=== PATIENT | female | born 1965 | race Caucasian/White ===

== ENCOUNTER → 2017-12-29 08:29 | Outpatient (CLI) | payer OTHER, SELFPAY ==
--- NOTE | 2017-12-29 08:33 | US_ITS ---
US abdomen limited History:Nausea, right upper quadrant pain, bloating Ordering Physician:Bella Goldstein MD Patient Age: 52 years Comparison:10/15/2011 Findings: Pancreas:Unremarkable. No obvious mass or abnormal fluid collection. No ductal dilatation Liver:No focal liver lesions demonstrated. Homogeneous echogenicity. No intrahepatic biliary ductal dilatation evident Right Kidney:Unremarkable. Normal size measuring 9.7 x 4.2 x 6.1 cm and appearing normal sonographically.. No hydronephrosis Gallbladder:The gallbladder is somewhat small and contains a small amount biliary sludge but no definite gallstones. There are no findings to suggest acute cholecystitis. The common bile duct is normal in caliber.. Impression:Small amount biliary sludge no other significant abnormality noted
== END ==
PROVIDERS: Family Provider Family Medicine; PCP Family Medicine; Visit Provider Emergency Medicine
DX: R10.11 Right upper quadrant pain (principal); R19.8 Other specified symptoms and signs involving the digestive system and abdomen; E66.9 Obesity, unspecified
CPT/HCPCS: 76705

== ENCOUNTER → 2018-01-12 10:20 | Outpatient (CLI) | payer OTHER, SELFPAY ==
--- NOTE | 2018-01-12 10:28 | NM_ITS ---
NM hepatobiliary wo pharm HISTORY: Right upper quadrant pain with nausea ITS.REASON: RUQ ABDOMINAL PAIN ORDERING PHYSICIAN: Bella Goldstein MD PATIENT AGE: 52 years COMPARISON: None DOSE: 8.38 MCI TC Choletec Fatty Meal Ensure FINDINGS: Homogeneous activity is present within the hepatic parenchyma. Activity is present in the gallbladder by 20 minutes. Activity is present in the small bowel by 10 minutes. The gallbladder ejection fraction is calculated to be 88% The patient did not report pain or other symptoms during the fatty meal. IMPRESSION: Unremarkable hepatobiliary scan and gallbladder ejection fraction. No evidence of common or cystic duct obstruction with normal gallbladder ejection fraction
--- NOTE | 2018-01-12 10:37 | HMH.ITSHM ---
RAMIPIL THYROID MED CHOLESTEROL MED ASA
== END ==
PROVIDERS: Family Provider Family Medicine; PCP Family Medicine; Visit Provider Emergency Medicine
DX: R10.11 Right upper quadrant pain (principal)
CPT/HCPCS: 78226; A9537

== ENCOUNTER → 2018-01-22 09:21 | Outpatient (CLI) | payer OTHER, SELFPAY ==
--- NOTE | 2018-01-22 09:24 | MM_ITS ---
MM Dig screening mamm BI w/CAD ORDERING PHYSICIAN : Bella Goldstein MD PATIENT AGE: 52 years GENDER: Female COMPARISON: October 2015, September 2012 bilateral digital mammogram INDICATION: ITS.REASON: SCREENING. No hormones. No new complaints. Noncontributory family history. TECHNIQUE: Standard CC and MLO images were obtained. R2 CAD reviewed. FINDINGS: Low-density breast bilaterally with no dominant mass nor suspicious calcifications in either breast. CAD review highlights no areas of concern either. There is been no significant change since prior study noted but. IMPRESSION: Patient stable bilateral mammogram. Low-density breast. Bilateral follow-up in one year recommended. BI-RADS Category: 1 Negative RECOMMENDED FOLLOW-UP: 1YR 1 YEAR FOLLOW-UP (A letter has been sent to the patient regarding results of the study.)
== END ==
PROVIDERS: Family Provider Family Medicine; PCP Family Medicine; Visit Provider Emergency Medicine
DX: Z12.31 Encounter for screening mammogram for malignant neoplasm of breast (principal)
CPT/HCPCS: 77067

== ENCOUNTER 2018-11-29 14:22 | Emergency (ER) | payer OTHER, SELFPAY ==
[2018-11-29 14:38] VITALS: BP 149/88; PULSE 79; RESP 19; TEMP 36.6; O2SAT 97; BMI 69.7
[2018-11-29 14:48] VITALS: BP 149/88; PULSE 79; RESP 19; TEMP 36.6; O2SAT 97
== END 2018-11-29 14:50 | disposition home or self-care (01) ==
LOC: UTC 14:25
PROVIDERS: Emergency Provider Nurse Practitioner; PCP Family Medicine
DX: Z23 Encounter for immunization (principal)
CPT/HCPCS: 90471; 90632; 99201

== ENCOUNTER → 2019-02-04 14:12 | Outpatient (CLI) | payer OTHER, SELFPAY ==
--- NOTE | 2019-02-04 14:20 | XR_ITS ---
PROCEDURE: XR CHEST 2V CLINICAL HISTORY: COPD Productive cough and congestion COMPARISON: No exams were available for comparison FINDINGS: The cardiomediastinal silhouette and pulmonary vascularity are within normal limits. There are scattered nodular densities in the left lower lobe felt to be due to granulomas. No lobar consolidation or collapse. No acute bony abnormalities. IMPRESSION: No acute findings. Dictated by: German Pepe MD 02/04/2019 15:58 Signed by: <Electronically signed by German Pepe MD in [facility]> 02/04/2019 15:58
== END ==
PROVIDERS: PCP Emergency Medicine; Visit Provider Emergency Medicine
DX: J44.1 Chronic obstructive pulmonary disease with (acute) exacerbation (principal)
CPT/HCPCS: 71046

== ENCOUNTER → 2019-11-02 15:04 | Outpatient (CLI) | payer OTHER, SELFPAY ==
--- NOTE | 2019-11-02 15:08 | CT_ITS ---
PROCEDURE: CT SINUS WO CON CLINICAL HISTORY: H/O OF PALSY,SINUS PAIN Recurrence sinus/ear infection, right-sided facial and frontal pain with headache COMPARISON: No exams were available for comparison TECHNIQUE: Axial images obtained with sagittal and coronal reformats. All CT scans at the facility use one or more dose reduction, viz: automated exposure control, ma/kV adjustment per patient size (including targeted exams where dose is matched to indication, i.e. head), or iterative reconstruction technique. FINDINGS: No significant mucosal thickening of the paranasal sinuses. Small air-fluid levels present in the left aspect of the sphenoid sinus. The ostiomeatal complexes are patent. No significant nasal septal deviation. The temporomandibular joints have an unremarkable appearance as do the orbits. Unremarkable appearing mastoid sinuses. Scattered small lymph nodes are present in the neck. IMPRESSION: 1. There is a small air-fluid level in the left aspect of the sphenoid sinus suggesting underlying inflammatory change. 2. Otherwise negative CT paranasal sinuses Dictated by: German Pepe MD 11/03/2019 11:57 Electronically signed by German Pepe MD in [facility] 11/03/2019 11:57
== END ==
PROVIDERS: PCP Family Medicine; Visit Provider Family Medicine
DX: J34.89 Other specified disorders of nose and nasal sinuses (principal); Z86.69 Personal history of other diseases of the nervous system and sense organs
CPT/HCPCS: 70486

== ENCOUNTER → 2019-11-09 10:18 | Outpatient (CLI) | payer OTHER, SELFPAY ==
--- NOTE | 2019-11-09 10:29 | US_ITS ---
PROCEDURE: US SOFT TISSUE HEAD AND NECK CLINICAL INDICATION: LIPOMA OF HEAD Palpable abnormality in the right quaker region the COMPARISON: No exams were available for comparison FINDINGS: Ultrasound is performed of the palpable abnormality in quaker areas show no obvious sonographic abnormalities. No cysts or nodules evident. IMPRESSION: Unremarkable ultrasound of the right quaker region. If there is indeed a palpable nodule then CT may provide further evaluation. Dictated by: German Pepe MD 11/09/2019 13:20 Electronically signed by German Pepe MD in [facility] 11/09/2019 13:20
== END ==
PROVIDERS: PCP Family Medicine; Visit Provider Family Medicine
DX: D17.0 Benign lipomatous neoplasm of skin and subcutaneous tissue of head, face and neck (principal)
CPT/HCPCS: 76536

== ENCOUNTER → 2020-01-26 11:23 | Outpatient (CLI) | payer OTHER, SELFPAY ==
[2020-01-26 13:21] LABS: Basophils % 0.6 % (0.1-2.0); Eosinophils # 0.2 K/mm3 (0.0-0.4); Eosinophils % 3.9 % (0.1-12.0); Hematocrit 46.3 % (37.0-47.0); Hemoglobin 15.3 g/dL (12.2-16.2); Lymphocytes # 0.6 K/mm3 (0.7-4.5); Lymphocytes % 14.1 % (10-50); Mean Corpuscular HGB Conc 33.1 g/dL (31.8-35.4); Mean Corpuscular Hemoglobin 33.8 pg (27.0-31.2); Mean Corpuscular Volume 102.3 fl (81-99); Mean Platelet Volume 7.2 fl (7.4-10.4); Monocytes # 0.4 K/mm3 (0.1-1.0); Neutrophils # 2.8 K/mm3 (1.8-7.8); Neutrophils % 72.4 % (37.0-80.0); Platelet Count 246 K/mm3 (142-424); Red Blood Count 4.53 M/mm3 (4.20-5.40); Red Cell Distribution Width 13.5 % (11.5-17.5); White Blood Count 3.9 K/mm3 (4.8-10.8)
[2020-01-27 13:59] LABS: Covid-19 Nasal PCR Sendout Lex Not Detected
== END ==
PROVIDERS: PCP Family Medicine; Visit Provider Physician Assistant
DX: Z03.818 Encounter for observation for suspected exposure to other biological agents ruled out (principal)
CPT/HCPCS: 85025; U0004

== ENCOUNTER 2020-05-11 12:40 | Emergency (ER) | payer OTHER, SELFPAY ==
[2020-05-11 12:57] VITALS: BP 156/81; PULSE 76; RESP 18; TEMP 37; O2SAT 98; BMI 31.3
--- NOTE | 2020-05-11 13:09 | HMH.EDUTC ---
[facility] – [place] Disposition Clinical Impression: Otitis media Qualifiers: Otitis media type: suppurative Chronicity: acute Laterality: bilateral Recurrence: non-recurrent Spontaneous tympanic membrane rupture: without spontaneous rupture Qualified Code(s): H66.003 - Acute suppurative otitis media without spontaneous rupture of ear drum, bilateral Disposition: Home, Self-Care Condition on Discharge: Good Instructions: Middle Ear Infection Additional Instructions: Drink plenty of fluids. Take tylenol for pain or fever. Return if you begin to have difficulty breathing. Follow up with your regular doctor. GO TO THE ER FOR ANY WORSENING SYMPTOMS Prescriptions: methylPREDNISolone [Medrol] 4 mg PO DIRECTED 6 Days #21 tab.ds.pk Transmission Status: Received by [id number] Azithromycin [Z-Moe 250mg Tab*] 250 mg PO UD DOSE PK #6 tab Transmission Status: Re[facility] by [id number] Referrals: Jennifer Almendarez MD [Primary Care Provider] - Time of Disposition: 13:11 Medical Decision Making - Medical Records Medical records reviewed: No: I reviewed the patient's medical records. - Juan Inquiry Pt receiving controlled substance: No Vital Signs: 05/11/20 12:57 05/11/20 13:15 Temperature 98.6 F 98.6 F Temperature Source Oral Oral Pulse Rate 76 Pulse Rate [Radial] 76 Respiratory Rate 18 18 Blood Pressure 156/81 H Blood Pressure [Right Arm] 156/81 H Blood Pressure Mean [Right Arm] 106 Blood Pressure Source Automatic Cuff Blood Pressure Source [Right Arm] Automatic Cuff Blood Pressure Position Sitting Blood Pressure Position [Right Arm] Sitting 02 Sat by Pulse Oximetry 98 Oxygen Delivery Method Room Air Room Air [facility] – [place] HPI - General Stated complaint: Ear aches Time Seen by Provider: 05/11/20 13:09 Mode of Arrival: Ambulatory Source of Information: Patient Limitations: No Limitations Description of Symptoms (Recalled from Triage Doc. by RN): bilateral ear pain x 2 days HEENT Symptoms (Recalled from RN notes): Yes Resp Symptoms (Recalled from RN notes): No Skin Symptoms (Recalled from RN notes): No MS Symptoms (Recalled from RN notes): No Functional Status (Recalled from RN notes): wnl - History of Present Illness Provider Complaint: She c/o right ear pain for the past 3 days. - Related Data Home Medications Medication Instructions Recorded Confirmed Amlodipine Besylate [Amlodipine 1 tab PO DAILY 07/14/19 07/14/19 5mg tab] Aspirin [Aspirin 81mg chewable 81 mg PO DAILY 12/19/18 12/19/18 tab] Atorvastatin Calcium [Atorvastatin 40 mg PO DAILY 12/19/18 12/19/18 40mg Tab] Levothyroxine Sodium 88 mcg PO DAILY 12/19/18 12/19/18 [Levothyroxine 100mcg (0.1MG) Tab] Ramipril 1 tab PO DAILY 12/19/18 12/19/18 Previous Rx's Medication Instructions Recorded Mineral Oil/Petrolatum,White 1 applic OP HS #1 tube 12/19/18 [Lacrilube Ophth Oint 3.5gm] Valacyclovir HCl [Valtrex] 1,000 mg PO TID 5 Days #15 tab 12/19/18 predniSONE [Prednisone 20mg 80 mg PO DAILY 5 Days #20 tab 12/19/18 Tab] Azithromycin [Z-Moe 250mg Tab*] 250 mg PO UD DOSE PK #6 tab 05/11/20 methylPREDNISolone [Medrol] 4 mg PO DIRECTED 6 Days #21 05/11/20 tab.ds.pk Allergies Allergy/AdvReac Type Severity Reaction Status Date / Time Penicillins Allergy Verified 05/26/18 12:59 - Worker's Comp Is this a Worker's Comp case?: No [facility] History - Hepatitis A Screen Drug use history?: No High risk sexual behaviors?: No History of sexually transmitted infection?: No Currently employed?: No Childcare worker?: No Do you have indoor plumbing?: Yes Do you have electricity?: Yes Attestation statement:: This patient has been screened for Hepatitis A risk factors. I have reviewed the patient's past medical history: Yes - Social History Smoking Status: Current every day smoker Tobacco Type: cigarettes # Packs/Day (cigarettes): 1 Alcohol Intake: never Occupational Status:
[2020-05-11 13:15] VITALS: BP 156/81; PULSE 76; RESP 18; TEMP 37; O2SAT 98
== END 2020-05-11 13:16 | disposition home or self-care (01) ==
PROVIDERS: Emergency Provider Nurse Practitioner Family; PCP Family Medicine
DX: H66.003 Acute suppurative otitis media without spontaneous rupture of ear drum, bilateral (principal); F17.210 Nicotine dependence, cigarettes, uncomplicated; Z88.0 Allergy status to penicillin
CPT/HCPCS: 99201

== ENCOUNTER 2020-07-13 12:32 | Emergency (ER) | payer OTHER, SELFPAY ==
[2020-07-13 12:46] VITALS: BP 197/105; PULSE 76; RESP 14; TEMP 37.1; O2SAT 94; BMI 31.3
--- NOTE | 2020-07-13 12:56 | HMH.EDUTC ---
[facility] [place]ression: Otitis media Qualifiers: Otitis media type: unspecified Laterality: bilateral Qualified Code(s): H66.93 - Otitis media, unspecified, bilateral Disposition: Home, Self-Care Condition on Discharge: Good Instructions: Middle Ear Infections (Alternative Therapy), Middle Ear Infection, Methylprednisolone, Azithromycin Additional Instructions: *Monitor Temp, Over the counter Motrin or Tylenol as directed/as needed Tylenol every 4 hours and Motrin every 6 hours (as long as your family doctor has told you that you can take it) for fever or pain. and straight to ER if unable to lower temp less than 101.0 after medication given *Warm salt water gargles may help to soothe the throat if you are having *Throat Lozenges *Warm fluids like tea with honey may help to soothe the throat *Humidifier/Vaporizer *Flonase 2 sprays in each nostril daily but be aware that it may take 2-3 days before you notice improvement Follow up IMMEDIATELY for new or worsening symptoms or no Noticeable improvement over the next 48-72 hours. 911 for difficulty breathing or swallowing Prescriptions: methylPREDNISolone [Medrol 4mg tab] 4 mg PO DIRECTED #21 tab Transmission Status: [id number] Azithromycin [Z-Moe 250mg Tab] 250 mg PO DIRECTED #6 tab Transmission Status: [id number] Referrals: Jennifer Almendarez MD [Primary Care Provider] - As needed Time of Disposition: 13:03 Medical Decision Making - Juan Inquiry Pt receiving controlled substance: No Juan was queried for this patient: No Vital Signs: 07/13/20 12:46 Temperature 98.7 F Temperature Source Oral Pulse Rate [Left] 76 Respiratory Rate 14 Blood Pressure [Right Arm] 197/105 H Blood Pressure Mean [Right Arm] 135 Blood Pressure Source [Right Arm] Automatic Cuff Blood Pressure Position [Right Arm] Sitting 02 Sat by Pulse Oximetry 94 L Medical Decision Narrative: Patient has taken azithromycin and Medrol dose pack previously without complications or reactions [facility] [place] - General Stated complaint: Ear ache Time Seen by Provider: 07/13/20 12:56 Mode of Arrival: Ambulatory Source of Information: Patient Limitations: No Limitations Description of Symptoms (Recalled from Triage Doc. by RN): pain and pressure in both ears for two days. HEENT Symptoms (Recalled from RN notes): Yes (bilateral ear pain) Resp Symptoms (Recalled from RN notes): No Skin Symptoms (Recalled from RN notes): No MS Symptoms (Recalled from RN notes): No Functional Status (Recalled from RN notes): na - History of Present Illness Provider Complaint: Patient state that she has been having pain and pressure in both ears with worsening of pain in her right ear States that she feels like her ears are full and causing pain down her neck area States that she had similar symptoms like this a few months ago and had ear infection - Related Data Home Medications Medication Instructions Recorded Confirmed Amlodipine Besylate [Amlodipine 1 tab PO DAILY 12/19/18 12/19/18 5mg tab] Aspirin [Aspirin 81mg chewable 81 mg PO DAILY 12/19/18 12/19/18 tab] Atorvastatin Calcium [Atorvastatin 40 mg PO DAILY 12/19/18 12/19/18 40mg Tab] Levothyroxine Sodium 88 mcg PO DAILY 12/19/18 12/19/18 [Levothyroxine 100mcg (0.1MG) Tab] Ramipril 1 tab PO DAILY 12/19/18 12/19/18 Previous Rx's Medication Instructions Recorded Mineral Oil/Petrolatum,White 1 applic OP HS #1 tube 12/19/18 [Lacrilube Ophth Oint 3.5gm] Valacyclovir HCl [Valtrex] 1,000 mg PO TID 5 Days #15 tab 12/19/18 predniSONE [Prednisone 20mg 80 mg PO DAILY 5 Days #20 tab 12/19/18 Tab] Azithromycin [Z-Moe 250mg Tab*] 250 mg PO UD DOSE PK #6 tab 05/11/20 methylPREDNISolone [Medrol] 4 mg PO DIRECTED 6 Days #21 05/11/20 tab.ds.pk Azithromycin [Z-Moe 250mg Tab] 250 mg PO DIRECTED #6 tab 07/13/20 methylPREDNISolone [Medrol 4mg 4 mg PO DIRECTED #21
[2020-07-13 13:06] VITALS: BP 191/98; PULSE 71; RESP 14; TEMP 36.6
== END 2020-07-13 13:13 | disposition home or self-care (01) ==
PROVIDERS: Emergency Provider Nurse Practitioner; PCP Family Medicine
DX: H66.93 Otitis media, unspecified, bilateral (principal); E78.5 Hyperlipidemia, unspecified; I10 Essential (primary) hypertension; F17.210 Nicotine dependence, cigarettes, uncomplicated; Z79.899 Other long term (current) drug therapy
CPT/HCPCS: 99202; G0463

== ENCOUNTER → 2020-09-11 07:03 | Outpatient (CLI) | payer OTHER, SELFPAY ==
[2020-09-11 07:59] LABS: Chloride 108 mmol/L (98-107); Sodium 140 mmol/L (136-145)
[2020-09-11 08:00] LABS: Potassium 4.8 mmoL/L (3.5-5.1)
[2020-09-11 08:02] LABS: Alanine Aminotransferase 17 U/L (12-78); Alkaline Phosphatase 110 U/L (38-126); Anion Gap 6.8 mEq/L (5-15); Aspartate Amino Transferase 25 U/L (14-36); Bilirubin,Total 0.5 mg/dl (0.2-1.3); Blood Urea Nitrogen 18 mg/dl (7-17); Carbon Dioxide 30 mmol/L (22.0-30.0); Cholesterol 184 mg/dl (140-200); Estimated Glomerular Filt Rate 74 ml/min (>60); GFR (African American) 90 ML/MIN (>60); Glucose 95 mg/dl (74-100); Triglycerides 63 mg/dl (30-150); VLDL Cholesterol 13 mg/dL (0-40)
[2020-09-11 08:03] LABS: Albumin Level 4.3 g/dl (3.5-5.0); Calcium 9.2 mg/dl (8.4-10.2); Chol/HDL Ratio 3.2 (1-3.5); Globulin 2.2 g/dL (1.3-3.2); HDL Cholesterol 57 mg/dl (40-60); Total Protein,Serum 6.5 g/dl (6.3-8.2)
[2020-09-11 08:14] LABS: Direct LDL Cholesterol 106.38 mg/dL (100-129)
[2020-09-11 08:19] LABS: Free T4 (Free Thyroxine) 1.09 ng/dl (0.78-2.19)
[2020-09-11 08:34] LABS: Thyroid Stimulating Hormone 6.59 uIU/mL (0.465-4.68)
== END ==
PROVIDERS: Visit Provider Physician Assistant
DX: I10 Essential (primary) hypertension (principal); E03.9 Hypothyroidism, unspecified; E78.5 Hyperlipidemia, unspecified
CPT/HCPCS: 36415; 80053; 80061; 84439; 84443

== ENCOUNTER 2021-01-13 09:04 | Emergency (ER) | payer OTHER, SELFPAY ==
[2021-01-13 09:10] VITALS: BP 149/93; PULSE 86; RESP 19; TEMP 36.7; O2SAT 99; BMI 32.3
--- NOTE | 2021-01-13 09:43 | HMH.EDUTC ---
[facility] – [place] Disposition Clinical Impression: Otitis media Qualifiers: Otitis media type: suppurative Chronicity: acute Laterality: bilateral Recurrence: non-recurrent Spontaneous tympanic membrane rupture: without spontaneous rupture Qualified Code(s): H66.003 - Acute suppurative otitis media without spontaneous rupture of ear drum, bilateral Disposition: Home, Self-Care Condition on Discharge: Good Instructions: Middle Ear Infections (Alternative Therapy) Additional Instructions: Start antibiotic as soon as possible and be sure to take as ordered for full length of time even though he should start feeling better in 24-48 hours. Tylenol or Motrin as needed for pain or fever Encourage fluids, water, Gatorade, Powerade, Pedialyte if /toddler/child Warm compresses often helps when placed over ear Return immediately for new or worsening symptoms no noticeable improvement in 48-72 hours and in 10-14 days to ensure the ears are return to baseline. Follow-up with primary care Prescriptions: cephALEXin [Cephalexin 500mg Tab] 500 mg PO BID 7 Days #14 tab Transmission Status: Pending to [facility]/pharmacy #[id number] Referrals: Jennifer Almendarez MD [Primary Care Provider] - Time of Disposition: 09:51 Medical Decision Making - Juan Inquiry Pt receiving controlled substance: No Vital Signs: 01/13/21 09:10 Temperature 98.1 F Temperature Source Oral Pulse Rate [Right Brachial] 86 Respiratory Rate 19 Blood Pressure [Right Arm] 149/93 H Blood Pressure Mean [Right Arm] 111 Blood Pressure Source [Right Arm] Automatic Cuff Blood Pressure Position [Right Arm] Sitting 02 Sat by Pulse Oximetry 99 Oxygen Delivery Method Room Air [facility] – [place] HPI - General Chief complaint: Urgent [facility] Center Stated complaint: pain in both ears Time Seen by Provider: 01/13/21 09:47 Mode of Arrival: Ambulatory Source of Information: Patient Limitations: No Limitations Description of Symptoms (Recalled from Triage Doc. by RN): PATIENT C/O BILATERAL EARACHE SINCE THURSDAY HEENT Symptoms (Recalled from RN notes): Yes Resp Symptoms (Recalled from RN notes): No Skin Symptoms (Recalled from RN notes): No MS Symptoms (Recalled from RN notes): No Functional Status (Recalled from RN notes): WNL - History of Present Illness Provider Complaint: 55 yr old female presents for hector ear pain for 2 days and becoming worse - Related Data Home Medications Medication Instructions Recorded Confirmed Amlodipine Besylate [Amlodipine 1 tab PO DAILY 07/14/19 07/14/19 5mg tab] Aspirin [Aspirin 81mg chewable 81 mg PO DAILY 12/19/18 12/19/18 tab] Atorvastatin Calcium [Atorvastatin 40 mg PO DAILY 12/19/18 12/19/18 40mg Tab] Levothyroxine Sodium 88 mcg PO DAILY 12/19/18 12/19/18 [Levothyroxine 100mcg (0.1MG) Tab] Ramipril 1 tab PO DAILY 12/19/18 12/19/18 Previous Rx's Medication Instructions Recorded Mineral Oil/Petrolatum,White 1 applic OP HS #1 tube 12/19/18 [Lacrilube Ophth Oint 3.5gm] Valacyclovir HCl [Valtrex] 1,000 mg PO TID 5 Days #15 tab 12/19/18 predniSONE [Prednisone 20mg 80 mg PO DAILY 5 Days #20 tab 12/19/18 Tab] Azithromycin [Z-Moe 250mg Tab*] 250 mg PO UD DOSE PK #6 tab 05/11/20 methylPREDNISolone [Medrol] 4 mg PO DIRECTED 6 Days #21 05/11/20 tab.ds.pk Azithromycin [Z-Moe 250mg Tab] 250 mg PO DIRECTED #6 tab 07/13/20 methylPREDNISolone [Medrol 4mg 4 mg PO DIRECTED #21 tab 07/13/20 tab] cephALEXin [Cephalexin 500mg Tab] 500 mg PO BID 7 Days #14 tab 01/13/21 Allergies Allergy/AdvReac Type Severity Reaction Status Date / Time Penicillins Allergy Verified 07/13/20 12:52 - Worker's Comp Is this a Worker's Comp case?: No [facility] History - Hepatitis A Screen Drug use history?: No High risk sexual behaviors?: No History of sexually transmitted infection?: No Currently employed?: No Childcare worker?: No Do you have indoor plumbing?: Yes Do you have electricity?: Yes Attestation statement:: This
[2021-01-13 09:54] VITALS: BP 149/93; PULSE 86; RESP 19; TEMP 36.7; O2SAT 99
== END 2021-01-13 09:57 | disposition home or self-care (01) ==
PROVIDERS: Emergency Provider Nurse Practitioner Family; PCP Family Medicine
DX: H66.003 Acute suppurative otitis media without spontaneous rupture of ear drum, bilateral (principal); F17.210 Nicotine dependence, cigarettes, uncomplicated; Z88.0 Allergy status to penicillin
CPT/HCPCS: 99202; G0463

== ENCOUNTER → 2021-04-09 14:35 | Outpatient (CLI) | payer OTHER, SELFPAY ==
--- NOTE | 2021-04-09 14:41 | XR_ITS ---
PROCEDURE: XR CHEST PORTABLE CLINICAL HISTORY: COVID TESTING COMPARISON: CR XR CHEST 2V from 02/04/2019 FINDINGS: The cardiomediastinal silhouette and pulmonary vascularity are within normal limits. The lungs are clear without infiltrates, suspicious nodules, or pleural effusions. No acute bony abnormalities. IMPRESSION: No acute findings. Dictated by: German Pepe MD 04/09/2021 16:43 German Pepe MD in [place] 04/09/2021 16:43
[2021-04-09 16:08] LABS: Adenovirus,PCR Not Detected (NotDetected); Bordetella Pertussis Not Detected (NotDetected); Chlamydophila Pneumoniae, PCR Not Detected (NotDetected); Coronavirus 19, PCR Not Detected (NotDetected); Coronavirus 229E Not Detected (NotDetected); Coronavirus NL63 Not Detected (NotDetected); Coronavirus OC43 Not Detected (NotDetected); Coronovirus HKU1,PCR Not Detected (NotDetected); Human Metapneumovirus Not Detected (NotDetected); Influenza A, PCR Not Detected (NotDetected); Influenza AH1, 2009 Not Detected (NotDetected); Influenza AH1, PCR Not Detected (NotDetected); Influenza AH3,PCR Not Detected (NotDetected); Influenza B, PCR Not Detected (NotDetected); Mycoplasma Pneumoniae, PCR Not Detected (NotDetected); Parainfluenza 1, PCR Not Detected (NotDetected); Parainfluenza 2, PCR Not Detected (NotDetected); Parainfluenza 3, PCR Not Detected (NotDetected); Parainfluenza 4, PCR Not Detected (NotDetected); Respiratory Syncytial Virus Not Detected (NotDetected)
[2021-04-09 17:54] LABS: Rhinovirus/Enterovirus Detected (NotDetected)
[2021-04-09 19:43] LABS: Basophils % 0.4 % (0.1-2.0); Eosinophils # 0.1 K/mm3 (0.0-0.4); Eosinophils % 1.2 % (0.1-12.0); Hematocrit 49.2 % (37.0-47.0); Hemoglobin 15.5 g/dL (12.2-16.2); Lymphocytes # 1.3 K/mm3 (0.7-4.5); Lymphocytes % 14.5 % (10-50); Mean Corpuscular HGB Conc 31.5 g/dL (31.8-35.4); Mean Corpuscular Hemoglobin 32.7 pg (27.0-31.2); Mean Corpuscular Volume 103.9 fl (81-99); Mean Platelet Volume 7.5 fl (7.4-10.4); Monocytes # 0.7 K/mm3 (0.1-1.0); Monocytes % 7.8 % (1.7-9.3); Neutrophils # 6.7 K/mm3 (1.8-7.8); Neutrophils % 76.2 % (37.0-80.0); Platelet Count 305 K/mm3 (142-424); Red Blood Count 4.73 M/mm3 (4.20-5.40); White Blood Count 8.8 K/mm3 (4.8-10.8)
== END ==
PROVIDERS: PCP Family Medicine; Visit Provider Nurse Practitioner Family
DX: Z20.822 Contact with and (suspected) exposure to COVID-19 (principal); B34.1 Enterovirus infection, unspecified
CPT/HCPCS: 36415; 71045; 85025; 87581; 87632; 87798; C9803; U0003; U0005

== ENCOUNTER → 2021-06-26 11:37 | Outpatient (CLI) | payer OTHER, SELFPAY | PROVIDERS: Visit Provider Nurse Practitioner | DX: Z20.822 Contact with and (suspected) exposure to COVID-19 (principal) | CPT/HCPCS: C9803; U0003; U0005 ==

== ENCOUNTER 2021-07-21 10:30 | Emergency (ER) | payer OTHER, SELFPAY ==
--- NOTE | 2021-07-21 10:38 | HMH.EDUTC ---
[facility] [place] Clinical Impression: Exposure to COVID-19 virus Sinusitis Qualifiers: Sinusitis location: unspecified location Chronicity: acute Recurrence: non-recurrent Qualified Code(s): J01.90 - Acute sinusitis, unspecified Disposition: Home, Self-Care Condition on Discharge: Good Instructions: DI for Sinusitis Additional Instructions: Drink plenty of fluids. Take tylenol or ibuprofen for pain or fever. Take the medications as directed. Follow up with your regular doctor. GO TO THE ER FOR ANY WORSENING SYMPTOMS Quarantine until you know the results of your covid-19 test. Notify your school or workplace of your results and follow their instructions regarding return to work/school. Don't start the oral steroids until tomorrow, since you had the shot here today. The cough medication (promethazine dm) will make you drowsy, so don't drive or operate heavy machinery after taking it. Prescriptions: Promethazine/Dextromethorphan [Promethazine-Dm Syrup] 5 ml PO Q6HP PRN #240 ml PRN Reason: Cough Transmission Status: [id number] methylPREDNISolone [Medrol] 4 mg PO DIRECTED 6 Days #21 packet Transmission Status: Received by [facility] #[id number] Azithromycin [Z-Moe 250mg Tab*] 250 mg PO UD DOSE PK #6 tab Transmission Status: Received by [facility] #[id number] Referrals: Jennifer Almendarez MD [Primary Care Provider] - Forms: Work/School Release Time of Disposition: 11:41 Medical Decision Making - Medical Records Medical records reviewed: No: I reviewed the patient's medical records. - Juan Inquiry Pt receiving controlled substance: No Vital Signs: 07/21/21 10:50 07/21/21 11:50 Temperature 98.8 F 98.8 F Temperature Source Oral Pulse Rate 88 Pulse Rate [Left] 88 Respiratory Rate 16 16 Blood Pressure 190/98 H Blood Pressure [Right Arm] 190/98 H Blood Pressure Mean [Right Arm] 128 02 Sat by Pulse Oximetry 95 - Lab Data Lab results reviewed: Yes: I reviewed the patient's lab results. Orders (Tests/Meds): ED MEDICATIONS Discontinued Medications Generic Name Dose Route Start Last Admin Trade Name Freq PRN Reason Stop Dose Admin Methylprednisolone Sodium Succinate 125 mg 07/21/21 11:20 07/21/21 11:43 Methylprednisolone Sod Succ 125mg Vial IM 07/21/21 11:21 125 mg ONCE ONE Administration ORDERS Category Date Time Status Covid-19 Nasal PCR ([facility]) Routine Lab 07/21/21 11:47 Received [facility] [place] - General Stated complaint: cough, congestion, sneezing Time Seen by Provider: 07/21/21 10:38 - History of Present Illness Provider Complaint: She states that for the past 1 day, she has had sinus congestion, scratchy sore throat, chest congestion, and a nonproductive cough. - Related Data Home Medications Medication Instructions Recorded Confirmed Amlodipine Besylate [Amlodipine 1 tab PO DAILY 12/19/18 12/19/18 5mg tab] Aspirin [Aspirin 81mg chewable 81 mg PO DAILY 12/19/18 12/19/18 tab] Atorvastatin Calcium [Atorvastatin 40 mg PO DAILY 12/19/18 12/19/18 40mg Tab] Levothyroxine Sodium 88 mcg PO DAILY 12/19/18 12/19/18 [Levothyroxine 100mcg (0.1MG) Tab] Ramipril 1 tab PO DAILY 12/19/18 12/19/18 Previous Rx's Medication Instructions Recorded Mineral Oil/Petrolatum,White 1 applic OP HS #1 tube 12/19/18 [Lacrilube Ophth Oint 3.5gm] Valacyclovir HCl [Valtrex] 1,000 mg PO TID 5 Days #15 tab 12/19/18 predniSONE [Prednisone 20mg 80 mg PO DAILY 5 Days #20 tab 12/19/18 Tab] Azithromycin [Z-Moe 250mg Tab*] 250 mg PO UD DOSE PK #6 tab 05/11/20 methylPREDNISolone [Medrol] 4 mg PO DIRECTED 6 Days #21 05/11/20 tab.ds.pk Azithromycin [Z-Moe 250mg Tab] 250 mg PO DIRECTED #6 tab 07/13/20 methylPREDNISolone [Medrol 4mg 4 mg PO DIRECTED #21 tab 07/13/20 tab] cephALEXin [Cephalexin 500mg Tab] 500 mg PO BID 7 Days #14 tab 01/13/21 Azithromycin [Z-Moe 250mg Tab*] 250 mg PO UD DOSE PK #6 tab 0
[2021-07-21 10:50] VITALS: BP 190/98; PULSE 88; RESP 16; TEMP 37.1; O2SAT 95; BMI 32.3
[2021-07-21 11:50] VITALS: BP 190/98; PULSE 88; RESP 16; TEMP 37.1
== END 2021-07-21 11:52 | disposition home or self-care (01) ==
PROVIDERS: Emergency Provider Nurse Practitioner Family; PCP Family Medicine
DX: J01.90 Acute sinusitis, unspecified (principal); F17.210 Nicotine dependence, cigarettes, uncomplicated; Z20.822 Contact with and (suspected) exposure to COVID-19
CPT/HCPCS: 96372; 99202; C9803; G0463; U0003; U0005

== ENCOUNTER 2021-08-05 10:59 | Emergency (ER) | payer OTHER, SELFPAY ==
[2021-08-05 11:08] VITALS: BP 148/91; PULSE 81; RESP 16; TEMP 36.9; O2SAT 98; BMI 31.4
--- NOTE | 2021-08-05 11:28 | HMH.EDUTC ---
[facility] [place] Disposition Clinical Impression: Folliculitis Disposition: Home, Self-Care Condition on Discharge: Good Instructions: Cephalexin, Folliculitis, DI for Folliculitis Additional Instructions: Over the counter Topical medication like hydrocortisone or lotrimin ( metronidazole) may help with itching and infection Take medication as prescribed Follow up with Family Doctor if no improvement or any worsening of symptoms Return if needed Straight to ER if any life threatening symptoms Prescriptions: cephALEXin [cephALEXin 500mg capsule*] 500 mg PO Q8HP 10 Days #30 cap Transmission Status: Re[facility] by [id number] methylPREDNISolone [Medrol 4mg tab] 4 mg PO DIRECTED #21 tab Transmission Status: Received by [id number] Referrals: Jennifer Almendarez MD [Primary Care Provider] - As needed Time of Disposition: 11:44 Medical Decision Making - Juan Inquiry Pt receiving controlled substance: No Juan was queried for this patient: No Vital Signs: 08/05/21 11:08 08/05/21 11:49 Temperature 98.5 F 98.5 F Temperature Source Oral Oral Pulse Rate 81 Pulse Rate [Right Radial] 81 Respiratory Rate 16 16 Blood Pressure 148/91 H Blood Pressure [Right Arm] 148/91 H Blood Pressure Mean [Right Arm] 110 Blood Pressure Source Automatic Cuff Blood Pressure Source [Right Arm] Automatic Cuff Blood Pressure Position Sitting Blood Pressure Position [Right Arm] Sitting 02 Sat by Pulse Oximetry 98 Oxygen Delivery Method Room Air Room Air Medical Decision Narrative: Patient states that she is allergic to PCN but has taken cephalexin in the past without complications or reactions [facility] [place] HPI - General Stated complaint: hives Time Seen by Provider: 08/05/21 11:28 Mode of Arrival: Ambulatory Source of Information: Patient Limitations: No Limitations Description of Symptoms (Recalled from Triage Doc. by RN): Pt stated that she has a rash under arms, and around breast. This started on thursday. She stated that it itches and in a line. HEENT Symptoms (Recalled from RN notes): No Resp Symptoms (Recalled from RN notes): No Skin Symptoms (Recalled from RN notes): Yes (rash) MS Symptoms (Recalled from RN notes): No Functional Status (Recalled from RN notes): n/a - History of Present Illness Provider Complaint: Patient states that she noticed she had a rash under both arms and under both breasts States that rash is small red raised bump like areas that are itchy States that it hasnt spread anywhere yet just mainly under both arms and under breast - Related Data Home Medications Medication Instructions Recorded Confirmed Amlodipine Besylate [Amlodipine 1 tab PO DAILY 12/19/18 12/19/18 5mg tab] Aspirin [Aspirin 81mg chewable 81 mg PO DAILY 12/19/18 12/19/18 tab] Atorvastatin Calcium [Atorvastatin 40 mg PO DAILY 12/19/18 12/19/18 40mg Tab] Levothyroxine Sodium 88 mcg PO DAILY 12/19/18 12/19/18 [Levothyroxine 100mcg (0.1MG) Tab] Ramipril 1 tab PO DAILY 12/19/18 12/19/18 Previous Rx's Medication Instructions Recorded Mineral Oil/Petrolatum,White 1 applic OP HS #1 tube 12/19/18 [Lacrilube Ophth Oint 3.5gm] cephALEXin [cephALEXin 500mg 500 mg PO Q8HP 10 Days #30 cap 08/05/21 capsule*] methylPREDNISolone [Medrol 4mg 4 mg PO DIRECTED #21 tab 08/05/21 tab] Allergies Allergy/AdvReac Type Severity Reaction Status Date / Time Penicillins Allergy Verified 08/05/21 11:14 - Worker's Comp Is this a Worker's Comp case?: No Is this an H Worker's Comp?: No Is this a [place] Worker's Comp?: No [facility] History - Hepatitis A Screen Drug use history?: No High risk sexual behaviors?: No History of sexually transmitted infection?: No Currently employed?: No Childcare worker?: No Do you have indoor plumbing?: Yes Do you have electricity?: Yes Attestation statement:: This patient has been screened for Hepatitis A risk factors. I have reviewed the patient's past me
[2021-08-05 11:49] VITALS: BP 148/91; PULSE 81; RESP 16; TEMP 36.9; O2SAT 98
== END 2021-08-05 11:49 | disposition home or self-care (01) ==
PROVIDERS: Emergency Provider Nurse Practitioner; PCP Family Medicine
DX: L73.9 Follicular disorder, unspecified (principal); F17.210 Nicotine dependence, cigarettes, uncomplicated
CPT/HCPCS: 99212; G0463

== ENCOUNTER 2021-11-12 17:58 | Emergency (ER) | payer OTHER, SELFPAY ==
[2021-11-12 18:10] VITALS: BP 140/96; PULSE 101; RESP 17; TEMP 36.5; O2SAT 98; BMI 29.5
--- NOTE | 2021-11-12 18:18 | XR_ITS ---
PROCEDURE INFORMATION: Exam: XR Right Foot Exam date and time: 11/12/2021 6:30 PM Age: 55 years old Clinical indication: Injury or trauma; Fall; Blunt trauma; Patient HX: Twisted right foot while attempting to stand up, right foot very swollen. TECHNIQUE: Imaging protocol: XR Right foot. Views: 3 or more views. COMPARISON: CR XR ANKLE RT MIN 3V 11/12/2021 6:28 PM FINDINGS: Bones/joints: Chronic appearing osseous deformity at the head of the 5th metatarsal. No other acutely displaced fractures are identified. There is no evidence of joint dislocation. No aggressive osseous lesions. Large plantar calcaneal spur. Soft tissues: There is no significant soft tissue swelling. IMPRESSION: 1. Findings at the head of the 5th metatarsal favor a chronic etiology. Consider correlation with any point tenderness. 2. No acute skeletal pathology otherwise identified.
--- NOTE | 2021-11-12 18:18 | XR_ITS ---
PROCEDURE INFORMATION: Exam: XR Right Ankle Exam date and time: 11/12/2021 6:28 PM Age: 55 years old Clinical indication: Injury or trauma; Other: Twisted right ankle attempting to stand up. Blunt trauma; Additional info: Fall TECHNIQUE: Imaging protocol: XR Right ankle. Views: 3 or more views. COMPARISON: No relevant prior studies available. FINDINGS: Bones/joints: Chronic appearing osseous changes at the head of the 5th metatarsal. Consider correlation with point tenderness. No other acutely displaced fractures are identified. There is no evidence of joint dislocation. No aggressive osseous lesions. Large plantar calcaneal spur. Soft tissues: There is no significant soft tissue swelling. IMPRESSION: 1. Findings at the head of the 5th metatarsal are favored to be of chronic etiology. Consider correlation with point tenderness. 2. No other acute skeletal pathology identified.
--- NOTE | 2021-11-12 18:55 | HMH.EDUTC ---
[facility] [place] Disposition Clinical Impression: Foot sprain Qualifiers: Encounter type: initial encounter Laterality: right Qualified Code(s): S93.601A - Unspecified sprain of right foot, initial encounter Disposition: Home, Self-Care Condition on Discharge: Good Instructions: How To Perform RICE (Rest, Ice, Compress, Elevate), How to Apply an Javi Wrap Additional Instructions: *weight bearing as tolerated *RICE, Rest the extremity, Ice 15-20 minutes 3-4 times daily, Compress- wear the javi wrap as discussed as much as possible to help reduce swelling and pain, Elevate the extremity when at rest *Javi wrap is for support and help control swelling, use it except in the shower. Be sure that is not to tight but not to loose either *Elevate when resting *Ibuprofen 600-800mg every 6-8 hours as needed for pain an inflammation. If need something more can take Tylenol in between doses of Ibuprofen to help Immediately follow up with your family doctor for new or worsening of symptoms, or no noticeable improvement over the next 3-5 days Follow up your Family Doctor if no improvement or any worsening of symptoms Referrals: Jennifer Almendarez MD [Primary Care Provider] - As needed Forms: Work/School Release Time of Disposition: 19:46 Medical Decision Making - Juan Inquiry Pt receiving controlled substance: No Juan was queried for this patient: No Vital Signs: 11/12/21 18:10 Temperature 97.7 F Temperature Source Oral Pulse Rate [Right Brachial] 101 H Respiratory Rate 17 Blood Pressure [Right Arm] 140/96 H Blood Pressure Mean [Right Arm] 110 Blood Pressure Source [Right Arm] Automatic Cuff Blood Pressure Position [Right Arm] Sitting 02 Sat by Pulse Oximetry 98 Oxygen Delivery Method Room Air - Radiology Data #1 Image(s): Ankle Image Reviewed: Yes I have reviewed radiologist's interpretation IMPRESSION: 1. Findings at the head of the 5th metatarsal are favored to be of chronic etiology. Consider correlation with point tenderness. 2. No other acute skeletal pathology identified. #2 Image(s): Foot/Toes Image Reviewed: Yes I have reviewed radiologist's interpretation IMPRESSION: 1. Findings at the head of the 5th metatarsal favor a chronic etiology. Consider correlation with any point tenderness. 2. No acute skeletal pathology otherwise identified. [facility] [place] HPI - General Stated complaint: AO 1300 Hurt R akle/foot Time Seen by Provider: 11/12/21 18:40 Mode of Arrival: Ambulatory Source of Information: Patient Limitations: No Limitations Description of Symptoms (Recalled from Triage Doc. by RN): PATIENT C/O RIGHT FOOT PAIN AFTER TWISTING HER ANKLE/FOOT TODAY HEENT Symptoms (Recalled from RN notes): No Resp Symptoms (Recalled from RN notes): No Skin Symptoms (Recalled from RN notes): No MS Symptoms (Recalled from RN notes): Yes Functional Status (Recalled from RN notes): WNL - History of Present Illness Provider Complaint: Patient states that she was sitting on the floor holding her grandchild and as she went to get up she rolled her right foot States that ever since she has been having pain in the top of her right foot shooting into her ankle area State that hurts when she puts weight on it so she came in to get it checked - Related Data Home Medications Medication Instructions Recorded Confirmed Amlodipine Besylate [Amlodipine 1 tab PO DAILY 12/19/18 12/19/18 5mg tab] Aspirin [Aspirin 81mg chewable 81 mg PO DAILY 12/19/18 12/19/18 tab] Atorvastatin Calcium [Atorvastatin 40 mg PO DAILY 12/19/18 12/19/18 40mg Tab] Levothyroxine Sodium 88 mcg PO DAILY 12/19/18 12/19/18 [Levothyroxine 100mcg (0.1MG) Tab] Ramipril 1 tab PO DAILY 12/19/18 12/19/18 Previous Rx's Medication Instructions Recorded Mineral Oil/Petrolatum,White 1 applic OP HS #1 tube 12/19/18 [Lacrilube Ophth Oint 3.5gm] cephALEXin [cephALEXin 500mg 500 mg PO Q8HP 10 Days #30 cap 08/05/21 capsule*] methylPREDNISol
[2021-11-12 19:48] VITALS: BP 140/96; PULSE 101; RESP 17; TEMP 36.5; O2SAT 98
== END 2021-11-12 19:54 | disposition home or self-care (01) ==
PROVIDERS: Emergency Provider Nurse Practitioner; PCP Family Medicine
DX: S93.601A Unspecified sprain of right foot, initial encounter (principal)
CPT/HCPCS: 73610; 73630; 99212; G0463

== ENCOUNTER 2021-12-02 12:55 | Emergency (ER) | payer OTHER, SELFPAY ==
[2021-12-02 13:03] VITALS: BP 135/75; PULSE 102; RESP 19; TEMP 36.9; O2SAT 95; BMI 31.3
--- NOTE | 2021-12-02 13:21 | HMH.EDUTC ---
[facility] [place] Disposition Clinical Impression: Sinusitis Qualifiers: Sinusitis location: unspecified location Chronicity: acute Recurrence: non-recurrent Qualified Code(s): J01.90 - Acute sinusitis, unspecified Disposition: Home, Self-Care Condition on Discharge: Good Instructions: DI for Sinusitis Additional Instructions: Drink plenty of fluids. Take tylenol or ibuprofen for pain or fever. Take the medications as directed. Follow up with your regular doctor. GO TO THE ER FOR ANY WORSENING SYMPTOMS Don't start the oral steroids until tomorrow, since you had the shot here today. The cough medication (promethazine dm) will make you drowsy, so don't drive or operate heavy machinery after taking it. Prescriptions: Promethazine/Dextromethorphan [Promethazine-Dm Syrup] 5 ml PO Q6HP PRN #240 ml PRN Reason: Cough Transmission Status: [id number] methylPREDNISolone [Medrol] 4 mg PO DIRECTED 6 Days #21 packet Transmission Status: Received by [id number] guaiFENesin [Mucinex 600mg tablet] 1 - 2 tab PO BIDP PRN #30 tab PRN Reason: Congestion Transmission Status: Received by [id number] Cefdinir [Omnicef 300mg Capsule] 300 mg PO BID #20 cap Transmission Status: Received by [id number] Referrals: Jennifer Almendarez MD [Primary Care Provider] - Time of Disposition: 14:09 Medical Decision Making - Medical Records Medical records reviewed: No: I reviewed the patient's medical records. - Juan Inquiry Pt receiving controlled substance: No Vital Signs: 12/02/21 13:03 12/02/21 14:13 Temperature 98.5 F 98.5 F Temperature Source Oral Pulse Rate 102 H Pulse Rate [Left] 102 H Respiratory Rate 19 19 Blood Pressure 135/75 Blood Pressure [Right Arm] 135/75 Blood Pressure Mean [Right Arm] 95 02 Sat by Pulse Oximetry 95 - Lab Data Lab results reviewed: Yes: I reviewed the patient's lab results. Orders (Tests/Meds): ED MEDICATIONS Discontinued Medications Generic Name Dose Route Start Last Admin Trade Name Freq PRN Reason Stop Dose Admin Methylprednisolone Sodium Succinate 125 mg 12/02/21 14:02 12/02/21 14:08 Methylprednisolone Sod Succ 125mg Vial IM 12/02/21 14:03 125 mg ONCE ONE Administration [facility] [place] HPI - General Stated complaint: sinus congestion, nausea Time Seen by Provider: 12/02/21 13:21 Description of Symptoms (Recalled from Triage Doc. by RN): patient comes in with complaints of cough and sinus congestion/pressure. symptoms began yesterday HEENT Symptoms (Recalled from RN notes): Yes Resp Symptoms (Recalled from RN notes): Yes Skin Symptoms (Recalled from RN notes): No MS Symptoms (Recalled from RN notes): No Functional Status (Recalled from RN notes): wnl - History of Present Illness Provider Complaint: She c/o sinus congestion, sore throat and chest congestion for the past 2 days. - Related Data Home Medications Medication Instructions Recorded Confirmed Amlodipine Besylate [Amlodipine 1 tab PO DAILY 12/19/18 12/19/18 5mg tab] Aspirin [Aspirin 81mg chewable 81 mg PO DAILY 12/19/18 12/19/18 tab] Atorvastatin Calcium [Atorvastatin 40 mg PO DAILY 12/19/18 12/19/18 40mg Tab] Levothyroxine Sodium 88 mcg PO DAILY 12/19/18 12/19/18 [Levothyroxine 100mcg (0.1MG) Tab] Ramipril 1 tab PO DAILY 12/19/18 12/19/18 Previous Rx's Medication Instructions Recorded Mineral Oil/Petrolatum,White 1 applic OP HS #1 tube 12/19/18 [Lacrilube Ophth Oint 3.5gm] cephALEXin [cephALEXin 500mg 500 mg PO Q8HP 10 Days #30 cap 08/05/21 capsule*] methylPREDNISolone [Medrol 4mg 4 mg PO DIRECTED #21 tab 08/05/21 tab] Cefdinir [Omnicef 300mg Capsule] 300 mg PO BID #20 cap 12/02/21 Promethazine/Dextromethorphan 5 ml PO Q6HP PRN #240 ml 12/02/21 [Promethazine-Dm Syrup] guaiFENesin [Mucinex 600mg tablet] 1 - 2 tab PO BIDP PRN #30 tab 12/02/21 methylPREDNISolone [Medrol] 4 mg PO DIRECTED 6 Days
[2021-12-02 14:13] VITALS: BP 135/75; PULSE 102; RESP 19; TEMP 36.9
== END 2021-12-02 14:14 | disposition home or self-care (01) ==
PROVIDERS: Emergency Provider Nurse Practitioner Family; PCP Family Medicine
DX: J01.90 Acute sinusitis, unspecified (principal)
CPT/HCPCS: 96372; 99212; G0463

== ENCOUNTER 2021-12-08 08:00 | Emergency (ER) | payer OTHER, SELFPAY ==
--- NOTE | 2021-12-08 08:16 | XR_ITS ---
PROCEDURE INFORMATION: Exam: XR Chest Exam date and time: 12/08/2021 8:16 AM Age: 55 years old Clinical indication: Cough TECHNIQUE: Imaging protocol: Radiologic exam of the chest. Views: 2 views. COMPARISON: CR XR CHEST PORTABLE 04/09/2021 2:54 PM FINDINGS: Lungs: COPD, interstitial prominence, and chronic granulomatous disease. No focal infiltrate. Pleural spaces: No pleural effusion. Heart/Mediastinum: No cardiomegaly. Bones/joints: Mild degenerative change. IMPRESSION: COPD, interstitial prominence, and chronic granulomatous disease.
[2021-12-08 08:17] VITALS: BP 145/80; PULSE 110; RESP 18; TEMP 36.8; O2SAT 95; BMI 31.3
--- NOTE | 2021-12-08 08:43 | HMH.EDUTC ---
[facility] [place] Disposition Clinical Impression: Bronchitis, COVID-19 Disposition: Home, Self-Care Condition on Discharge: Good Instructions: Sinusitis, DI for Acute Bronchitis Additional Instructions: Drink plenty of fluids. Take tylenol or ibuprofen for pain or fever. Take the medications as directed. Follow up with your regular doctor. GO TO THE ER FOR ANY WORSENING SYMPTOMS Referrals: Jennifer Almendarez MD [Primary Care Provider] - Forms: Work/School Release Time of Disposition: 09:14 Medical Decision Making - Medical Records Medical records reviewed: No: I reviewed the patient's medical records. - Juan Inquiry Pt receiving controlled substance: No Vital Signs: 12/08/21 08:17 12/08/21 09:26 Temperature 98.3 F 98.3 F Temperature Source Oral Pulse Rate 110 H Pulse Rate [Left] 110 H Respiratory Rate 18 18 Blood Pressure 145/80 H Blood Pressure [Right Arm] 145/80 H Blood Pressure Mean [Right Arm] 101 02 Sat by Pulse Oximetry 95 - Lab Data Lab results reviewed: Yes: I reviewed the patient's lab results. Lab Results 12/08/21 09:04: Chlamy pneumoniae PCR Not detected, Adenovirus (PCR) Not detected, B. pertussis DNA (PCR) Not detected, Coronavirus OC43 (PCR) Not detected, Coronavirus HKU1 (PCR) Not detected, Coronavirus 229E (PCR) Not detected, SARS-CoV-2 (PCR) Detected A, Coronavirus NL63 (PCR) Not detected, Human Metapneumovir PCR Not detected, Influenza A (H1) PCR Not detected, Influ A (H1N1/09) PCR Not detected, Influenza A (H3) PCR Not detected, Influenza Type A (PCR) Not detected, Influenza Type B (PCR) Not detected, M. pneumoniae (PCR) Not detected, Parainfluenza 1 (PCR) Not detected, Parainfluenza 2 (PCR) Not detected, Parainfluenza 3 (PCR) Not detected, Parainfluenza 4 (PCR) Not detected, RSV (PCR) Not detected, Entero/Rhino (PCR) Not detected Orders (Tests/Meds): ED MEDICATIONS Discontinued Medications Generic Name Dose Route Start Last Admin Trade Name Freq PRN Reason Stop Dose Admin Ceftriaxone Sodium 1 gm 12/08/21 09:02 12/08/21 09:18 Ceftriaxone 1gm Vial IM 12/08/21 09:03 1 gm ONCE ONE Administration Dexamethasone Sodium Phosphate 4 mg 12/08/21 09:02 12/08/21 09:18 Dexamethasone 4mg/Ml 1ml Vial IM 12/08/21 09:03 4 mg ONCE ONE Administration Lidocaine HCl 0 ml 12/08/21 09:02 12/08/21 09:18 Lidocaine 1% 5ml Pf Vial IM 12/08/21 09:03 2 ml ONCE ONE Administration [facility] [place] HPI - General Stated complaint: cough, congestion Time Seen by Provider: 12/08/21 08:43 Description of Symptoms (Recalled from Triage Doc. by RN): patient comes in today for sinus and cold. patient was seen here last thursday, and has continued to feel bad. patient was exposed to a coworker with covid on 12/06/21 HEENT Symptoms (Recalled from RN notes): Yes Resp Symptoms (Recalled from RN notes): Yes Skin Symptoms (Recalled from RN notes): No MS Symptoms (Recalled from RN notes): No Functional Status (Recalled from RN notes): wnl - History of Present Illness Provider Complaint: She states that for the past 2 days she has had sinus congstion, body aches, and chills. - Related Data Home Medications Medication Instructions Recorded Confirmed Amlodipine Besylate [Amlodipine 1 tab PO DAILY 12/19/18 12/19/18 5mg tab] Aspirin [Aspirin 81mg chewable 81 mg PO DAILY 12/19/18 12/19/18 tab] Atorvastatin Calcium [Atorvastatin 40 mg PO DAILY 12/19/18 12/19/18 40mg Tab] Levothyroxine Sodium 88 mcg PO DAILY 12/19/18 12/19/18 [Levothyroxine 100mcg (0.1MG) Tab] Ramipril 1 tab PO DAILY 12/19/18 12/19/18 Previous Rx's Medication Instructions Recorded Mineral Oil/Petrolatum,White 1 applic OP HS #1 tube 12/19/18 [Lacrilube Ophth Oint 3.5gm] cephALEXin [cephALEXin 500mg 500 mg PO Q8HP 10 Days #30 cap 08/05/21 capsule*] methylPREDNISolone [Medrol 4mg 4 mg PO DIRECTED #21 tab 08/05/21 tab] Cefdinir [Omnicef 300mg Capsule] 300 mg PO BID
[2021-12-08 09:11] LABS: Adenovirus,PCR Not Detected (NotDetected); Bordetella Pertussis Not Detected (NotDetected); Chlamydophila Pneumoniae, PCR Not Detected (NotDetected); Coronavirus 229E Not Detected (NotDetected); Coronavirus NL63 Not Detected (NotDetected); Coronavirus OC43 Not Detected (NotDetected); Coronovirus HKU1,PCR Not Detected (NotDetected); Human Metapneumovirus Not Detected (NotDetected); Influenza A, PCR Not Detected (NotDetected); Influenza AH1, 2009 Not Detected (NotDetected); Influenza AH1, PCR Not Detected (NotDetected); Influenza AH3,PCR Not Detected (NotDetected); Influenza B, PCR Not Detected (NotDetected); Mycoplasma Pneumoniae, PCR Not Detected (NotDetected); Parainfluenza 1, PCR Not Detected (NotDetected); Parainfluenza 2, PCR Not Detected (NotDetected); Parainfluenza 3, PCR Not Detected (NotDetected); Parainfluenza 4, PCR Not Detected (NotDetected); Respiratory Syncytial Virus Not Detected (NotDetected); Rhinovirus/Enterovirus Not Detected (NotDetected)
[2021-12-08 09:26] VITALS: BP 145/80; PULSE 110; RESP 18; TEMP 36.8
[2021-12-08 13:25] LABS: Coronavirus 19, PCR Detected (NotDetected)
== END 2021-12-08 09:28 | disposition home or self-care (01) ==
PROVIDERS: Emergency Provider Nurse Practitioner Family; PCP Family Medicine
DX: J40 Bronchitis, not specified as acute or chronic (principal); U07.1 COVID-19; R05.9 Cough, unspecified; R09.89 Other specified symptoms and signs involving the circulatory and respiratory systems
CPT/HCPCS: 71046; 87581; 87632; 87798; 96372; 99212; C9803; G0463; J0696; U0003; U0005

== ENCOUNTER 2021-12-12 06:40 | Inpatient (IN) | payer OTHER, SELFPAY ==
[2021-12-12] VITALS (23 sets, daily range): BP systolic 123–181; BP diastolic 63–115; PULSE 46–109; RESP 17–22; TEMP 36.8–36.9; O2SAT 87–97; BMI 31.3; BMI 26.4
--- NOTE | 2021-12-12 06:55 | CT_ITS ---
FINAL REPORT TECHNIQUE: Then section axial CT images of the chest were obtained with contrast. Three-D reformatted images were also obtained.This study was performed with techniques to keep radiation doses as low as reasonably achievable (ALARA). Individualized dose reduction techniques using automated exposure control or adjustment of mA and/or kV according to the patient''s size were employed. CLINICAL HISTORY: SOA covid + FINDINGS: There is no evidence of pulmonary embolism. The lower lobe branches are partially obscured by motion. There is no evidence of thoracic aortic aneurysm or dissection. There are multiple mildly enlarged mediastinal nodes which are nonspecific, favor reactive. There is no evidence of pulmonary mass or suspicious nodule. There is mild scarring and mild emphysema. There is a calcification along the right hemidiaphragm. Note is made of mild atelectasis at the bases. Limited images of the upper abdomen are unremarkable. IMPRESSION: 1. No evidence of pulmonary embolism. 2. No mass or localized inflammatory process. Reviewed, Interpreted and Dictated by Kenn Whitaker III, MD Transcribed by Renee Presley Authenticated and [facility]
--- NOTE | 2021-12-12 06:55 | XR_ITS ---
FINAL REPORT CLINICAL HISTORY: covid SOA COMPARISON: 12/08/2021 FINDINGS: TWO-VIEW CHEST The heart size is normal. The mediastinum is normal. There is mild atelectasis at the bases. There is no pneumothorax. IMPRESSION: No acute cardiopulmonary process. Reviewed, Interpreted and Dictated by Kenn Whitaker III, MD Transcribed by Renee Presley Authenticated and [facility]
[2021-12-12 07:12] LABS: Basophils # 0.1 K/mm3 (0-0.2); Basophils % 0.7 % (0.1-2.0); Hematocrit 46.1 % (37.0-47.0); Hemoglobin 15.8 g/dL (12.2-16.2); Lymphocytes # 1.2 K/mm3 (0.7-4.5); Lymphocytes % 16.3 % (10-50); Mean Corpuscular HGB Conc 34.2 g/dL (31.8-35.4); Mean Corpuscular Hemoglobin 32.9 pg (27.0-31.2); Mean Corpuscular Volume 96.1 fl (81-99); Mean Platelet Volume 6.7 fl (7.4-10.4); Monocytes # 0.4 K/mm3 (0.1-1.0); Monocytes % 6.4 % (1.7-9.3); Neutrophils # 5.4 K/mm3 (1.8-7.8); Neutrophils % 76.6 % (37.0-80.0); Platelet Count 235 K/mm3 (142-424); Red Cell Distribution Width 12.4 % (11.5-17.5)
--- NOTE | 2021-12-12 07:15 | PC.NURSE ---
pt return from radiology via wheelchair
[2021-12-12 07:22] LABS: Alanine Aminotransferase 24 U/L (12-78); Albumin Level 3.7 g/dl (3.5-5.0); Albumin/Globulin Ratio 1.2 (1.1-1.8); Alkaline Phosphatase 102 U/L (38-126); Anion Gap 9.2 mEq/L (5-15); Aspartate Amino Transferase 35 U/L (14-36); Blood Urea Nitrogen 10 mg/dl (7-17); Calcium 8.3 mg/dl (8.4-10.2); Carbon Dioxide 34 mmol/L (22.0-30.0); Chloride 96 mmol/L (98-107); Creatinine Clearance Estimated 111 mL/min (50-200); Estimated Glomerular Filt Rate 74 ml/min (>60); GFR (African American) 89 ML/MIN (>60); Globulin 3.1 g/dL (1.3-3.2); Glucose 112 mg/dl (74-100); Potassium 4.2 mmoL/L (3.5-5.1); Sodium 135 mmol/L (136-145); Total Protein,Serum 6.8 g/dl (6.3-8.2)
--- NOTE | 2021-12-12 07:24 | ECG_ITS ---
APPROVED REPORT Exam: Resting ECG Conclusion Normal sinus rhythm Biatrial abnormality Abnormal ECG Electronically signed by : Yonatan Gaona MD 12/12/2021 17:40:10
[2021-12-12 07:26] LABS: Bilirubin,Total 0.1 mg/dl (0.2-1.3)
[2021-12-12 07:28] LABS: C-Reactive Protein 63.5 mg/L (0-4)
--- NOTE | 2021-12-12 07:32 | PC.NURSE ---
pt back from radiology. ekg performed and covid swab sent to the lab. no needs voiced at this time.
[2021-12-12 07:34] LABS: Influenza A, PCR Not Detected (NotDetected); Influenza B, PCR Not Detected (NotDetected)
[2021-12-12 07:38] LABS: Erythrocyte Sedimentation Rate 16 mm/hr (0-30)
[2021-12-12 07:54] LABS: Coronavirus 19, PCR Detected (NotDetected)
--- NOTE | 2021-12-12 08:00 | HMH.EDGENADL ---
ED Disposition Clinical Impression: COPD exacerbation, COVID-19 virus infection Respiratory failure with hypoxia Qualifiers: Chronicity: acute Qualified Code(s): J96.01 - Acute respiratory failure with hypoxia Disposition: Admitted As Inpatient Condition on Discharge: Fair Referrals: Jennifer Almendarez MD [Primary Care Provider] - - Critical Care Critical Care Time: No Attestation: On 12/12/21, the high probability of a clinically significant, sudden or life threatening deterioration of the following system(s) required my full and direct attention, intervention and personal management. The time I documented below is in addition to time spent performing reported procedures but includes the following listed in this critical care notation. Medical Decision Making - Juan Inquiry Pt receiving controlled substance: No Vital Signs: 12/12/21 06:41 12/12/21 07:00 12/12/21 07:30 Temperature 98.4 F Temperature Source Oral Pulse Rate 101 H 91 H Pulse Rate [Right] 109 H Respiratory Rate 22 20 20 Blood Pressure 142/100 H 149/92 H Blood Pressure [Right Arm] 168/103 H Blood Pressure Mean 119 117 Blood Pressure Mean [Right Arm] 124 02 Sat by Pulse Oximetry 87 L 90 L 88 L Oxygen Delivery Method Room Air Nasal Cannula Nasal Cannula Oxygen Flow Rate (LPM) 3 3 12/12/21 08:00 12/12/21 08:32 12/12/21 09:01 Temperature Temperature Source Pulse Rate 83 71 85 Pulse Rate [Right] Respiratory Rate 20 18 18 Blood Pressure 166/89 H 181/115 H 143/97 H Blood Pressure [Right Arm] Blood Pressure Mean 123 137 120 Blood Pressure Mean [Right Arm] 02 Sat by Pulse Oximetry 96 95 Oxygen Delivery Method Nasal Cannula Nasal Cannula Room Air Oxygen Flow Rate (LPM) 3 3 3 12/12/21 09:10 12/12/21 09:30 12/12/21 10:00 Temperature Temperature Source Pulse Rate 82 86 Pulse Rate [Right] Respiratory Rate 18 20 Blood Pressure 164/91 H 163/96 H Blood Pressure [Right Arm] Blood Pressure Mean 112 114 Blood Pressure Mean [Right Arm] 02 Sat by Pulse Oximetry 96 95 95 Oxygen Delivery Method Nasal Cannula Nasal Cannula Oxygen Flow Rate (LPM) 3 3 - Lab Data Lab Results 12/12/21 07:00: WBC 7.0, RBC 4.80, Hgb 15.8, Hct 46.1, MCV 96.1, MCH 32.9 H, MCHC 34.2, RDW 12.4, Plt Count 235, MPV 6.7 L, Neut % (Auto) 76.6, Lymph % (Auto) 16.3, [place] % (Auto) 6.4, Eos % (Auto) 0.0 L, Baso % (Auto) 0.7, Neut # (Auto) 5.4, Lymph # (Auto) 1.2, [place] # (Auto) 0.4, Eos # (Auto) 0.0, Baso # (Auto) 0.1, ESR 16 12/12/21 07:00: Sodium 135 L, Potassium 4.2, Chloride 96 L, Carbon Dioxide 34 H, Anion Gap 9.2, BUN 10, Creatinine 0.80, Estimated Creat Clear 111, Estimated GFR 74, Est GFR ( Amer) 89, Glucose 112 H, Calcium 8.3 L, Total Bilirubin 0.1 L, AST 35, ALT 24, Alkaline Phosphatase 102, C-Reactive Protein 63.5 H, Total Protein 6.8, Albumin 3.7, Globulin 3.1, Albumin/Globulin Ratio 1.2 12/12/21 07:00: Procalcitonin 0.070 12/12/21 07:07: Troponin I < 0.01 12/12/21 07:29: SARS-CoV-2 (PCR) Detected A, Influenza A Untype (PCR) Not detected, Influenza Type B (PCR) Not detected Result diagrams: 12/12/21 07:00 12/12/21 07:00 Orders (Tests/Meds): ED MEDICATIONS Generic Name Dose Route Start Last Admin Trade Name Freq PRN Reason Stop Dose Admin Ramipril 10 mg 12/12/21 09:00 12/12/21 09:06 Ramipril 10mg Capsule PO 01/11/22 08:59 10 mg DAILY MARGE Administration Discontinued Medications Generic Name Dose Route Start Last Admin Trade Name Freq PRN Reason Stop Dose Admin Albuterol/Ipratropium 6 puff 12/12/21 09:08 12/12/21 09:10 Combivent 20mcg/100mcg Respimat Inhaler IH 12/12/21 09:09 6 puff ONCE ONE Administration Dexamethasone Sodium Phosphate 10 mg 12/12/21 06:56 12/12/21 07:04 Dexamethasone 4mg/Ml 5ml Mdv IV 12/12/21 06:57 10 mg ONCE ONE Administration Sodium Chloride 1,000 mls @ 999 mls/hr 12/12/21 07:00 12/12/21 07:04 Sod Chlor 0.9% 1000ml Bag IV 12/12/21
[2021-12-12 08:01] LABS: Troponin I < 0.01 ng/ml (0.00-0.034)
--- NOTE | 2021-12-12 08:36 | PC.NURSE ---
went in to check on pt she has been taking her oxygen off and on she is only using when she feels SOA , also she has not taking her B/P meds this am
--- NOTE | 2021-12-12 08:49 | PC.NURSE ---
md aware of elevated B/P
--- NOTE | 2021-12-12 08:52 | PC.NURSE ---
going in with pt
--- NOTE | 2021-12-12 08:56 | PC.NURSE ---
o2 turned off O2 sat dropped to 89 in approx 5 min , resp called for neb/inhaler
--- NOTE | 2021-12-12 09:27 | PC.NURSE ---
resp here doing inhaler
--- NOTE | 2021-12-12 09:32 | PC.NURSE ---
turned o2 off after inhaler pt dropped to 89% o2 back on at 2 LPM
--- NOTE | 2021-12-12 09:35 | PC.NURSE ---
DR TRUONG SPEAKING WITH DR ALONZO
--- NOTE | 2021-12-12 10:06 | PC.NURSE ---
notified care management of admission, spoke with judah
--- NOTE | 2021-12-12 10:08 | PC.NURSE ---
eliezer so in care management pt is an acute admission
--- NOTE | 2021-12-12 10:17 | PC.NURSE ---
rounded on pt at this time, updated pt on her admission. Pt up to restroom as this time independently. Will continue to monitor
--- NOTE | 2021-12-12 10:27 | PC.NURSE ---
per cno pt will board in ER at this time until a room is available they are having to move pts around
--- NOTE | 2021-12-12 10:45 | PC.NURSE ---
pt updated on boarding in ER until room is available, pt verbalized understanding
--- NOTE | 2021-12-12 10:49 | PC.NURSE ---
ordered pt lunch tray
--- NOTE | 2021-12-12 11:03 | PC.NURSE ---
per brian narvaez ordering a pulmonology consult on pt, dr. gutierrez notified of consult while he was in the ER per brian narvaez
--- NOTE | 2021-12-12 11:06 | PC.NURSE ---
dr. gutierrez at BS at this time.
--- NOTE | 2021-12-12 11:12 | PC.NURSE ---
brian narvaez at
--- NOTE | 2021-12-12 11:35 | PC.NURSE ---
DR BERNARD IN WITH PT
--- NOTE | 2021-12-12 11:39 | HMH.PHAINT ---
MEDICATION RECONCILIATION COMPLETED ON PATIENT USING EXTERNAL FILL HISTORY FROM PHARMACY. -REYES BEYER, SHIRAZD
--- NOTE | 2021-12-12 12:02 | PC.NURSE ---
updated pt on still waiting on room assignment, pt states no needs at this time.
--- NOTE | 2021-12-12 12:05 | HMH.PULMCON ---
*Admission Date: 12/12/21 *Reason for consult:: Acute hypoxic respiratory failure, COVID-19 pneumonia *History of present illness: Ms. Smith is a 55-year-old female greater than [id number] smoking cigars a diagnosis of COPD, personal history of allergies, significantly pes planus daily and respiratory distress found to be having COVID-19 pneumonia. Patient started having symptoms a week ago was noted to [facility] with cefdinir and steroids with no improvement in her symptoms and presented to the ER today and eventually tested positive for COVID-19 pneumonia and pulmonary was called for further management. Patient also noted a new oxygen requirement to maintain saturations at 89% and above. Patient denies any known sick contacts. She received 1 dose of J&J vaccine. [facility] History I have reviewed the patient's past medical history: Yes Medical History: Reports:: Chronic Obstructive Pulmonary Disease (COPD) *Have you ever received a pneumonia vaccine?: No *Have you received a flu vaccine this season?: No Other Medical History: Reports: Other Other Surgeries: Yes: Other - *Social History Last grade of school completed: Some college Smoking Status: Current every day smoker Tobacco Type: cigarettes # Packs/Day (cigarettes): 1 #Yrs smoked (if former smoker): 30 Alcohol Intake: never Alcohol Intake Frequency:: other Substance Use Type: unknown, other Last Used Substance: unknown *Occupational Status:: other Housing: house *Travel in the last 8 weeks: None Family Hx:: Other ROS - Cons Reports body ache(s), Reports fatigue - Eyes Reports blurry vision - ENT Denies difficulty swallowing - Card Reports chest pain with activity, Reports shortness of breath - Resp Respiratory: Reports shortness of breath, Reports chest congestion, Reports cough, Reports cough with sputum production, Reports wheezing - GI Gastrointestingal: Denies: abdominal pain - [place] Musculoskeletal: Reports muscle weakness - Psych Denies thoughts of hurting/killing others, Denies thoughts of hurting/killing yourself Meds Home Medications Medication Instructions Recorded Confirmed Type Aspirin [Aspirin 81mg chewable 81 mg PO DAILY 12/19/18 12/12/21 History tab] Atorvastatin Calcium [Atorvastatin 40 mg PO HS 12/19/18 12/12/21 History 40mg Tab] Ramipril 20 mg PO DAILY 12/19/18 12/12/21 History Albuterol Sulfate [Albuterol 2 puff IH Q6HP PRN 12/12/21 12/12/21 History Sulfate Hfa] Amlodipine Besylate [Amlodipine 10 mg PO DAILY 12/12/21 12/12/21 History 10mg Tab] Levothyroxine Sodium 137 mcg PO DAILY 12/12/21 12/12/21 History [Levothyroxine 137mcg (0.137mg) Tab] Triamterene/Hydrochlorothiazid 1 each PO DAILY 12/12/21 12/12/21 History [Triamterene-Hctz 37.5-25 mg Tb] Allergies Allergy/AdvReac Type Severity Reaction Status Date / Time Penicillins Allergy Verified 12/08/21 08:27 Exam - Constitutional Constitutional:: Present: no acute distress, comfortable - HENMT Exam HENMT: Present: normocephalic - Eye Exam Eyes:: Present: normal appearance both eyes and related structures - Neck Exam Neck:: Present: normal visual inspection - Respiratory Exam Respiratory:: Present: able to speak in complete sentences, no respiratory distress, normal respiratory effort, wheezing - Cardiovascular Exam Cardiac:: Present: S1, S2 - GI Exam GI:: Present: soft - Skin Exam Skin: Present: warm, no rash - Neurological Exam Neurological: Present: alert, awake - Extremities Exam Extremities: Present: no cyanosis, no clubbing, no edema Internal Medicine - CN: Reslt - Labs CBC & Chem 7: 12/12/21 07:00 12/12/21 07:00 Labs: Short CBC 12/12/21 Range/Units 07:00 WBC 7.0 (4.8-10.8) K/mm3 Hgb 15.8 (12.2-16.2) g/dL Hct 46.1 (37.0-47.0) % Plt Count 235 (142-424) K/mm3 BMP 12/12/21 07:00 Sodium 135 L Potassium 4.2 Chloride 96 L Carbon Dioxide 34 H BUN 10 Creatinine
--- NOTE | 2021-12-12 12:26 | PC.NURSE ---
notified pharmacy of remdesivir consult, spoke with kostas. Also asked about Dexamethasone 6mg IV that is a new order, states since pt had 10 mg IV earlier today he would think she shouldn't get the additional 6mg today. Also asked ER MD about this, states not to give additional 6mg today of Dexamethasone.
--- NOTE | 2021-12-12 13:05 | HMH.HP ---
*Admission Date: 12/12/21 *Chief complaint: cough, shortness of breath *History of present illness: Complains of having COVID, feeling tired, short of breath. She started getting sick around December 02, seen at the urgent treatment center and diagnosed with sinusitis, started on cefdinir, Phenergan DM, Medrol Dosepak, Mucinex. She returned on 12/08/2021 for continued symptoms and was diagnosed with COVID. For the past 2 days she has had increasing congestion and shortness of breath, particularly when she gets a coughing fit. She complains of fatigue, weakness, poor appetite. She has hypertension, she is a smoker, she says she has COPD. She uses an inhaler, has not used it today. She has not taken her antihypertensive medication today. She was vaccinated with the [employer] vaccine for COVID right off the bat but has not had any boosters. She has not previously had COVID. (above as per ER physician) [facility] History I have reviewed the patient's past medical history: Yes Medical History: Reports:: Chronic Obstructive Pulmonary Disease (COPD), Hyperlipidemia, Hypertension *Have you ever received a pneumonia vaccine?: No *Have you received a flu vaccine this season?: No Other Medical History: Reports: Hypothyroidism, Other ([place]'s Palsy) Other Surgeries: Yes: , Other (right foot bone spur) - *Social History Last grade of school completed: Some college Smoking Status: Current every day smoker Tobacco Type: cigarettes # Packs/Day (cigarettes): 1 #Yrs smoked (if former smoker): 30 Alcohol Intake: never Alcohol Intake Frequency:: other Substance Use Type: unknown, other Last Used Substance: unknown *Occupational Status:: other Housing: house *Travel in the last 8 weeks: None Family Hx:: Cancer, Coronary Artery Disease, Hypertension Review of Systems - Constitutional Reports weakness, Denies chills, Denies fever(s) - Eyes Denies blurry vision, Denies double vision - ENT Reports nasal congestion, Reports sore throat - *Cardiovascular Reports shortness of breath, Denies chest pain - *Respiratory Reports cough, Reports shortness of breath, Reports wheezing - *Gastrointestinal Reports nausea, Denies abdominal pain, Denies loose stools, Denies vomiting - *Genitourinary Denies difficulty urinating, Denies painful urination - *Musculoskeletal Reports body aches - *Neurologic Reports weakness, Denies headache(s), Denies dizziness Meds Home Medications Medication Instructions Recorded Confirmed Type Aspirin [Aspirin 81mg chewable 81 mg PO DAILY 12/19/18 12/12/21 History tab] Atorvastatin Calcium [Atorvastatin 40 mg PO HS 12/19/18 12/12/21 History 40mg Tab] Ramipril 20 mg PO DAILY 12/19/18 12/12/21 History Albuterol Sulfate [Albuterol 2 puff IH Q6HP PRN 12/12/21 12/12/21 History Sulfate Hfa] Amlodipine Besylate [Amlodipine 10 mg PO DAILY 12/12/21 12/12/21 History 10mg Tab] Levothyroxine Sodium 137 mcg PO DAILY 12/12/21 12/12/21 History [Levothyroxine 137mcg (0.137mg) Tab] Triamterene/Hydrochlorothiazid 1 each PO DAILY 12/12/21 12/12/21 History [Triamterene-Hctz 37.5-25 mg Tb] Allergies Allergy/AdvReac Type Severity Reaction Status Date / Time Penicillins Allergy Verified 12/08/21 08:27 Exam Vital signs and Labs for Last 24 Hours: Temp Pulse Resp BP Pulse Ox 98.4 F 101 H 18 163/96 H 95 12/12/21 06:41 12/12/21 11:15 12/12/21 11:15 12/12/21 10:00 12/12/21 11:15 Laboratory Results - last 24 hr 12/12/21 07:00: WBC 7.0, RBC 4.80, Hgb 15.8, Hct 46.1, MCV 96.1, MCH 32.9 H, MCHC 34.2, RDW 12.4, Plt Count 235, MPV 6.7 L, Neut % (Auto) 76.6, Lymph % (Auto) 16.3, [place] % (Auto) 6.4, Eos % (Auto) 0.0 L, Baso % (Auto) 0.7, Neut # (Auto) 5.4, Lymph # (Auto) 1.2, [place] # (Auto) 0.4, Eos # (Auto) 0.0, Baso # (Auto) 0.1, ESR 16 12/12/21 07:00: Sodium 135 L, Potassium 4.2, Chloride 96 L, Carbon Dioxide 34 H, Anion Gap 9.2, BUN 10, Creatinine 0.8
--- NOTE | 2021-12-12 13:35 | PC.NURSE ---
checked on pt at this time. no needs voiced
--- NOTE | 2021-12-12 14:11 | PC.NURSE ---
called report to ana anne
--- NOTE | 2021-12-12 14:38 | PC.NURSE ---
Pt just arrived to the floor via wheelchair accompanied by Berta Funes RN
--- NOTE | 2021-12-12 15:32 | HMH.PHAVTE ---
[facility] Pharmacy VTE Monitoring - Patient Demographics Admission date: 12/12/21 Report Date: 12/12/21 Time: 15:32 Allergies/Adverse Reactions: Patient Allergies Penicillins Allergy (Verified 12/08/21 08:27) Height: 1.7 m Weight: 90.718 kg Patient Problems: Current Active Problems Respiratory failure with hypoxia (Acute) COPD exacerbation (Acute) COVID-19 virus infection (Acute) Hypertension (Chronic) Hyperlipidemia (Chronic) Hypothyroid (Chronic) - VTE Risk Labs: VTE Related Lab Results Hgb 15.8 g/dL (12.2-16.2) 12/12/21 07:00 Hct 46.1 % (37.0-47.0) 12/12/21 07:00 Plt Count 235 K/mm3 (142-424) 12/12/21 07:00 BUN 10 mg/dl (7-17) 12/12/21 07:00 Creatinine 0.80 mg/dl (0.52-1.04) 12/12/21 07:00 Estimated Creat Clear 111 mL/min (50-200) 12/12/21 07:00 VTE Score: 2 VTE Risk Level: Very Low Risk - Prophylaxis VTE Prophylaxis Ordered?: Yes Types of VTE Prophylaxis: TEDS Knee High, Pharmacological Location of Applied Device: Bilateral Lower Extremeties Pharmacologic Type: Enoxaparin
[2021-12-13] VITALS (11 sets, daily range): BP systolic 110–149; BP diastolic 63–96; PULSE 64–98; RESP 18–20; TEMP 36.6–37.1; O2SAT 86–98; BMI 26.0
--- NOTE | 2021-12-13 05:00 | PC.NURSE ---
Pt has been resting through the night with no complaints. O2 sat 93-94% NC 3L. No complaints of soa, lung sounds bilaterally rhonchi and wheezing present throughout all lobes. Pt is alert and oriented x4, and independently goes to the bathroom.
[2021-12-13 06:42] LABS: Basophils % 0.4 % (0.1-2.0); Hematocrit 41.4 % (37.0-47.0); Lymphocytes % 11.1 % (10-50); Mean Corpuscular HGB Conc 31.6 g/dL (31.8-35.4); Mean Corpuscular Hemoglobin 32.4 pg (27.0-31.2); Mean Corpuscular Volume 102.7 fl (81-99); Monocytes # 0.5 K/mm3 (0.1-1.0); Monocytes % 5.5 % (1.7-9.3); Neutrophils # 7.5 K/mm3 (1.8-7.8); Platelet Count 203 K/mm3 (142-424); Red Blood Count 4.03 M/mm3 (4.20-5.40); Red Cell Distribution Width 13.2 % (11.5-17.5)
[2021-12-13 06:54] LABS: Hemoglobin 13.1 g/dL (12.2-16.2)
[2021-12-13 07:45] LABS: Anion Gap 6.4 mEq/L (5-15); Blood Urea Nitrogen 11 mg/dl (7-17); Calcium 7.8 mg/dl (8.4-10.2); Carbon Dioxide 31 mmol/L (22.0-30.0); Chloride 104 mmol/L (98-107); Creatinine Clearance Estimated 123 mL/min (50-200); Estimated Glomerular Filt Rate 103 ml/min (>60); GFR (African American) 125 ML/MIN (>60); Glucose 111 mg/dl (74-100); Potassium 4.4 mmoL/L (3.5-5.1); Sodium 137 mmol/L (136-145)
--- NOTE | 2021-12-13 09:10 | P.PN_ITS ---
Internal Medicine - PN: Subj *Date: 12/13/21 *Time: 09:10 Interval history: She was able to get some sleep. She may be coughing a bit more she states. Exam Vital signs and Labs for Last 24 Hours: Temp Pulse Resp BP Pulse Ox 98.4 F 83 20 131/63 95 12/13/21 04:00 12/13/21 06:10 12/13/21 04:00 12/13/21 04:00 12/13/21 06:10 Laboratory Results - last 24 hr 12/13/21 05:38: WBC 9.0 D, RBC 4.03 L, Hgb 13.1 D, Hct 41.4, MCV 102.7 H, MCH 32.4 H, MCHC 31.6 L, RDW 13.2, Plt Count 203, MPV 8.0, Neut % (Auto) 83.0 H, Lymph % (Auto) 11.1, [place] % (Auto) 5.5, Eos % (Auto) 0.0 L, Baso % (Auto) 0.4, Neut # (Auto) 7.5, Lymph # (Auto) 1.0, [place] # (Auto) 0.5, Eos # (Auto) 0.0, Baso # (Auto) 0.0 12/13/21 05:38: Sodium 137, Potassium 4.4, Chloride 104, Carbon Dioxide 31 H, Anion Gap 6.4, BUN 11, Creatinine 0.60 D, Estimated Creat Clear 123, Estimated GFR 103, Est GFR ( Amer) 125 D, Glucose 111 H, Calcium 7.8 L I & O for Last 24 hours: Intake & Output 12/10/21 12/11/21 12/12/21 12/13/21 11:59 11:59 11:59 11:59 Intake Total 1159 / 1159 640 / 640 Balance 1159 / 1159 640 / 640 Weight 200 lb 166 lb - Constitutional no acute distress - *Routine HEENT Exam Head: Present: normocephalic Eye: Present: EOMI, PERRL ENT: Present: mucous membranes moist - *Routine Neck Exam Present: supple. Absent: lymphadenopathy - *Routine Respiratory Exam Present: decreased breath sounds, wheezes - *Routine Cardiovascular Exam Present: RRR - *Routine Abdominal Exam Present: soft, normoactive bowel sounds. Absent: tenderness - *Routine Extremities Exam Absent: cyanosis, clubbing, edema - *Routine Skin Exam Present: warm. Absent: rash - *Routine Neurological Exam Present: alert, oriented X3 Assessment and Plan (1) Respiratory failure with hypoxia Status: Acute Qualifiers: Chronicity: acute Qualified Code(s): J96.01 - Acute respiratory failure with hypoxia Category: Medical Code(s): J96.91 - Respiratory failure, unspecified with hypoxia (2) COVID-19 virus infection Status: Acute Category: Medical Code(s): U07.1 - COVID-19 (3) Asthmatic bronchitis Status: Acute Category: Medical Code(s): J45.909 - Unspecified asthma, uncomplicated (4) COPD exacerbation Status: Acute Category: Medical Code(s): J44.1 - Chronic obstructive pulmonary disease with (acute) exacerbation (5) Hypertension Status: Chronic Category: Medical Code(s): I10 - Essential (primary) hy pertension (6) Hyperlipidemia Status: Chronic Category: Medical Code(s): E78.5 - Hyperlipidemia, unspeci fied (7) Hypothyroid Status: Chronic Category: Medical Code(s): E03.9 - Hypothyroidism, unspecified - Assessment and plan all Dx Assessment and Plan for all problems:: She is on COVID regimen including remdesivir and dexamethasone.
--- NOTE | 2021-12-13 13:09 | PC.NURSE ---
Addendum entered by Margie Solano RN 12/13/21 18:19: PT HAD BATH AND BED CHANGE AND TOLERATED SITTING UP IN THE CHAIR FOR A FEW HOURS. Original Note: PT IS RESTING IN BED. NO COMPLAINTS OF DISCOMFORT. ALERT AND ORIENTED X4. PT STATES SHE FEELS SOMEWHAT BETTER THAN YESTERDAY. NON PRODUCTIVE COUGH. EATING AND DRINKING WELL. AMBULATES TO THE BATHROOM INDEPENDENTLY. O2 SATURATION 92-94% ON 2 L NC. WILL CONTINUE TO MONITOR.
[2021-12-14] VITALS (7 sets, daily range): BP systolic 118–155; BP diastolic 69–87; PULSE 64–84; RESP 17–24; TEMP 36.5–37.1; O2SAT 90–93; BMI 26.4
--- NOTE | 2021-12-14 04:47 | PC.NURSE ---
Pt is alert and oriented x4, independent in the room. Pt has had no complaints this shift. Lung sounds bilaterally throughout expiratory wheezing and rhonchi. O2 sat 91-93% 2L NC. Pt has rested throughout shift.
--- NOTE | 2021-12-14 12:19 | P.PN_ITS ---
Internal Medicine - PN: Subj *Date: 12/14/21 *Time: 12:19 Interval history: She states that she did not have a good evening. She seemed more congested last night and wheezing. Exam Vital signs and Labs for Last 24 Hours: Temp Pulse Resp BP Pulse Ox 98.5 F 77 24 155/81 H 91 L 12/14/21 07:35 12/14/21 07:35 12/14/21 07:35 12/14/21 07:35 12/14/21 07:35 I & O for Last 24 hours: Intake & Output 12/12/21 12/13/21 12/14/21 12/15/21 11:59 11:59 11:59 11:59 Intake Total 1159 / 1159 880 / 880 2370 / 2370 Balance 1159 / 1159 880 / 880 2370 / 2370 Weight 200 lb 166 lb 168 lb 5.449 oz - Constitutional no acute distress - *Routine HEENT Exam Head: Present: normocephalic Eye: Present: EOMI, PERRL ENT: Present: mucous membranes moist - *Routine Neck Exam Present: supple. Absent: lymphadenopathy - *Routine Respiratory Exam Present: decreased breath sounds, wheezes. Absent: respiratory distress - *Routine Cardiovascular Exam Present: RRR - *Routine Abdominal Exam Present: soft, normoactive bowel sounds. Absent: tenderness - *Routine Extremities Exam Absent: cyanosis, clubbing, edema - *Routine Skin Exam Present: warm. Absent: rash - *Routine Neurological Exam Present: alert, oriented X3 Assessment and Plan (1) Respiratory failure with hypoxia Status: Acute Qualifiers: Chronicity: acute Qualified Code(s): J96.01 - Acute respiratory failure w ith hypoxia Category: Medical Code(s): J96.91 - Respiratory failure, unspecified with hypoxia (2) COVID-19 virus infection Status: Acute Category: Medical Code(s): U07.1 - COVID-19 (3) Asthmatic bronchitis Status: Acute Category: Medical Code(s): J45.909 - Unspecified asthma, uncomplicated (4) COPD exacerbation Status: Acute Category: Medical Code(s): J44.1 - Chronic obstructive pulmonary disease with (acute) exacerbation (5) Hypertension Status: Chronic Category: Medical Code(s): I10 - Essential (primary) hypertension (6) Hyperlipidemia Status: Chronic Category: Medical Code(s): E78.5 - Hyperlipidemia, unspecified (7) Hypothyroid Status: Chronic Category: Medical Code(s): E03.9 - Hypothyroidism, unspecified - Assessment and plan all Dx Assessment and Plan for all problems:: Continue present regimen.
--- NOTE | 2021-12-14 18:00 | PC.NURSE ---
VS stable, patient remained on room air, ambulated throughout the room. No complaints noted.
[2021-12-15] VITALS (7 sets, daily range): BP systolic 104–157; BP diastolic 69–84; PULSE 65–95; RESP 18–20; TEMP 36.6–36.9; O2SAT 90–94; BMI 26.9
--- NOTE | 2021-12-15 05:13 | PC.NURSE ---
Pt is alert and oriented x4. Lung sounds are diminished on inspiration with expiatory wheezes. Tolerating 2L nasal cannula well with sats between 91-95%. Ambulating independently.
[2021-12-15 08:58] LABS: Alanine Aminotransferase 31 U/L (12-78); Albumin Level 3.4 g/dl (3.5-5.0); Albumin/Globulin Ratio 1.3 (1.1-1.8); Alkaline Phosphatase 77 U/L (38-126); Aspartate Amino Transferase 30 U/L (14-36); Blood Urea Nitrogen 16 mg/dl (7-17); Calcium 8.6 mg/dl (8.4-10.2); Carbon Dioxide 36 mmol/L (22.0-30.0); Chloride 96 mmol/L (98-107); Creatinine Clearance Estimated 85 mL/min (50-200); Estimated Glomerular Filt Rate 65 ml/min (>60); GFR (African American) 78 ML/MIN (>60); Globulin 2.7 g/dL (1.3-3.2); Glucose 117 mg/dl (74-100); Sodium 136 mmol/L (136-145); Total Protein,Serum 6.1 g/dl (6.3-8.2)
[2021-12-15 09:07] LABS: Bilirubin,Total < 0.1 mg/dl (0.2-1.3)
--- NOTE | 2021-12-15 14:18 | HMH.ACPN2 ---
Internal Medicine - PN: Subj *Date: 12/15/21 *Time: 14:18 Interval history: She states that she feels better today. She was able to get some sleep last night. She is getting anxious for discharge. Tomorrow would be her fifth day of remdesivir and dexamethasone. Exam Vital signs and Labs for Last 24 Hours: Temp Pulse Resp BP Pulse Ox 98 F 92 H 20 157/69 H 92 L 12/15/21 11:34 12/15/21 11:34 12/15/21 11:34 12/15/21 11:34 12/15/21 11:34 Laboratory Results - last 24 hr 12/15/21 08:00: Sodium 136, Potassium 4.0, Chloride 96 L, Carbon Dioxide 36 H, Anion Gap 8.0, BUN 16 D, Creatinine 0.90 D, Estimated Creat Clear 85, Estimated GFR 65, Est GFR ( Amer) 78 D, Glucose 117 H, Calcium 8.6, Total Bilirubin < 0.1 L, AST 30, ALT 31, Alkaline Phosphatase 77, Total Protein 6.1 L, Albumin 3.4 L, Globulin 2.7, Albumin/Globulin Ratio 1.3 I & O for Last 24 hours: Intake & Output 12/13/21 12/14/21 12/15/21 12/16/21 11:59 11:59 11:59 11:59 Intake Total 880 / 880 2370 / 2370 1221 / 1221 440 / 440 Balance 880 / 880 2370 / 2370 1221 / 1221 440 / 440 Weight 166 lb 168 lb 5.449 oz 171 lb 6 oz - Constitutional no acute distress - *Routine HEENT Exam Head: Present: normocephalic Eye: Present: EOMI, PERRL ENT: Present: mucous membranes moist - *Routine Neck Exam Present: supple. Absent: lymphadenopathy - *Routine Respiratory Exam Present: decreased breath sounds, wheezes - *Routine Cardiovascular Exam Present: RRR - *Routine Abdominal Exam Present: soft, normoactive bowel sounds. Absent: tenderness - *Routine Extremities Exam Absent: cyanosis, clubbing, edema - *Routine Skin Exam Present: warm. Absent: jaundice, rash - *Routine Neurological Exam Present: alert, oriented X3 Assessment and Plan (1) Respiratory failure with hypoxia Status: Acute Qualifiers: Chronicity: acute Qualified Code(s): J96.01 - Acute respiratory failure with hypoxia Category: Medical Code(s): J96.91 - Respiratory failure, unspecified with hypoxia (2) COVID-19 virus infection Status: Acute Category: Medical Code(s): U07.1 - COVID-19 (3) Asthmatic bronchitis Status: Acute Category: Medical Code(s): J45.909 - Unspecified asthma, uncomplicated (4) COPD exacerbation Status: Acute Category: Medical Code(s): J44.1 - Chronic obstructive pulmonary disease with (acute) exacerbation (5) Hypertension Status: Chronic Category: Medical Code(s): I10 - Essential (primary) hypertension (6) Hyperlipidemia Status: Chronic Category: Medical Code(s): E78.5 - Hyperlipidemia, unspecified (7) Hypothyroid Status: Chronic Category: Medical Code(s): E03.9 - Hypothyroidism, unspecified - Assessment and plan all Dx Assessment and Plan for all problems:: Continue present regimen. Pulmonary follow-up tomorrow.
--- NOTE | 2021-12-15 15:51 | PC.NURSE ---
Patient refused to have new IV placed as Dr. Almendarez stated she may go home tomorrow after fifth dose of remdesivir. VS stable and patient remains on 2LNC. Lung sounds still expiratory wheezing but patient shows no signs of distress and reports that she feels fine.
--- NOTE | 2021-12-15 17:15 | PC.NURSE ---
Esmolol drip still at 21.7 ml/hr and cardizem drip stillat
--- NOTE | 2021-12-15 17:15 | PC.NURSE ---
Esmolol drip still at 21.7 ml/hr and cardizem drip at 15 ml/hr. VS stable and patient remains on 2LNC. Heart rhythm Sinus tach with inverted t- wave on monitor and HR staying between 100-109. Morphine given for pain as patient began to grimace as if in pain. Patient incontinent and brief changed twice.
[2021-12-16 04:00] VITALS: BP 110/71; PULSE 79; RESP 18; TEMP 36.8; O2SAT 95
[2021-12-16 05:00] VITALS: BMI 26.2
--- NOTE | 2021-12-16 05:21 | PC.NURSE ---
Pt is alert and oriented x4. She has rested intermittently this shift. Inspiratory and expiratory wheezes bilaterally. She is tolerating 2L nasal cannula well, sating 92-95%. Ambulating independently in room.
[2021-12-16 06:25] VITALS: O2SAT 92
[2021-12-16 06:39] LABS: Alanine Aminotransferase 36 U/L (12-78); Albumin Level 3.4 g/dl (3.5-5.0); Albumin/Globulin Ratio 1.3 (1.1-1.8); Alkaline Phosphatase 81 U/L (38-126); Anion Gap 10.2 mEq/L (5-15); Aspartate Amino Transferase 37 U/L (14-36); Blood Urea Nitrogen 17 mg/dl (7-17); Calcium 8.5 mg/dl (8.4-10.2); Carbon Dioxide 34 mmol/L (22.0-30.0); Chloride 95 mmol/L (98-107); Creatinine Clearance Estimated 106 mL/min (50-200); Estimated Glomerular Filt Rate 86 ml/min (>60); GFR (African American) 104 ML/MIN (>60); Globulin 2.7 g/dL (1.3-3.2); Glucose 107 mg/dl (74-100); Potassium 4.2 mmoL/L (3.5-5.1); Sodium 135 mmol/L (136-145); Total Protein,Serum 6.1 g/dl (6.3-8.2)
[2021-12-16 06:45] LABS: Bilirubin,Total < 0.1 mg/dl (0.2-1.3)
--- NOTE | 2021-12-16 07:46 | HMH.ACPN2 ---
Internal Medicine - PN: Subj *Date: 12/16/21 *Time: 07:46 Interval history: States she is feeling much better. She still has some cough. She states she wheezes as well. She denies chest pain. She is able to eat okay. Bowels have moved. She is voiding QS. She did sleep last night. Plan is for her to go home today last dose of remdesivir and dexamethasone.. Has ambulated in the room without difficulty. Exam Vital signs and Labs for Last 24 Hours: Temp Pulse Resp BP Pulse Ox 98.2 F 79 18 110/71 92 L 12/16/21 04:00 12/16/21 04:00 12/16/21 04:00 12/16/21 04:00 12/16/21 06:25 Laboratory Results - last 24 hr 12/15/21 08:00: Sodium 136, Potassium 4.0, Chloride 96 L, Carbon Dioxide 36 H, Anion Gap 8.0, BUN 16 D, Creatinine 0.90 D, Estimated Creat Clear 85, Estimated GFR 65, Est GFR ( Amer) 78 D, Glucose 117 H, Calcium 8.6, Total Bilirubin < 0.1 L, AST 30, ALT 31, Alkaline Phosphatase 77, Total Protein 6.1 L, Albumin 3.4 L, Globulin 2.7, Albumin/Globulin Ratio 1.3 12/16/21 05:46: Sodium 135 L, Potassium 4.2, Chloride 95 L, Carbon Dioxide 34 H, Anion Gap 10.2, BUN 17, Creatinine 0.70 D, Estimated Creat Clear 106, Estimated GFR 86, Est GFR ( Amer) 104 D, Glucose 107 H, Calcium 8.5, Total Bilirubin < 0.1 L, AST 37 H, ALT 36, Alkaline Phosphatase 81, Total Protein 6.1 L, Albumin 3.4 L, Globulin 2.7, Albumin/Globulin Ratio 1.3 I & O for Last 24 hours: Intake & Output 12/13/21 12/14/21 12/15/21 12/16/21 11:59 11:59 11:59 11:59 Intake Total 880 / 880 2370 / 2370 1221 / 1221 1470 / 1470 Balance 880 / 880 2370 / 2370 1221 / 1221 1470 / 1470 Weight 166 lb 168 lb 5.449 oz 171 lb 6 oz 167 lb 3.2 oz Microbiology Reports for the Last 24 Hours: Microbiology 12/15/21 12:20 Sputum - Expectorated Sputum Gram Stain - Final - Constitutional no acute distress Comments: Sitting up in bed crosslegged good after completing breakfast. - *Routine Respiratory Exam Present: wheezes (Bilateral expiratory wheezing anteriorly and posteriorly.), crackles (Bilateral anteriorly) - *Routine Cardiovascular Exam Present: RRR - *Routine Extremities Exam Absent: edema, calf tenderness - *Routine Neurological Exam Present: alert, oriented X3 Assessment and Plan (1) Respiratory failure with hypoxia Status: Acute Qualifiers: Chronicity: acute Qualified Code(s): J96.01 - Acute respiratory failure with hypoxia Category: Medical Code(s): J96.91 - Respiratory failure, unspecified with hypoxia (2) COVID-19 virus infection Status: Acute Category: Medical Code(s): U07.1 - COVID-19 (3) Asthmatic bronchitis Status: Acute Category: Medical Code(s): J45.909 - Unspecified asthma, uncomplicated (4) COPD exacerbation Status: Acute Category: Medical Code(s): J44.1 - Chronic obstructive pulmonary disease with (acute) exacerbation (5) Hypertension Status: Chronic Category: Medical Code(s): I10 - Essential (primary) hypertension (6) Hyperlipidemia Status: Chronic Category: Medical Code(s): E78.5 - Hyperlipidemia, unspecified (7) Hypothyroid Status: Chronic Category: Medical Code(s): E03.9 - Hypothyroidism, unspecified
[2021-12-16 08:00] VITALS: BP 135/78; PULSE 88; RESP 20; TEMP 36.6; O2SAT 93
--- NOTE | 2021-12-16 09:16 | HMH.ACPN ---
Internal Medicine - PN: Subj *Date: 12/16/21 *Time: 09:16 Exam Vital signs and Labs for Last 24 Hours: Temp Pulse Resp BP Pulse Ox 97.8 F 88 20 135/78 93 L 12/16/21 08:00 12/16/21 08:00 12/16/21 08:00 12/16/21 08:00 12/16/21 08:00 Laboratory Results - last 24 hr 12/16/21 05:46: Sodium 135 L, Potassium 4.2, Chloride 95 L, Carbon Dioxide 34 H, Anion Gap 10.2, BUN 17, Creatinine 0.70 D, Estimated Creat Clear 106, Estimated GFR 86, Est GFR ( Amer) 104 D, Glucose 107 H, Calcium 8.5, Total Bilirubin < 0.1 L, AST 37 H, ALT 36, Alkaline Phosphatase 81, Total Protein 6.1 L, Albumin 3.4 L, Globulin 2.7, Albumin/Globulin Ratio 1.3 I & O for Last 24 hours: Intake & Output 12/13/21 12/14/21 12/15/21 12/16/21 23:59 23:59 23:59 23:59 Intake Total 2250 / 2250 1141 / 1141 1909 Balance 2250 / 2250 1141 / 1141 1909 Weight 75.29 kg 76.358 kg 77.734 kg 75.841 kg Microbiology Reports for the Last 24 Hours: Microbiology 12/15/21 12:20 Sputum - Expectorated Sputum Gram Stain - Final Assessment and Plan (1) Respiratory failure with hypoxia Status: Acute Qualifiers: Chronicity: acute Qualified Code(s): J96.01 - Acute respiratory failure with hypoxia Category: Medical Code(s): J96.91 - Respiratory failure, unspecified with hypoxia (2) COVID-19 virus infection Status: Acute Category: Medical Code(s): U07.1 - COVID-19 (3) Asthmatic bronchitis Status: Acute Category: Medical Code(s): J45.909 - Unspecified asthma, uncomplicated (4) COPD exacerbation Status: Acute Category: Medical Code(s): J44.1 - Chronic obstructive pulmonary disease with (acute) exacerbation (5) Hypertension Status: Chronic Category: Medical Code(s): I10 - Essential (primary) hypertension (6) Hyperlipidemia Status: Chronic Category: Medical Code(s): E78.5 - Hyperlipidemia, unspecified (7) Hypothyroid Status: Chronic Category: Medical Code(s): E03.9 - Hypothyroidism, unspecified The patient's infection will respond to the chosen ABx?: Yes Is the patient receiving the right drug, dose, and route?: Yes Could a more targeted ABx be ordered?: No
--- NOTE | 2021-12-16 09:25 | HMH.PULMPN ---
Internal Medicine - PN: Subj *Date: 12/16/21 *Time: 10:40 Interval history: Acute respiratory vents overnight. Admits continued improvement in her symptoms. Exam - Constitutional Constitutional:: Present: no acute distress, comfortable - HENMT Exam HENMT: Present: normocephalic - Eye Exam Eyes:: Present: normal appearance both eyes and related structures - Neck Exam Neck:: Present: normal visual inspection - Respiratory Exam Respiratory:: Present: able to speak in complete sentences, no respiratory distress, wheezing - Cardiovascular Exam Cardiac:: Present: S1, S2 - GI Exam GI:: Present: soft - Skin Exam Skin: Present: warm, no rash - Neurological Exam Neurological: Present: alert, awake - Extremities Exam Extremities: Present: no cyanosis, no clubbing, no edema Assessment and Plan (1) Respiratory failure with hypoxia Status: Acute Qualifiers: Chronicity: acute Qualified Code(s): J96.01 - Acute respiratory failure with hypoxia Category: Medical Code(s): J96.91 - Respiratory failure, unspecified with hypoxia (2) COVID-19 virus infection Status: Acute Category: Medical Code(s): U07.1 - COVID-19 (3) Asthmatic bronchitis Status: Acute Category: Medical Code(s): J45.909 - Unspecified asthma, uncomplicated (4) COPD exacerbation Status: Acute Category: Medical Code(s): J44.1 - Chronic obstructive pulmonary disease with (acute) exacerbation (5) Hypertension Status: Chronic Category: Medical Code(s): I10 - Essential (primary) hypertension (6) Hyperlipidemia Status: Chronic Category: Medical Code(s): E78.5 - Hyperlipidemia, unspecified (7) Hypothyroid Status: Chronic Category: Medical Code(s): E03.9 - Hypothyroidism, unspecified - Assessment and plan all Dx Assessment and Plan for all problems:: #COVID-19 pneumonia: # CAP: 55-year-old greater than [id number] smoking history, currently diagnosed with COPD on Symbicort twice daily at home. Not on any oxygen at home. Worsening respiratory symptoms for the last 1 week not improved with cefdinir and steroids. CT on admission did not show any evidence of pulmonary embolism, showed left upper lobe peripheral airspace disease along with few other patchy groundglass opacities predominantly in the left lung peguero. No dense consolidation noted Examination patient does not appear to be in any respiratory distress. Auscultation diffuse and end expiratory wheezing noted. Needing new oxygen requirements. COVID-19 PCR positive. Flu PCR negative. CRP elevated at 63.5. Interval update: Continue to receive remdesivir and dexamethasone. Improving respiratory status. Continue to remain on nasal cannula 2 L this morning saturating 92%. Diffuse expiratory wheeze noted on auscultation. Changed to Trelegy 100 along with nebs on as-needed basis. Plan: -Continue nasal cannula maintain O2 saturation goal of 92% above, wean as tolerated. Evaluate the need for home oxygen therapy prior to discharge -Continue remdesivir x 5 days OR untill Discharge -Continue dexamethasone x 5 days OR untill Discharge -Levofloxacin 750 mg daily x5 days -Can be discharged home inhaler therapy which include Symbicort 160, 2 puffs twice daily along with DuoNebs on as-needed basis. #Thank you for involving pulmonary in this patient care. We will follow the patient in pulmonary clinic in 4 to 6 weeks with a full PFT and a 6-minute walk testing.
[2021-12-16 10:33] VITALS: O2SAT 87
--- NOTE | 2021-12-16 11:00 | CARE MANAGER ---
Patient will require O2 and nebulizer machine. Ordered from [facility]. MARC David
--- NOTE | 2021-12-16 23:26 | HMH.DCSUM ---
General - General Admission date:: 12/12/21 Discharge date: 12/16/21 HPI HPI: Complains of having COVID, feeling tired, short of breath. She started getting sick around December 02, seen at the urgent treatment center and diagnosed with sinusitis, started on cefdinir, Phenergan DM, Medrol Dosepak, Mucinex. She returned on 12/08/2021 for continued symptoms and was diagnosed with COVID. For the past 2 days she has had increasing congestion and shortness of breath, particularly when she gets a coughing fit. She complains of fatigue, weakness, poor appetite. She has hypertension, she is a smoker, she says she has COPD. She uses an inhaler, has not used it today. She has not taken her antihypertensive medication today. She was vaccinated with the [employer] vaccine for COVID right off the bat but has not had any boosters. She has not previously had COVID. (above as per ER physician) Hospital Course Hospital Course: The patient had a chest x-ray which showed nothing acute. She had a CTA showing no PE or pneumonia. Pulmonology was consulted. She had been on cefdinir and steroids for 1 week prior to her admission with worsening respiratory status. The shank burnisher reviewed her CT and felt she had some left upper lobe peripheral airspace disease along with a few other patchy groundglass opacities predominantly in the left lung peguero. He felt she should be continued on oxygen and started on remdesivir and dexamethasone along with Levaquin, DuoNebs, and budesonide. She did improve throughout her stay. She was able to rest, but still had a cough and some wheezing. She denied any chest pain. She received 5 days of remdesivir and dexamethasone and it was felt she could be discharged home. Pulmonology felt she should be discharged on Symbicort along with DuoNebs. She will follow-up both with Dr. Almendarez and with pulmonology. Objective Vital signs: Temp Pulse Resp BP Pulse Ox 97.8 F 88 20 135/78 87 L 12/16/21 08:00 12/16/21 08:00 12/16/21 08:00 12/16/21 08:00 12/16/21 10:33 Narrative: - Constitutional no acute distress - *Routine HEENT Exam Head: Present: normocephalic Eye: Present: EOMI, PERRL ENT: Present: mucous membranes dry - *Routine Neck Exam Present: supple. Absent: lymphadenopathy - *Routine Respiratory Exam Present: rhonchi, wheezes - *Routine Cardiovascular Exam Present: RRR - *Routine Abdominal Exam Present: soft, normoactive bowel sounds. Absent: tenderness - *Routine Rectal Exam Rectal:: deferred - *Routine Genitalia Exam Genitalia:: deferred - *Routine Extremities Exam Absent: cyanosis, clubbing, edema - *Routine Skin Exam Present: warm. Absent: rash - *Routine Neurological Exam Present: alert, oriented X3 Results Labs on day of discharge: Labs from last 24 hours 12/16/21 05:46 Sodium 135 L Potassium 4.2 Chloride 95 L Carbon Dioxide 34 H Anion Gap 10.2 BUN 17 Creatinine 0.70 D Estimated Creat Clear 106 Estimated GFR 86 Est GFR ( Amer) 104 D Glucose 107 H Calcium 8.5 Total Bilirubin < 0.1 L AST 37 H ALT 36 Alkaline Phosphatase 81 Total Protein 6.1 L Albumin 3.4 L Globulin 2.7 Albumin/Globulin Ratio 1.3 DS: Diagnosis - Discharge Diagnosis (1) Respiratory failure with hypoxia Status: Acute (2) COVID-19 virus infection Status: Acute (3) Asthmatic bronchitis Status: Acute (4) COPD exacerbation Status: Acute (5) Hypertension Status: Chronic (6) Hyperlipidemia Status: Chronic (7) Hypothyroid Status: Chronic Discharge Plan - Patient Discharge Instructions ACTIVITY: Limited activity DIET: advance to your usual diet Additional Instructions: covid Patient Instructions: DI for Chronic Obstructive Pulmonary Disease, DI for Respiratory Failure, DI for COVID-19 (Suspected or Confirmed ), Preventing the Spread of Coronavirus Discharge Instruction
--- NOTE | 2021-12-17 14:49 | CARE MANAGER ---
Contacted patient related to discharge from the hospital. Patient states that she feels a little better. She did mushroom picker her medication and received her Oxygen. She denies any questions or concerns. MARC David
== END 2021-12-16 12:56 | disposition home or self-care (01) | DRG 177 ==
LOC: ER 10:09 → 2ND 10:32 → ICU 14:56
PROVIDERS: Emergency Medicine; Admitting Provider Family Medicine; Emergency Provider Emergency Medicine; PCP Family Medicine; Visit Provider Family Medicine
DX: U07.1 COVID-19 (principal); J12.82 Pneumonia due to coronavirus disease 2019; J96.01 Acute respiratory failure with hypoxia; J44.1 Chronic obstructive pulmonary disease with (acute) exacerbation; J45.909 Unspecified asthma, uncomplicated; I10 Essential (primary) hypertension; E78.5 Hyperlipidemia, unspecified; E03.9 Hypothyroidism, unspecified
CPT/HCPCS: 36415; 71046; 71275; 80048; 80053; 84145; 84484; 85025; 85651; 86140; 87070; 87205; 93005; 94640; 94761; 99285; C9803; J1956; Q9967; U0003; U0005

== ENCOUNTER → 2022-01-20 07:42 | Outpatient (CLI) | payer OTHER, SELFPAY | PROVIDERS: PCP Family Medicine; Visit Provider Internal Medicine Pulmonary Disease | DX: U07.1 COVID-19 (principal) | CPT/HCPCS: 94060; 94618; 94726; 94729 ==

== ENCOUNTER 2022-10-22 13:27 | Emergency (ER) | payer OTHER, SELFPAY ==
[2022-10-22 14:10] VITALS: BP 148/79; PULSE 89; RESP 22; TEMP 36.9; O2SAT 91; BMI 33.0
[2022-10-22 14:26] VITALS: RESP 20; O2SAT 95
--- NOTE | 2022-10-22 14:26 | EXP.UTC ---
Discharge Plan Disposition Patient Disposition: Home, Self-Care Condition: Good Prescriptions Prescriptions: New methylprednisolone [Medrol (Moe)] 4 mg tablets,dose pack See Rx Instructions .Route .COMPLEX 6 Days Qty: 21 0RF Rx Instructions: taper pack; cefdinir 300 mg capsule 300 mg PO BID Qty: 20 0RF guaifenesin [Mucinex] 600 mg tablet extended release 12hr 600 - 1,200 mg PO BID PRN (Reason: cough) Qty: 20 0RF No Action Stiolto Respimat 2.5-2.5 mcg/actuation mist 2 puff IH DAILY 90 Days Qty: 4 3RF atorvastatin 40 MG tablet 40 mg PO HS aspirin 81 MG tablet,chewable 81 mg PO DAILY ramipril 10 MG capsule 20 mg PO DAILY Label Comments: TAKE 2 CAPSULES BY MOUTH EVERY DAY levothyroxine 137 MCG tablet 137 mcg PO DAILY amlodipine 10 MG tablet 10 mg PO DAILY triamterene-hydrochlorothiazid 1 EACH tablet 1 each PO DAILY albuterol sulfate 8.5 GM HFA aerosol inhaler 2 puff IH Q6HP PRN (Reason: Shortness Of Breath) Label Comments: INHALE 2 PUFFS BY MOUTH EVERY 6 HOURS NEEDED FOR SHORTNESS OF BREATH OR WHEEZING zinc sulfate 220 MG capsule 220 mg PO DAILY 0RF levofloxacin 250 MG tablet 500 mg PO Q48H Qty: 5 0RF prednisone 10 MG tablet 10 mg PO DAILY Qty: 10 0RF ipratropium-albuterol 3 ML solution for nebulization 3 ml IH Q6 PRN (Reason: Shortness Of Breath Or Wheezing) Qty: 120 2RF Referrals Follow up/Referrals: Jennifer Almendarez MD [Primary Care Provider] - See instructions Activity Restrictions/Add. Instructions Additional Instructions/Restrictions: Start antibiotic today. Be sure to complete entire prescription even if feeling better Monitor temp. Tylenol every 4 hours as needed and / or ibuprofen every 6 hours as needed ( As long as your primary care physician has told you that it ok to take both. For fever/aches/pains ER if no less than 101 despite Tylenol or Motrin Humidifier/vaporizer or hot steamy shower Inhaler every 4-6 hours as needed like we discussed. If unsure how to use it, ask pharmacist to demonstrate how. Should help open airways and improve cough, wheezing, and shortness of breath Mucinex for your cough Be sure to drink lots of water. *Start steroid today. Helps with inflammation therefore, cough and wheezing. Follow directions on the package. Reviewed side effects. Patient reports taking them before. Follow up IMMEDIATELY for new or worsening of symptoms OR no noticeable improvement over the next 48-72 hours. 911 immediately for any life threatening symptoms such as chest pain or difficulty breathing Clinical Impressions Clinical Impression: Sinusitis, Bronchitis Instructions Patient Instructions: DI for Sinusitis, Acute Bronchitis Discharge ED Provider: Margie Todd [facility] [place] HPI General Stated complaint: Congestion drainage Mode of Arrival: Ambulatory Source of Information: Patient Limitations: No Limitations Time Seen by Provider: 10/22/22 14:26 Description of Symptoms (Recalled from Triage Doc. by RN): pt c/o sinus congestion/pain, bilateral ear aches/pressure, and a cough that is occasionally productive with yellow sputum. x2d HEENT Symptoms (Recalled from RN notes): Yes Resp Symptoms (Recalled from RN notes): Yes Skin Symptoms (Recalled from RN notes): No MS Symptoms (Recalled from RN notes): No Functional Status (Recalled from RN notes): wnl History of Present Illness Provider Complaint: Patient states that she has been having sinus pain and pressure for about a week for the last couple of days she has been having sinus pain and pressure, cough that is productive at times bilateral ear pain and over all not feeling well States that today she wasnt feeling any better so she came in to get checked Related Data Home Medications Medication Instructions Recorded Confirmed aspirin 81 mg chewable tablet 81 mg PO DAILY HE
[2022-10-22 14:39] VITALS: BP 148/79; PULSE 89; RESP 20; TEMP 36.9
== END 2022-10-22 14:45 | disposition home or self-care (01) ==
PROVIDERS: Emergency Provider Nurse Practitioner; PCP Family Medicine
DX: J20.9 Acute bronchitis, unspecified (principal); J01.90 Acute sinusitis, unspecified; H92.03 Otalgia, bilateral; F17.210 Nicotine dependence, cigarettes, uncomplicated; J44.9 Chronic obstructive pulmonary disease, unspecified
CPT/HCPCS: 99212; 99214; G0463

== ENCOUNTER 2023-01-08 12:25 | Emergency (ER) | payer OTHER, SELFPAY ==
[2023-01-08 12:25] VITALS: BP 176/57; PULSE 77; RESP 16; TEMP 36.8; O2SAT 94; BMI 31.3
--- NOTE | 2023-01-08 12:37 | EXP.UTC ---
Discharge Plan Disposition Patient Disposition: Home, Self-Care Condition: Good Prescriptions Prescriptions: New polymyxin B sulf-trimethoprim [Polytrim] 10,000 unit- 1 mg/mL drops 1 drp ophthalmic (eye) Q3H 7 Days Qty: 10 0RF Rx Instructions: while awake; do not exceed 6 doses in 24 hours No Action Stiolto Respimat 2.5-2.5 mcg/actuation mist 2 puff IH DAILY 90 Days Qty: 4 3RF atorvastatin 40 MG tablet 40 mg PO HS aspirin 81 MG tablet,chewable 81 mg PO DAILY ramipril 10 MG capsule 20 mg PO DAILY Patient Comments: TAKE 2 CAPSULES BY MOUTH EVERY DAY levothyroxine 137 MCG tablet 137 mcg PO DAILY amlodipine 10 MG tablet 10 mg PO DAILY triamterene-hydrochlorothiazid 1 EACH tablet 1 each PO DAILY albuterol sulfate 8.5 GM HFA aerosol inhaler 2 puff IH Q6HP PRN (Reason: Shortness Of Breath) Patient Comments: INHALE 2 PUFFS BY MOUTH EVERY 6 HOURS NEEDED FOR SHORTNESS OF BREATH OR WHEEZING zinc sulfate 220 MG capsule 220 mg PO DAILY 0RF levofloxacin 250 MG tablet 500 mg PO Q48H Qty: 5 0RF prednisone 10 MG tablet 10 mg PO DAILY Qty: 10 0RF ipratropium-albuterol 3 ML solution for nebulization 3 ml IH Q6 PRN (Reason: Shortness Of Breath Or Wheezing) Qty: 120 2RF methylprednisolone [Medrol (Moe)] 4 mg tablets,dose pack See Rx Instructions .Route .COMPLEX 6 Days Qty: 21 0RF Rx Instructions: taper pack; cefdinir 300 mg capsule 300 mg PO BID Qty: 20 0RF guaifenesin [Mucinex] 600 mg tablet extended release 12hr 600 - 1,200 mg PO BID PRN (Reason: cough) Qty: 20 0RF Referrals Follow up/Referrals: Jennifer Almendarez MD [Primary Care Provider] - See instructions Activity Restrictions/Add. Instructions Additional Instructions/Restrictions: Use the eye drops as directed. Strict hand washing in the house hold, because conjunctivitis is very contagious. Follow up with your regular doctor. GO TO THE ER FOR ANY WORSENING SYMPTOMS OR CONCERNS Clinical Impressions Clinical Impression: Bilateral conjunctivitis Instructions Patient Instructions: How to Instill Eye Drops, DI for Conjunctivitis Discharge ED Provider: Ace Cali [facility] HPI General Stated complaint: possible pink eye in Lt eye Mode of Arrival: Ambulatory Source of Information: Patient Limitations: No Limitations Time Seen by Provider: 01/08/23 12:37 Description of Symptoms (Recalled from Triage Doc. by RN): Patient reports left eye redness since yesterday. HEENT Symptoms (Recalled from RN notes): Yes Resp Symptoms (Recalled from RN notes): No Skin Symptoms (Recalled from RN notes): No MS Symptoms (Recalled from RN notes): No Functional Status (Recalled from RN notes): wnl History of Present Illness Provider Complaint: She states that for the past 2 days she has had worsening left eye irritation, yellowish discharge, and matting. She denies any injury or foreign body. Her grand child has had pink eye in her home recently. Related Data Home Medications Medication Instructions Recorded Confirmed aspirin 81 mg chewable tablet 81 mg PO DAILY HEART HEALTH 12/19/18 01/21/22 atorvastatin 40 mg tablet 40 mg PO HS Cholesterol 12/19/18 01/21/22 ramipril 10 mg capsule 20 mg PO DAILY Hypertension 12/19/18 01/21/22 albuterol sulfate 90 mcg/actuation 2 puff inhalation Q6HP PRN 12/12/21 01/21/22 aerosol inhaler Shortness Of Breath amlodipine 10 mg tablet 10 mg PO DAILY Hypertension 12/12/21 01/21/22 levothyroxine 137 mcg tablet 137 mcg PO DAILY THYROID 12/12/21 01/21/22 triamterene 37.5 1 each PO DAILY Hypertension 12/12/21 01/21/22 mg-hydrochlorothiazide 25 mg tablet Previous Rx's Medication Instructions Recorded ipratropium 0.5 mg-albuterol 3 mg 3 ml inhalation Q6 PRN Shortness 12/16/21 (2.5 mg base)/3 mL nebulization Of Breath Or Wheezing #120 ea soln levofloxacin 250 mg tablet 500 mg PO Q48H #5 tabs 12/16/21 prednisone 10 mg
[2023-01-08 13:08] VITALS: BP 176/57; PULSE 77; RESP 16; TEMP 36.8; O2SAT 94
== END 2023-01-08 13:10 | disposition home or self-care (01) ==
PROVIDERS: Emergency Provider Nurse Practitioner Family; PCP Family Medicine
DX: H10.33 Unspecified acute conjunctivitis, bilateral (principal); F17.210 Nicotine dependence, cigarettes, uncomplicated; J44.9 Chronic obstructive pulmonary disease, unspecified
CPT/HCPCS: 99212; 99214; G0463

== ENCOUNTER 2023-03-16 08:58 | Emergency (ER) | payer OTHER, SELFPAY ==
[2023-03-16 09:15] VITALS: BP 143/104; PULSE 107; RESP 20; TEMP 37.2; O2SAT 92; BMI 32.5
--- NOTE | 2023-03-16 09:26 | EXP.UTC ---
Discharge Plan Disposition Patient Disposition: Home, Self-Care Condition: Good Prescriptions Prescriptions: New methylprednisolone [Medrol (Moe)] 4 mg tablets,dose pack See Rx Instructions .Route .COMPLEX 6 Days Qty: 21 0RF Rx Instructions: taper pack; cefdinir 300 mg capsule 300 mg PO BID Qty: 20 0RF guaifenesin [Mucinex] 600 mg tablet extended release 12hr 1,200 mg PO BID PRN (Reason: cough) Qty: 20 0RF azithromycin [Zithromax Z-Moe] 250 mg tablet See Rx Instructions .ROUTE .COMPLEX 5 Days Qty: 6 0RF Rx Instructions: For 250 mg dose pack: take 500 mg today (day 1), then 250 mg for 4 days (days 2-5) albuterol sulfate [Proventil HFA] 90 mcg/actuation HFA aerosol inhaler 1 - 2 inh inhalation Q4-6H PRN (Reason: shortness of breath or wheezing) Qty: 8.5 0RF benzonatate 100 mg capsule 100 mg PO TID PRN (Reason: cough) Qty: 30 0RF No Action Stiolto Respimat 2.5-2.5 mcg/actuation mist 2 puff IH DAILY 90 Days Qty: 4 3RF atorvastatin 40 MG tablet 40 mg PO HS aspirin 81 MG tablet,chewable 81 mg PO DAILY ramipril 10 MG capsule 20 mg PO DAILY Patient Comments: TAKE 2 CAPSULES BY MOUTH EVERY DAY levothyroxine 137 MCG tablet 137 mcg PO DAILY amlodipine 10 MG tablet 10 mg PO DAILY triamterene-hydrochlorothiazid 1 EACH tablet 1 each PO DAILY albuterol sulfate 8.5 GM HFA aerosol inhaler 2 puff IH Q6HP PRN (Reason: Shortness Of Breath) Patient Comments: INHALE 2 PUFFS BY MOUTH EVERY 6 HOURS NEEDED FOR SHORTNESS OF BREATH OR WHEEZING zinc sulfate 220 MG capsule 220 mg PO DAILY 0RF levofloxacin 250 MG tablet 500 mg PO Q48H Qty: 5 0RF prednisone 10 MG tablet 10 mg PO DAILY Qty: 10 0RF ipratropium-albuterol 3 ML solution for nebulization 3 ml IH Q6 PRN (Reason: Shortness Of Breath Or Wheezing) Qty: 120 2RF methylprednisolone [Medrol (Moe)] 4 mg tablets,dose pack See Rx Instructions .Route .COMPLEX 6 Days Qty: 21 0RF Rx Instructions: taper pack; cefdinir 300 mg capsule 300 mg PO BID Qty: 20 0RF guaifenesin [Mucinex] 600 mg tablet extended release 12hr 600 - 1,200 mg PO BID PRN (Reason: cough) Qty: 20 0RF polymyxin B sulf-trimethoprim [Polytrim] 10,000 unit- 1 mg/mL drops 1 drp ophthalmic (eye) Q3H 7 Days Qty: 10 0RF Rx Instructions: while awake; do not exceed 6 doses in 24 hours Referrals Follow up/Referrals: Jennifer Almendarez MD [Primary Care Provider] - See instructions Activity Restrictions/Add. Instructions Additional Instructions/Restrictions: Start antibiotic today. Be sure to complete entire prescription even if feeling better Monitor temp. Tylenol every 4 hours as needed and / or ibuprofen every 6 hours as needed ( As long as your primary care physician has told you that it ok to take both. For fever/aches/pains ER if no less than 101 despite Tylenol or Motrin Humidifier/vaporizer or hot steamy shower Inhaler every 4-6 hours as needed like we discussed. If unsure how to use it, ask pharmacist to demonstrate how. Should help open airways and improve cough, wheezing, and shortness of breath Mucinex during the day for your cough and cough suppressant only at night. Be sure to drink lots of water. *Tessalon Perles will not cause drowsiness but use at bedtime to help stop cough so that you may get some rest. *Start steroid tomorrow. Helps with inflammation therefore, cough and wheezing. Follow directions on the package. Reviewed side effects. Patient reports taking them before. Follow up IMMEDIATELY for new or worsening of symptoms OR no noticeable improvement over the next 48-72 hours. 911 immediately for any life threatening symptoms such as chest pain or difficulty breathing Clinical Impressions Clinical Impression: Bronchitis Sinusitis Qualifiers: Sinusitis location: unspecified location Chronicity: unspecif
[2023-03-16 09:55] VITALS: PULSE 91; O2SAT 96
[2023-03-16 10:07] VITALS: BP 143/104; PULSE 91; RESP 20; TEMP 37.2; O2SAT 92
== END 2023-03-16 10:08 | disposition home or self-care (01) ==
PROVIDERS: Emergency Provider Nurse Practitioner; PCP Family Medicine
DX: J20.9 Acute bronchitis, unspecified (principal); J44.9 Chronic obstructive pulmonary disease, unspecified; F17.210 Nicotine dependence, cigarettes, uncomplicated
CPT/HCPCS: 96372; 99212; 99214; G0463

== ENCOUNTER 2023-05-08 12:18 | Emergency (ER) | payer OTHER, SELFPAY ==
--- NOTE | 2023-05-08 12:37 | EXP.UTC ---
Discharge Plan Disposition Patient Disposition: Home, Self-Care Condition: Good Prescriptions Prescriptions: New methylprednisolone 4 mg Tablets,Dose Pack 4 mg PO DIRECTED Qty: 21 0RF cefdinir 300 mg capsule 300 mg PO BID Qty: 20 0RF No Action Stiolto Respimat 2.5-2.5 mcg/actuation mist 2 puff IH DAILY 90 Days Qty: 4 3RF methylprednisolone [Medrol (Moe)] 4 mg tablets,dose pack See Rx Instructions .Route .COMPLEX 6 Days Qty: 21 0RF Rx Instructions: taper pack; cefdinir 300 mg capsule 300 mg PO BID Qty: 20 0RF guaifenesin [Mucinex] 600 mg tablet extended release 12hr 1,200 mg PO BID PRN (Reason: cough) Qty: 20 0RF azithromycin [Zithromax Z-Moe] 250 mg tablet See Rx Instructions .ROUTE .COMPLEX 5 Days Qty: 6 0RF Rx Instructions: For 250 mg dose pack: take 500 mg today (day 1), then 250 mg for 4 days (days 2-5) albuterol sulfate [Proventil HFA] 90 mcg/actuation HFA aerosol inhaler 1 - 2 inh inhalation Q4-6H PRN (Reason: shortness of breath or wheezing) Qty: 8.5 0RF benzonatate 100 mg capsule 100 mg PO TID PRN (Reason: cough) Qty: 30 0RF atorvastatin 40 MG tablet 40 mg PO HS aspirin 81 MG tablet,chewable 81 mg PO DAILY ramipril 10 MG capsule 20 mg PO DAILY Patient Comments: TAKE 2 CAPSULES BY MOUTH EVERY DAY levothyroxine 137 MCG tablet 137 mcg PO DAILY amlodipine 10 MG tablet 10 mg PO DAILY triamterene-hydrochlorothiazid 1 EACH tablet 1 each PO DAILY albuterol sulfate 8.5 GM HFA aerosol inhaler 2 puff IH Q6HP PRN (Reason: Shortness Of Breath) Patient Comments: INHALE 2 PUFFS BY MOUTH EVERY 6 HOURS NEEDED FOR SHORTNESS OF BREATH OR WHEEZING zinc sulfate 220 MG capsule 220 mg PO DAILY 0RF levofloxacin 250 MG tablet 500 mg PO Q48H Qty: 5 0RF prednisone 10 MG tablet 10 mg PO DAILY Qty: 10 0RF ipratropium-albuterol 3 ML solution for nebulization 3 ml IH Q6 PRN (Reason: Shortness Of Breath Or Wheezing) Qty: 120 2RF methylprednisolone [Medrol (Moe)] 4 mg tablets,dose pack See Rx Instructions .Route .COMPLEX 6 Days Qty: 21 0RF Rx Instructions: taper pack; cefdinir 300 mg capsule 300 mg PO BID Qty: 20 0RF guaifenesin [Mucinex] 600 mg tablet extended release 12hr 600 - 1,200 mg PO BID PRN (Reason: cough) Qty: 20 0RF polymyxin B sulf-trimethoprim [Polytrim] 10,000 unit- 1 mg/mL drops 1 drp ophthalmic (eye) Q3H 7 Days Qty: 10 0RF Rx Instructions: while awake; do not exceed 6 doses in 24 hours Referrals Follow up/Referrals: Jennifer Almendarez MD [Primary Care Provider] - See instructions Activity Restrictions/Add. Instructions Additional Instructions/Restrictions: Drink plenty of fluids. Take tylenol for pain or fever. Take the medications as directed. Follow up with your regular doctor. GO TO THE ER FOR ANY WORSENING SYMPTOMS Clinical Impressions Clinical Impression: Otitis media Instructions Patient Instructions: Middle Ear Infection, Methylprednisolone Discharge ED Provider: Ace Cali [facility] General Stated complaint: R ear pain Time Seen by Provider: 05/08/23 12:37 History of Present Illness Provider Complaint: She states that for the past 3 days she has had worsening ear pain and sinus congestion. Related Data Home Medications Medication Instructions Recorded Confirmed aspirin 81 mg chewable tablet 81 mg PO DAILY HEART HEALTH 12/19/18 01/21/22 atorvastatin 40 mg tablet 40 mg PO HS Cholesterol 12/19/18 01/21/22 ramipril 10 mg capsule 20 mg PO DAILY Hypertension 12/19/18 01/21/22 albuterol sulfate 90 mcg/actuation 2 puff inhalation Q6HP PRN 12/12/21 01/21/22 aerosol inhaler Shortness Of Breath amlodipine 10 mg tablet 10 mg PO DAILY Hypertension 12/12/21 01/21/22 levothyroxine 137 mcg tablet 137 mcg PO DAILY THYROID 12/12/21 01/21/22 triamterene 37.5 1 each PO DAILY Hypertension 12/12/21 01/21/22
[2023-05-08 12:40] VITALS: PULSE 84; RESP 20; TEMP 37.1; O2SAT 92; BMI 32.1
[2023-05-08 13:51] VITALS: BP 126/74; PULSE 74; RESP 19; TEMP 37; O2SAT 98
== END 2023-05-08 13:51 | disposition home or self-care (01) ==
PROVIDERS: Emergency Provider Nurse Practitioner Family; PCP Family Medicine
DX: H66.93 Otitis media, unspecified, bilateral (principal); R09.81 Nasal congestion; F17.210 Nicotine dependence, cigarettes, uncomplicated; J44.9 Chronic obstructive pulmonary disease, unspecified
CPT/HCPCS: 99212; 99214; G0463

== ENCOUNTER 2023-08-09 08:00 | Inpatient (IN) | payer OTHER, SELFPAY ==
[2023-08-09] VITALS (11 sets, daily range): BP systolic 153–203; BP diastolic 73–107; PULSE 96–114; RESP 17–36; TEMP 36.7–37.4; O2SAT 83–94; BMI 34.6; BMI 32.7
--- NOTE | 2023-08-09 08:22 | ED_ITS ---
Discharge Plan Disposition Patient Disposition: Still a Patient Prescriptions Prescriptions: No Action Stiolto Respimat 2.5-2.5 mcg/actuation mist 2 puff IH DAILY 90 Days Qty: 4 3RF methylprednisolone [Medrol (Moe)] 4 mg tablets,dose pack See Rx Instructions .Route .COMPLEX 6 Days Qty: 21 0RF Rx Instructions: taper pack; cefdinir 300 mg capsule 300 mg PO BID Qty: 20 0RF guaifenesin [Mucinex] 600 mg tablet extended release 12hr 1,200 mg PO BID PRN (Reason: cough) Qty: 20 0RF azithromycin [Zithromax Z-Moe] 250 mg tablet See Rx Instructions .ROUTE .COMPLEX 5 Days Qty: 6 0RF Rx Instructions: For 250 mg dose pack: take 500 mg today (day 1), then 250 mg for 4 days (days 2-5) albuterol sulfate [Proventil HFA] 90 mcg/actuation HFA aerosol inhaler 1 - 2 inh inhalation Q4-6H PRN (Reason: shortness of breath or wheezing) Qty: 8.5 0RF benzonatate 100 mg capsule 100 mg PO TID PRN (Reason: cough) Qty: 30 0RF methylprednisolone 4 mg Tablets,Dose Pack 4 mg PO DIRECTED Qty: 21 0RF cefdinir 300 mg capsule 300 mg PO BID Qty: 20 0RF atorvastatin 40 MG tablet 40 mg PO HS aspirin 81 MG tablet,chewable 81 mg PO DAILY ramipril 10 MG capsule 20 mg PO DAILY Patient Comments: TAKE 2 CAPSULES BY MOUTH EVERY DAY levothyroxine 137 MCG tablet 137 mcg PO DAILY amlodipine 10 MG tablet 10 mg PO DAILY triamterene-hydrochlorothiazid 1 EACH tablet 1 each PO DAILY albuterol sulfate 8.5 GM HFA aerosol inhaler 2 puff IH Q6HP PRN (Reason: Shortness Of Breath) Patient Comments: INHALE 2 PUFFS BY MOUTH EVERY 6 HOURS NEEDED FOR SHORTNESS OF BREATH OR WHEEZING zinc sulfate 220 MG capsule 220 mg PO DAILY 0RF levofloxacin 250 MG tablet 500 mg PO Q48H Qty: 5 0RF prednisone 10 MG tablet 10 mg PO DAILY Qty: 10 0RF ipratropium-albuterol 3 ML solution for nebulization 3 ml IH Q6 PRN (Reason: Shortness Of Breath Or Wheezing) Qty: 120 2RF methylprednisolone [Medrol (Moe)] 4 mg tablets,dose pack See Rx Instructions .Route .COMPLEX 6 Days Qty: 21 0RF Rx Instructions: taper pack; cefdinir 300 mg capsule 300 mg PO BID Qty: 20 0RF guaifenesin [Mucinex] 600 mg tablet extended release 12hr 600 - 1,200 mg PO BID PRN (Reason: cough) Qty: 20 0RF polymyxin B sulf-trimethoprim [Polytrim] 10,000 unit- 1 mg/mL drops 1 drp ophthalmic (eye) Q3H 7 Days Qty: 10 0RF Rx Instructions: while awake; do not exceed 6 doses in 24 hours Referrals Follow up/Referrals: Jennifer Almendarez MD [Primary Care Provider] - See instructions Discharge ED Provider: Darell Mcguire [facility] [place] HPI General Stated complaint: congestion, cough, h/a, chills Time Seen by Provider: 08/09/23 08:22 History of Present Illness Provider Complaint: Patient states that she started yesterday with shortness of breath worse when she was up moving around, cough, chills, and headache States that she continued to get worse as the night when on and this morning she was feeling more short of breath so she came in States that she does have hx of COPD Related Data Home Medications Medication Instructions Recorded Confirmed aspirin 81 mg chewable tablet 81 mg PO DAILY HEART HEALTH 12/19/18 01/21/22 atorvastatin 40 mg tablet 40 mg PO HS Cholesterol 12/19/18 01/21/22 ramipril 10 mg capsule 20 mg PO DAILY Hypertension 12/19/18 01/21/22 albuterol sulfate 90 mcg/actuation 2 puff inhalation Q6HP PRN 12/12/21 01/21/22 aerosol inhaler Shortness Of Breath amlodipine 10 mg tablet 10 mg PO DAILY Hypertension 12/12/21 01/21/22 levothyroxine 137 mcg tablet 137 mcg PO DAILY THYROID 12/12/21 01/21/22 triamterene 37.5 1 each PO DAILY Hypertension 12/12/21 01/21/22 mg-hydrochlorothiazide 25 mg tablet Previous Rx's Medication Instructions Recorded ipratropium 0.5 mg-albuterol 3 mg 3 ml inhalation Q6 PRN Shortness 12/16/21 (2.5 mg base)/3 mL nebulization Of Breath Or Wheezing #120 ea soln levofloxacin 250 mg tablet 500 mg PO Q48H #5 tabs 12/16/21 prednisone 10 mg tablet 10 mg PO DAILY #10 tabs 12/16/21 zinc sulfate 50 mg zinc (220 mg) 220 mg PO DAILY 12/16/21 capsule tiotropium 2.5 mcg-olodaterol 2.5 2 puff inhalation DAILY 90 days #4 01/21/22 mcg/actuation mist for inhalation grams (Stiolto Respimat) cefdinir 300 mg capsule 300 mg PO BID #20 caps 10/22/22 guaifenesin 600 mg tablet, 600 - 1,200 mg PO BID PRN cough 10/22/22 extended release 12 hr (Mucinex) #20 tabs methylprednisolone 4 mg tablets in See Rx Instructions .Route 10/22/22 a dose pack (Medrol (Moe)) .COMPLEX 6 days #21 tabs polymyxin B sulfate 10,000 1 drp ophthalmic (eye) Q3H 7 days 01/08/23 unit-trimethoprim 1 mg/mL eye #10 mL drops (Polytrim) albuterol sulfate 90 mcg/actuation 1 - 2 inh inhalation Q4-6H PRN 03/16/23 aerosol inhaler (Proventil HFA) shortness of breath or wheezing #8.5 grams azithromycin 250 mg tablet See Rx Instructions PO .COMPLEX 5 03/16/23 (Zithromax Z-Moe) days #6 tabs benzonatate 100 mg capsule 100 mg PO TID PRN cough #30 caps 03/16/23 cefdinir 300 mg capsule 300 mg PO BID #20 caps 03/16/23 guaifenesin 600 mg tablet, 1,200 mg PO BID PRN cough #20 tabs 03/16/23 extended release 12 hr (Mucinex) methylprednisolone 4 mg tablets in See Rx Instructions .Route 03/16/23 a dose pack (Medrol (Moe)) .COMPLEX 6 days #21 tabs cefdinir 300 mg capsule 300 mg PO BID #20 caps 05/08/23 methylprednisolone 4 mg tablets in 4 mg PO DIRECTED #21 tabs 05/08/23 a dose pack Allergies Allergy/AdvReac Type Severity Reaction Status Date / Time Penicillins Allergy Verified 05/08/23 12:57 PFSH PFS Disclaimer: The information contained in this section may have been updated after the patient was seen, as this information can be updated by other users. Medical History COPD (chronic obstructive pulmonary disease) Dyspnea on exertion History of 2019 novel coronavirus disease (COVID-19) Pulmonary emphysema Screening for lung cancer Smoking greater than 30 pack years Surgical History History of section Family History Other Cancer Coronary artery disease Hypertension Social History Smoking Status: Current every day smoker tobacco type: cigarettes packs per day: 1 alcohol intake: current substance use type: unknown and other current occupational status: employed Travel in the last 8 weeks: None household members: spouse housing: house ROS Obtained: Yes All systems reviewed & no additional complaints except as documented and Yes Systems reviewed as appropriate & no additional complaints except as documented Constitutional Constitutional: Reports system reviewed and no additional complaints, except as documented, Reports as per HPI, Reports chills and Reports headache(s) ENT Ears, Nose, Mouth, and Throat: Reports system reviewed and no additional complaints, except as documented, Reports as per HPI and Reports headache(s) Cardiovascular Cardiovascular: Reports system reviewed and no additional complaints, except as documented and Reports as per HPI Respiratory Respiratory: Reports system reviewed and no additional complaints, except as documented, Reports as per HPI, Reports shortness of breath, Reports cough and Reports wheezing Gastrointestinal Gastrointestingal: Reports system reviewed and no additional complaints, except as documented and as per HPI Neurologic Neurologic: Reports headache(s) Allergic/Immunologic Allergic/Immunologic: Reports wheezing Physical Exam General General appearance: alert ENT ENT exam: Present mucous membranes moist Respiratory Respiratory exam: Present respiratory distress (tachypneic sitting in tripod position on exam table) Cardiovascular Cardiovascular exam: Present tachycardia Neurological Exam Neurological exam: Present alert and oriented X3 Medical Decision Making Juan Inquiry Pt receiving controlled substance: No Juan was queried for this patient: No Orders (Tests/Meds): ORDERS Category Date Time Status Rapid PCR Covid and Flu A/B Stat Lab 08/09/23 08:15 Ordered Medical Decision Narrative: Patient walked to room from lobby with audible wheezing, tachypnea complaining of SOA initial SPO2 78% and patient coughed and SPO2 raised to 83% SPO2 checked x 3 Patient states SOA worse if she moves around and continued to get worse since yesterday Patient in tripod position saying she felt SOA on exam table states worse than normal, discussed with patient and will transfer to the ED for further work up and evaluation and patient agreed Called ED patient was transferred to the ED for further work up and evaluation
--- NOTE | 2023-08-09 08:23 | ECG_ITS ---
APPROVED REPORT Exam: Resting ECG HR:109 bpm ECG Measurements Heart Rate 109 AXES VT 131 P 85 QRSd 86 QRS 85 QT 310 T 83 QTc 374 Conclusion SINUS TACHYCARDIA WITH OCCASIONAL SUPRAVENTRICULAR PREMATURE COMPLEXES Electronically signed by : ISAAC CARTAGENA, 08/09/2023 13:08:30
--- NOTE | 2023-08-09 08:25 | XR_ITS ---
PROCEDURE INFORMATION: Exam: XR Chest Exam date and time: 08/09/2023 8:43 AM Age: 57 years old Clinical indication: Shortness of breath and wheezing and other: Copd exacerbation; Additional info: Copd exacerbation. Smoker x 40 yrs. Copd x few yrs TECHNIQUE: Imaging protocol: Radiologic exam of the chest. Views: 2 views. COMPARISON: CT ANGIO CHEST PE PROTOCOL 12/12/2021 7:09 AM FINDINGS: Lungs: Unremarkable. No consolidation. Pleural spaces: Unremarkable. No pleural effusion. No pneumothorax. Heart/Mediastinum: Unremarkable. No cardiomegaly. Bones/joints: Unremarkable. IMPRESSION: No acute findings.
--- NOTE | 2023-08-09 08:25 | PC.NURSE ---
pt arrived to ed from [facility] via wheelchair
--- NOTE | 2023-08-09 08:33 | PC.NURSE ---
call respiratory to notify [facility] order and lab has green top
--- NOTE | 2023-08-09 08:34 | ED_ITS ---
Discharge Plan Disposition Patient Disposition: Admitted Prescriptions Prescriptions: No Action Stiolto Respimat 2.5-2.5 mcg/actuation mist 2 puff IH DAILY 90 Days Qty: 4 3RF methylprednisolone [Medrol (Moe)] 4 mg tablets,dose pack See Rx Instructions .Route .COMPLEX 6 Days Qty: 21 0RF Rx Instructions: taper pack; cefdinir 300 mg capsule 300 mg PO BID Qty: 20 0RF guaifenesin [Mucinex] 600 mg tablet extended release 12hr 1,200 mg PO BID PRN (Reason: cough) Qty: 20 0RF azithromycin [Zithromax Z-Moe] 250 mg tablet See Rx Instructions .ROUTE .COMPLEX 5 Days Qty: 6 0RF Rx Instructions: For 250 mg dose pack: take 500 mg today (day 1), then 250 mg for 4 days (days 2-5) albuterol sulfate [Proventil HFA] 90 mcg/actuation HFA aerosol inhaler 1 - 2 inh inhalation Q4-6H PRN (Reason: shortness of breath or wheezing) Qty: 8.5 0RF benzonatate 100 mg capsule 100 mg PO TID PRN (Reason: cough) Qty: 30 0RF methylprednisolone 4 mg Tablets,Dose Pack 4 mg PO DIRECTED Qty: 21 0RF cefdinir 300 mg capsule 300 mg PO BID Qty: 20 0RF atorvastatin 40 MG tablet 40 mg PO HS aspirin 81 MG tablet,chewable 81 mg PO DAILY ramipril 10 MG capsule 20 mg PO DAILY Patient Comments: TAKE 2 CAPSULES BY MOUTH EVERY DAY levothyroxine 137 MCG tablet 137 mcg PO DAILY amlodipine 10 MG tablet 10 mg PO DAILY triamterene-hydrochlorothiazid 1 EACH tablet 1 each PO DAILY albuterol sulfate 8.5 GM HFA aerosol inhaler 2 puff IH Q6HP PRN (Reason: Shortness Of Breath) Patient Comments: INHALE 2 PUFFS BY MOUTH EVERY 6 HOURS NEEDED FOR SHORTNESS OF BREATH OR WHEEZING zinc sulfate 220 MG capsule 220 mg PO DAILY 0RF levofloxacin 250 MG tablet 500 mg PO Q48H Qty: 5 0RF prednisone 10 MG tablet 10 mg PO DAILY Qty: 10 0RF ipratropium-albuterol 3 ML solution for nebulization 3 ml IH Q6 PRN (Reason: Shortness Of Breath Or Wheezing) Qty: 120 2RF methylprednisolone [Medrol (Moe)] 4 mg tablets,dose pack See Rx Instructions .Route .COMPLEX 6 Days Qty: 21 0RF Rx Instructions: taper pack; cefdinir 300 mg capsule 300 mg PO BID Qty: 20 0RF guaifenesin [Mucinex] 600 mg tablet extended release 12hr 600 - 1,200 mg PO BID PRN (Reason: cough) Qty: 20 0RF polymyxin B sulf-trimethoprim [Polytrim] 10,000 unit- 1 mg/mL drops 1 drp ophthalmic (eye) Q3H 7 Days Qty: 10 0RF Rx Instructions: while awake; do not exceed 6 doses in 24 hours Referrals Follow up/Referrals: Jennifer Almendarez MD [Primary Care Provider] - See instructions Clinical Impressions Clinical Impression: Acute exacerbation of chronic obstructive pulmonary disease, Acute hypoxemic respiratory failure Discharge ED Provider: Darell Mcguire HPI General Chief Complaint: Shortness of Breath/Dyspnea Stated Complaint: congestion, cough, h/a, chills Time Seen by Provider: 08/09/23 08:22 Mode of Arrival: Ambulatory Source of Information: Patient Limitations: No Limitations Description of Symptoms (Recalled from ER Triage Doc. by RN): PATIENT C/O SOA, COUGH, CHILLS, AND HEADACHE THAT STARTED YESTERDAY. SOA IS WORSE WITH EXERTION. PATIENT REPORTS A HISTORY OF COPD History of Present Illness HPI narrative: 57-year-old female history of COPD not on home oxygen and still smoking, hypertension, hyperlipidemia presenting with shortness of breath. Patient sta walter that she started having a headache 2 days prior to this visit. She started having shortness of breath, productive cough, fevers, chills since yesterday. Shortness of breath is worse with exertion. No PND or orthopnea. Cough is productive of brown sputum, which is new for her. No chest pain, nausea or vomiting, diarrhea, abdominal pain, or any other concerns. Related Data Home Medications Medication Instructions Recorded Confirmed aspirin 81 mg chewable tablet 81 mg PO DAILY HEART HEALTH 12/19/18 01/21/22 atorvastatin 40 mg tablet 40 mg PO HS Cholesterol 12/19/18 01/21/22 ramipril 10 mg capsule 20 mg PO DAILY Hypertension 12/19/18 01/21/22 albuterol sulfate 90 mcg/actuation 2 puff inhalation Q6HP PRN 12/12/21 01/21/22 aerosol inhaler Shortness Of Breath amlodipine 10 mg tablet 10 mg PO DAILY Hypertension 12/12/21 01/21/22 levothyroxine 137 mcg tablet 137 mcg PO DAILY THYROID 12/12/21 01/21/22 triamterene 37.5 1 each PO DAILY Hypertension 12/12/21 01/21/22 mg-hydrochlorothiazide 25 mg tablet Previous Rx's Medication Instructions Recorded ipratropium 0.5 mg-albuterol 3 mg 3 ml inhalation Q6 PRN Shortness 12/16/21 (2.5 mg base)/3 mL nebulization Of Breath Or Wheezing #120 ea soln levofloxacin 250 mg tablet 500 mg PO Q48H #5 tabs 12/16/21 prednisone 10 mg tablet 10 mg PO DAILY #10 tabs 12/16/21 zinc sulfate 50 mg zinc (220 mg) 220 mg PO DAILY 12/16/21 capsule tiotropium 2.5 mcg-olodaterol 2.5 2 puff inhalation DAILY 90 days #4 01/21/22 mcg/actuation mist for inhalation grams (Stiolto Respimat) cefdinir 300 mg capsule 300 mg PO BID #20 caps 10/22/22 guaifenesin 600 mg tablet, 600 - 1,200 mg PO BID PRN cough 10/22/22 extended release 12 hr (Mucinex) #20 tabs methylprednisolone 4 mg tablets in See Rx Instructions .Route 10/22/22 a dose pack (Medrol (Moe)) .COMPLEX 6 days #21 tabs polymyxin B sulfate 10,000 1 drp ophthalmic (eye) Q3H 7 days 01/08/23 unit-trimethoprim 1 mg/mL eye #10 mL drops (Polytrim) albuterol sulfate 90 mcg/actuation 1 - 2 inh inhalation Q4-6H PRN 03/16/23 aerosol inhaler (Proventil HFA) shortness of breath or wheezing #8.5 grams azithromycin 250 mg tablet See Rx Instructions PO .COMPLEX 5 03/16/23 (Zithromax Z-Moe) days #6 tabs benzonatate 100 mg capsule 100 mg PO TID PRN cough #30 caps 03/16/23 cefdinir 300 mg capsule 300 mg PO BID #20 caps 03/16/23 guaifenesin 600 mg tablet, 1,200 mg PO BID PRN cough #20 tabs 03/16/23 extended release 12 hr (Mucinex) methylprednisolone 4 mg tablets in See Rx Instructions .Route 03/16/23 a dose pack (Medrol (Moe)) .COMPLEX 6 days #21 tabs cefdinir 300 mg capsule 300 mg PO BID #20 caps 05/08/23 methylprednisolone 4 mg tablets in 4 mg PO DIRECTED #21 tabs 05/08/23 a dose pack Allergies Allergy/AdvReac Type Severity Reaction Status Date / Time Penicillins Allergy Verified 05/08/23 12:57 [facility] Disclaimer: The information contained in this section may have been updated after the patient was seen, as this information can be updated by other users. Medical History COPD (chronic obstructive pulmonary disease) Dyspnea on exertion History of 2019 novel coronavirus disease (COVID-19) Pulmonary emphysema Screening for lung cancer Smoking greater than 30 pack years Surgical History History of section Family History Other Cancer Coronary artery disease Hypertension Social History Smoking Status: Current every day smoker tobacco type: cigarettes packs per day: 1 alcohol intake: current substance use type: unknown and other current occupational status: employed Travel in the last 8 weeks: None household members: spouse housing: house ROS Obtained: Yes All systems reviewed & no additional complaints except as documented Physical Exam General General appearance: alert and in no apparent distress Neck Neck exam: Present trachea midline Chest Chest inspection: Present normal inspection and symmetric chest wall rise Respiratory Respiratory exam: Present wheezes and prolonged expiratory phase; Absent respiratory distress, stridor or accessory muscle use Cardiovascular Cardiovascular exam: Present normal rhythm and tachycardia Extremities Exam Extremities exam: Absent edema Neurological Exam Neurological exam: Present alert, oriented X3 and CN II-XII intact Skin Skin exam: Present warm and dry; Absent cyanosis, diaphoresis or pallor HEART Score HEART Score HEART Score assessment performed?: Yes History (anamnesis): Slightly suspicious ECG: Normal Age: 45-65 years Risk factors: 1-2 risk factors Troponin: </= normal limit HEART Score: 2 Critical Care Critical Care Time Critical Care Time: Yes (resp) Attestation: On 08/09/23, the high probability of a clinically significant, sudden or life threatening deterioration of the following system(s) required my full and direct attention, intervention and personal management. The time I documented below is in addition to time spent performing reported procedures but includes the following listed in this critical care notation. Total Time Total Critical Care Time: 35 Medical Decision Making Medical Records Medical records reviewed: Yes I reviewed the patient's medical records. Juan Inquiry Pt receiving controlled substance: No Juan was queried for this patient: No Vital Signs Vital Signs: 08/09/23 08:10 08/09/23 08:50 08/09/23 09:01 Temperature 99.1 F 99.4 F Temperature Source Oral Oral Pulse Rate 109 H Pulse Rate [Left Brachial] 112 H 108 H Respiratory Rate 36 H 23 21 Blood Pressure 186/90 H Blood Pressure [Left Arm] 203/94 H 181/96 H Blood Pressure Mean 127 Blood Pressure Mean [Left Arm] 130 124 Blood Pressure Source [Left Arm] Automatic Cuff Blood Pressure Position [Left Arm] Sitting 02 Sat by Pulse Oximetry 83 L 86 L 92 L Oxygen Delivery Method Room Air Nasal Cannula Nasal Cannula Oxygen Flow Rate (LPM) 4 2 08/09/23 09:30 Temperature Temperature Source Pulse Rate 109 H Pulse Rate [Left Brachial] Respiratory Rate 17 Blood Pressure 194/89 H Blood Pressure [Left Arm] Blood Pressure Mean Blood Pressure Mean [Left Arm] Blood Pressure Source [Left Arm] Blood Pressure Position [Left Arm] 02 Sat by Pulse Oximetry 94 L Oxygen Delivery Method Nasal Cannula Oxygen Flow Rate (LPM) 2 Lab Data Labs: Lab Results 08/09/23 08:15: SARS-CoV-2 (PCR) Not detected, Influenza A Untype (PCR) Detected A, Influenza Type B (PCR) Not detected 08/09/23 08:28: WBC 6.1, RBC 4.67, Hgb 15.5, Hct 49.4 H, MCV 105.8 H, MCH 33.2 H , MCHC 31.4 L, RDW 13.3, Plt Count 189, MPV 7.9, Neut % (Auto) 82.7 H, Lymph % (Auto) 8.7 L, Wilkinson % (Auto) 7.8, Eos % (Auto) 0.1, Baso % (Auto) 0.6, Neut # (Auto) 5.1, Lymph # (Auto) 0.5 L, Wilkinson # (Auto) 0.5, Eos # (Auto) 0.0, Baso # (Auto) 0.0, Sodium 135 L, Potassium 3.9, Chloride 99, Carbon Dioxide 30, Anion Gap 9.9, BUN 9, Creatinine 0.70, Estimated Creat Clear 129, Estimated GFR 86, Est GFR ( Amer) 104, Glucose 124 H, Lactate 0.9, Calcium 8.7, Total Bilirubin 0.4, AST 32, ALT 24, Alkaline Phosphatase 105, Troponin I < 0.01, Total Protein 6.9, Albumin 4.5, Globulin 2.4, Albumin/Globulin Ratio 1.9 H 08/09/23 08:39: VBG pH 7.34, VBG pCO2 53.7 H, VBG pO2 56.9 H, VBG HCO3 28.0, VBG Total CO2 29.6 H, VBG O2 Saturation 89.6 H, VBG Base Excess 2.1 08/09/23 08:51: VBG Lactic Acid 1.2 08/09/23 08:28 08/09/23 08:28 Response Orders (Tests/Meds): ED MEDICATIONS Discontinued Medications Generic Name Dose Route Start Last Admin Trade Name Freq PRN Reason Stop Dose Admin Albuterol/Ipratropium 6 ml 08/09/23 08:25 08/09/23 08:37 Ipratropium/Albuterol 3 Ml [facility] 08/09/23 08:26 6 ml ONCE ONE Administration Albuterol/Ipratropium 6 ml 08/09/23 08:50 08/09/23 09:00 Ipratropium/Albuterol 3 Ml [facility] 08/09/23 08:51 6 ml ONCE ONE Administration Methylprednisolone Sodium Succinate 125 mg 08/09/23 08:25 08/09/23 08:37 Methylprednisolone Sod Succ 125mg Vial IV 08/09/23 08:26 125 mg ONCE ONE Administration Oseltamivir Phosphate 75 mg 08/09/23 09:26 08/09/23 09:46 Oseltamivir 75mg Capsule PO 08/09/23 09:27 75 mg ONCE ONE Administration ORDERS Category Date Time Status CXR 2 view (NOT portable) [XR chest 2V] Stat Exams 08/09/23 08:25 Taken CBC w/Auto Diff [Complete Blood Count Auto Diff] Stat Lab 08/09/23 08:28 Completed CMP [Comprehensive Metabolic Panel] Stat Lab 08/09/23 08:28 Completed Lactate Venous Routine Lab 08/09/23 08:51 Completed Lactic Acid Stat Lab 08/09/23 08:28 Completed Rapid PCR Covid and Flu A/B Stat Lab 08/09/23 08:15 Completed Trop I [Troponin I] Stat Lab 08/09/23 08:28 Completed Troponin I Q3H Lab 08/09/23 11:45 Ordered Troponin I Q3H Lab 08/09/23 14:45 Ordered Blood Culture Stat Micro 08/09/23 08:33 Received VBG [Venous Blood Gas] Stat RT 08/09/23 08:39 Completed MDM Narrative Medical Decision Narrative: 57-year-old female history of COPD not on home oxygen and still smoking, hypertension, hyperlipidemia presenting with shortness of breath. Patient states that she started having a headache 2 days prior to this visit. She started having shortness of breath, productive cough, fevers, chills since yesterday. Shortness of breath is worse with exertion. No PND or orthopnea. Cough is productive of brown sputum, which is new for her. No chest pain, nausea or vomiting, diarrhea, abdominal pain, or any other concerns. It should be noted the patient is still smoking and COPD is poorly controlled, which is complicating care. History was obtained via conversation with patient. On arrival, patient hemodynamically stable, alert, oriented x4, appropriate, GCS 15, moving all extremities spontaneously, pupils equal and reactive to light. Full physical exam performed and significant for well-appearing woman in mild respiratory distress, but not acutely ill. She is tachypneic, tachycardic, saturating 83% on room air with prolonged expiratory phase and diffuse bilateral wheezes. Afebrile, tachycardic and hypertensive. Cardiac exam otherwise within normal limits, no lower extremity edema. Differential includes COPD exacerbation, pneumonia, bronchitis, microvascular coronary artery disease, CHF, ACS, VA, coronary artery dissection, pneumothorax, PE, dissection, pericarditis, myocarditis, pneumothorax, aortic aneurysm among others. Patient was given 2 DuoNebs, Solu-Medrol 125 mg, Augmentin for symptomatic management and correction of underlying abnormalities. Workup independently interpreted and significant for no leukocytosis. Chemistry nonactionable, VBG with compensated chronic respiratory acidosis. Kidney function normal. Troponin negative. Chest x-ray without acute pneumonia, but bronchiolar thickening and inflammation concerning for bronchitis versus viral pneumonia. See radiology read for full review of final results. Independent interpretation of EKG shows sinus tachycardia 109 bpm with intermittent PACs. No ST or T wave changes concerning for acute ischemia. IN, QRS, QT intervals within normal limits. [place] normal. Patient placed on continuous cardiac monitoring and continuous pulse ox with initial blood pressure 143/122, heart rate 106, saturation 96 on 4 L nasal cannula. Heart score 2. On reevaluation, patient continuing to be pretty wheezy, so was given 2 more DuoNebs. On repeat evaluation she is resting more comfortably, now on 2 L nasal cannula to saturate 88 to 90. Because patient still mildly tachypneic and requiring oxygen deemed appropriate for inpatient management. Dr. Almendarez was contacted and case was discussed at length, patient to be admitted. Given patient presentation, workup, history, this most likely represents COPD exacerbation. Because patient high risk for clinical decompensation, deemed appropriate for inpatient admission. Results were relayed to patient who voiced understanding and patient was agreeable to inpatient admission and management. Patient was admitted to the hospital for further definitive management.
[2023-08-09] MEDS: METHYLPREDNISOLONE SOD SUCC 125MG VIAL 125 MG IV (08:37)
[2023-08-09] MEDS: IPRATROPIUM/ALBUTEROL 3 ML NEB 6 ML IH ×2 (08:37→09:00)
[2023-08-09 08:43] LABS: Basophils % 0.6 % (0.1-2.0); Eosinophils % 0.1 % (0.1-12.0); Hematocrit 49.4 % (37.0-47.0); Hemoglobin 15.5 g/dL (12.2-16.2); Lymphocytes # 0.5 K/mm3 (0.7-4.5); Lymphocytes % 8.7 % (10-50); Mean Corpuscular HGB Conc 31.4 g/dL (31.8-35.4); Mean Corpuscular Hemoglobin 33.2 pg (27.0-31.2); Mean Corpuscular Volume 105.8 fl (81-99); Mean Platelet Volume 7.9 fl (7.4-10.4); Monocytes # 0.5 K/mm3 (0.1-1.0); Monocytes % 7.8 % (1.7-9.3); Neutrophils # 5.1 K/mm3 (1.8-7.8); Neutrophils % 82.7 % (37.0-80.0); Platelet Count 189 K/mm3 (142-424); Red Blood Count 4.67 M/mm3 (4.20-5.40); Red Cell Distribution Width 13.3 % (11.5-17.5); White Blood Count 6.1 K/mm3 (4.8-10.8)
[2023-08-09 08:45] LABS: VBG Base Excess 2.1 mmol/L (-2.4-2.3); VBG Oxygen Saturation 89.6 % (50-70); VBG PH 7.34 mmol/L (7.31-7.41); VBG PO2 56.9 mmol/L (28-40); VBG Total CO2 29.6 mmol/L (23-27)
[2023-08-09 08:48] LABS: VBG PCO2 53.7 mmol/L (35-51)
[2023-08-09 08:52] LABS: Lactate Venous 1.2 mmol/L (0.4-2.0)
--- NOTE | 2023-08-09 08:52 | PC.NURSE ---
CALLED LAB TO CHECK ON STATUS OF COVID/FLU SWAB MAXX STATED THEY HAD NO ORDER PUT IN AT THE TIME SHE WOULD AYDEN IT RECEIVED AND RUN SWAB NOW
[2023-08-09 08:53] LABS: Coronavirus 19, PCR Not Detected (NotDetected); Influenza B, PCR Not Detected (NotDetected)
--- NOTE | 2023-08-09 08:53 | PC.NURSE ---
Pt gone to RAD via wheelchair
--- NOTE | 2023-08-09 08:55 | PC.NURSE ---
PT GONE TO CT
[2023-08-09 08:56] LABS: Lactic Acid 0.9 mmol/L (0.7-2.1)
[2023-08-09 08:57] LABS: Alanine Aminotransferase 24 U/L (12-78); Albumin Level 4.5 g/dl (3.5-5.0); Albumin/Globulin Ratio 1.9 (1.1-1.8); Alkaline Phosphatase 105 U/L (38-126); Anion Gap 9.9 mEq/L (5-15); Aspartate Amino Transferase 32 U/L (14-36); Bilirubin,Total 0.4 mg/dl (0.2-1.3); Blood Urea Nitrogen 9 mg/dl (7-17); Calcium 8.7 mg/dl (8.4-10.2); Carbon Dioxide 30 mmol/L (22.0-30.0); Chloride 99 mmol/L (98-107); Creatinine Clearance Estimated 129 mL/min (50-200); Estimated Glomerular Filt Rate 86 ml/min (>60); GFR (African American) 104 ML/MIN (>60); Globulin 2.4 g/dL (1.3-3.2); Glucose 124 mg/dl (74-100); Potassium 3.9 mmoL/L (3.5-5.1); Sodium 135 mmol/L (136-145); Total Protein,Serum 6.9 g/dl (6.3-8.2)
--- NOTE | 2023-08-09 08:58 | PC.NURSE ---
PT ARRIVED BACK TO ROOM FROM XRAY
--- NOTE | 2023-08-09 09:02 | PC.NURSE ---
VBG results MD lundberg
[2023-08-09 09:20] LABS: Troponin I < 0.01 ng/ml (0.00-0.034)
[2023-08-09 09:24] LABS: Influenza A, PCR Detected (NotDetected)
--- NOTE | 2023-08-09 09:35 | PC.NURSE ---
Rounded on pt. No needs or complaints voiced at this time and call light within reach
[2023-08-09] MEDS: OSELTAMIVIR 75MG CAPSULE 75 MG PO ×2 (09:46→20:15)
--- NOTE | 2023-08-09 10:07 | PC.NURSE ---
Dr. Mcguire speaking with Dr. Almendarez
--- NOTE | 2023-08-09 10:27 | PC.NURSE ---
HOUSE STATES NO BED AT THIS TIME
--- NOTE | 2023-08-09 10:27 | PC.NURSE ---
call made to datawarehouse developer for bed placement
--- NOTE | 2023-08-09 11:15 | PC.NURSE ---
Admissions notified that room 200 is now clean and pt can be admitted to for COPD w/ new O2 requirement. Acute.
--- NOTE | 2023-08-09 11:18 | PC.NURSE ---
Addendum entered by Sonia Villa RN 08/09/23 11:24: Report called to Christopher TRAN Original Note: Report called
--- NOTE | 2023-08-09 11:27 | PC.NURSE ---
arrived by w/c from ED
[2023-08-09 12:44] LABS: Troponin I < 0.01 ng/ml (0.00-0.034)
--- NOTE | 2023-08-09 13:39 | P.HP_ITS ---
History of Present Illness *Admission Date: 08/09/23 *Reason for visit:: SOA *History of present illness: 57-year-old female history of COPD not on home oxygen and still smoking, admitted from ER with acute respiratory symptoms.. Dx with Influenza A in ER, exacerbating chronic bronchitis. Patient states that she started having a headache the evening 2 days prior to this visit. Yesterday she started having shortness of breath, productive cough, fevers, chills. The shortness of breath is worse with exertion. No PND or orthopnea, denies chest pain. Cough is slightly productive of brown sputum, which is new for her. No nausea or vomiting, diarrhea, abdominal pain. She smoks one PPD and has a history of COPD. According to the ER report the patient was hemodynamically stable, alert, oriented x4, appropriate, GCS 15, moving all extremities spontaneously, pupils equal and reactive to light. In mild respiratory distress, but not acutely ill. She was tachypneic, tachycardic, saturating 83% on room air with prolonged expiratory phase and diffuse bilateral wheezes. Afebrile, hypertensive, and with history of hypertension. In the ER the patient was given 2 DuoNebs, Solu-Medrol 125 mg, and Augmentin. Present was leukocytosis. VBG with compensated chronic respiratory acidosis. Kidney function normal. Troponin negative. Chest x-ray was without acute pneumonia, but showed bronchiolar thickening and inflammation concerning for bronchitis versus viral pneumonia. EKG shows sinus tachycardia 109 bpm with intermittent PACs. No ST or T wave changes concerning for acute ischemia. TX, QRS, QT intervals within normal limits. [place] normal. Patient placed on continuous cardiac monitoring and continuous pulse ox with initial blood pressure 143/122, heart rate 106, saturation 96 on 4 L nasal cannula. After 2 aditional DuoNeb treatments the patient was admitted to the hospital for further management. Her O2 saturations were at 88-90%. [facility] Disclaimer: The information contained in this section may have been updated after the patient was seen, as this information can be updated by other users. Medical History COPD (chronic obstructive pulmonary disease) Dyspnea on exertion History of 2019 novel coronavirus disease (COVID-19) Influenza A Pulmonary emphysema Screening for lung cancer Smoking greater than 30 pack years Surgical History History of section Family History Coronary artery disease Cancer Hypertension Social History (Updated 08/09/23 @ 11:46 by Ann Whitten RN) Smoking Status: Current every day smoker tobacco type: cigarettes packs per day: 1 alcohol intake: current substance use type: unknown and other current occupational status: employed Travel in the last 8 weeks: None household members: spouse housing: house Review of Systems Constitutional Constitutional: Reports as per HPI and Reports headache(s) Eyes Eyes: Denies change in vision ENT Ears, Nose, Mouth, and Throat: Reports system reviewed and no additional complaints, except as documented, Denies disequilibrium, Denies dizziness and Reports headache(s) *Cardiovascular Cardiovascular: Denies chest pain, Denies chest pain at rest, Denies chest pain with activity, Reports dyspnea, Reports dyspnea on exertion, Denies irregular heart rhythm, Denies lightheadedness and Denies palpitations *Respiratory Respiratory: Reports dyspnea, Reports dyspnea on exertion and Reports wheezing *Gastrointestinal Gastrointestinal: Denies abdominal pain, Denies belching, Denies bloating and Denies change in bowel habits *Genitourinary Genitourinary: Denies difficulty voiding, Denies pelvic pain, Denies urinary frequency and Denies urinary incontinence *Musculoskeletal Musculoskeletal: Reports system reviewed and no additional complaints, except as documented Integumentary/Breasts Skin/Breast: Reports system reviewed and no additional complaints, except as documented *Neurologic Neurologic: Reports as per HPI, Denies convulsions, Denies disequilibrium, Denies dizziness and Reports headache(s) Psychiatric Psychiatric: Reports system reviewed and no additional complaints, except as documented Endocrine Endocrine: Reports system reviewed and no additional complaints, except as documented and Denies palpitations Hematologic/Lymphatic Hematologic/Lymphatic: Reports system reviewed and no additional complaints, except as documented Allergic/Immunologic Allergic/Immunologic: Reports system reviewed and no additional complaints, except as documented and Reports wheezing Meds Home Medications and Allergies Home Medications Medication Instructions Recorded Confirmed Type aspirin 81 mg chewable tablet 81 mg PO DAILY HEART HEALTH 12/19/18 08/09/23 History atorvastatin 40 mg tablet 40 mg PO HS Cholesterol 12/19/18 08/09/23 History ramipril 10 mg capsule 20 mg PO DAILY Hypertension 12/19/18 08/09/23 History amlodipine 10 mg tablet 10 mg PO DAILY Hypertension 12/12/21 08/09/23 History levothyroxine 137 mcg tablet 137 mcg PO DAILY THYROID 12/12/21 08/09/23 History triamterene 37.5 1 each PO DAILY Hypertension 12/12/21 08/09/23 History mg-hydrochlorothiazide 25 mg tablet ipratropium 0.5 mg-albuterol 3 mg 3 ml inhalation Q6 PRN Shortness 12/16/21 08/09/23 Rx (2.5 mg base)/3 mL nebulization Of Breath Or Wheezing #120 ea soln tiotropium 2.5 mcg-olodaterol 2.5 2 puff inhalation DAILY 90 days #4 01/21/22 08/09/23 Rx mcg/actuation mist for inhalation grams (Stiolto Respimat) New Prescriptions to Start Prescriptions: Allergies Allergy/AdvReac Type Severity Reaction Status Date / Time Penicillins Allergy Verified 05/08/23 12:57 Exam Data for Last 24 hours Vital signs and Labs for Last 24 Hours: Temp Pulse Resp BP Pulse Ox O2 Del Method O2 Flow Rate 98.4 F 105 H 23 153/107 H 94 L Nasal Cannula 1.5 08/09/23 11:35 08/09/23 11:35 08/09/23 11:35 08/09/23 11:35 08/09/23 11:35 08/09/23 12:37 08/09/23 12:37 Laboratory Results - last 24 hr 08/09/23 08:15: SARS-CoV-2 (PCR) Not detected, Influenza A Untype (PCR) Detected A, Influenza Type B (PCR) Not detected 08/09/23 08:28: WBC 6.1, RBC 4.67, Hgb 15.5, Hct 49.4 H, MCV 105.8 H, MCH 33.2 H , MCHC 31.4 L, RDW 13.3, Plt Count 189, MPV 7.9, Neut % (Auto) 82.7 H, Lymph % (Auto) 8.7 L, Hand % (Auto) 7.8, Eos % (Auto) 0.1, Baso % (Auto) 0.6, Neut # (Auto) 5.1, Lymph # (Auto) 0.5 L, Hand # (Auto) 0.5, Eos # (Auto) 0.0, Baso # (Auto) 0.0, Sodium 135 L, Potassium 3.9, Chloride 99, Carbon Dioxide 30, Anion Gap 9.9, BUN 9, Creatinine 0.70, Estimated Creat Clear 129, Estimated GFR 86, Est GFR ( Amer) 104, Glucose 124 H, Lactate 0.9, Calcium 8.7, Total Bilirubin 0.4, AST 32, ALT 24, Alkaline Phosphatase 105, Troponin I < 0.01, Total Protein 6.9, Albumin 4.5, Globulin 2.4, Albumin/Globulin Ratio 1.9 H 08/09/23 08:39: VBG pH 7.34, VBG pCO2 53.7 H, VBG pO2 56.9 H, VBG HCO3 28.0, VBG Total CO2 29.6 H, VBG O2 Saturation 89.6 H, VBG Base Excess 2.1 08/09/23 08:51: VBG Lactic Acid 1.2 08/09/23 12:00: Troponin I < 0.01 I & O for Last 24 hours: Intake & Output 08/07/23 08/08/23 08/09/23 08/10/23 11:59 11:59 11:59 11:59 Intake Total 470 / 470 Balance 470 / 470 Weight 209 lb 2 oz Constitutional Constitutional: mild distress (Some wheezing) *Routine HEENT Exam Head: Present normocephalic; Absent cushingoid faces Eye: Present EOMI and PERRL ENT: Present mucous membranes moist, dentition normal and nares patent *Routine Neck Exam Neck: Absent JVD or lymphadenopathy Routine Chest/Breast/Axilla Exam Chest wall: Absent tenderness *Routine Respiratory Exam Respiratory: Present decreased breath sounds and wheezes; Absent accessory muscle use, respiratory distress or stridor *Routine Cardiovascular Exam Cardiovascular: Present tachycardia (100); Absent ectopic *Routine Abdominal Exam Abdominal: Present soft; Absent tenderness, distended or mass *Routine Rectal Exam Rectal:: deferred *Routine Genitalia Exam Genitalia:: deferred *Routine Extremities Exam Extremities: Absent cyanosis, clubbing or edema Routine Back/Spine/Pelvis Exam Back/Spine: Present full ROM; Absent CVA tenderness *Routine Skin Exam Skin: Present intact; Absent rash *Routine Neurological Exam Neurological: Present alert and oriented X3 Routine Psychiatric Exam Psychiatric: Present normal affect and normal thought process Assessment and Plan *Assessment and plan (1) Acute exacerbation of chronic obstructive pulmonary disease: Status: Acute Category: Medical Code(s): J44.1 - Chronic obstructive pulmonary disease with (acute) exacerbation (2) Acute hypoxemic respiratory failure: Status: Acute Category: Medical Code(s): J96.01 - Acute respiratory failure with hypoxia (3) Influenza A: Status: Acute Category: Medical Code(s): J10.1 - Influenza due to other identified influenza virus with other respiratory manifestations (4) Smoking greater than 30 pack years: Status: Chronic Category: Social Hx Code(s): F17.210 - Nicotine dependence, cigarettes, uncomplicated (5) History of 2019 novel coronavirus disease (COVID-19): Status: Chronic Category: Medical Code(s): Z86.16 - Personal history of COVID-19 (6) Hypertension: Status: Chronic Category: Medical Code(s): I10 - Essential (primary) hypertension (7) Hypothyroid: Status: Chronic Category: Medical Code(s): E03.9 - Hypothyroidism, unspecified (8) Hyperlipidemia: Status: Chronic Category: Medical Code(s): E78.5 - Hyperlipidemia, unspecified Plan See orders. Continue Tamiflu. Continue Nebs.
[2023-08-09 14:28] LABS: Thyroid Stimulating Hormone 0.38 uIU/mL (0.465-4.68)
[2023-08-09 15:18] LABS: Troponin I < 0.01 ng/ml (0.00-0.034)
--- NOTE | 2023-08-09 15:56 | PC.NURSE ---
patient is alert and oriented x4, vital signs are stable, pt is on 2L nasal cannula with O2 sats in the 90s, pt denies chest pain and has had no c/o shortness of breath since arriving to the floor, lung sounds are diminished throughout bilaterally, coarse crackles in RLL. Call light within reach.
[2023-08-09] MEDS: ATORVASTATIN 40MG TABLET 40 MG PO (20:15)
[2023-08-10] VITALS (8 sets, daily range): BP systolic 124–156; BP diastolic 66–92; PULSE 77–99; RESP 17–22; TEMP 36.7–36.9; O2SAT 90–96; BMI 32.8
--- NOTE | 2023-08-10 05:13 | PC.NURSE ---
Addendum entered by HAILY Boland 08/10/23 05:14: Pt has stated she started having diarrhea, has only said 1 time this far. Pt ambulated to the restroom. No complaints of pain or soa. Call light in reach. Original Note: Pt has rested throughout the night. Remains on 2L NC, O2 sat >90%.
[2023-08-10] MEDS: LEVOTHYROXINE 137MCG (0.137MG) TAB 137 MCG PO (06:07)
--- NOTE | 2023-08-10 07:29 | HMH.PHAINT1 ---
Pharmacy Intervention Comments: Verified home medications using external fill history and spoke with patient at bedside. Of note, recent dose increase on levothyroxine from 137mcg to 150mcg.
[2023-08-10] MEDS: LISINOPRIL 20MG TABLET 40 MG PO (08:03)
[2023-08-10] MEDS: AMLODIPINE 10MG TABLET 10 MG PO (08:03)
[2023-08-10] MEDS: OSELTAMIVIR 75MG CAPSULE 75 MG PO ×2 (08:03→21:23)
[2023-08-10] MEDS: HCTZ 25MG/TRIAMTERENE 37.5MG TABLET 1 EACH PO (08:04)
--- NOTE | 2023-08-10 08:05 | CA_ITS ---
APPROVED REPORT EXAM: Comprehensive 2D, Doppler, and color-flow Echocardiogram [employer]: Terese Stahl, RT(R) Ht: 5 ft 7 in Wt: 209lbs BSA: 2.06 BP: 153/107 mmHg Indications: chest tightness, COPD, smoker, HTN, SOB, hyperlipidemia, Flu A. 2D Dimensions Left Atrium 2.56 cm F: 2.7 - 3.8 EF AP4 47.00 % LVOT 1.84 cm (M/F) 1.5-2.5 GL Strain -10.2 % M-Mode Dimensions RVDd 2.59 cm (0.9-2.6) LVDd 3.39 cm (3.5-5.7) Ao Diam 3.23 cm (2.0-3.7) LVDs 2.54 cm (3.5-5.7) IVSd 1.16 cm (0.6-1.1) PWd 0.76 cm (0.6-1.1) EF (Teich) 50.70% FS 25.10% EDV (Teich) 47.10 mL ESV (Teich) 23.20 mL LV Diastology E Decel Time 181 (160-240 msec) E/A Ratio 0.8 MED E' 5.6 (>= 7 cm/sec) E'/MED E' Ratio 15.04 (<= 14) LAT E' 7.6 (>= 10 cm/sec) E/LAT E' Ratio 11.08 (<= 14) Mitral Valve MV E Max Gerard. 84.0 (40-130 cm/s) MV A Velocity 104.0 (40-130 cm/s) E/A Ratio 0.81 MV Decel. Time 181 (160-240 ms) Left Ventricle The left ventricle is normal size. The left ventricular systolic function is hyperdynamic. There is increased LV wall thickness. There is normal LV segmental wall motion. The left ventricular diastolic function is normal. LVEF is 70%. Right Ventricle The right ventricle is normal size. The right ventricular systolic function is normal. Atria The left atrium size is normal. The right atrium size is normal. There is no Doppler evidence of interatrial shunt. Aortic Valve The aortic valve opens well. There is no aortic valvular stenosis. No aortic regurgitation is present. Mitral Valve The mitral valve is normal in structure. No evidence of mitral valve stenosis. There is no mitral valve regurgitation noted. Tricuspid Valve The tricuspid valve leaflets are thin and pliable. Trace tricuspid regurgitation. There is insufficient TR jet to estimate RVSP. Pulmonic Valve The pulmonary valve is normal in structure. Trace pulmonic regurgitation. Great Vessels The aortic root is normal in size. The ascending aorta is not well-visualized. IVC is normal in size and collapses >50% with inspiration. Pericardium Trivial anterior pericardial effusion. No echo indications of tamponade. Other Information Study Quality: Technically Difficult Conclusion Technically difficult study due to poor accoustic windows. Hyperdynamic LV systolic function (LVEF 70%). No evidence of significant valvular stenosis or regurgitation. Trivial anterior pericardial effusion. No echo indications of tamponade. Electronically signed by : Lety Arzola MD 08/11/2023 11:59:39
--- NOTE | 2023-08-10 08:16 | EXP.ACUTE.PN ---
Subjective *Date: 08/10/23 *Time: 08:16 Interval history: She states she was able to sleep last night. Nasal O2 still in place. Oxygen saturations are still in the 90% range. With normal chest x-ray I would like to see an echocardiogram. Dr. Omalley did see her during her COVID episode. I will obtain a consult during this hospitalization. Medical Exam Vital signs and Labs for Last 24 Hours: Vital Signs Temp Pulse Pulse Resp BP BP Pulse Ox 08/10/23 06:48 08/10/23 04:00 98.5 F 86 17 151/87 H 90 L 08/10/23 05:00 08/10/23 02:52 08/10/23 01:00 08/10/23 00:00 98.2 F 95 H 20 129/77 92 L 08/09/23 23:00 08/09/23 21:00 08/09/23 20:00 08/09/23 19:59 98.3 F 96 H 22 169/89 H 90 L 08/09/23 18:47 08/09/23 17:00 08/09/23 15:10 98.3 F 98 H 17 154/73 H 90 L 08/09/23 15:00 08/09/23 12:37 08/09/23 11:35 98.4 F 105 H 23 153/107 H 94 L 08/09/23 11:30 98.0 F 105 H 21 153/107 H 08/09/23 11:00 105 H 21 153/107 H 92 L 08/09/23 10:30 114 H 22 171/105 H 92 L 08/09/23 10:01 108 H 30 H 167/82 H 91 L 08/09/23 09:30 109 H 17 194/89 H 94 L 08/09/23 09:01 109 H 21 186/90 H 92 L 08/09/23 08:50 99.4 F 108 H 23 181/96 H 86 L O2 Del Method O2 Flow Rate 08/10/23 06:48 Nasal Cannula 2 08/10/23 04:00 Nasal Cannula 08/10/23 05:00 Nasal Cannula 2 08/10/23 02:52 Nasal Cannula 2 08/10/23 01:00 Nasal Cannula 2 08/10/23 00:00 Nasal Cannula 08/09/23 23:00 Nasal Cannula 2 08/09/23 21:00 Nasal Cannula 2 08/09/23 20:00 Nasal Cannula 2 08/09/23 19:59 Nasal Cannula 2 08/09/23 18:47 Nasal Cannula 2 08/09/23 17:00 Nasal Cannula 2 08/09/23 15:10 Nasal Cannula 2 08/09/23 15:00 Nasal Cannula 2 08/09/23 12:37 Nasal Cannula 1.5 08/09/23 11:35 Nasal Cannula 2 08/09/23 11:30 Nasal Cannula 2 08/09/23 11:00 Nasal Cannula 2 08/09/23 10:30 Nasal Cannula 2 08/09/23 10:01 Nasal Cannula 2 08/09/23 09:30 Nasal Cannula 2 08/09/23 09:01 Nasal Cannula 2 08/09/23 08:50 Nasal Cannula 4 Intake and Output 08/09/23 08/10/23 08/10/23 19:59 03:59 11:59 Intake Total 940 / 940 Output Total 0 / 0 0 / 0 0 / 0 Balance 940 / 940 0 / 940 0 / 940 Intake: Intake, Oral Amount 940 / 940 Output: Output, Urine Amount 0 / 0 0 / 0 0 / 0 Other: Number of Unmeasured Voids 1 1 1 Number of Bowel Movements 1 1 Weight 209 lb 3.2 oz Patient Weight 08/10/23 11:59 Weight 209 lb 3.2 oz Laboratory Results - last 24 hr 08/09/23 08:15: SARS-CoV-2 (PCR) Not detected, Influenza A Untype (PCR) Detected A, Influenza Type B (PCR) Not detected 08/09/23 08:28: WBC 6.1, RBC 4.67, Hgb 15.5, Hct 49.4 H, MCV 105.8 H, MCH 33.2 H, MCHC 31.4 L, RDW 13.3, Plt Count 189, MPV 7.9, Neut % (Auto) 82.7 H, Lymph % (Auto) 8.7 L, [place] % (Auto) 7.8, Eos % (Auto) 0.1, Baso % (Auto) 0.6, Neut # (Auto) 5.1, Lymph # (Auto) 0.5 L, [place] # (Auto) 0.5, Eos # (Auto) 0.0, Baso # (Auto) 0.0, Sodium 135 L, Potassium 3.9, Chloride 99, Carbon Dioxide 30, Anion Gap 9.9, BUN 9, Creatinine 0.70, Estimated Creat Clear 129, Estimated GFR 86, Est GFR ( Amer) 104, Glucose 124 H, Lactate 0.9, Calcium 8.7, Total Bilirubin 0.4, AST 32, ALT 24, Alkaline Phosphatase 105, Troponin I < 0.01, Total Protein 6.9, Albumin 4.5, Globulin 2.4, Albumin/Globulin Ratio 1.9 H 08/09/23 08:39: VBG pH 7.34, VBG pCO2 53.7 H, VBG pO2 56.9 H, VBG HCO3 28.0, VBG Total CO2 29.6 H, VBG O2 Saturation 89.6 H, VBG Base Excess 2.1 08/09/23 08:51: VBG Lactic Acid 1.2 08/09/23 12:00: Troponin I < 0.01, TSH 0.38 L 08/09/23 14:35: Troponin I < 0.01 I & O for Labs for Last 24 Hours: Intake & Output 08/07/23 08/08/23 08/09/23 08/10/23 11:59 11:59 11:59 11:59 Intake Total 940 / 940 Output Total 0 / 0 Balance 940 / 940 Weight 209 lb 2 oz 209 lb 3.2 oz Head: Present normocephalic Neck: Present full ROM Respiratory: Present decreased breath sounds and wheezes (Some expiratory wheezes) Cardiac: Present Reg Rate and Rhythm (Distant heart sounds) GI: Present soft; Absent tenderness or guarding Rectal (female): Present deferred (female): Present deferred Extremities: Absent edema Skin: Present intact Neuro: Present alert, awake and oriented x 3 Assessment and Plan *Assessment and plan (1) Influenza A: Status: Acute Category: Medical Code(s): J10.1 - Influenza due to other identified influenza virus with other respiratory manifestations (2) Bronchitis: Status: Acute Category: Medical Code(s): J40 - Bronchitis, not specified as acute or chronic (3) Acute exacerbation of chronic obstructive pulmonary disease: Status: Acute Category: Medical Code(s): J44.1 - Chronic obstructive pulmonary disease with (acute) exacerbation (4) Acute hypoxemic respiratory failure: Status: Acute Category: Medical Code(s): J96.01 - Acute respiratory failure with hypoxia (5) Smoking greater than 30 pack years: Status: Chronic Category: Social Hx Code(s): F17.210 - Nicotine dependence, cigarettes, uncomplicated (6) History of 2019 novel coronavirus disease (COVID-19): Status: Chronic Category: Medical Code(s): Z86.16 - Personal history of COVID-19 (7) Hypertension: Status: Chronic Category: Medical Code(s): I10 - Essential (primary) hypertension (8) Hypothyroid: Status: Chronic Category: Medical Code(s): E03.9 - Hypothyroidism, unspecified (9) Asthmatic bronchitis: Status: Acute Category: Medical Code(s): J45.909 - Unspecified asthma, uncomplicated Plan Echocardiogram. Pulmonary consultation. Continue IV steroids.
--- NOTE | 2023-08-10 08:42 | P.PN_ITS ---
Subjective *Date: 08/10/23 *Time: 08:42 Interval history: Patient does feel little better today. She did sleep some during the night. She states she is not aching all over. She has developed a slight productive cough. She continues to be somewhat short of breath with any activity. She had diarrhea stool x 1. She has been able to eat. She is voiding QS. She denies any chest pain. Medical Exam Vital signs and Labs for Last 24 Hours: Vital Signs Temp Pulse Pulse Resp BP BP Pulse Ox 08/10/23 06:48 08/10/23 04:00 98.5 F 86 17 151/87 H 90 L 08/10/23 05:00 08/10/23 02:52 08/10/23 01:00 08/10/23 00:00 98.2 F 95 H 20 129/77 92 L 08/09/23 23:00 08/09/23 21:00 08/09/23 20:00 08/09/23 19:59 98.3 F 96 H 22 169/89 H 90 L 08/09/23 18:47 08/09/23 17:00 08/09/23 15:10 98.3 F 98 H 17 154/73 H 90 L 08/09/23 15:00 08/09/23 12:37 08/09/23 11:35 98.4 F 105 H 23 153/107 H 94 L 08/09/23 11:30 98.0 F 105 H 21 153/107 H 08/09/23 11:00 105 H 21 153/107 H 92 L 08/09/23 10:30 114 H 22 171/105 H 92 L 08/09/23 10:01 108 H 30 H 167/82 H 91 L 08/09/23 09:30 109 H 17 194/89 H 94 L 08/09/23 09:01 109 H 21 186/90 H 92 L 08/09/23 08:50 99.4 F 108 H 23 181/96 H 86 L O2 Del Method O2 Flow Rate 08/10/23 06:48 Nasal Cannula 2 08/10/23 04:00 Nasal Cannula 08/10/23 05:00 Nasal Cannula 2 08/10/23 02:52 Nasal Cannula 2 08/10/23 01:00 Nasal Cannula 2 08/10/23 00:00 Nasal Cannula 08/09/23 23:00 Nasal Cannula 2 08/09/23 21:00 Nasal Cannula 2 08/09/23 20:00 Nasal Cannula 2 08/09/23 19:59 Nasal Cannula 2 08/09/23 18:47 Nasal Cannula 2 08/09/23 17:00 Nasal Cannula 2 08/09/23 15:10 Nasal Cannula 2 08/09/23 15:00 Nasal Cannula 2 08/09/23 12:37 Nasal Cannula 1.5 08/09/23 11:35 Nasal Cannula 2 08/09/23 11:30 Nasal Cannula 2 08/09/23 11:00 Nasal Cannula 2 08/09/23 10:30 Nasal Cannula 2 08/09/23 10:01 Nasal Cannula 2 08/09/23 09:30 Nasal Cannula 2 08/09/23 09:01 Nasal Cannula 2 08/09/23 08:50 Nasal Cannula 4 Intake and Output 08/09/23 08/10/23 08/10/23 19:59 03:59 11:59 Intake Total 940 / 940 Output Total 0 / 0 0 / 0 0 / 0 Balance 940 / 940 0 / 940 0 / 940 Intake: Intake, Oral Amount 940 / 940 Output: Output, Urine Amount 0 / 0 0 / 0 0 / 0 Other: Number of Unmeasured Voids 1 1 1 Number of Bowel Movements 1 1 Weight 209 lb 3.2 oz Patient Weight 08/10/23 11:59 Weight 209 lb 3.2 oz Laboratory Results - last 24 hr 08/09/23 08:15: SARS-CoV-2 (PCR) Not detected, Influenza A Untype (PCR) Detected A, Influenza Type B (PCR) Not detected 08/09/23 08:28: WBC 6.1, RBC 4.67, Hgb 15.5, Hct 49.4 H, MCV 105.8 H, MCH 33.2 H , MCHC 31.4 L, RDW 13.3, Plt Count 189, MPV 7.9, Neut % (Auto) 82.7 H, Lymph % (Auto) 8.7 L, [place] % (Auto) 7.8, Eos % (Auto) 0.1, Baso % (Auto) 0.6, Neut # (Auto) 5.1, Lymph # (Auto) 0.5 L, [place] # (Auto) 0.5, Eos # (Auto) 0.0, Baso # (Auto) 0.0, Sodium 135 L, Potassium 3.9, Chloride 99, Carbon Dioxide 30, Anion Gap 9.9, BUN 9, Creatinine 0.70, Estimated Creat Clear 129, Estimated GFR 86, Est GFR ( Amer) 104, Glucose 124 H, Lactate 0.9, Calcium 8.7, Total Bilirubin 0.4, AST 32, ALT 24, Alkaline Phosphatase 105, Troponin I < 0.01, T otal Protein 6.9, Albumin 4.5, Globulin 2.4, Albumin/Globulin Ratio 1.9 H 08/09/23 08:39: VBG pH 7.34, VBG pCO2 53.7 H, VBG pO2 56.9 H, VBG HCO3 28.0, VBG Total CO2 29.6 H, VBG O2 Saturation 89.6 H, VBG Base Excess 2.1 08/09/23 08:51: VBG Lactic Acid 1.2 08/09/23 12:00: Troponin I < 0.01, TSH 0.38 L 08/09/23 14:35: Troponin I < 0.01 I & O for Labs for Last 24 Hours: Intake & Output 08/07/23 08/08/23 08/09/23 08/10/23 11:59 11:59 11:59 11:59 Intake Total 940 / 940 Output Total 0 / 0 Balance 940 / 940 Weight 209 lb 2 oz 209 lb 3.2 oz Constitutional: Present no acute distress Comment:: Sitting up in the bed after eating breakfast. She continues with O2 per nasal cannula Respiratory: Present wheezes (Scattered expiratory wheezing throughout. Some basilar crackles.) Cardiac: Present Reg Rate and Rhythm GI: Present soft and normal bowel sounds; Absent distention, tenderness or guarding Extremities: Absent edema or calf tenderness Neuro: Present alert, awake and oriented x 3 Assessment and Plan *Assessment and plan (1) Influenza A: Status: Acute Category: Medical Code(s): J10.1 - Influenza due to other identified influenza virus with other respiratory manifestations (2) Bronchitis: Status: Acute Category: Medical Code(s): J40 - Bronchitis, not specified as acute or chronic (3) Acute exacerbation of chronic obstructive pulmonary disease: Status: Acute Category: Medical Code(s): J44.1 - Chronic obstructive pulmonary disease with (acute) exacerbation (4) Acute hypoxemic respiratory failure: Status: Acute Category: Medical Code(s): J96.01 - Acute respiratory failure with hypoxia (5) Smoking greater than 30 pack years: Status: Chronic Category: Social Hx Code(s): F17.210 - Nicotine dependence, cigarettes, uncomplicated (6) History of 2019 novel coronavirus disease (COVID-19): Status: Chronic Category: Medical Code(s): Z86.16 - Personal history of COVID-19 (7) Hypertension: Status: Chronic Category: Medical Code(s): I10 - Essential (primary) hypertension (8) Hypothyroid: Status: Chronic Category: Medical Code(s): E03.9 - Hypothyroidism, unspecified (9) Asthmatic bronchitis: Status: Acute Category: Medical Code(s): J45.909 - Unspecified asthma, uncomplicated Plan Pulmonology to see. Will continue current treatment. Will schedule Jesus[facility].
[2023-08-10] MEDS: METHYLPREDNISOLONE SOD SUCC 125MG VIAL 80 MG IV (09:21)
--- NOTE | 2023-08-10 09:52 | P.CONS_ITS ---
History of Present Illness History of present illness: Ms. Aguilar is a 57-year-old female with history of COPD tobacco abuse presented to ER with worsening respiratory distress and pulmonary was called for further evaluation and management. Denies any known sick contacts. Admits to worsening respiratory distress over the weekend. [facility] Disclaimer: The information contained in this section may have been updated after the patient was seen, as this information can be updated by other users. Medical History COPD (chronic obstructive pulmonary disease) Dyspnea on exertion History of 2019 novel coronavirus disease (COVID-19) Influenza A Pulmonary emphysema Screening for lung cancer Smoking greater than 30 pack years Surgical History History of section Family History Other Cancer Coronary artery disease Hypertension Social History (Updated 08/09/23 @ 11:46 by Ann Whitten RN) Smoking Status: Current every day smoker tobacco type: cigarettes packs per day: 1 alcohol intake: current substance use type: unknown and other current occupational status: employed Travel in the last 8 weeks: None household members: spouse housing: house Review of Systems Constitutional Constitutional: Reports fatigue Eyes Eyes: Denies eye discharge, Denies dry eyes, Denies irritation and Denies itchy eyes ENT Ears, Nose, Mouth, and Throat: Denies disequilibrium, Denies dizziness, Denies lip swelling, Reports nasal congestion, Reports nasal discharge and Denies throat swelling *Cardiovascular Cardiovascular: Reports dyspnea and Reports dyspnea on exertion *Respiratory Respiratory: Reports chest congestion, Reports cough, Reports dyspnea, Reports dyspnea on exertion, Reports excessive phlegm production, Denies hemoptysis, D enies pain on inspiration, Denies pain with cough and Reports wheezing *Gastrointestinal Gastrointestinal: Denies abdominal pain, Denies belching and Denies cramping *Musculoskeletal Musculoskeletal: Reports back pain, Reports myalgias and Reports other (No small joint swelling or Pain) *Neurologic Neurologic: Reports as per HPI, Denies convulsions, Denies disequilibrium and Denies dizziness Psychiatric Psychiatric: Denies homicidal ideation and Denies suicidal ideation Endocrine Endocrine: Reports fatigue and Denies heat intolerance Hematologic/Lymphatic Hematologic/Lymphatic: Denies easy bleeding and Denies lymphadenopathy Allergic/Immunologic Allergic/Immunologic: Denies itchy eyes, Denies lip swelling, Denies throat swelling and Reports wheezing Pulmonology Exam Inpatient Vital signs and Labs for Last 24 Hours: Temp Pulse Resp BP Pulse Ox O2 Del Method O2 Flow Rate 98.0 F 98 H 20 129/80 92 L Nasal Cannula 2 08/10/23 08:00 08/10/23 08:00 08/10/23 08:00 08/10/23 08:00 08/10/23 08:00 08/10/23 09:00 08/10/23 09:00 Laboratory Results - last 24 hr 08/09/23 12:00: Troponin I < 0.01, TSH 0.38 L 08/09/23 14:35: Troponin I < 0.01 I & O for Labs for Last 24 Hours: Intake & Output 08/07/23 08/08/23 08/09/23 08/10/23 23:59 23:59 23:59 23:59 Intake Total 940 / 940 240 / 240 Output Total 0 / 0 0 / 0 Balance 940 / 940 240 / 240 Weight 209 lb 2 oz 209 lb 3.2 oz Constitutional: Present moderate distress Head: Present normocephalic and atraumatic ENT: Present normal exam, normal oropharynx and mucous membranes moist Neck: Present normal inspection and full ROM Respiratory: Present respiratory distress, wheezes, diminished air movement and able to speak in complete sentences Cardiac: Present S1/S2, Tachycardia and radial pulses present GI: Present soft and distention; Absent tenderness or guarding Rectal (female): Present deferred (female): Present deferred Skin: Present intact; Absent cyanosis or jaundice Neuro: Present alert, awake and oriented x 3 Extremities: Present normal inspection; Absent clubbing or cyanosis Psychiatric: Present normal affect and cooperative Meds Home Medications and Allergies Home Medications Medication Instructions Recorded Confirmed Type aspirin 81 mg chewable tablet 81 mg PO DAILY HEART HEALTH 12/19/18 08/09/23 History atorvastatin 40 mg tablet 40 mg PO HS Cholesterol 12/19/18 08/09/23 History ramipril 10 mg capsule 20 mg PO DAILY Hypertension 12/19/18 08/09/23 History amlodipine 10 mg tablet 10 mg PO DAILY Hypertension 12/12/21 08/09/23 History triamterene 37.5 1 each PO DAILY Hypertension 12/12/21 08/09/23 History mg-hydrochlorothiazide 25 mg tablet ipratropium 0.5 mg-albuterol 3 mg 3 ml inhalation Q6 PRN Shortness 12/16/21 08/09/23 Rx (2.5 mg base)/3 mL nebulization Of Breath Or Wheezing #120 ea soln tiotropium 2.5 mcg-olodaterol 2.5 2 puff inhalation DAILY 90 days #4 01/21/22 08/09/23 Rx mcg/actuation mist for inhalation grams (Stiolto Respimat) levothyroxine 150 mcg tablet 150 mcg PO DAILY 08/10/23 08/10/23 History New Prescriptions to Start Prescriptions: Allergies Allergy/AdvReac Type Severity Reaction Status Date / Time Penicillins Allergy Verified 05/08/23 12:57 Results Laboratory Findings 08/09/23 08:28 08/09/23 08:28 Abnormal lab findings: Abnormal Labs 08/09/23 08/09/23 08/09/23 08:15 08:28 08:39 Hct 49.4 H MCV 105.8 H MCH 33.2 H MCHC 31.4 L Neut % (Auto) 82.7 H Lymph % (Auto) 8.7 L Lymph # (Auto) 0.5 L VBG pCO2 53.7 H VBG pO2 56.9 H VBG Total CO2 29.6 H VBG O2 Saturation 89.6 H Sodium 135 L Glucose 124 H Albumin/Globulin Ratio 1.9 H TSH Influenza A Untype (PCR) Detected A 08/09/23 12:00 Hct MCV MCH MCHC Neut % (Auto) Lymph % (Auto) Lymph # (Auto) VBG pCO2 VBG pO2 VBG Total CO2 VBG O2 Saturation Sodium Glucose Albumin/Globulin Ratio TSH 0.38 L Influenza A Untype (PCR) Assessment and Plan *Assessment and plan (1) Influenza A: Status: Acute Category: Medical Code(s): J10.1 - Influenza due to other identified influenza virus with other respiratory manifestations (2) Acute exacerbation of chronic obstructive pulmonary disease: Status: Acute Category: Medical Code(s): J44.1 - Chronic obstructive pulmonary disease with (acute) exacerbation (3) Acute hypoxemic respiratory failure: Status: Acute Category: Medical Code(s): J96.01 - Acute respiratory failure with hypoxia Plan Ms. Aguilar is a 57-year-old female with history of COPD tobacco abuse presented to ER with worsening respiratory distress and pulmonary was called for further evaluation and management. No evidence of leukocytosis upon admission. VBG on admission mild hypoxic respiratory failure. Mild hypercarbic with no significant change in pH likely chronic. Chest x-ray on admission no dense consolidation/airspace disease noted. Influenza A PCR positive upon admission. Patient on admission was initiated on DuoNebs along with Tamiflu. On examination patient in moderate respiratory distress, on 2 L saturating 84%, increased to 5 L. Plan: Initiate Advair 500 inhaler along with DuoNebs every 6 hours on as-needed basis Initiate doxycycline 100 mg twice daily x 5 days Continue Tamiflu Discontinue methylprednisolone Continue oxygen supplementation to maintain O2 saturation goal of 90% and above Will hold off on performing CTA PE protocol pending clinical improvement
[2023-08-10] MEDS: IPRATROPIUM/ALBUTEROL 3 ML NEB IH (10:55)
[2023-08-10] MEDS: DOXYCYCLINE HYCLATE 100 MG in 0.9 % SODIUM CHLORIDE 250 ML 167 MG IV (12:51)
[2023-08-10] MEDS: FLUTICASONE/SALMETEROL 500/50MCG DISKUS 1 PUFF IH (18:23)
--- NOTE | 2023-08-10 18:31 | PC.NURSE ---
A&OX4. PT HAS BEEN TURNED UP TO 5LNC THIS SHIFT. TOLERATING WELL. SAT IS LOW 90S, UNABLE TO WEAN AT THIS TIME. PT IS INDEPENDENT IN ROOM. DOES HAVE INTERMITTENT HACKING COUGH, NOT PRODUCING SPUTUM. PT DID HAVE A LOOSE BM THIS SHIFT, PUTTING HER AT 2 SINCE ADMISSION. PT KNOWS TO KEEP NURSING STAFF UPDATED ON BMS. PT HAS HAD NO C/O TODAY THUS FAR, HAS RESTED IN BED, IN GOOD SPIRITS. AT BEDSIDE PART OF THE DAY. VSS.
[2023-08-10] MEDS: ATORVASTATIN 40MG TABLET 40 MG PO (21:23)
[2023-08-11] VITALS (8 sets, daily range): BP systolic 114–150; BP diastolic 51–85; PULSE 68–95; RESP 16–22; TEMP 36.6–37; O2SAT 90–99; BMI 32.8
[2023-08-11] MEDS: DOXYCYCLINE HYCLATE 100 MG in 0.9 % SODIUM CHLORIDE 250 ML 167 MG IV ×2 (00:38→12:07)
[2023-08-11] MEDS: FLUTICASONE/SALMETEROL 500/50MCG DISKUS 1 PUFF IH ×2 (06:05→18:27)
[2023-08-11] MEDS: LEVOTHYROXINE 137MCG (0.137MG) TAB 137 MCG PO (07:03)
--- NOTE | 2023-08-11 08:48 | P.PN_ITS ---
Subjective *Date: 08/11/23 *Time: 09:01 Interval history: Patient states she is better today. She did not sleep during the night. She is coughing a little bit more. She is still dyspneic with any activity. She remains on 5 L/min per nasal cannula of oxygen. She is eating without diffi culty. She is voiding QS. She denies chest pain. Complaining of right ear pain. Medical Exam Vital signs and Labs for Last 24 Hours: Vital Signs Temp Pulse Pulse Resp BP Pulse Ox O2 Del Method 08/11/23 06:06 99 Nasal Cannula 08/11/23 04:00 98.1 F 68 16 117/51 L 98 Nasal Cannula 08/11/23 05:00 Nasal Cannula 08/10/23 20:00 Nasal Cannula 08/11/23 03:00 Nasal Cannula 08/11/23 01:00 Nasal Cannula 08/11/23 00:00 Nasal Cannula 08/11/23 00:00 97.8 F 69 16 137/70 95 Nasal Cannula 08/10/23 23:00 Nasal Cannula 08/10/23 21:00 Nasal Cannula 08/10/23 20:00 98.1 F 77 18 124/66 96 Nasal Cannula 08/10/23 18:30 Nasal Cannula 08/10/23 16:57 Nasal Cannula 08/10/23 16:00 92 L Nasal Cannula 08/10/23 16:00 98.0 F 99 H 22 156/92 H 92 L Nasal Cannula 08/10/23 14:45 Nasal Cannula 08/10/23 12:00 98.4 F 89 22 146/73 H 95 Nasal Cannula 08/10/23 13:00 Nasal Cannula 08/10/23 10:45 93 L Nasal Cannula 08/10/23 10:55 80 08/10/23 10:55 78 08/10/23 10:46 Nasal Cannula 08/10/23 09:00 Nasal Cannula O2 Flow Rate 08/11/23 06:06 5 08/11/23 04:00 5 08/11/23 05:00 5 08/10/23 20:00 5 08/11/23 03:00 5 08/11/23 01:00 5 08/11/23 00:00 5 08/11/23 00:00 5 08/10/23 23:00 5 08/10/23 21:00 5 08/10/23 20:00 5 08/10/23 18:30 5 08/10/23 16:57 5 08/10/23 16:00 5 08/10/23 16:00 5 08/10/23 14:45 5 08/10/23 12:00 5 08/10/23 13:00 5 08/10/23 10:45 5 08/10/23 10:55 08/10/23 10:55 08/10/23 10:46 2 08/10/23 09:00 2 Intake and Output 08/10/23 08/11/23 08/11/23 19:59 03:59 11:59 Intake Total 360 / 360 730 / 1090 Output Total 0 / 0 0 / 0 0 / 0 Balance 360 / 360 730 / 1090 0 / 1090 Intake: Intake, Oral Amount 360 / 360 480 / 840 Intake, Total IV Amount 250 / 250 Doxycycline Hyclate 100 mg In 0 250 / 250 .9 % Sodium Chloride 250 ml @ 167 mls/hr IV Q12H [facility] Rx#: [id number] Output: Output, Urine Amount 0 / 0 0 / 0 0 / 0 Other: Number of Voids 2 Number of Unmeasured Voids 1 2 1 Number of Bowel Movements 1 Weight 209 lb 3.217 oz Patient Weight 08/11/23 11:59 Weight 209 lb 3.217 oz I & O for Labs for Last 24 Hours: Intake & Output 08/08/23 08/09/23 08/10/23 08/11/23 11:59 11:59 11:59 11:59 Intake Total 1180 / 1180 1090 / 1090 Output Total 0 / 0 0 / 0 Balance 1180 / 1180 1090 / 1090 Weight 209 lb 2 oz 209 lb 3.2 oz 209 lb 3.217 oz Constitutional: Present no acute distress Comment:: Sitting up in the bed eating a honey bun. Appears comfortable. ENT: Absent normal external ear exam (Right ear canal with fluid, edema and pain with palpation around the ear.) Respiratory: Present wheezes (Scattered coarse wheezing bilaterally) Cardiac: Present Reg Rate and Rhythm GI: Present soft; Absent distention or tenderness Extremities: Absent edema or calf tenderness Neuro: Present alert and oriented x 3 Assessment and Plan *Assessment and plan (1) Influenza A: Status: Acute Category: Medical Code(s): J10.1 - Influenza due to other identified influenza virus with other respiratory manifestations (2) Acute exacerbation of chronic obstructive pulmonary disease: Status: Acute Category: Medical Code(s): J44.1 - Chronic obstructive pulmonary disease with (acute) exacerbation (3) Acute hypoxemic respiratory failure: Status: Acute Category: Medical Code(s): J96.01 - Acute respiratory failure with hypoxia (4) Otitis externa: Status: Acute Category: Medical Code(s): H60.90 - Unspecified otitis externa, unspecified ear Plan Patient will continue to be followed by pulmonology. Continue current treatment. Patient did complain of right ear pain and appears to have otitis externa. Was started Ciprodex or equivalent. Patient was seen by pulmonology with the following documentation: Ms. Aguilar is a 57-year-old female with history of COPD tobacco abuse presented to ER with worsening respiratory distress and pulmonary was called for further evaluation and management. No evidence of leukocytosis upon admission. VBG on admission mild hypoxic respiratory failure. Mild hypercarbic with no significant change in pH likely chronic. Chest x-ray on admission no dense consolidation/airspace disease noted. Influenza A PCR positive upon admission. Patient on admission was initiated on DuoNebs along with Tamiflu. On examination patient in moderate respiratory distress, on 2 L saturating 84%, increased to 5 L. Plan: Initiate Advair 500 inhaler along with DuoNebs every 6 hours on as-needed basis Initiate doxycycline 100 mg twice daily x 5 days Continue Tamiflu Discontinue methylprednisolone Continue oxygen supplementation to maintain O2 saturation goal of 90% and above Will hold off on performing CTA PE protocol pending clinical improvement
--- NOTE | 2023-08-11 09:31 | EXP.PULM.PN ---
Subjective *Date: 08/11/23 *Time: 10:43 Interval history: Patient denies any new respiratory complaints but admits worsening cough. Improving respiratory distress. Pulmonology Exam Inpatient Vital signs and Labs for Last 24 Hours: Temp Pulse Resp BP Pulse Ox O2 Del Method O2 Flow Rate 98.1 F 68 16 117/51 L 99 Nasal Cannula 5 08/11/23 04:00 08/11/23 04:00 08/11/23 04:00 08/11/23 04:00 08/11/23 06:06 08/11/23 06:06 08/11/23 06:06 I & O for Labs for Last 24 Hours: Intake & Output 08/08/23 08/09/23 08/10/23 08/11/23 23:59 23:59 23:59 23:59 Intake Total 940 / 940 600 / 1330 730 / 730 Output Total 0 / 0 0 / 0 0 / 0 Balance 940 / 940 600 / 1330 730 / 730 Weight 209 lb 2 oz 209 lb 3.2 oz 209 lb 3.217 oz Constitutional: Present moderate distress Head: Present normocephalic and atraumatic ENT: Present normal exam, normal oropharynx and mucous membranes moist Neck: Present normal inspection and full ROM Respiratory: Present prolonged expiratory phase, respiratory distress, wheezes and able to speak in complete sentences Cardiac: Present S1/S2, Tachycardia and radial pulses present GI: Present soft and distention; Absent tenderness or guarding Rectal (female): Present deferred (female): Present deferred Skin: Present intact; Absent cyanosis or jaundice Neuro: Present alert, awake and oriented x 3 Extremities: Present normal inspection; Absent clubbing or cyanosis Psychiatric: Present normal affect and cooperative Assessment and Plan *Assessment and plan (1) Influenza A: Status: Acute Category: Medical Code(s): J10.1 - Influenza due to other identified influenza virus with other respiratory manifestations (2) Acute exacerbation of chronic obstructive pulmonary disease: Status: Acute Category: Medical Code(s): J44.1 - Chronic obstructive pulmonary disease with (acute) exacerbation (3) Acute hypoxemic respiratory failure: Status: Acute Category: Medical Code(s): J96.01 - Acute respiratory failure with hypoxia Plan Ms. Aguilar is a 57-year-old female with history of COPD tobacco abuse presented to ER with worsening respiratory distress and pulmonary was called for further evaluation and management. No evidence of leukocytosis upon admission. VBG on admission mild hypoxic respiratory failure. Mild hypercarbic with no significant change in pH likely chronic. Chest x-ray on admission no dense consolidation/airspace disease noted. Influenza A PCR positive upon admission. Patient on admission was initiated on DuoNebs along with Tamiflu. On initial examination patient in moderate respiratory distress, on 2 L saturating 84%, increased to 5 L. Interval update: No acute respiratory vents overnight. Improvement in oxygen equipments, down to 3 L. Continue to have wheezing with no significant improvement. improving leukocytosis. Continue to receive Advair, doxycycline and Tamiflu. Plan: Incentive Spirometry Advair 500 inhaler along with DuoNebs every 6 hours on as-needed basis Doxycycline 100 mg twice daily x 5 days Continue Tamiflu Continue oxygen supplementation to maintain O2 saturation goal of 90% and above Will hold off on performing CTA PE protocol at this point of time. # Thank you for involving pulmonary in this patient care. Will continue to follow.
[2023-08-11] MEDS: CIPRO 0.3%-DEX 0.1% OTIC SUSP 7.5ML 4 ML OT (09:53)
[2023-08-11] MEDS: AMLODIPINE 10MG TABLET 10 MG PO (09:53)
[2023-08-11] MEDS: HCTZ 25MG/TRIAMTERENE 37.5MG TABLET 1 EACH PO (09:53)
[2023-08-11] MEDS: OSELTAMIVIR 75MG CAPSULE 75 MG PO ×2 (09:53→20:49)
[2023-08-11] MEDS: LISINOPRIL 20MG TABLET 40 MG PO (09:53)
--- NOTE | 2023-08-11 15:25 | PC.NURSE ---
Aox 4, upadlib, cough with now results, 02-5L NC, FLU +, 20G L AC SL.
[2023-08-11] MEDS: ATORVASTATIN 40MG TABLET 40 MG PO (20:49)
[2023-08-11] MEDS: CIPRO 0.3%-DEX 0.1% OTIC SUSP 7.5ML OT (20:49)
[2023-08-12] VITALS: BP 153/74; PULSE 85; RESP 22; TEMP 37.4; O2SAT 90
[2023-08-12 04:00] VITALS: BP 147/90; PULSE 97; RESP 22; TEMP 36.6; O2SAT 94; BMI 32.6
[2023-08-12] MEDS: FLUTICASONE/SALMETEROL 500/50MCG DISKUS 1 PUFF IH (06:00)
[2023-08-12] MEDS: LEVOTHYROXINE 137MCG (0.137MG) TAB 137 MCG PO (06:46)
[2023-08-12 07:01] VITALS: O2SAT 90
[2023-08-12] MEDS: LISINOPRIL 20MG TABLET 40 MG PO (07:53)
[2023-08-12] MEDS: OSELTAMIVIR 75MG CAPSULE 75 MG PO (07:53)
[2023-08-12] MEDS: HCTZ 25MG/TRIAMTERENE 37.5MG TABLET 1 EACH PO (07:53)
[2023-08-12] MEDS: AMLODIPINE 10MG TABLET 10 MG PO (07:53)
[2023-08-12] MEDS: CIPRO 0.3%-DEX 0.1% OTIC SUSP 7.5ML OT (07:54)
[2023-08-12 08:00] VITALS: BP 132/73; PULSE 78; RESP 20; TEMP 36.6; O2SAT 94
--- NOTE | 2023-08-12 09:21 | EXP.PULM.PN ---
Subjective *Date: 08/12/23 *Time: 10:52 Interval history: No acute respiratory events overnight. Patient admits continued improvement in her respiratory symptoms. Pulmonology Exam Inpatient Vital signs and Labs for Last 24 Hours: Temp Pulse Resp BP Pulse Ox O2 Del Method O2 Flow Rate 97.8 F 78 20 132/73 94 L Nasal Cannula 3.5 08/12/23 08:00 08/12/23 08:00 08/12/23 08:00 08/12/23 08:00 08/12/23 08:00 08/12/23 08:00 08/12/23 08:00 I & O for Labs for Last 24 Hours: Intake & Output 08/09/23 08/10/23 08/11/23 08/12/23 23:59 23:59 23:59 23:59 Intake Total 940 / 940 600 / 1330 1870 / 1870 735 / 735 Output Total 0 / 0 0 / 0 0 / 0 1 / 1 Balance 940 / 940 600 / 1330 1870 / 1870 734 / 734 Weight 209 lb 2 oz 209 lb 3.2 oz 208 lb 15.971 oz 208 lb 3.2 oz Microbiology Reports for the Last 24 Hours: Microbiology 08/09/23 08:33 Blood Blood Culture - Preliminary 08/09/23 08:28 Blood Blood Culture - Preliminary Constitutional: Present moderate distress Head: Present normocephalic and atraumatic ENT: Present normal exam, normal oropharynx and mucous membranes moist Neck: Present normal inspection and full ROM Respiratory: Present prolonged expiratory phase, respiratory distress, wheezes and able to speak in complete sentences Cardiac: Present S1/S2, Tachycardia and radial pulses present GI: Present soft and distention; Absent tenderness or guarding Rectal (female): Present deferred (female): Present deferred Skin: Present intact; Absent cyanosis or jaundice Neuro: Present alert, awake and oriented x 3 Extremities: Present normal inspection; Absent clubbing or cyanosis Psychiatric: Present normal affect and cooperative Assessment and Plan *Assessment and plan (1) Influenza A: Status: Acute Category: Medical Code(s): J10.1 - Influenza due to other identified influenza virus with other respiratory manifestations (2) Acute exacerbation of chronic obstructive pulmonary disease: Status: Acute Category: Medical Code(s): J44.1 - Chronic obstructive pulmonary disease with (acute) exacerbation (3) Acute hypoxemic respiratory failure: Status: Acute Category: Medical Code(s): J96.01 - Acute respiratory failure with hypoxia Plan Ms. Aguilar is a 57-year-old female with history of COPD tobacco abuse presented to ER with worsening respiratory distress and pulmonary was called for further evaluation and management. No evidence of leukocytosis upon admission. VBG on admission mild hypoxic respiratory failure. Mild hypercarbic with no significant change in pH likely chronic. Chest x-ray on admission no dense consolidation/airspace disease noted. Influenza A PCR positive upon admission. Patient on admission was initiated on DuoNebs along with Tamiflu. On initial examination patient in moderate respiratory distress, on 2 L saturating 84%, increased to 5 L. Interval update: No acute respiratory events overnight. No labs reviewed. Improving respiratory distress and wheezing. Improving oxygen requirements. Plan: Incentive Spirometry Advair 500 inhaler along with DuoNebs every 6 hours on as-needed basis Doxycycline 100 mg twice daily x 5 days Continue Tamiflu Continue oxygen supplementation to maintain O2 saturation goal of 90% and above Will hold off on performing CTA PE protocol at this point of time. # Thank you for involving pulmonary in this patient care. Will follow the patient in pulmonary clinic 5 to 7 days post discharge. Will continue Advair 500 upon discharge.
--- NOTE | 2023-08-12 11:35 | P.PN_ITS ---
Subjective *Date: 08/12/23 *Time: 11:35 Interval history: She would really like to go home. . She needs to continue on nasal O2. She had nasal O2 at home when she had COVID. I noticed today that she is on lisinopril 40 mg. She is already had a dose this morning but I will discontinue this and start her on an ARB. I will give her 125 Solu-Medrol IV one-time dose today. She will discharge on nasal O2 and continue on doxycycline. Medical Exam Vital signs and Labs for Last 24 Hours: Vital Signs Temp Pulse Resp BP Pulse Ox O2 Del Method O2 Flow Rate 08/12/23 10:01 Nasal Cannula 3.5 08/12/23 08:00 97.8 F 78 20 132/73 94 L Nasal Cannula 3.5 08/12/23 07:56 Nasal Cannula 3.5 08/12/23 07:46 Nasal Cannula 3.5 08/12/23 07:01 90 L Nasal Cannula 3 08/12/23 06:54 Nasal Cannula 3.5 08/12/23 05:00 Nasal Cannula 08/12/23 04:00 97.9 F 97 H 22 147/90 H 94 L Nasal Cannula 3.5 08/12/23 02:47 Nasal Cannula 3.5 08/12/23 01:00 Nasal Cannula 3.5 08/12/23 00:00 99.4 F 85 22 153/74 H 90 L Nasal Cannula 3.5 08/11/23 23:00 Nasal Cannula 2 08/11/23 21:00 Nasal Cannula 2 08/11/23 20:00 90 L Nasal Cannula 2 08/11/23 19:49 98.4 F 91 H 22 134/60 90 L Nasal Cannula 2 08/11/23 18:30 Nasal Cannula 4.5 08/11/23 17:38 Nasal Cannula 5 08/11/23 16:23 Nasal Cannula 5 08/11/23 16:00 98.6 F 83 22 114/85 93 L Nasal Cannula 08/11/23 14:40 Nasal Cannula 5 08/11/23 12:16 Nasal Cannula 4.5 08/11/23 12:00 97.8 F 80 22 127/73 92 L Nasal Cannula 3 Intake and Output 08/11/23 08/12/23 08/12/23 19:59 03:59 11:59 Intake Total 720 / 1455 735 / 1455 Output Total 0 / 1 0 / 1 Balance 720 / 1454 0 / 1454 734 / 1454 Intake: Intake, Oral Amount 470 / 955 485 / 955 Intake, Total IV Amount 250 / 500 250 / 500 Doxycycline Hyclate 100 mg In 0 250 / 500 250 / 500 .9 % Sodium Chloride 250 ml @ 167 mls/hr IV Q12H [facility] Rx#: [id number] Output: Output, Urine Amount 0 / 1 0 / 1 Other: Number of Voids 0 Number of Unmeasured Voids 1 1 0 Number of Bowel Movements 1 Weight 208 lb 3.2 oz Patient Weight 08/12/23 11:59 Weight 208 lb 3.2 oz I & O for Labs for Last 24 Hours: Intake & Output 08/09/23 08/10/23 08/11/23 08/12/23 11:59 11:59 11:59 11:59 Intake Total 1180 / 1180 1510 / 1510 1455 / 1455 Output Total 0 / 0 0 / 0 Balance 1180 / 1180 1510 / 1510 1454 / 1454 Weight 209 lb 2 oz 209 lb 3.2 oz 208 lb 15.971 oz 208 lb 3.2 oz Microbiology Reports for the Last 24 Hours: Microbiology 08/09/23 08:33 Blood Blood Culture - Preliminary 08/09/23 08:28 Blood Blood Culture - Preliminary Head: Present normocephalic Neck: Present normal inspection Respiratory: Present decreased breath sounds and wheezes (Expiratory); Absent respiratory distress Cardiac: Present Reg Rate and Rhythm GI: Present soft; Absent tenderness Rectal (female): Present deferred (female): Present deferred Extremities: Present normal inspection; Absent edema Skin: Present intact Neuro: Present alert, awake and oriented x 3 Assessment and Plan *Assessment and plan (1) Influenza A: Status: Acute Category: Medical Code(s): J10.1 - Influenza due to other identified influenza virus with other respiratory manifestations (2) Bronchitis: Status: Acute Category: Medical Code(s): J40 - Bronchitis, not specified as acute or chronic (3) Acute exacerbation of chronic obstructive pulmonary disease: Status: Acute Category: Medical Code(s): J44.1 - Chronic obstructive pulmonary disease with (acute) exacerbation (4) Smoking greater than 30 pack years: Status: Chronic Category: Social Hx Code(s): F17.210 - Nicotine dependence, cigarettes, uncomplicated (5) History of 2019 novel coronavirus disease (COVID-19): Status: Chronic Category: Medical Code(s): Z86.16 - Personal history of COVID-19 (6) CAMILLE-inhibitor cough: Status: Acute Category: Medical Code(s): R05.8 - Other specified cough; T46.4X5A - Adverse effect of ixuawuphpgm-cigehdbtbn-espnwe inhibitors, initial encounter (7) Acute hyperglycemia: Status: Acute Category: Medical Code(s): R73.9 - Hyperglycemia, unspecified Plan DC lisinopril.>Treat with ARB. .Solu-Medrol 125 mg x 1 today. Home oxygen. Check A1c. Likely discharge later on today.
[2023-08-12 12:00] VITALS: BP 139/71; PULSE 80; RESP 21; TEMP 36.6; O2SAT 90
[2023-08-12 12:12] LABS: Blood Urea Nitrogen 16 mg/dl (7-17); Calcium 8.7 mg/dl (8.4-10.2); Carbon Dioxide 39 mmol/L (22.0-30.0); Chloride 93 mmol/L (98-107); Creatinine Clearance Estimated 113 mL/min (50-200); Estimated Glomerular Filt Rate 73 ml/min (>60); GFR (African American) 89 ML/MIN (>60); Glucose 146 mg/dl (74-100); Sodium 135 mmol/L (136-145)
--- NOTE | 2023-08-12 12:14 | PC.NURSE ---
now on RA at 87%
[2023-08-12 12:15] LABS: Hemoglobin A1C 5.7 % (4.0-6.0)
[2023-08-12] MEDS: METHYLPREDNISOLONE SOD SUCC 125MG VIAL 125 MG IV (12:20)
[2023-08-12] MEDS: DOXYCYCLINE HYCLATE 100 MG in 0.9 % SODIUM CHLORIDE 250 ML 167 MG IV ×2 (12:21)
--- NOTE | 2023-08-12 14:42 | SW/DCPLANNER ---
Addendum entered by Hiral Crandall 08/12/23 14:52: Shara cornelius/ [facility] stated that portable O2 will be delivered to [facility]. Original Note: Patient information/order has been faxed to [facility] for home O2 + portable. Patient is agreeable to [facility] for DME.
--- NOTE | 2023-08-12 14:53 | CARE MANAGER ---
Patient's O2 saturation is 87% on RA @ rest.
[2023-08-12 14:58] LABS: Potassium 3.9 mmoL/L (3.5-5.1)
--- NOTE | 2023-08-13 16:13 | CARE MANAGER ---
Contacted patient related to hospital discharge. She states she feels better. She is aware of her follow up appointments and medications. She denies questions or concerns. MARC David
--- NOTE | 2023-08-20 13:06 | EXP.DC.SUM ---
General Admission date:: 08/09/23 Discharge date: 08/12/23 HPI HPI HPI: 57-year-old female history of COPD not on home oxygen and still smoking, admitted from ER with acute respiratory symptoms.. Dx with Influenza A in ER, exacerbating chronic bronchitis. Patient states that she started having a headache the evening 2 days prior to this visit. Yesterday she started having shortness of breath, productive cough, fevers, chills. The shortness of breath is worse with exertion. No PND or orthopnea, denies chest pain. Cough is slightly productive of brown sputum, which is new for her. No nausea or vomiting, diarrhea, abdominal pain. She smoks one PPD and has a history of COPD. According to the ER report the patient was hemodynamically stable, alert, oriented x4, appropriate, GCS 15, moving all extremities spontaneously, pupils equal and reactive to light. In mild respiratory distress, but not acutely ill. She was tachypneic, tachycardic, saturating 83% on room air with prolonged expiratory phase and diffuse bilateral wheezes. Afebrile, hypertensive, and with history of hypertension. In the ER the patient was given 2 DuoNebs, Solu-Medrol 125 mg, and Augmentin. Present was leukocytosis. VBG with compensated chronic respiratory acidosis. Kidney function normal. Troponin negative. Chest x-ray was without acute pneumonia, but showed bronchiolar thickening and inflammation concerning for bronchitis versus viral pneumonia. EKG shows sinus tachycardia 109 bpm with intermittent PACs. No ST or T wave changes concerning for acute ischemia. [place], QRS, QT intervals within normal limits. [place] normal. Patient placed on continuous cardiac monitoring and continuous pulse ox with initial blood pressure 143/122, heart rate 106, saturation 96 on 4 L nasal cannula. After 2 aditional DuoNeb treatments the patient was admitted to the hospital for further management. Her O2 saturations were at 88-90%. Hospital Course Hospital Course Hospital Course: The patient was started on Tamiflu for flu and nebs and oxygen were continued. Her chest x-ray was normal. An echocardiogram and pulmonary consult were ordered and she was continued on IV steroids. The primary care pediatrician saw the patient and initiated Advair 500 mg along with DuoNebs every 6 hours. He also started the patient on doxycycline 100 mg twice a day. He discontinued her methylprednisolone and recommended continuing oxygen supplementation to maintain sats above 90%. Her echo showed an EF of 50 to 55% with mild mitral and trace tricuspid regurgitation. She was started on incentive spirometry. She did begin improving and her oxygen was weaned down to 2 L. She wanted to go home and did have home oxygen. She was stable to discharge on home oxygen and will follow-up in the office. She will also follow-up with pulmonology Exam Data for Last 24 hours Vital signs and Labs for Last 24 Hours: Temp Pulse Resp BP Pulse Ox O2 Del Method O2 Flow Rate 97.8 F 80 21 139/71 90 L Nasal Cannula 3.5 08/12/23 12:00 08/12/23 12:00 08/12/23 12:00 08/12/23 12:00 08/12/23 12:00 08/12/23 14:19 08/12/23 14:19 Narrative: Constitutional Constitutional: mild distress (Some wheezing) *Routine HEENT Exam Head: Present normocephalic; Absent cushingoid faces Eye: Present EOMI and PERRL ENT: Present mucous membranes moist, dentition normal and nares patent *Routine Neck Exam Neck: Absent JVD or lymphadenopathy Routine Chest/Breast/Axilla Exam Chest wall: Absent tenderness *Routine Respiratory Exam Respiratory: Present decreased breath sounds and wheezes; Absent accessory muscle use, respiratory distress or stridor *Routine Cardiovascular Exam Cardiovascular: Present tachycardia (100); Absent ectopic *Routine Abdominal Exam Abdominal: Present soft; Absent tenderness, distended or mass *Routine Rectal Exam Rectal:: deferred *Routine Genitalia Exam Genitalia:: deferred *Routine Extremities Exam Extremities: Absent cyanosis, clubbing or edema Routine Back/Spine/Pelvis Exam Back/Spine: Present full ROM; Absent CVA tenderness *Routine Skin Exam Skin: Present intact; Absent rash *Routine Neurological Exam Neurological: Present alert and oriented X3 Routine Psychiatric Exam Psychiatric: Present normal affect and normal thought process DS: Diagnosis Discharge Diagnosis (1) Influenza A: Status: Acute Code(s): J10.1 - Influenza due to other identified influenza virus with other respiratory manifestations (2) Bronchitis: Status: Acute Code(s): J40 - Bronchitis, not specified as acute or chronic (3) Acute exacerbation of chronic obstructive pulmonary disease: Status: Acute Code(s): J44.1 - Chronic obstructive pulmonary disease with (acute) exacerbation (4) Smoking greater than 30 pack years: Status: Chronic Code(s): F17.210 - Nicotine dependence, cigarettes, uncomplicated (5) History of 2019 novel coronavirus disease (COVID-19): Status: Chronic Code(s): Z86.16 - Personal history of COVID-19 (6) CAMILLE-inhibitor cough: Status: Acute Code(s): R05.8 - Other specified cough; T46.4X5A - Adverse effect of qltsciwqygn-yqchbuqncu-mltxxe inhibitors, initial encounter (7) Acute hyperglycemia: Status: Inactive Code(s): R73.9 - Hyperglycemia, unspecified Meds Home Medications and Allergies Home Medications Medication Instructions Recorded Confirmed Type aspirin 81 mg chewable tablet 81 mg PO DAILY 12/19/18 08/09/23 History atorvastatin 40 mg tablet 40 mg PO HS 12/19/18 08/09/23 History amlodipine 10 mg tablet 10 mg PO DAILY 12/12/21 08/09/23 History triamterene 37.5 1 each PO DAILY 12/12/21 08/09/23 History mg-hydrochlorothiazide 25 mg tablet ipratropium 0.5 mg-albuterol 3 mg 3 ml inhalation Q6 PRN Shortness 12/16/21 08/09/23 Rx (2.5 mg base)/3 mL nebulization Of Breath Or Wheezing #120 ea soln tiotropium 2.5 mcg-olodaterol 2.5 2 puff inhalation DAILY 90 days #4 01/21/22 08/09/23 Rx mcg/actuation mist for inhalation grams (Stiolto Respimat) irbesartan 150 mg tablet 150 mg PO DAILY #30 tabs 08/12/23 Rx levothyroxine 137 mcg tablet 137 mcg PO DAILYDM #30 tabs 08/12/23 Rx (Synthroid) oseltamivir 75 mg capsule (Tamiflu) 75 mg PO BID #4 caps 08/12/23 Rx New Prescriptions to Start Prescriptions: irbesartan Jennifer Almendarez levothyroxine [Synthroid] Jennifer Almendarez oseltamivir [Tamiflu] Jennifer Almendarez Allergies Allergy/AdvReac Type Severity Reaction Status Date / Time Penicillins Allergy Verified 05/08/23 12:57 Discharge Plan Disposition Patient Disposition: Home, Self-Care Condition: Fair Discharge Order Discharge Orders: Discharge Order (Routine); Ordered 08/12/23 Ordered By: Jennifer Almendarez Follow up Plan Follow up with: Jennifer Almendarez MD [Primary Care Provider] - 08/14/23 11:15 am Mauri Omalley MD [Physician] - 08/20/23 10:15 am Prescriptions/Medication Reconciliation: New levothyroxine [Synthroid] 137 mcg Tablet 137 mcg PO DAILYDM Qty: 30 5RF oseltamivir [Tamiflu] 75 mg Capsule 75 mg PO BID Qty: 4 0RF irbesartan 150 mg Tablet 150 mg PO DAILY Qty: 30 5RF Continued Stiolto Respimat 2.5-2.5 mcg/actuation mist 2 puff IH DAILY 90 Days Qty: 4 3RF atorvastatin 40 MG tablet 40 mg PO HS aspirin 81 MG tablet,chewable 81 mg PO DAILY amlodipine 10 MG tablet 10 mg PO DAILY triamterene-hydrochlorothiazid 1 EACH tablet 1 each PO DAILY ipratropium-albuterol 3 ML solution for nebulization 3 ml IH Q6 PRN (Reason: Shortness Of Breath Or Wheezing) Qty: 120 2RF Discontinued ramipril 10 MG capsule 20 mg PO DAILY Patient Comments: TAKE 2 CAPSULES BY MOUTH EVERY DAY levothyroxine 150 mcg tablet 150 mcg PO DAILY Problem Reconciliation Problems Reviewed?: Yes Patient Discharge Instructions ACTIVITY: Limited activity DIET: continue same diet Patient Instructions: DI for Chronic Obstructive Pulmonary Disease, DI for Influenza -- Adult Providers Primary Care Provider: Jennifer Almendarez Admit Provider: Jennifer Almendarez Attending Provider: Jennifer Almendarez
== END 2023-08-12 15:48 | disposition home or self-care (01) | DRG 189 ==
LOC: UTC 08:01 → ER 08:20 → 2ND 11:39
PROVIDERS: Nurse Practitioner; Admitting Provider Family Medicine; Emergency Provider Emergency Medicine; PCP Family Medicine; Visit Provider Family Medicine
DX: J96.01 Acute respiratory failure with hypoxia (principal); J44.1 Chronic obstructive pulmonary disease with (acute) exacerbation; J10.1 Influenza due to other identified influenza virus with other respiratory manifestations; Z86.16 Personal history of COVID-19; F17.210 Nicotine dependence, cigarettes, uncomplicated; I10 Essential (primary) hypertension; E03.9 Hypothyroidism, unspecified; R73.9 Hyperglycemia, unspecified
CPT/HCPCS: 36415; 71046; 80048; 80053; 82803; 83036; 83605; 84443; 84484; 85025; 87040; 87636; 93005; 93306; 94640; 94760; 94761; 99291

== ENCOUNTER 2023-12-08 08:00 | Emergency (ER) | payer OTHER, SELFPAY ==
[2023-12-08 08:05] VITALS: BP 162/96; PULSE 86; RESP 23; TEMP 36.6; O2SAT 94; BMI 34.2
--- NOTE | 2023-12-08 08:14 | EXP.UTC ---
Discharge Plan Disposition Patient Disposition: Home, Self-Care Condition: Good Prescriptions Prescriptions: New azithromycin 250 mg tablet See Rx Instructions .ROUTE .COMPLEX Qty: 6 0RF Rx Instructions: For 250 mg dose pack: take 500 mg today (day 1), then 250 mg for 4 days (days 2-5) methylprednisolone [Medrol (Moe)] 4 mg tablets,dose pack See Rx Instructions .ROUTE .COMPLEX 6 Days Qty: 21 0RF Rx Instructions: 4 mg orally ;Medrol dose taper moe benzonatate 100 mg capsule 100 mg PO TID PRN (Reason: cough) Qty: 30 0RF No Action atorvastatin 40 mg tablet 40 mg PO DAILY levothyroxine 137 mcg tablet 137 mcg PO DAILY Patient Comments: TAKE ONE TABLET BY MOUTH EVERY DAY AT 700AM irbesartan 150 mg tablet 150 mg PO DAILY Referrals Follow up/Referrals: Jennifer Almendarez MD [Primary Care Provider] - See instructions Activity Restrictions/Add. Instructions Additional Instructions/Restrictions: Take medication as prescribed. Increase fluids and rest. If symptoms persist or worsen, return to clinic or follow up with PCP. Clinical Impressions Clinical Impression: Upper respiratory tract infection Qualifiers: URI type: unspecified URI Qualified Code(s): J06.9 - Acute upper respiratory infection, unspecified Instructions Patient Instructions: Acute Bronchitis Discharge ED Provider: Georgiana Moses [facility] General Stated complaint: head congestion Time Seen by Provider: 12/08/23 08:15 History of Present Illness Provider Complaint: Pt reports feeling poorly for the last 4 days. She reports congestion, runny nose, cough, and wheezing. She states that she uses her inhaler as needed. She further states that she did not take her blood pressure medication yet today. Related Data Home Medications Medication Instructions Recorded Confirmed atorvastatin 40 mg tablet 40 mg PO DAILY 12/08/23 12/08/23 irbesartan 150 mg tablet 150 mg PO DAILY 12/08/23 12/08/23 levothyroxine 137 mcg tablet 137 mcg PO DAILY 12/08/23 12/08/23 Previous Rx's Medication Instructions Recorded azithromycin 250 mg tablet See Rx Instructions PO .COMPLEX #6 12/08/23 tabs benzonatate 100 mg capsule 100 mg PO TID PRN cough #30 caps 12/08/23 methylprednisolone 4 mg tablets in See Rx Instructions .Route 12/08/23 a dose pack (Medrol (Moe)) .COMPLEX 6 days #21 tabs Allergies Allergy/AdvReac Type Severity Reaction Status Date / Time Penicillins Allergy Verified 05/08/23 12:57 [facility] Disclaimer: The information contained in this section may have been updated after the patient was seen, as this information can be updated by other users. Medical History (Updated 12/08/23 @ 08:25 by Georgiana Moses APRN) Otitis externa Bilateral conjunctivitis COVID-19 virus infection COVID-19 Sinusitis Acute hyperglycemia CAMILLE-inhibitor cough Influenza A COPD (chronic obstructive pulmonary disease) Dyspnea on exertion Pulmonary emphysema Smoking greater than 30 pack years History of 2019 novel coronavirus disease (COVID-19) Surgical History History of section Family History Other Cancer Coronary artery disease Hypertension Social History (Updated 08/09/23 @ 11:46 by Ann Whitten RN) Smoking Status: Current every day smoker tobacco type: cigarettes packs per day: 1 alcohol intake: current alcohol intake frequency: other substance use type: unknown and other current occupational status: employed Travel in the last 8 weeks: None household members: spouse housing: house ROS Obtained: Yes All systems reviewed & no additional complaints except as documented Constitutional Constitutional: Reports system reviewed and no additional complaints, except as documented, Reports headache(s) and Reports malaise Eyes Eyes: Reports system reviewed and no additional complaints, except as documented ENT Ears, Nose, Mouth, and Throat: Reports system reviewed and no additional complaints, except as documented, Reports as per HPI, Reports headache(s), Reports nasal congestion, Reports nasal discharge, Reports post nasal drip and Reports sinus pressure Cardiovascular Cardiovascular: Reports system reviewed and no additional complaints, except as documented Respiratory Respiratory: Reports system reviewed and no additional complaints, except as documented, Reports chest congestion, Reports cough and Reports wheezing Gastrointestinal Gastrointestingal: Reports system reviewed and no additional complaints, except as documented Genitourinary Female Genitourinary: Reports system reviewed and no additional complaints, except as documented Musculoskeletal Musculoskeletal: Reports system reviewed and no additional complaints, except as documented Integumentary/Breasts Skin/Breast: Reports system reviewed and no additional complaints, except as documented Neurologic Neurologic: Reports system reviewed and no additional complaints, except as documented and Reports headache(s) Endocrine Endocrine: Reports system reviewed and no additional complaints, except as documented Hematologic/Lymphatic Henatologic/Lymphatic: Reports system reviewed and no additional complaints, except as documented Allergic/Immunologic Allergic/Immunologic: Reports system reviewed and no additional complaints, except as documented and Reports wheezing Physical Exam General General appearance: alert Comment: ill appearing Head Head exam: atraumatic and normocephalic Eye Eye exam: Present normal appearance ENT ENT exam: Present mucous membranes moist Expanded ENT Exam External ear exam: Present normal external inspection Nose exam: Present sinus tenderness (maxillary) Nasal speculum exam: Bilateral: other (clear drainage; edematous mucosa) Mouth exam: Present normal external inspection Teeth exam: Present normal inspection Throat exam: Present normal inspection Neck Neck exam: Present normal inspection; Absent lymphadenopathy Chest Chest inspection: Present normal inspection and symmetric chest wall rise Respiratory Respiratory exam: Present wheezes and other (course sounds throughout) Cardiovascular Cardiovascular exam: Present regular rate, normal rhythm and normal heart sounds Abdominal Exam Abdominal exam: Present soft and normal bowel sounds Extremities Exam Extremities exam: Present normal inspection Back Exam Back exam: Present normal inspection Neurological Exam Neurological exam: Present alert and oriented X3 Psychiatric Psychiatric exam: Present normal affect and normal mood Skin Skin exam: Present warm, dry and intact Lymphatic Lymphatic Findings: no adenopathy Medical Decision Making Juan Inquiry Pt receiving controlled substance: No Juan was queried for this patient: No
[2023-12-08 08:25] VITALS: BP 162/96; PULSE 86; RESP 23; TEMP 36.6; O2SAT 94
== END 2023-12-08 08:27 | disposition home or self-care (01) ==
PROVIDERS: Emergency Provider Nurse Practitioner Family; PCP Family Medicine
DX: R05.9 Cough, unspecified (principal); J06.9 Acute upper respiratory infection, unspecified; R06.2 Wheezing; J44.9 Chronic obstructive pulmonary disease, unspecified; F17.210 Nicotine dependence, cigarettes, uncomplicated
CPT/HCPCS: 99212; 99214; G0463

== ENCOUNTER 2024-03-28 14:34 | Emergency (ER) | payer OTHER, SELFPAY ==
[2024-03-28 15:00] VITALS: BP 155/85; PULSE 86; RESP 19; TEMP 36.8; O2SAT 96; BMI 38.2
--- NOTE | 2024-03-28 15:08 | EXP.UTC ---
Discharge Plan Disposition Patient Disposition: Home, Self-Care Condition: Good Prescriptions Prescriptions: New methylprednisolone [Medrol (Moe)] 4 mg tablets,dose pack See Rx Instructions .Route .COMPLEX 6 Days Qty: 21 0RF Rx Instructions: taper pack; cefdinir 300 mg capsule 300 mg PO BID Qty: 20 0RF No Action atorvastatin 40 mg tablet 40 mg PO HS Patient Comments: TAKE 1 TABLET BY MOUTH EVERY NIGHT AT BEDTIME 30 levothyroxine 137 mcg tablet 137 mcg PO DAILY Patient Comments: TAKE ONE TABLET BY MOUTH EVERY DAY AT 700AM amlodipine 10 mg tablet 10 mg PO DAILY Patient Comments: TAKE 1 TABLET BY MOUTH EVERY DAY irbesartan 150 mg tablet 150 mg PO DAILY Patient Comments: TAKE ONE TABLET BY MOUTH EVERY DAY Referrals Follow up/Referrals: Jennifer Almendarez MD [Primary Care Provider] - See instructions Activity Restrictions/Add. Instructions Additional Instructions/Restrictions: *Monitor Temp, Over the counter Motrin or Tylenol as directed/as needed Tylenol every 4 hours and Motrin every 6 hours (as long as your family doctor has told you that you can take it) for fever or pain. and straight to ER if unable to lower temp less than 101.0 after medication given *Warm salt water gargles may help to soothe the throat *Throat Lozenges? *Warm fluids like tea with honey may help to soothe the throat? *Sleep elevated *Humidifier/Vaporizer *take medication as prescribed Follow up IMMEDIATELY for new or worsening symptoms or no Noticeable improvement over the next 48-72 hours. 911 for difficulty breathing or swallowing Clinical Impressions Clinical Impression: Otitis media Instructions Patient Instructions: Middle Ear Infection, DI for Sinusitis Print Language Print Language: Setswana Discharge ED Provider: Margie Todd [facility] [place] HPI General Stated complaint: draininage, runny nose, Pain in R ear Mode of Arrival: Ambulatory Source of Information: Patient Limitations: No Limitations Time Seen by Provider: 03/28/24 15:08 Description of Symptoms (Recalled from Triage Doc. by RN): PATIENT C/O RIGHT EAR PAIN, DRAINAGE IN THROAT, RUNNY NOSE AND COUGH THAT STARTED YESTERDAY HEENT Symptoms (Recalled from RN notes): Yes Resp Symptoms (Recalled from RN notes): Yes Skin Symptoms (Recalled from RN notes): No MS Symptoms (Recalled from RN notes): No Functional Status (Recalled from RN notes): WNL History of Present Illness Provider Complaint: Patient states that she has been having sinus pain and pressure, pain and pressure in both ears, drainage in the back of her throat and little cough states that she has COPD and she wanted to get checked before it got into her chest Related Data Home Medications ?Medication ?Instructions ?Recorded ?Confirmed amlodipine 10 mg tablet 10 mg PO DAILY 03/28/24 03/28/24 atorvastatin 40 mg tablet 40 mg PO HS 03/28/24 03/28/24 irbesartan 150 mg tablet 150 mg PO DAILY 03/28/24 03/28/24 levothyroxine 137 mcg tablet 137 mcg PO DAILY 03/28/24 03/28/24 Previous Rx's ?Medication ?Instructions ?Recorded cefdinir 300 mg capsule 300 mg PO BID #20 caps 03/28/24 methylprednisolone 4 mg tablets in See Rx Instructions .Route 03/28/24 a dose pack (Medrol (Moe)) .COMPLEX 6 days #21 tabs Allergies Allergy/AdvReac Type Severity Reaction Status Date / Time Penicillins Allergy Verified 05/08/23 12:57 Worker's Comp Is this a Worker's Comp case?: No [facility] Disclaimer: The information contained in this section may have been updated after the patient was seen, as this information can be updated by other users. Medical History (Updated 03/28/24 @ 15:13 by Margie Todd APRN) Otitis externa Bilateral conjunctivitis COVID-19 virus infection COVID-19 Sinusitis Acute hyperglycemia CAMILLE-inhibitor cough Influenza A COPD (chronic obstructive pulmonary disease) Dyspnea on exertion Pulmonary emphysema Smoking greater than 30 pack years History of 2019 novel coronavirus disease (COVID-19) Surgical History History of section Family History Other Cancer Coronary artery disease Hypertension Social History (Updated 08/09/23 @ 11:46 by Ann Whitten RN) Smoking Status: Current every day smoker tobacco type: cigarettes packs per day: 1 alcohol intake: current alcohol intake frequency: other substance use type: unknown and other current occupational status: employed Travel in the last 8 weeks: None household members: spouse housing: house ROS Obtained: Yes All systems reviewed & no additional complaints except as documented and Yes Systems reviewed as appropriate & no additional complaints except as documented Constitutional Constitutional: Reports system reviewed and no additional complaints, except as documented, Reports as per HPI and Reports headache(s) ENT Ears, Nose, Mouth, and Throat: Reports system reviewed and no additional complaints, except as documented, Reports as per HPI, Reports otalgia, Reports headache(s), Reports sinus pain and Reports sinus pressure Cardiovascular Cardiovascular: Reports system reviewed and no additional complaints, except as documented and Reports as per HPI Respiratory Respiratory: Reports system reviewed and no additional complaints, except as documented, Reports as per HPI, Denies shortness of breath and Reports cough Gastrointestinal Gastrointestingal: Reports system reviewed and no additional complaints, except as documented and as per HPI Genitourinary Female Genitourinary: Reports system reviewed and no additional complaints, except as documented and Reports as per HPI Neurologic Neurologic: Reports headache(s) Physical Exam General General appearance: alert and in no apparent distress ENT ENT exam: Present mucous membranes moist Expanded ENT Exam TM/Canal exam: Right TM: erythema and bulging Nose exam: Present sinus tenderness Throat exam: Present other (PND noted) Respiratory Respiratory exam: Present normal lung sounds bilaterally; Absent respiratory distress or wheezes Cardiovascular Cardiovascular exam: Present regular rate, normal rhythm and normal heart sounds Abdominal Exam Abdominal exam: Present soft and normal bowel sounds; Absent distention or tenderness Neurological Exam Neurological exam: Present alert, oriented X3 and normal gait Medical Decision Making Medical Records Screening: Per USPSTF and CDC recommendations, given the prevalence of disease in our region, it is our hospital?s policy to screen for HIV and viral Hepatitis for all patients aged 18 and over and those with ongoing risk factors. Juan Inquiry Pt receiving controlled substance: No Juan was queried for this patient: No Vital Signs: 03/28/24 15:00 Temperature 98.2 F Temperature Source Oral Pulse Rate [Left Brachial] 86 Respiratory Rate 19 Blood Pressure [Left Arm] 155/85 H Blood Pressure Mean [Left Arm] 108 Blood Pressure Source [Left Arm] Automatic Cuff Blood Pressure Position [Left Arm] Sitting 02 Sat by Pulse Oximetry 96 Oxygen Delivery Method Room Air Medical Decision Narrative: Patient states that she is allergic to PCN but has taken Cefdnir in the past without complications or reactions
[2024-03-28 15:15] VITALS: BP 155/85; PULSE 86; RESP 19; TEMP 36.8; O2SAT 96
== END 2024-03-28 15:18 | disposition home or self-care (01) ==
PROVIDERS: Emergency Provider Nurse Practitioner; PCP Family Medicine
DX: H66.93 Otitis media, unspecified, bilateral (principal)
CPT/HCPCS: 99213; G0381

== ENCOUNTER 2024-04-10 15:28 | Emergency (ER) | payer OTHER, SELFPAY ==
[2024-04-10 15:29] VITALS: BP 184/101; PULSE 114; RESP 18; TEMP 36.8; O2SAT 94; BMI 32.8
--- NOTE | 2024-04-10 15:49 | PC.NURSE ---
Dr. Lewis at bedside
[2024-04-10 15:51] LABS: Chloride 104 mmol/L (98-107)
[2024-04-10 15:52] LABS: Albumin Level 4.1 g/dl (3.5-5.0); Potassium 4.3 mmoL/L (3.5-5.1); Sodium 139 mmol/L (136-145)
[2024-04-10 15:53] LABS: Basophils # 0.1 K/mm3 (0-0.2); Basophils % 0.6 % (0.1-2.0); Eosinophils # 0.1 K/mm3 (0.0-0.4); Hematocrit 49.7 % (37.0-47.0); Hemoglobin 15.7 g/dL (12.2-16.2); Lymphocytes # 1.6 K/mm3 (0.7-4.5); Lymphocytes % 14.2 % (10-50); Mean Corpuscular HGB Conc 31.7 g/dL (31.8-35.4); Mean Corpuscular Hemoglobin 31.9 pg (27.0-31.2); Mean Corpuscular Volume 100.7 fl (81-99); Monocytes # 0.7 K/mm3 (0.1-1.0); Monocytes % 5.8 % (1.7-9.3); Neutrophils # 8.7 K/mm3 (1.8-7.8); Neutrophils % 78.4 % (37.0-80.0); Platelet Count 286 K/mm3 (142-424); Red Blood Count 4.93 M/mm3 (4.20-5.40); Red Cell Distribution Width 13.8 % (11.5-17.5); White Blood Count 11.1 K/mm3 (4.8-10.8)
[2024-04-10 15:54] LABS: Alanine Aminotransferase 16 U/L (12-78); Blood Urea Nitrogen 17 mg/dl (7-17); Creatinine Clearance Estimated 112 mL/min (50-200); Estimated Glomerular Filt Rate 73 ml/min (>60); GFR (African American) 89 ML/MIN (>60)
[2024-04-10 15:55] LABS: Albumin/Globulin Ratio 1.5 (1.1-1.8); Alkaline Phosphatase 98 U/L (38-126); Anion Gap 7.3 mEq/L (5-15); Aspartate Amino Transferase 23 U/L (14-36); Bilirubin,Total 0.5 mg/dl (0.2-1.3); Calcium 8.9 mg/dl (8.4-10.2); Carbon Dioxide 32 mmol/L (22.0-30.0); Globulin 2.8 g/dL (1.3-3.2); Glucose 144 mg/dl (74-100); Total Protein,Serum 6.9 g/dl (6.3-8.2)
--- NOTE | 2024-04-10 16:05 | ED_ITS ---
Discharge Plan Disposition Patient Disposition: Home, Self-Care Prescriptions Prescriptions: No Action atorvastatin 40 mg tablet 40 mg PO HS Patient Comments: TAKE 1 TABLET BY MOUTH EVERY NIGHT AT BEDTIME 30 levothyroxine 137 mcg tablet 137 mcg PO DAILY Patient Comments: TAKE ONE TABLET BY MOUTH EVERY DAY AT 700AM amlodipine 10 mg tablet 10 mg PO DAILY Patient Comments: TAKE 1 TABLET BY MOUTH EVERY DAY irbesartan 150 mg tablet 150 mg PO DAILY Patient Comments: TAKE ONE TABLET BY MOUTH EVERY DAY methylprednisolone [Medrol (Moe)] 4 mg tablets,dose pack See Rx Instructions .Route .COMPLEX 6 Days Qty: 21 0RF Rx Instructions: taper pack; cefdinir 300 mg capsule 300 mg PO BID Qty: 20 0RF Referrals Follow up/Referrals: Jennifer Almendarez MD [Primary Care Provider] - See instructions Activity Restrictions/Add. Instructions Additional Instructions/Restrictions: Your potassium level was normal on our laboratory evaluation today. Your abnormal test from a few days ago was almost certainly secondary to hemolysis as discussed and not a true laboratory abnormality. Clinical Impressions Clinical Impression: Abnormal laboratory test, Encounter for medical screening examination Print Language Print Language: Danish Discharge ED Provider: Harish Lewis General Adult HPI General Chief complaint: Recheck/Abnormal Lab/Rx Stated complaint: blood work low potassium Time Seen by Provider: 04/10/24 15:45 Mode of Arrival: Ambulatory Source of Information: Patient Limitations: No Limitations Description of Symptoms (Recalled from ER Triage Doc. by RN): PT PRESENTS TO THE ER FOR ABNORMAL LABS, STATES SHE HAD LABS DRAWN LAST THURSDAY IN DR TA OFFICE AND HE CALLED HER ABOUT 30 MINUTES AGO STATING IT WAS HIGH AND SHE NEEDED TO GO TO THE ER, DENIES ANY ISSUES OR PAIN, STATES SHE FEELS LIKE HER NORMAL SELF History of Present Illness HPI narrative: Patient is a 58-year-old female who presents today after being told by her primary care doctor that she had hyperkalemia. She states that she went to her doctor on Thursday and was just having routine blood work drawn was called several days later and told her potassium was high. Dr. Almendarez told her to come to the emergency department. Patient denies any symptoms whatsoever. She has not had any change in medications recently. She has normal urine output. Labs were not done within our system so we do not know the exact numbers of what she was told. Also she was not told as to whether not this was hemolyzed. Related Data Home Medications ?Medication ?Instructions ?Recorded ?Confirmed amlodipine 10 mg tablet 10 mg PO DAILY 03/28/24 04/10/24 atorvastatin 40 mg tablet 40 mg PO HS 03/28/24 04/10/24 irbesartan 150 mg tablet 150 mg PO DAILY 03/28/24 04/10/24 levothyroxine 137 mcg tablet 137 mcg PO DAILY 03/28/24 04/10/24 Previous Rx's ?Medication ?Instructions ?Recorded cefdinir 300 mg capsule 300 mg PO BID #20 caps 03/28/24 methylprednisolone 4 mg tablets in See Rx Instructions .Route 03/28/24 a dose pack (Medrol (Moe)) .COMPLEX 6 days #21 tabs Allergies Allergy/AdvReac Type Severity Reaction Status Date / Time Penicillins Allergy Other Verified 04/10/24 15:40 [facility] Disclaimer: The information contained in this section may have been updated after the patient was seen, as this information can be updated by other users. Medical History (Updated 04/10/24 @ 16:08 by Harish Lewis MD) Otitis externa Bilateral conjunctivitis COVID-19 virus infection COVID-19 Sinusitis Acute hyperglycemia CAMILLE-inhibitor cough Influenza A COPD (chronic obstructive pulmonary disease) Dyspnea on exertion Pulmonary emphysema Smoking greater than 30 pack years History of 2019 novel coronavirus disease (COVID-19) Surgical History History of section Family History Other Cancer Coronary artery disease Hypertension Social History Smoking Status: Current every day smoker tobacco type: cigarettes packs per day: 1 alcohol intake: current alcohol intake frequency: other substance use type: unknown and other current occupational status: employed Travel in the last 8 weeks: None household members: spouse housing: house Other Medical History Have you received the Flu Vaccine for this season: No Have you received the Pneumonia Vaccine: No ROS Obtained: Yes All systems reviewed & no additional complaints except as documented Physical Exam General General appearance: alert and in no apparent distress Respiratory Respiratory exam: Present normal lung sounds bilaterally Cardiovascular Cardiovascular exam: Present regular rate and normal rhythm Neurological Exam Neurological exam: Present alert and oriented X3 Medical Decision Making Medical Records Screening: Per USPSTF and CDC recommendations, given the prevalence of disease in our region, it is our hospital?s policy to screen for HIV and viral Hepatitis for all patients aged 18 and over and those with ongoing risk factors. Juan Inquiry Pt receiving controlled substance: No Vital Signs: 04/10/24 15:29 Temperature 98.3 F Temperature Source Oral Pulse Rate [Right Radial] 114 H Respiratory Rate 18 Blood Pressure [Right Arm] 184/101 H Blood Pressure Mean [Right Arm] 128 Blood Pressure Source [Right Arm] Automatic Cuff Blood Pressure Position [Right Arm] Sitting 02 Sat by Pulse Oximetry 94 L Oxygen Delivery Method Room Air Lab Data Lab results reviewed: Yes I reviewed the patient's lab results. Lab Results 04/10/24 15:40: Sodium 139, Potassium 4.3, Chloride 104, Carbon Dioxide 32 H, Anion Gap 7.3, BUN 17, Creatinine 0.80, Estimated Creat Clear 112, Estimated GFR 73, Est GFR ( Amer) 89, Glucose 144 H, Calcium 8.9, Total Bilirubin 0.5, AST 23, ALT 16, Alkaline Phosphatase 98, Total Protein 6.9, Albumin 4.1, Globulin 2.8, Albumin/Globulin Ratio 1.5 04/10/24 15:40 Orders (Tests/Meds): ORDERS Category Date Time Status CMP [Comprehensive Metabolic Panel] Stat Lab 04/10/24 15:40 Completed Complete Blood Count Auto Diff Stat Lab 04/10/24 15:40 Received HIV (1&2) Antibody Rapid Stat Lab 04/10/24 15:40 Received Hep C Ab with Reflex to RNA Stat Lab 04/10/24 15:40 Received Medical Decision Narrative: Patient is a 58-year-old female presents today with hyperkalemia. Unclear as to what the exact value was. She is asymptomatic most likely this was hemolysis/lab error. Will start with repeating this test. She has no signs or symptoms suggestive of severe hyperkalemia or any underlying condition that would contribute. Repeat labs today unremarkable as anticipated. Patient was discharged in stable condition. No further follow-up needed. Critical Care Critical Care Time Critical Care Time: No
[2024-04-10 16:26] VITALS: BP 184/101; PULSE 114; RESP 18; TEMP 36.8; O2SAT 94
[2024-04-10 16:27] VITALS: BP 164/98; PULSE 98; RESP 16; TEMP 36.8; O2SAT 94
[2024-04-10 18:22] LABS: HIV (1&2) Antibody Rapid NONREACTIVE (NONREACTIVE)
[2024-04-12 11:59] LABS: HCV Ab Non Reactive (Non Reactive)
== END 2024-04-10 16:28 | disposition home or self-care (01) ==
PROVIDERS: Emergency Provider Student in an Organized Health Care Education/Training Program; PCP Family Medicine
DX: E87.5 Hyperkalemia (principal)
CPT/HCPCS: 80053; 85025; 86803; 87389; 99283

== ENCOUNTER 2024-05-11 14:41 | Outpatient (CLI) | payer OTHER, SELFPAY ==
--- NOTE | 2024-05-11 14:48 | XR_ITS ---
FINAL REPORT TECHNIQUE: Bone mineral density was calculated of the lumbar spine and hip. CLINICAL HISTORY: SCREENING FINDINGS: Using L1-4, the bone mineral density of the spine is 0.993 g/cm2, corresponding to T-score of -0.5. Using the left hip, the bone mineral density of the femoral neck is 0.578 g/cm2, corresponding to a T-score of -2.4. Using the right hip, the bone mineral density of the femoral neck is 0.631 g/cm?, corresponding to a T-score of -2.0 NOTE: T-score: Standard deviation compared with peak bone mass of young adult mean. *Following the recommendations of the International Society of Bone densitometry, classification of hip BMD is based on the lower of two T-scores; total hip or femoral neck. IMPRESSION: Diminished bone mineral density of the bilateral hips consistent with low bone density. Normal bone mineral density of the lumbar spine, however this may be falsely elevated secondary to bony sclerosis. Reviewed, Interpreted and Dictated by Kenn Whitaker III, MD Transcribed by Eri Laurent Authenticated and [facility]
--- NOTE | 2024-05-11 14:48 | MM_ITS ---
PROCEDURE INFORMATION: Exam: MG Bilateral Screening 3D Mammography Exam date and time: 05/11/2024 2:45 PM Age: 58 years old Clinical indication: Screening mammogram TECHNIQUE: Imaging protocol: Bilateral Screening tomosynthesis and 2D mammography including computer-aided detection (CAD) when performed. COMPARISON: 1. MG SCBI MM Dig screening mamm BI w/CAD 01/22/2018 9:30 AM 2. MG DMSB DIGITAL MAMM-SCREEN BILATERAL 09/29/2012 8:43 AM 3. MG DIGMAMMS MAMMOGRAM SCREEN-PANEL SAW OPERATOR N/C 09/23/2005 8:49 AM 4. MG DIGMAMMS MAMMOGRAM SCREEN-PANEL SAW OPERATOR N/C 03/30/2001 8:49 AM FINDINGS: MAMMOGRAPHY: Breast composition: There are scattered areas of fibroglandular density. Mass: None. Architectural distortion: No new or suspicious architectural distortion. Calcifications: No new or suspicious calcifications are present Asymmetric density: No new or suspicious asymmetric density is present Skin thickening: None. Axillary adenopathy: None. IMPRESSION: No mammographic evidence of malignancy. Recommend annual screening mammography unless otherwise clinically indicated. ASSESSMENT: BI-RADS category 1: Negative.
== END 2024-05-11 23:59 | disposition home or self-care (01) ==
LOC: RAD 14:42
PROVIDERS: PCP Psychiatry & Neurology Sleep Medicine; Visit Provider Physician Assistant
DX: Z12.31 Encounter for screening mammogram for malignant neoplasm of breast (principal); M89.8X8 Other specified disorders of bone, other site; Z13.820 Encounter for screening for osteoporosis
CPT/HCPCS: 77063; 77067; 77080

== ENCOUNTER 2024-06-24 10:29 | Outpatient (CLI) | payer OTHER, SELFPAY ==
--- NOTE | 2024-06-24 10:44 | XR_ITS ---
FINAL REPORT CLINICAL HISTORY: BRONCHITIS COMPARISON: None FINDINGS: No acute pulmonary density is evident. There is no evidence of effusion or other pleural disease. There are remote calcified granulomas present in the left lung base. The mediastinum has a normal appearance. The cardiac silhouette is unremarkable. IMPRESSION: No acute findings. Reviewed, Interpreted and Dictated by Jennifer Randolph MD Transcribed by Eri Laurent Authenticated and [facility]
[2024-06-27 12:32] LABS: EBV Ab VCA, IgG >600.0 U/mL (0.0-17.9); EBV Ab VCA, IgM <36.0 U/mL (0.0-35.9)
== END 2024-06-24 23:59 | disposition home or self-care (01) ==
LOC: RAD 10:30
PROVIDERS: PCP Physician Assistant; Visit Provider Physician Assistant
DX: J40 Bronchitis, not specified as acute or chronic (principal); R53.83 Other fatigue
CPT/HCPCS: 36415; 71046; 86665

== ENCOUNTER 2024-12-19 11:26 | Inpatient (IN) | payer OTHER, SELFPAY ==
--- OUTSIDE RECORDS SUMMARY | 2024-04-06 11:45 | XMS_ITS ---
Author Organization [facility] Address [address] [place] [id number] Care Team Providers Care Soil Sampler Name Role Phone Consuelo Rickian Primary Care Provider Swati Willingham Unavailable [phone] Allergies Allergen (clinical drug ingredient) Drug/Non Drug [...] Interpretation: Performing Lab: Notes/Report: Test performed by [facility] [address] [place] [address] , [address], [place] [address] Olvin Leos MD, Kennel Hand CLIA: [id number] Sodium 139 135-145 mmol/L Potassium 6.4 3.5-5.3 [...] Interpretation: Performing Lab: Notes/Report: Test performed by [facility] [address] [place] [address] , [place] [address] Olvin Leos MD, Kennel Hand CLIA: [id number] Thyroxine Free (free T4) 1.81 0.86-1.76 ng/dL P-Lipid Panel Reviewed date:04/11/2024 10:07:55 AM Interpretation: Performing Lab: Notes/Report: Test performed by [facility] [address] [place] [address] [address], [place] [address] Olvin Leos MD, Kennel Hand CLIA: [id number] Cholesterol 230 <200 mg/dL Triglycerides 225 <150 [...] Interpretation: Performing Lab: Notes/Report: Test performed by [facility] [address] , [address], [place] [address] Olvin Leos MD, Kennel Hand CLIA: [id number] TSH 3.97 0.43-5.25 mU/L DEXA Hip and [...] W/U Status Risk Notes Problem Tobacco use disorder (F17.200) Active confirmed Vital Signs Weight 213.0 lbs 04/06/2024 Blood pressure systolic 152 mm Hg 04/06/20 24 Blood pressure diastolic 90 mm Hg 024 Heart Rate 87 /min 04/06/2024 Height 65 in 04/06/2024 BMI 35.44 kg/m2 04/06/2024 Encounters Encounter Location Date [facility] [address], [place] [id number] 04/06/2024 Swati Willingham Acquired hypothyroid ism E03.9 [...] results, Reason: Progress Notes * PRIETO CHOWOB:1965 (58 yo F)Acc No.[id number]:04/06/2024 Progress Notes Patient: TASHIA LEE Provider: AV Bustamante :1965 A ge:58 Y S ex:Female Date:04/06/2024 Address:[address] [place] [address] [place], [id number] Pcp:Ranjit Rick Subjective: * Chief Complaints: * 1 . Checkup. 2. Needs labs, mammogram, bone density screening, colon cancer screening, low dose chest CT, & flu vaccine. * HPI: C ardiology: The patient is here for a check up. Pt states she doing good and denies any new concerns. Pt states she is needing refills sent to [facility] in [facility]. Pt states she has been out of [...] * Medical History: H ypertension, Hyperlipidemia, Hypothyroidism, [place] Palsy, Cologuard - 2018, Covid Vaccine J&J - 08/25/20, 40 pack year smoking history as of 2021. * Surgical History: C -section 1991, R foot bone spur 1996. * Hospitalization/Major Diagno stic Procedure: H ER-[place] Palsy 12/18/18. * Family History: F ather: [...] 04/07/2024 10:49:23 AM > patient has R [facility] insurance 6.?Screen for colon cancer?LAB: Cologuard* Swati Willingham 04/06/2024 4 :47:06 PM >Sonia Mi 04/21/2024 12:07:23 PM > order faxed 7.?Screening for lung cancer?Imaging: CT SCAN : CHEST, LUNG CANCER SCREENING LOW DOSE* TarshaSwati Peters 04/06/2024 4 :47:19 PM >Vida Vega 04/07/2024 10:49:23 AM > patient has R [facility] insurance 8.?Osteoporosis screening?Imaging: DEXA Hip and Spine (Performed Date - 05/11/2024)?osteopenia bilateral hips, new diagnosis* Value Reference Range D exa results osteopenia bilateral hips * TarshaSwati Peters 04/06/2024 4 :47:45 PM >Vida Vega 04/07/2024 10:48:42 AM > has [facility] InsuranceCrSwati pace Fran 05/20/2024 8:59:58 AM > see TE 9.?Screening mammogram, encounter for?Imaging: Mammogram (Performed Date - 05/11/2024)?Negative, annual f/u* Value Reference Range r esult Negative, annual f/u * Swati Willingham 04/06/2024 4 :47:56 PM > called no answer, number is Abeba Kelly 05/16/2024 4:52:52 PM > Pt informed * Procedure Codes: 8 5025 CBC WITH AUTO DIFF, 02733 VENIPUNCT, ROUTINE* * Follow Up: v ia phone to report test results * Images: Billing Information: * Visit Code: 74957 Office Visit, Est Pt., Level 4. * Procedure Codes: 70190 CBC WITH AUTO DIFF. 46028 VENIPUNCT, ROUTINE*. * Electronic signature of AV Lou on 12/20/2024 at 02:27 PM EDT Sign off status: Pending * Provider: AV Bustamante Date: 1 Generated for Sheridan marin/Elsy/Angelicaitting on: 0 12/20/2024 02:27 PM EDT History and Physical Notes * HPI (History [...]
[2024-12-19] VITALS (17 sets, daily range): BP systolic 96–200; BP diastolic 59–114; PULSE 75–100; RESP 16–22; TEMP 36.6–37; O2SAT 88–99; BMI 33.0; BMI 36.3
--- NOTE | 2024-12-19 11:48 | XR_ITS ---
PROCEDURE INFORMATION: Exam: XR Chest Exam date and time: 12/19/2024 12:01 PM Age: 58 years old Clinical indication: Dyspnea; Additional info: Soa/cough TECHNIQUE: Imaging protocol: Radiologic exam of the chest. Views: 1 view. COMPARISON: CR XR CHEST 2V 06/24/2024 10:46 AM FINDINGS: Lungs: Hyperexpanded lung peguero consistent with COPD. No focal consolidation Pleural spaces: Unremarkable. No pleural effusion. No pneumothorax. Heart/Mediastinum: Unremarkable. No cardiomegaly. Bones/joints: Unremarkable. IMPRESSION: Hyperexpanded lung peguero consistent with COPD.
[2024-12-19 11:53] LABS: Coronavirus 19, PCR Not Detected (NotDetected); Influenza A, PCR Not Detected (NotDetected); Influenza B, PCR Not Detected (NotDetected)
--- NOTE | 2024-12-19 12:00 | ECG_ITS ---
APPROVED REPORT Exam: Resting ECG HR:76 bpm ECG Measurements Heart Rate 76 AXES AL 139 P 70 QRSd 75 QRS 68 QT 375 T 65 QTc 405 Conclusion Normal sinus rhythm at beats per minute, T wave inversions in V1 no other acute ST or T wave changes concerning for ischemia. Electronically signed by : Rafaela Narvaez, 12/19/2024 18:00:28
--- NOTE | 2024-12-19 12:03 | ED_ITS ---
<Statement entered by Rafaela Narvaez DO - 12/19/24 16:56> I was consulted by the HEIDI, and we discussed the complexity of problems being addressed. I approve the treatment and management plan for this patient's care in the emergency department, thus performing a substantial portion of the medical decision making. Rafaela Narvaez DO Discharge Plan Disposition Patient Disposition: Admitted Condition: Good Clinical Impressions Clinical Impression: COPD exacerbation Respiratory failure with hypoxia Qualifiers: Chronicity: acute Qualified Code(s): J96.01 - Acute respiratory failure with hypoxia Discharge ED Provider: Cony Haque HPI <AV Ramos - Last Filed: 12/19/24 17:35> General Chief Complaint: Shortness of Breath/Dyspnea Stated Complaint: SOA, cold, lethargic Time Seen by Provider: 12/19/24 11:47 Mode of Arrival: Ambulatory Source of Information: Patient Description of Symptoms (Recalled from ER Triage Doc. by RN): Pt reports having SOA, weakness, and being cold for the last 2 days. Pt states she just isnt feeling well. Pt also reports a cough that is sometimes productive with a thick white sputumn. Pt currently denies any pain. History of Present Illness HPI narrative: 58-year-old female presents emergency department with shortness of breath, fatigue, malaise, productive cough, for the last week, worse with the last 2 days, admits to subjective fever chills, denies any chest pain, denies any nausea vomiting constipation diarrhea no abdominal pain, no constipation no diarrhea, no urinary symptoms, patient is current per day smoker, denies any alcohol or drug use, initial triage vitals notable for SpO2 in the mid 80s, thus placed on 2 to 3 L nasal cannula, as well as hypertension with systolic of 200. Other past medical history consistent with hypertension, COPD, hypothyroidism. Related Data Home Medications ?Medication ?Instructions ?Recorded ?Confirmed amlodipine 10 mg tablet 10 mg PO DAILY 03/28/2410/07 atorvastatin 40 mg tablet 40 mg PO HS 03/28/24 5 irbesartan 150 mg tablet 150 mg PO DAILY 03/28/24 levothyroxine 137 mcg tablet 137 mcg PO DAILY 03/28/24 10/28/24 fluticasone 250 mcg-salmeterol 50 inhalation 10/28/24 10/28/24 mcg/dose blistr erroldr for inhalation (Wixela Inhub) Previous Rx's ?Medication ?Instructions ?Recorded azithromycin 250 mg tablet See Rx Instructions PO .COM PLEX #6 10/28/24 tabs benzonatate 100 mg capsule 100 mg PO TID PRN cough #30 caps 10/28/24 methylprednisolone 4 mg tablets in See Rx Instructions PO PER PKG DIR 10/28/24 a dose pack (Medrol (Moe)) #21 tabs Allergies Allergy/AdvReac Type Severity Reaction Status Date / Time Penicillins Allergy Other Verified 10/28/24 11:23 [facility] <AV Ramos - Last Filed: 12/19/24 17:35> [facility] Disclaimer: The information contained in this section may have been updated after the patient was seen, as this information can be updated by other users. Medical History Otitis externa Bilateral conjunctivitis COVID-19 virus infection COVID-19 Sinusitis Acute hyperglycemia CAMILLE-inhibitor cough Influenza A COPD (chronic obstructive pulmonary disease) Dyspnea on exertion Pulmonary emphysema Smoking greater than 30 pack years History of 2019 novel coronavirus disease (COVID-19) Surgical History History of section Family History Other Cancer Coronary artery disease Hypertension Social History Smoking Status: Current every day smoker tobacco type: cigarettes packs per day: 1 alcohol intake: current alcohol intake frequency: other substance use type: unknown and other current occupational status: employed Travel in the last 8 weeks?: None household members: spouse housing: house Have you lived/traveled outside [place] in past 30 days?: No Contact w/someone who lives/traveled outside [place] past 30 days?: No Exposure to someone with infectious disease in past 14 days?: No Do you have a fever (greater than 100.4 F or 38 C)?: No Have you tested positive for COVID-19?: No Exposed to someone with COVID-19 in past 14 days?: No Do you have a sore throat?: No Do you have a cough?: No Do you have any weakness?: Yes Do you have any diarrhea?: No Are you experiencing any unusual bleeding?: No Do you have any muscle aches/pain?: No Do you have any abdominal pain?: No Are you experiencing loss of taste or smell?: No Other Medical History Have you received the Flu Vaccine for this season: No Have you received the Pneumonia Vaccine: No <AV Ramos - Last Filed: 12/19/24 17:35> ROS Obtained: Yes All systems reviewed & no additional complaints except as documented Physical Exam <AV Ramos - Last Filed: 12/19/24 17:35> General General appearance: alert and in no apparent distress Head Head exam: atraumatic and normocephalic Eye Eye exam: Present PERRL and EOMI ENT ENT exam: Present mucous membranes moist Neck Neck exam: Present normal inspection Chest Chest inspection: Present normal inspection and symmetric chest wall rise Respiratory Respiratory exam: Present wheezes and other (Crackles/Rales most notable in the right lung peguero); Absent normal lung sounds bilaterally or respiratory distress Cardiovascular Cardiovascular exam: Present regular rate and normal rhythm Abdominal Exam Abdominal exam: Present soft; Absent tenderness Extremities Exam Extremities exam: Present normal inspection Neurological Exam Neurological exam: Present alert and oriented X3 Psychiatric Psychiatric exam: Present normal affect Skin Skin exam: Present warm and dry HEART Score <Rafaela Narvaez DO - Last Filed: 12/19/24 16:57> HEART Score HEART Score assessment performed?: No Critical Care <Rafaela Narvaez DO - Last Filed: 12/19/24 16:57> Critical Care Time Critical Care Time: No Medical Decision Making <AV Ramos - Last Filed: 12/19/24 17:35> Medical Records Medical records reviewed: Yes I reviewed the patient's medical records. Juan Inquiry Pt receiving controlled substance: No Juan was queried for this patient: No Vital Signs Vital Signs: 12/19/24 11:40 12/19/24 11:43 12/19/24 12:47 Temperature 98.6 F Temperature Source Oral Pulse Rate 79 Pulse Rate [Left] 84 Respiratory Rate 16 Blood Pressure 200/103 H 122/100 H Blood Pressure [Right Arm] 200/103 H Blood Pressure Mean 115 Blood Pressure Mean [Right Arm] 135 Blood Pressure Source Blood Pressure Source [Right Arm] Automatic Cuff Blood Pressure Position 02 Sat by Pulse Oximetry 92 L 88 L 98 Oxygen Delivery Method Nasal Cannula Room Air Oxygen Flow Rate (LPM) 3 12/19/24 13:00 12/19/24 13:30 12/19/24 13:56 Temperature Temperature Source Pulse Rate 77 80 Pulse Rate [Left] Respiratory Rate 18 Blood Pressure 176/114 H 142/87 H Blood Pressure [Right Arm] Blood Pressure Mean 130 105 Blood Pressure Mean [Right Arm] Blood Pressure Source Blood Pressure Source [Right Arm] Blood Pressure Position 02 Sat by Pulse Oximetry 95 95 Oxygen Delivery Method Oxygen Flow Rate (LPM) 12/19/24 14:00 12/19/24 14:25 12/19/24 14:25 Temperature Temperature Source Pulse Rate 75 92 H 85 Pulse Rate [Left] Respiratory Rate Blood Pressure 161/89 H Blood Pressure [Right Arm] Blood Pressure Mean Blood Pressure Mean [Right Arm] Blood Pressure Source Blood Pressure Source [Right Arm] Blood Pressure Position 02 Sat by Pulse Oximetry 93 L Oxygen Delivery Method Oxygen Flow Rate (LPM) 12/19/24 14:31 12/19/24 15:00 12/19/24 15:30 Temperature Temperature Source Pulse Rate 93 H 92 H 99 H Pulse Rate [Left] Respiratory Rate 22 Blood Pressure 96/83 L 143/90 H 138/74 Blood Pressure [Right Arm] Blood Pressure Mean 107 Blood Pressure Mean [Right Arm] Blood Pressure Source Blood Pressure Source [Right Arm] Blood Pressure Position 02 Sat by Pulse Oximetry 98 98 99 Oxygen Delivery Method Aerosol Mask Oxygen Flow Rate (LPM) 12/19/24 16:00 12/19/24 16:30 12/19/24 17:26 Temperature 98.6 F Temperature Source Oral Pulse Rate 95 H 96 H 90 Pulse Rate [Left] Respiratory Rate 18 18 Blood Pressure 144/74 H 147/76 H 140/72 Blood Pressure [Right Arm] Blood Pressure Mean 94 Blood Pressure Mean [Right Arm] Blood Pressure Source Automatic Cuff Blood Pressure Source [Right Arm] Blood Pressure Position Sitting 02 Sat by Pulse Oximetry 95 92 L Oxygen Delivery Method Nasal Cannula Oxygen Flow Rate (LPM) 2 Lab Data Lab results reviewed: Yes I reviewed the patient's lab results. Labs: Lab Results 12/19/24 11:39: SARS-CoV-2 (PCR) Not detected, Influenza A Untype (PCR) Not detected, Influenza Type B (PCR) Not detected 12/19/24 11:48: VBG pH 7.28 L, VBG pCO2 73.0 H, VBG pO2 32.7, VBG HCO3 33.8 H, V BG Total CO2 36.1 H, VBG O2 Saturation 61.2, VBG Base Excess 7.2 H, VBG Lactic Acid 1.1 12/19/24 11:50: WBC 9.0, RBC 4.90, Hgb 16.2, Hct 50.8 H, MCV 103.7 H, MCH 33.1 H , MCHC 31.9, RDW 14.0, Plt Count 243, MPV 8.6, Neut % (Auto) 79.8, Lymph % (Auto) 10.7, [place] % (Auto) 8.1, Eos % (Auto) 0.9, Baso % (Auto) 0.3, Neut # (Auto) 7.1, Lymph # (Auto) 1.0, [place] # (Auto) 0.7, Eos # (Auto) 0.1, Baso # (Auto) 0.0, D-Dimer 0.45, Sodium 140, Potassium 4.3, Chloride 96 L, Carbon Dioxide 36 H, Anion Gap 12.3, BUN 12, Creatinine 0.90, Estimated Creat Clear 98, Estimated GFR 64, Est GFR ( Amer) 77, Glucose 105 H, Calcium 9.4, Magnesium 2.1, Total Bilirubin 0.7, AST 31, ALT 16, Alkaline Phosphatase 90, Troponin I < 0.01, NT-Pro-B Natriuret Pep 262 H, Total Protein 7.0, Albumin 4.5, Globulin 2.5, Albumin/Globulin Ratio 1.8, HCV Ab ALEXANDRA w/Rflx PCR Qn Negative, HIV Ag/Ab Combo Qual Negative 12/19/24 14:55: Lactate 0.8, Troponin I < 0.01 12/19/24 11:50 12/19/24 11:50 Response Orders (Tests/Meds): ED MEDICATIONS Generic Name Dose Route Start Last Admin Trade Name Freq PRN Reason Stop Dose Admin Acetaminophen 650 mg 12/19/24 16:21 Acetaminophen 325mg Tab PO 01/18/25 16:20 Q6HP PRN Fever or Mild Pain (1-3) Discontinued Medications Generic Name Dose Route Start Last Admin Trade Name Freq PRN Reason Stop Dose Admin Albuterol Sulfate 20 mg 12/19/24 14:04 12/19/24 14:12 Albuterol 0.083% 2.5 Mg/3 Ml [facility] 12/19/24 14:05 20 mg ONCE ONE Administration Albuterol/Ipratropium 6 ml 12/19/24 12:34 12/19/24 12:41 Ipratropium/Albuterol 3 Ml [facility] 12/19/24 12:35 6 ml ONCE ONE Administration Magnesium Sulfate 2 gm in 50 mls @ 50 mls/hr 12/19/24 12:50 12/19/24 13:01 Magnesium Sulfate 2gm/50ml Premix IV 12/19/24 13:49 50 mls/hr ONCE ONE Administration Azithromycin 500 mg/ Sodium 250 mls @ 250 mls/hr 12/19/24 12:58 12/19/24 13:26 Chloride IV 12/19/24 12:59 250 mls/hr ONCE ONE Administration Methylprednisolone Sodium Succinate 125 mg 12/19/24 12:35 12/19/24 12:41 Methylprednisolone Sod Succ 125mg Vial IV 12/19/24 12:36 125 mg ONCE ONE Administration ORDERS Category Date Time Status XR chest portable Stat Exams 12/19/24 11:48 Completed Complete Blood Count Auto Diff Stat Lab 12/19/24 11:50 Completed Comprehensive Metabolic Panel Stat Lab 12/19/24 11:50 Completed D-Dimer Stat Lab 12/19/24 11:50 Completed HIV Combo Stat Lab 12/19/24 11:50 Completed Hepatitis C Ab Qual. W/ RFX Stat Lab 12/19/24 11:50 Completed Lactic Acid Stat Lab 12/19/24 14:55 Completed Magnesium Stat Lab 12/19/24 11:50 Completed NT Pro Brain Natriuretic Pep. Stat Lab 12/19/24 11:50 Completed Rapid PCR Covid and Flu A/B Stat Lab 12/19/24 11:39 Completed Troponin I Q3H Lab 12/19/24 14:55 Completed Troponin I Q3H Lab 12/19/24 18:00 Ordered Troponin I Stat Lab 12/19/24 11:50 Completed VBG [Venous Blood Gas] Stat RT 12/19/24 11:48 Completed MDM Narrative Medical Decision Narrative: 58-year-old female presents emergency department with productive cough, shortness of breath, malaise, last 1 week, worse with the last 2 days, differential diagnose include but not limited to, COPD exacerbation, new onset CHF exacerbation, pneumonia, costochondritis, cardiac arrhythmia, electrolyte disturbance, acute bronchitis, viral URI among others. I discussed this patient case with the attending physician Dr. Narvaez, she saw and examined the patient as well. Will obtain basic laboratory studies, rapid PCR COVID and flu, proBNP, troponin, EKG, CXR, VBG. CBC is notable for MCV elevation at 103.7 D-dimer is negative 0.45 Troponin is less than 0.01, proBNP is mildly elevated at 262 VBG is notable for acidosis with a pH 7.28, pCO2 is increased to 73, bicarb is elevated 33.8 venous lactic within normal limits. Give DuoNebs, 6 mL per RT, will give 125 mg IV methylprednisone, will also give 2 g of IV magnesium and 500 mg IV azithromycin for COPD exacerbation/pneumonia prophylaxis. I reviewed the patient's chest x-ray along the corresponding radiologic report, hyperexpanded lung peguero consistent with COPD. PCR COVID and flu are negative. Patient was titrated down to 2 L nasal cannula, still having some audible wheezes, thus will give continuous 20 mg inhalation of albuterol for symptomatic relief. Repeat troponin within normal limits I discussed the patient case with the on-call hospitalist service at 4:18 PM, he is agree with current mission/treatment plan. For COPD exacerbation new onset oxygen requirement. <Rafaela Narvaez, DO - Last Filed: 12/19/24 16:57> Vital Signs Vital Signs: 12/19/24 11:40 12/19/24 11:43 12/19/24 12:47 Temperature 98.6 F Temperature Source Oral Pulse Rate 79 Pulse Rate [Left] 84 Respiratory Rate 16 Blood Pressure 200/103 H 122/100 H Blood Pressure [Right Arm] 200/103 H Blood Pressure Mean 115 Blood Pressure Mean [Right Arm] 135 Blood Pressure Source Blood Pressure Source [Right Arm] Automatic Cuff Blood Pressure Position 02 Sat by Pulse Oximetry 92 L 88 L 98 Oxygen Delivery Method Nasal Cannula Room Air Oxygen Flow Rate (LPM) 3 12/19/24 13:00 12/19/24 13:30 12/19/24 13:56 Temperature Temperature Source Pulse Rate 77 80 Pulse Rate [Left] Respiratory Rate 18 Blood Pressure 176/114 H 142/87 H Blood Pressure [Right Arm] Blood Pressure Mean 130 105 Blood Pressure Mean [Right Arm] Blood Pressure Source Blood Pressure Source [Right Arm] Blood Pressure Position 02 Sat by Pulse Oximetry 95 95 Oxygen Delivery Method Oxygen Flow Rate (LPM) 12/19/24 14:00 12/19/24 14:25 12/19/24 14:25 Temperature Temperature Source Pulse Rate 75 92 H 85 Pulse Rate [Left] Respiratory Rate Blood Pressure 161/89 H Blood Pressure [Right Arm] Blood Pressure Mean Blood Pressure Mean [Right Arm] Blood Pressure Source Blood Pressure Source [Right Arm] Blood Pressure Position 02 Sat by Pulse Oximetry 93 L Oxygen Delivery Method Oxygen Flow Rate (LPM) 12/19/24 14:31 12/19/24 15:00 12/19/24 15:30 Temperature Temperature Source Pulse Rate 93 H 92 H 99 H Pulse Rate [Left] Respiratory Rate 22 Blood Pressure 96/83 L 143/90 H 138/74 Blood Pressure [Right Arm] Blood Pressure Mean 107 Blood Pressure Mean [Right Arm] Blood Pressure Source Blood Pressure Source [Right Arm] Blood Pressure Position 02 Sat by Pulse Oximetry 98 98 99 Oxygen Delivery Method Aerosol Mask Oxygen Flow Rate (LPM) 12/19/24 16:00 12/19/24 16:30 12/19/24 17:26 Temperature 98.6 F Temperature Source Oral Pulse Rate 95 H 96 H 90 Pulse Rate [Left] Respiratory Rate 18 18 Blood Pressure 144/74 H 147/76 H 140/72 Blood Pressure [Right Arm] Blood Pressure Mean 94 Blood Pressure Mean [Right Arm] Blood Pressure Source Automatic Cuff Blood Pressure Source [Right Arm] Blood Pressure Position Sitting 02 Sat by Pulse Oximetry 95 92 L Oxygen Delivery Method Nasal Cannula Oxygen Flow Rate (LPM) 2 Lab Data Labs: Lab Results 12/19/24 11:39: SARS-CoV-2 (PCR) Not detected, Influenza A Untype (PCR) Not detected, Influenza Type B (PCR) Not detected 12/19/24 11:48: VBG pH 7.28 L, VBG pCO2 73.0 H, VBG pO2 32.7, VBG HCO3 33.8 H, V BG Total CO2 36.1 H, VBG O2 Saturation 61.2, VBG Base Excess 7.2 H, VBG Lactic Acid 1.1 12/19/24 11:50: WBC 9.0, RBC 4.90, Hgb 16.2, Hct 50.8 H, MCV 103.7 H, MCH 33.1 H , MCHC 31.9, RDW 14.0, Plt Count 243, MPV 8.6, Neut % (Auto) 79.8, Lymph % (Auto) 10.7, [place] % (Auto) 8.1, Eos % (Auto) 0.9, Baso % (Auto) 0.3, Neut # (Auto) 7.1, Lymph # (Auto) 1.0, [place] # (Auto) 0.7, Eos # (Auto) 0.1, Baso # (Auto) 0.0, D-Dimer 0.45, Sodium 140, Potassium 4.3, Chloride 96 L, Carbon Dioxide 36 H, Anion Gap 12.3, BUN 12, Creatinine 0.90, Estimated Creat Clear 98, Estimated GFR 64, Est GFR ( Amer) 77, Glucose 105 H, Calcium 9.4, Magnesium 2.1, Total Bilirubin 0.7, AST 31, ALT 16, Alkaline Phosphatase 90, Troponin I < 0.01, NT-Pro-B Natriuret Pep 262 H, Total Protein 7.0, Albumin 4.5, Globulin 2.5, Albumin/Globulin Ratio 1.8, HCV Ab ALEXANDRA w/Rflx PCR Qn Negative, HIV Ag/Ab Combo Qual Negative 12/19/24 14:55: Lactate 0.8, Troponin I < 0.01 Response Orders (Tests/Meds): ED MEDICATIONS Generic Name Dose Route Start Last Admin Trade Name Freq PRN Reason Stop Dose Admin Acetaminophen 650 mg 12/19/24 16:21 Acetaminophen 325mg Tab PO 01/18/25 16:20 Q6HP PRN Fever or Mild Pain (1-3) Discontinued Medications Generic Name Dose Route Start Last Admin Trade Name Freq PRN Reason Stop Dose Admin Albuterol Sulfate 20 mg 12/19/24 14:04 12/19/24 14:12 Albuterol 0.083% 2.5 Mg/3 Ml [facility] 12/19/24 14:05 20 mg ONCE ONE Administration Albuterol/Ipratropium 6 ml 12/19/24 12:34 12/19/24 12:41 Ipratropium/Albuterol 3 Ml [facility] 12/19/24 12:35 6 ml ONCE ONE Administration Magnesium Sulfate 2 gm in 50 mls @ 50 mls/hr 12/19/24 12:50 12/19/24 13:01 Magnesium Sulfate 2gm/50ml Premix IV 12/19/24 13:49 50 mls/hr ONCE ONE Administration Azithromycin 500 mg/ Sodium 250 mls @ 250 mls/hr 12/19/24 12:58 12/19/24 13:26 Chloride IV 12/19/24 12:59 250 mls/hr ONCE ONE Administration Methylprednisolone Sodium Succinate 125 mg 12/19/24 12:35 12/19/24 12:41 Methylprednisolone Sod Succ 125mg Vial IV 12/19/24 12:36 125 mg ONCE ONE Administration ORDERS Category Date Time Status XR chest portable Stat Exams 12/19/24 11:48 Completed Complete Blood Count Auto Diff Stat Lab 12/19/24 11:50 Completed Comprehensive Metabolic Panel Stat Lab 12/19/24 11:50 Completed D-Dimer Stat Lab 12/19/24 11:50 Completed HIV Combo Stat Lab 12/19/24 11:50 Completed Hepatitis C Ab Qual. W/ RFX Stat Lab 12/19/24 11:50 Completed Lactic Acid Stat Lab 12/19/24 14:55 Completed Magnesium Stat Lab 12/19/24 11:50 Completed NT Pro Brain Natriuretic Pep. Stat Lab 12/19/24 11:50 Completed Rapid PCR Covid and Flu A/B Stat Lab 12/19/24 11:39 Completed Troponin I Q3H Lab 12/19/24 14:55 Completed Troponin I Q3H Lab 12/19/24 18:00 Ordered Troponin I Stat Lab 12/19/24 11:50 Completed VBG [Venous Blood Gas] Stat RT 12/19/24 11:48 Completed
[2024-12-19 12:05] LABS: Hematocrit 50.8 % (37.0-47.0); Hemoglobin 16.2 g/dL (12.2-16.2); Immature Granulocytes % 0.2 %; Mean Corpuscular HGB Conc 31.9 g/dL (31.8-35.4); Mean Corpuscular Hemoglobin 33.1 pg (27.0-31.2); Mean Corpuscular Volume 103.7 fl (81-99); Nucleated Red Blood Cells % 0 %; Platelet Count 243 K/mm3 (142-424); Red Blood Count 4.90 M/mm3 (4.20-5.40); Red Cell Distribution Width-SD 53.5 fL; White Blood Count 9.0 K/mm3 (4.8-10.8)
[2024-12-19 12:07] LABS: Lactate Venous 1.1 mmol/L (0.4-2.0); VBG HCO3 33.8 mmol/L (23-30); VBG PH 7.28 mmol/L (7.31-7.41); VBG PO2 32.7 mmol/L (28-40)
[2024-12-19 12:12] LABS: VBG PCO2 73.0 mmol/L (35-51)
[2024-12-19 12:15] LABS: Alanine Aminotransferase 16 U/L (12-78); Albumin Level 4.5 g/dl (3.5-5.0); Albumin/Globulin Ratio 1.8 (1.1-1.8); Alkaline Phosphatase 90 U/L (38-126); Anion Gap 12.3 mEq/L (5-15); Aspartate Amino Transferase 31 U/L (14-36); Bilirubin,Total 0.7 mg/dl (0.2-1.3); Blood Urea Nitrogen 12 mg/dl (7-17); Calcium 9.4 mg/dl (8.4-10.2); Carbon Dioxide 36 mmol/L (22.0-30.0); Chloride 96 mmol/L (98-107); Creatinine Clearance Estimated 98 mL/min (50-200); Creatinine,Serum 0.90 mg/dl (0.52-1.04); Estimated Glomerular Filt Rate 64 ml/min (>60); GFR (African American) 77 ML/MIN (>60); Globulin 2.5 g/dL (1.3-3.2); Glucose 105 mg/dl (74-100); Magnesium 2.1 mg/dl (1.6-2.3); Potassium 4.3 mmoL/L (3.5-5.1); Sodium 140 mmol/L (136-145); Total Protein,Serum 7.0 g/dl (6.3-8.2)
[2024-12-19 12:20] LABS: D-Dimer 0.45 ug/mL (0.0-0.5)
[2024-12-19 12:28] LABS: NT Pro Brain Natriuretic Pep. 262 pg/mL (0-125)
[2024-12-19 12:30] LABS: Troponin I < 0.01 ng/ml (0.00-0.034)
[2024-12-19] MEDS: METHYLPREDNISOLONE SOD SUCC 125MG VIAL 125 MG IV (12:41)
[2024-12-19] MEDS: IPRATROPIUM/ALBUTEROL 3 ML NEB 6 ML IH (12:41)
[2024-12-19] MEDS: MAGNESIUM SULFATE IN WATER 2 GM/50 ML PIGGYBACK IV (13:01)
[2024-12-19] MEDS: AZITHROMYCIN 500 MG in 0.9 % SODIUM CHLORIDE 250 ML 250 MG IV (13:26)
[2024-12-19 13:43] LABS: Hepatitis C Ab Qual. W/ RFX NEGATIVE (Negative)
[2024-12-19] MEDS: ALBUTEROL 0.083% 2.5 MG/3 ML NEB 20 MG IH (14:12)
[2024-12-19 15:36] LABS: Troponin I < 0.01 ng/ml (0.00-0.034)
--- NOTE | 2024-12-19 16:23 | PC.NURSE ---
[facility] NOTIFIED OF ADMISSION
--- NOTE | 2024-12-19 16:46 | PC.NURSE ---
REPORT CALLED TO MARC BHATIA
--- NOTE | 2024-12-19 17:06 | PC.NURSE ---
KENNY COPELAND AT BEDSIDE
--- NOTE | 2024-12-19 17:20 | EXP.HP ---
History of Present Illness *Admission Date: 12/19/24 *Reason for visit:: Shortness of breath *History of present illness: Ms. Aguilar is a 58-year-old female with a history of COPD, hypertension, hyperlipidemia, hypothyroidism, Cleveland's palsy, and tobacco use disorder who presented to [facility] emergency room after experiencing shortness of breath today. She states she has not felt well for the last 2 days with chilling. She has not experienced any excessive coughing and no chest pain. She generally just did not feel well and thus presentation to the ER. In the emergency room she received 125 mg IV of Solu-Medrol, neb treatment, and 1 dose of Zithromax. Blood pressure was elevated upon arrival and is gradually decreased since admission. O2 sats remained in the 90s on oxygen at 2 L/min. White blood cell count was normal at 9000. BNP was slightly elevated at 262. Lactate was normal troponin I was normal. Chest x-ray revealed hyperexpanded lung peguero consistent with COPD. O2 sats did improve but she was then admitted for ongoing assessment and treatment. [facility] Disclaimer: The information contained in this section may have been updated after the patient was seen, as this information can be updated by other users. Medical History Otitis externa Bilateral conjunctivitis COVID-19 virus infection COVID-19 Sinusitis Acute hyperglycemia CAMILLE-inhibitor cough Influenza A COPD (chronic obstructive pulmonary disease) Dyspnea on exertion Pulmonary emphysema Smoking greater than 30 pack years History of 2019 novel coronavirus disease (COVID-19) Surgical History History of section Family History Other Cancer Coronary artery disease Hypertension Social History (Updated 12/19/24 @ 18:13 by Silvia Lozoya RN) Smoking Status: Current every day smoker tobacco type: cigarettes packs per day: 1 alcohol intake: current alcohol intake frequency: other substance use type: unknown and other current occupational status: employed Travel in the last 8 weeks?: None household members: spouse housing: house Have you lived/traveled outside [place] in past 30 days?: No Contact w/someone who lives/traveled outside [place] past 30 days?: No Exposure to someone with infectious disease in past 14 days?: No Do you have a fever (greater than 100.4 F or 38 C)?: No Have you tested positive for COVID-19?: No Exposed to someone with COVID-19 in past 14 days?: No Do you have a sore throat?: No Do you have a cough?: No Do you have any weakness?: Yes Do you have any diarrhea?: No Are you experiencing any unusual bleeding?: No Do you have any muscle aches/pain?: No Do you have any abdominal pain?: No Are you experiencing loss of taste or smell?: No Other Medical History Have you received the Flu Vaccine for this season: No Have you received the Pneumonia Vaccine: No Review of Systems Constitutional Constitutional: Reports chills, Denies fever(s) and Denies headache(s) Comments: Generally just did not feel well Eyes Eyes: Denies change in vision ENT Ears, Nose, Mouth, and Throat: Denies ear discharge, Denies otalgia, Denies headache(s), Reports hoarseness, Reports nasal discharge, Denies sore throat and Denies vertigo *Cardiovascular Cardiovascular: Denies chest pain, Reports dyspnea, Denies edema, Denies leg edema and Denies palpitations *Respiratory Respiratory: Denies chest congestion, Denies cough, Reports dyspnea and Denies hemoptysis *Gastrointestinal Gastrointestinal: Denies abdominal pain, Denies constipation, Denies dyspepsia, Denies nausea and Denies vomiting *Genitourinary Genitourinary: Denies difficulty voiding *Musculoskeletal Musculoskeletal: Denies abnormal gait and Denies myalgias *Neurologic Neurologic: Denies abnormal gait, Denies headache(s) and Denies vertigo Endocrine Endocrine: Denies palpitations Meds Home Medications and Allergies Home Medications ?Medication ?Instructions ?Recorded ?Confirmed ?Type amlodipine 10 mg tablet 10 mg PO DAILY 03/28/24 12/19/24 History atorvastatin 40 mg tablet 40 mg PO HS 03/28/24 12/19/24 History irbesartan 150 mg tablet 150 mg PO DAILY 03/28/24 12/19/24 History levothyroxine 137 mcg tablet 137 mcg PO DAILY 03/28/24 12/19/24 History benzonatate 100 mg capsule 100 mg PO TID PRN cough #30 caps 10/28/24 12/19/24 Rx fluticasone 250 mcg-salmeterol 50 1 inh inhalation NEEDED PRN 10/28/24 12/19/24 History mcg/dose blistr powdr for Allergy Symptoms inhalation (Yaniraxela Inhub) New Prescriptions to Start Prescriptions: Allergies Allergy/AdvReac Type Severity Reaction Status Date / Time Penicillins Allergy Other Verified 10/28/24 11:23 Exam Data for Last 24 hours Vital signs and Labs for Last 24 Hours: Temp Pulse Resp BP Pulse Ox O2 Del Method O2 Flow Rate 98.6 F 96 H 18 147/76 H 92 L Aerosol Mask 3 12/19/24 11:43 12/19/24 16:30 12/19/24 16:30 12/19/24 16:30 12/19/24 16:30 12/19/24 15:00 12/19/24 11:40 Laboratory Results - last 24 hr 12/19/24 11:39: SARS-CoV-2 (PCR) Not detected, Influenza A Untype (PCR) Not detected, Influenza Type B (PCR) Not detected 12/19/24 11:48: VBG pH 7.28 L, VBG pCO2 73.0 H, VBG pO2 32.7, VBG HCO3 33.8 H, VBG Total CO2 36.1 H, VBG O2 Saturation 61.2, VBG Base Excess 7.2 H, VBG Lactic Acid 1.1 12/19/24 11:50: WBC 9.0, RBC 4.90, Hgb 16.2, Hct 50.8 H, MCV 103.7 H, MCH 33.1 H, MCHC 31.9, RDW 14.0, Plt Count 243, MPV 8.6, Neut % (Auto) 79.8, Lymph % (Auto) 10.7, [place] % (Auto) 8.1, Eos % (Auto) 0.9, Baso % (Auto) 0.3, Neut # (Auto) 7.1, Lymph # (Auto) 1.0, [place] # (Auto) 0.7, Eos # (Auto) 0.1, Baso # (Auto) 0.0, D-Dimer 0.45, Sodium 140, Potassium 4.3, Chloride 96 L, Carbon Dioxide 36 H, Anion Gap 12.3, BUN 12, Creatinine 0.90, Estimated Creat Clear 98, Estimated GFR 64, Est GFR ( Amer) 77, Glucose 105 H, Calcium 9.4, Magnesium 2.1, Total Bilirubin 0.7, AST 31, ALT 16, Alkaline Phosphatase 90, Troponin I < 0.01, NT-Pro-B Natriuret Pep 262 H, Total Protein 7.0, Albumin 4.5, Globulin 2.5, Albumin/Globulin Ratio 1.8, HCV Ab ALEXANDRA w/Rflx PCR Qn Negative, HIV Ag/Ab Combo Qual Negative 12/19/24 14:55: Lactate 0.8, Troponin I < 0.01 I & O for Last 24 hours: Intake & Output 12/17/24 12/18/24 12/19/24 12/20/24 11:59 11:59 11:59 11:59 Weight 205 lb Constitutional Constitutional: no acute distress and cooperative Comments: Sitting up on the stretcher and appears comfortable. *Routine HEENT Exam Head: Present normocephalic and atraumatic Eye: Present PERRL; Absent conjunctival icterus, scleral injection or conjunctivae pink ENT: Present mucous membranes moist and oropharynx clear *Routine Neck Exam Neck: Present supple; Absent carotid bruit, lymphadenopathy or thyromegaly *Routine Respiratory Exam Respiratory: Present CTA bilaterally (Anteriorly and posteriorly); Absent wheezes *Routine Cardiovascular Exam Cardiovascular: Present RRR *Routine Abdominal Exam Abdominal: Present soft and normoactive bowel sounds; Absent tenderness, distended or guarding *Routine Rectal Exam Rectal:: deferred *Routine Genitalia Exam Genitalia:: deferred *Routine Extremities Exam Extremities: Absent edema or calf tenderness *Routine Neurological Exam Neurological: Present alert and oriented X3 Assessment and Plan *Assessment and plan (1) Acute exacerbation of chronic obstructive pulmonary disease: Status: Acute Category: Medical Code(s): J44.1 - Chronic obstructive pulmonary disease with (acute) exacerbation (2) COPD (chronic obstructive pulmonary disease): Status: Chronic Category: Medical Code(s): J44.9 - Chronic obstructive pulmonary disease, unspecified (3) Smoking greater than 30 pack years: Status: Chronic Category: Social Hx Code(s): F17.210 - Nicotine dependence, cigarettes, uncomplicated (4) Hypertension: Status: Chronic Category: Medical Code(s): I10 - Essential (primary) hypertension (5) Hyperlipidemia: Status: Chronic Category: Medical Code(s): E78.5 - Hyperlipidemia, unspecified (6) Hypothyroid: Status: Chronic Category: Medical Code(s): E03.9 - Hypothyroidism, unspecified Plan Continue with neb treatments [address] Rick entry - Saw patient in Dr. Almendarez's abscense this evening.
--- NOTE | 2024-12-19 17:32 | PC.NURSE ---
arrived by w/c from ED
[2024-12-19] MEDS: METHYLPREDNISOLONE SOD SUCC 125MG VIAL 80 MG IV (19:00)
[2024-12-19 19:30] LABS: Troponin I < 0.01 ng/ml (0.00-0.034)
[2024-12-19] MEDS: IPRATROPIUM/ALBUTEROL 3 ML NEB IH (23:24)
[2024-12-20] VITALS (10 sets, daily range): BP systolic 127–164; BP diastolic 59–82; PULSE 74–104; RESP 16–20; TEMP 36.4–36.8; O2SAT 91–96; BMI 36.1
[2024-12-20] MEDS: METHYLPREDNISOLONE SOD SUCC 125MG VIAL 80 MG IV ×3 (03:10→18:32)
--- NOTE | 2024-12-20 05:46 | PC.NURSE ---
Pts O2 sat decreased while sleeping multiple times this shift. Lowest was 79%. Pt was woken up and instructed to take deep breaths. O2 sat immediately increased to >90%. O2 was increased to 3L NC while sleeping. Pt reported she thinks this happens at home as well because she wakes up with a headache frequently. No other changes this shift.
[2024-12-20] MEDS: IPRATROPIUM/ALBUTEROL 3 ML NEB IH ×4 (06:21→23:35)
--- NOTE | 2024-12-20 07:43 | HMH.PHAINT1 ---
Pharmacy Intervention Comments: MEDICATION RECONCILIATION COMPLETED ON PATIENT USING EXTERNAL FILL HISTORY FROM PHARMACY. -REYES BEYER, SHIRAZD
--- NOTE | 2024-12-20 08:30 | P.PN_ITS ---
Subjective *Date: 12/20/24 *Time: 09:13 Interval history: Patient continues to require oxygen. O2 is at 2-1/2 L/min. O2 sats in the high 90s. She has developed a cough which is sometimes productive. She denies any chest pain. She slept very little during the night. She is eating some. She is able to ambulate to the bathroom. Exam Data for Last 24 hours Vital signs and Labs for Last 24 Hours: Temp Pulse Resp BP Pulse Ox O2 Del Method O2 Flow Rate 98.0 F 87 16 150/78 H 94 L Nasal Cannula 3 12/20/24 04:00 12/20/24 06:16 12/20/24 04:00 12/20/24 04:00 12/20/24 06:16 12/20/24 08:20 12/20/24 08:20 Laboratory Results - last 24 hr 12/19/24 11:39: SARS-CoV-2 (PCR) Not detected, Influenza A Untype (PCR) Not detected, Influenza Type B (PCR) Not detected 12/19/24 11:48: VBG pH 7.28 L, VBG pCO2 73.0 H, VBG pO2 32.7, VBG HCO3 33.8 H, VBG Total CO2 36.1 H, VBG O2 Saturation 61.2, VBG Base Excess 7.2 H, VBG Lactic Acid 1.1 12/19/24 11:50: WBC 9.0, RBC 4.90, Hgb 16.2, Hct 50.8 H, MCV 103.7 H, MCH 33.1 H , MCHC 31.9, RDW 14.0, Plt Count 243, MPV 8.6, Neut % (Auto) 79.8, Lymph % (Auto) 10.7, [place] % (Auto) 8.1, Eos % (Auto) 0.9, Baso % (Auto) 0.3, Neut # (Auto) 7.1, Lymph # (Auto) 1.0, [place] # (Auto) 0.7, Eos # (Auto) 0.1, Baso # (Auto) 0.0, D-Dimer 0.45, Sodium 140, Potassium 4.3, Chloride 96 L, Carbon Dioxide 36 H, Anion Gap 12.3, BUN 12, Creatinine 0.90, Estimated Creat Clear 98, Estimated GFR 64, Est GFR ( Amer) 77, Glucose 105 H, Calcium 9.4, Magnesium 2.1, Total Bilirubin 0.7, AST 31, ALT 16, Alkaline Phosphatase 90, Troponin I < 0.01, NT-Pro-B Natriuret Pep 262 H, Total Protein 7.0, Albumin 4.5, Globulin 2.5, Albumin/Globulin Ratio 1.8, HCV Ab ALEXANDRA w/Rflx PCR Qn Negative, HIV Ag/Ab Combo Qual Negative 12/19/24 14:55: Lactate 0.8, Troponin I < 0.01 12/19/24 18:29: Troponin I < 0.01 I & O for Last 24 hours: Intake & Output 12/17/24 12/18/24 12/19/24 12/20/24 11:59 11:59 11:59 11:59 Output Total 0 / 0 Balance 0 / 0 Weight 205 lb 224 lb 9 oz Constitutional Constitutional: no acute distress Comments: Sitting up in the bed crosslegged good. She seems comfortable. Cough noted. *Routine Respiratory Exam Respiratory: Present wheezes (Scattered throughout anteriorly and posteriorly), crackles (On the right.) and diminished air movement (On the left.) *Routine Cardiovascular Exam Cardiovascular: Present RRR *Routine Abdominal Exam Abdominal: Present soft and normoactive bowel sounds; Absent tenderness *Routine Extremities Exam Extremities: Present pulses intact; Absent edema or calf tenderness *Routine Neurological Exam Neurological: Present alert and oriented X3 Assessment and Plan *Assessment and plan (1) Respiratory failure with hypoxia: Status: Acute Qualifiers: Chronicity: acute Qualified Code(s): J96.01 - Acute respiratory failure with hypoxia Category: Medical Code(s): J96.91 - Respiratory failure, unspecified with hypoxia (2) Acute exacerbation of chronic obstructive pulmonary disease: Status: Acute Category: Medical Code(s): J44.1 - Chronic obstructive pulmonary disease with (acute) exacerbation (3) COPD (chronic obstructive pulmonary disease): Status: Chronic Category: Medical Code(s): J44.9 - Chronic obstructive pulmonary disease, unspecified (4) Smoking greater than 30 pack years: Status: Chronic Category: Social Hx Code(s): F17.210 - Nicotine dependence, cigarettes, uncomplicated (5) Hypertension: Status: Chronic Category: Medical Code(s): I10 - Essential (primary) hypertension (6) Hyperlipidemia: Status: Chronic Category: Medical Code(s): E78.5 - Hyperlipidemia, unspecified (7) Hypothyroid: Status: Chronic Category: Medical Code(s): E03.9 - Hypothyroidism, unspecified Plan Patient has been started on Zithromax. Will continue with DuoNebs 4 times daily and steroids. Nicotine patch for smoking cessation was added. Will add home meds of hydrochlorothiazide
[2024-12-20] MEDS: AZITHROMYCIN 250MG TABLET 500 MG PO (09:41)
[2024-12-20] MEDS: ATORVASTATIN 40MG TABLET 40 MG PO ×2 (09:41→21:42)
[2024-12-20] MEDS: AMLODIPINE 10MG TABLET 10 MG PO (09:41)
[2024-12-20] MEDS: IRBESARTAN 150MG TAB 150 MG PO (09:42)
[2024-12-20] MEDS: LEVOTHYROXINE 125MCG (0.125MG) TAB 125 MCG PO (09:42)
[2024-12-20] MEDS: NICOTINE 21MG/24HR PATCH 21 MG TD (10:09)
--- NOTE | 2024-12-20 17:54 | PC.NURSE ---
PATIENT IS ALERT AND ORIENTED X4, REMAINS ON 2.5 LITERS NASAL CANNULA, DENIES SHORTNESS OF BREATH. PATIENT STATES SHE PLANS ON TAKING A SHOWER THIS EVENING.
[2024-12-21] VITALS (14 sets, daily range): BP systolic 122–164; BP diastolic 73–85; PULSE 70–104; RESP 16–22; TEMP 36.3–36.8; O2SAT 90–94; BMI 36.8
[2024-12-21] MEDS: METHYLPREDNISOLONE SOD SUCC 125MG VIAL 80 MG IV ×3 (03:45→18:56)
[2024-12-21 04:02] LABS: Lactate Venous 1.2 mmol/L (0.4-2.0); VBG HCO3 31.9 mmol/L (23-30); VBG PH 7.27 mmol/L (7.31-7.41); VBG PO2 87.5 mmol/L (28-40)
[2024-12-21 04:10] LABS: VBG PCO2 70.8 mmol/L (35-51)
--- NOTE | 2024-12-21 04:28 | PC.NURSE ---
@ approximately 0100 this morning, pts O2 sat dropped to 62% while sleeping w/ 3L NC. Pt was awoken and instructed to take deep breaths. O2 sat increased to 89%. Upon entering pts room while 02 sat is low pt does not appear to be apneic, but mouth breathing at each occurrence. For this reason, RT was called to place pt on mask. RT placed pt on venti mask @50%. O2 sat 93-94%. Dr Almendarez was notified of events. Pt was placed on monitoring analyst per Dr Almendarez. Continuous pulse ox remains in place. Upon entering pts room @approx 0330, pt was woken up and was difficult to arouse and slightly confused, stating the year is 1996. Pt became oriented after about 5 minutes of waking up, but did appear groggy compared to baseline. With pts increase in O2, this RN was concerned that pt was retaining CO2. Called RT to adjust Venti settings and called Dr Almendarez to request order for VBG. Order was placed per Dr Almendarez. O2 decreased to 30% on venti mask. Dr Almendarez made aware. Blood drawn by this RN and given to RT for VBG. Called Dr Almendarez and reported VBG results. Spoke with Dr Almendarez about pts VBG results when she arrived to hospital 2 days ago vs VBG results now. After which, Dr Almendarez gave verbal order over phone to place pt on BIPAP. RT was called and pt was placed on BIPAP @0425. BIPAP settings are 14/6, rate 22, FIO2 25%. Pt tolerating BIPAP, with slight anxiety. O2 sat 90%.
--- NOTE | 2024-12-21 04:34 | P.PN_ITS ---
Subjective *Date: 12/21/24 *Time: 04:34 Interval history: During the night her O2 sats were dropping low, even into the 60's. VentiMask was applied with improved Sats, but nurse found her to be confused. ABG obtained showed pH=7.27, pO2=87.5, pCO2= 70.8. I ordered BiPaP to open airways and decrease CO2. Will obtain Pulmonary consult today. Medical Exam Vital signs and Labs for Last 24 Hours: Vital Signs Temp Pulse Pulse Resp BP Pulse Ox O2 Del Method 12/21/24 04:00 97.4 F L 88 159/85 H 90 L Venturi Mask 12/21/24 03:00 Venturi Mask 12/21/24 01:20 85 12/21/24 01:00 Venturi Mask 12/21/24 00:00 97.6 F 81 18 125/73 94 L Nasal Cannula 12/20/24 23:35 97 H 12/20/24 23:35 98 H 12/20/24 23:00 Nasal Cannula 12/20/24 21:00 Nasal Cannula 12/20/24 20:00 Nasal Cannula 12/20/24 20:00 97.9 F 104 H 18 153/82 H 95 Nasal Cannula 12/20/24 18:40 84 12/20/24 18:40 85 12/20/24 18:40 91 L Nasal Cannula 12/20/24 16:16 Nasal Cannula 12/20/24 16:00 98.1 F 82 18 135/59 L 93 L Nasal Cannula 12/20/24 15:00 Nasal Cannula 12/20/24 12:43 Nasal Cannula 12/20/24 12:00 97.6 F 86 18 127/62 94 L Nasal Cannula 12/20/24 11:07 82 12/20/24 11:07 81 12/20/24 11:07 91 L Nasal Cannula 12/20/24 11:00 Room Air 12/20/24 08:20 Nasal Cannula 12/20/24 08:00 97.8 F 80 20 164/80 H 96 Nasal Cannula 12/20/24 08:00 Nasal Cannula 12/20/24 06:49 Nasal Cannula 12/20/24 06:16 87 12/20/24 06:16 87 12/20/24 06:16 94 L Nasal Cannula 12/20/24 05:00 Nasal Cannula O2 Flow Rate 12/21/24 04:00 12/21/24 03:00 15 12/21/24 01:20 12/21/24 01:00 12/21/24 00:00 1 12/20/24 23:35 12/20/24 23:35 12/20/24 23:00 3 12/20/24 21:00 2.5 12/20/24 20:00 2.5 12/20/24 20:00 3 12/20/24 18:40 12/20/24 18:40 12/20/24 18:40 3 12/20/24 16:16 2.5 12/20/24 16:00 3 12/20/24 15:00 2.5 12/20/24 12:43 2.5 12/20/24 12:00 12/20/24 11:07 12/20/24 11:07 12/20/24 11:07 3 12/20/24 11:00 12/20/24 08:20 3 12/20/24 08:00 12/20/24 08:00 3 12/20/24 06:49 3 12/20/24 06:16 12/20/24 06:16 12/20/24 06:16 3 12/20/24 05:00 3 Intake and Output 12/20/24 12/21/24 12/21/24 19:59 03:59 11:59 Intake Total 840 / 840 Output Total 0 / 0 Balance 840 / 840 Intake: Intake, Oral Amount 840 / 840 Output: Output, Urine Amount 0 / 0 Other: Number of Unmeasured Voids 1 Weight 229 lb 1.6 oz Patient Weight 12/21/24 11:59 Weight 229 lb 1.6 oz Laboratory Results - last 24 hr 12/21/24 03:54: VBG pH 7.27 L, VBG pCO2 70.8 H, VBG pO2 87.5 H, VBG HCO3 31.9 H, VBG Total CO2 34.1 H, VBG O2 Saturation 96.4 H, VBG Base Excess 5.1 H, VBG L actic Acid 1.2 I & O for Labs for Last 24 Hours: Intake & Output 12/18/24 12/19/24 12/20/24 12/21/24 11:59 11:59 11:59 11:59 Intake Total 240 / 240 840 / 840 Output Total 0 / 0 0 / 0 Balance 240 / 240 840 / 840 Weight 205 lb 224 lb 9 oz 229 lb 1.6 oz Assessment and Plan *Assessment and plan (1) Acute exacerbation of chronic obstructive pulmonary disease: Status: Acute Category: Medical Code(s): J44.1 - Chronic obstructive pulmonary disease with (acute) exacerbation (2) Respiratory failure with hypoxia and hypercapnia: Status: Acute Category: Medical Code(s): J96.91 - Respiratory failure, unspecified with hypoxia; J96.92 - Respiratory failure, unspecified with hypercapnia (3) Pulmonary emphysema: Status: Chronic Category: Medical Code(s): J43.9 - Emphysema, unspecified (4) Smoking greater than 30 pack years: Status: Chronic Category: Social Hx Code(s): F17.210 - Nicotine dependence, cigarettes, uncomplicated Plan BiPaP. Consult.
[2024-12-21] MEDS: IPRATROPIUM/ALBUTEROL 3 ML NEB IH ×5 (05:54→21:32)
--- NOTE | 2024-12-21 06:10 | PC.NURSE ---
O2 sat decreased and maintained 86-87%. RT notified and increased FIO2 to 35% on BIPAP
[2024-12-21 06:44] LABS: Hematocrit 47.9 % (37.0-47.0); Hemoglobin 14.9 g/dL (12.2-16.2); Immature Granulocytes % 0.7 %; Mean Corpuscular HGB Conc 31.1 g/dL (31.8-35.4); Mean Corpuscular Hemoglobin 32.8 pg (27.0-31.2); Mean Corpuscular Volume 105.5 fl (81-99); Nucleated Red Blood Cells % 0 %; Platelet Count 301 K/mm3 (142-424); Red Blood Count 4.54 M/mm3 (4.20-5.40); Red Cell Distribution Width-SD 56.0 fL; White Blood Count 25.0 K/mm3 (4.8-10.8)
[2024-12-21 06:53] LABS: Alanine Aminotransferase 16 U/L (12-78); Albumin Level 4.1 g/dl (3.5-5.0); Albumin/Globulin Ratio 1.9 (1.1-1.8); Alkaline Phosphatase 87 U/L (38-126); Anion Gap 12.7 mEq/L (5-15); Aspartate Amino Transferase 22 U/L (14-36); Bilirubin,Total 0.4 mg/dl (0.2-1.3); Blood Urea Nitrogen 20 mg/dl (7-17); Calcium 9.2 mg/dl (8.4-10.2); Carbon Dioxide 35 mmol/L (22.0-30.0); Chloride 95 mmol/L (98-107); Creatinine Clearance Estimated 123 mL/min (50-200); Creatinine,Serum 0.80 mg/dl (0.52-1.04); Estimated Glomerular Filt Rate 73 ml/min (>60); GFR (African American) 89 ML/MIN (>60); Globulin 2.2 g/dL (1.3-3.2); Glucose 157 mg/dl (74-100); Potassium 4.7 mmoL/L (3.5-5.1); Sodium 138 mmol/L (136-145); Total Protein,Serum 6.3 g/dl (6.3-8.2)
[2024-12-21 07:23] LABS: Total Cells Counted 100
[2024-12-21 07:24] LABS: Macrocytosis 1+
[2024-12-21] MEDS: LEVOTHYROXINE 125MCG (0.125MG) TAB 125 MCG PO (07:29)
[2024-12-21] MEDS: AMLODIPINE 10MG TABLET 10 MG PO (08:41)
[2024-12-21] MEDS: AZITHROMYCIN 250MG TABLET 500 MG PO (08:41)
[2024-12-21] MEDS: NICOTINE 21MG/24HR PATCH 21 MG TD (08:42)
[2024-12-21] MEDS: IRBESARTAN 150MG TAB 150 MG PO (08:42)
--- NOTE | 2024-12-21 09:18 | P.PN_ITS ---
Subjective *Date: 12/21/24 *Time: 09:58 Interval history: Patient is feeling a little better. Still SOA and needing nebs and oxygen. Medical Exam Vital signs and Labs for Last 24 Hours: Vital Signs Temp Pulse Pulse Resp BP Pulse Ox O2 Del Method 12/21/24 09:10 Nasal Cannula 12/21/24 08:00 92 L Nasal Cannula 12/21/24 08:00 92 L Nasal Cannula 12/21/24 08:00 97.9 F 88 17 160/79 H 92 L Nasal Cannula 12/21/24 07:00 BiPAP 12/21/24 05:56 70 12/21/24 05:56 75 12/21/24 05:56 94 L BiPAP 12/21/24 05:43 12/21/24 05:00 BiPAP 12/21/24 04:00 97.4 F L 88 159/85 H 90 L Venturi Mask 12/21/24 03:00 Venturi Mask 12/21/24 01:20 85 12/21/24 01:00 Venturi Mask 12/21/24 00:00 97.6 F 81 18 125/73 94 L Nasal Cannula 12/20/24 23:35 97 H 12/20/24 23:35 98 H 12/20/24 23:00 Nasal Cannula 12/20/24 21:00 Nasal Cannula 12/20/24 20:00 Nasal Cannula 12/20/24 20:00 97.9 F 104 H 18 153/82 H 95 Nasal Cannula 12/20/24 18:40 84 12/20/24 18:40 85 12/20/24 18:40 91 L Nasal Cannula 12/20/24 16:16 Nasal Cannula 12/20/24 16:00 98.1 F 82 18 135/59 L 93 L Nasal Cannula 12/20/24 15:00 Nasal Cannula 12/20/24 12:43 Nasal Cannula 12/20/24 12:00 97.6 F 86 18 127/62 94 L Nasal Cannula 12/20/24 11:07 82 12/20/24 11:07 81 12/20/24 11:07 91 L Nasal Cannula 12/20/24 11:00 Room Air O2 Flow Rate FiO2 12/21/24 09:10 3 12/21/24 08:00 6 12/21/24 08:00 6 12/21/24 08:00 6 12/21/24 07:00 12/21/24 05:56 12/21/24 05:56 12/21/24 05:56 35 12/21/24 05:43 35 12/21/24 05:00 12/21/24 04:00 12/21/24 03:00 15 12/21/24 01:20 12/21/24 01:00 12/21/24 00:00 1 12/20/24 23:35 12/20/24 23:35 12/20/24 23:00 3 12/20/24 21:00 2.5 12/20/24 20:00 2.5 12/20/24 20:00 3 12/20/24 18:40 12/20/24 18:40 12/20/24 18:40 3 12/20/24 16:16 2.5 12/20/24 16:00 3 12/20/24 15:00 2.5 12/20/24 12:43 2.5 12/20/24 12:00 12/20/24 11:07 12/20/24 11:07 12/20/24 11:07 3 12/20/24 11:00 Intake and Output 12/20/24 12/21/24 12/21/24 19:59 03:59 11:59 Intake Total 840 / 840 Output Total 0 / 0 Balance 840 / 840 Intake: Intake, Oral Amount 840 / 840 Output: Output, Urine Amount 0 / 0 Other: Number of Unmeasured Voids 1 Weight 229 lb 1.6 oz Patient Weight 12/21/24 11:59 Weight 229 lb 1.6 oz Laboratory Results - last 24 hr 12/21/24 03:54: VBG pH 7.27 L, VBG pCO2 70.8 H, VBG pO2 87.5 H, VBG HCO3 31.9 H, VBG Total CO2 34.1 H, VBG O2 Saturation 96.4 H, VBG Base Excess 5.1 H, VBG Lactic Acid 1.2 12/21/24 05:10: WBC 25.0 H* D, RBC 4.54, Hgb 14.9, Hct 47.9 H, MCV 105.5 H, MCH 32.8 H, MCHC 31.1 L, RDW 14.2, Plt Count 301, MPV 9.1, Neut % (Auto) 95.8 H, Lymph % (Auto) 1.3 L, [place] % (Auto) 2.1, Eos % (Auto) 0.0 L, Baso % (Auto) 0.1, Neut # (Auto) 23.9 H, Lymph # (Auto) 0.3 L, [place] # (Auto) 0.5, Eos # (Auto) 0.0, Baso # (Auto) 0.0, Total Counted 100, Neutrophils % (Manual) 98 H, Lymphocytes % (Manual) 1 L, Monocytes % (Manual) 1 L, Platelet Estimate Normal, Macrocytosis 1+, Sodium 138, Potassium 4.7, Chloride 95 L, Carbon Dioxide 35 H, Anion Gap 12.7, BUN 20 H D, Creatinine 0.80, Estimated Creat Clear 123, Estimated GFR 73, Est GFR ( Amer) 89, Glucose 157 H, Calcium 9.2, Total Bilirubin 0.4, AST 22 D, ALT 16, Alkaline Phosphatase 87, Total Protein 6.3, Albumin 4.1, Globulin 2.2, Albumin/Globulin Ratio 1.9 H I & O for Labs for Last 24 Hours: Intake & Output 12/18/24 12/19/24 12/20/24 12/21/24 11:59 11:59 11:59 11:59 Intake Total 240 / 240 840 / 840 Output Total 0 / 0 0 / 0 Balance 240 / 240 840 / 840 Weight 205 lb 224 lb 9 oz 229 lb 1.6 oz Constitutional: Present no acute distress Respiratory: Present wheezes Cardiac: Present Reg Rate and Rhythm GI: Present soft; Absent distention or tenderness Extremities: Absent edema Skin: Present intact Neuro: Present alert, awake and oriented x 3 Assessment and Plan *Assessment and plan (1) Acute exacerbation of chronic obstructive pulmonary disease: Status: Acute Category: Medical Code(s): J44.1 - Chronic obstructive pulmonary disease with (acute) exacerbation (2) Respiratory failure with hypoxia and hypercapnia: Status: Acute Category: Medical Code(s): J96.91 - Respiratory failure, unspecified with hypoxia; J96.92 - Respiratory failure, unspecified with hypercapnia (3) Pulmonary emphysema: Status: Chronic Category: Medical Code(s): J43.9 - Emphysema, unspecified (4) Smoking greater than 30 pack years: Status: Chronic Category: Social Hx Code(s): F17.210 - Nicotine dependence, cigarettes, uncomplicated Plan She had BIPAP through the night but was on nasal oxygen this am. Oxygen was almost on 6L this am. It was turned down to 2L. Will continue to monitor oxygen sats. Pulmonology consult was ordered.
--- NOTE | 2024-12-21 10:04 | EXP.PULM.CON ---
History of Present Illness History of present illness: Ms. Aguilar is a 58-year-old female greater than [id number] smoking history COPD status with FEV1 of 43% predicted at baseline on Stiolto inhaler, not on any oxygen supplement patient, hypertension dyslipidemia hypothyroidism presented to the ER with worsening respiratory distress and pulmonary was called for further evaluation and management. [facility] Disclaimer: The information contained in this section may have been updated after the patient was seen, as this information can be updated by other users. Medical History (Updated 12/21/24 @ 13:00 by Mauri Omalley MD) Acute on chronic respiratory failure with hypoxia and hypercapnia Respiratory failure with hypoxia and hypercapnia Otitis externa Bilateral conjunctivitis COVID-19 virus infection COVID-19 Sinusitis Acute hyperglycemia CAMILLE-inhibitor cough Influenza A COPD (chronic obstructive pulmonary disease) Dyspnea on exertion Pulmonary emphysema Smoking greater than 30 pack years History of 2019 novel coronavirus disease (COVID-19) Surgical History History of section Family History Other Cancer Coronary artery disease Hypertension Social History (Updated 12/19/24 @ 18:13 by Silvia Lozoya RN) Smoking Status: Current every day smoker tobacco type: cigarettes packs per day: 1 alcohol intake: current alcohol intake frequency: other substance use type: unknown and other current occupational status: employed Travel in the last 8 weeks?: None household members: spouse housing: house Have you lived/traveled outside [place] in past 30 days?: No Contact w/someone who lives/traveled outside US past 30 days?: No Exposure to someone with infectious disease in past 14 days?: No Do you have a fever (greater than 100.4 F or 38 C)?: No Have you tested positive for COVID-19?: No Exposed to someone with COVID-19 in past 14 days?: No Do you have a sore throat?: No Do you have a cough?: No Do you have any weakness?: Yes Do you have any diarrhea?: No Are you experiencing any unusual bleeding?: No Do you have any muscle aches/pain?: No Do you have any abdominal pain?: No Are you experiencing loss of taste or smell?: No Review of Systems Constitutional Constitutional: Reports fatigue and Denies headache(s) Eyes Eyes: Denies eye discharge, Denies dry eyes, Denies irritation and Denies itchy eyes ENT Ears, Nose, Mouth, and Throat: Denies headache(s), Denies lip swelling, Denies throat swelling and Denies vertigo *Cardiovascular Cardiovascular: Reports dyspnea and Reports dyspnea on exertion *Respiratory Respiratory: Denies change in phlegm color, Reports chest congestion, Reports cough, Reports dyspnea, Reports dyspnea on exertion, Reports excessive phlegm production, Denies hemoptysis, Denies pain on inspiration, Denies pain with cough and Reports wheezing *Gastrointestinal Gastrointestinal: Denies abdominal pain, Denies belching and Denies cramping *Musculoskeletal Musculoskeletal: Denies abnormal gait *Neurologic Neurologic: Denies abnormal gait, Denies headache(s) and Denies vertigo Psychiatric Psychiatric: Denies homicidal ideation and Denies suicidal ideation Endocrine Endocrine: Reports fatigue and Denies heat intolerance Hematologic/Lymphatic Hematologic/Lymphatic: Denies easy bleeding and Denies lymphadenopathy Allergic/Immunologic Allergic/Immunologic: Denies itchy eyes, Denies lip swelling, Denies throat swelling and Reports wheezing Pulmonology Exam Inpatient Vital signs and Labs for Last 24 Hours: Temp Pulse Resp BP Pulse Ox O2 Del Method O2 Flow Rate 97.9 F 88 17 160/79 H 92 L Nasal Cannula 3 12/21/24 08:00 12/21/24 08:00 12/21/24 08:00 12/21/24 08:00 12/21/24 08:00 12/21/24 09:10 12/21/24 09:10 FiO2 35 12/21/24 05:56 Laboratory Results - last 24 hr 12/21/24 03:54: VBG pH 7.27 L, VBG pCO2 70.8 H, VBG pO2 87.5 H, VBG HCO3 31.9 H, VBG Total CO2 34.1 H, VBG O2 Saturation 96.4 H, VBG Base Excess 5.1 H, VBG Lactic Acid 1.2 12/21/24 05:10: WBC 25.0 H* D, RBC 4.54, Hgb 14.9, Hct 47.9 H, MCV 105.5 H, MCH 32.8 H, MCHC 31.1 L, RDW 14.2, Plt Count 301, MPV 9.1, Neut % (Auto) 95.8 H, Lymph % (Auto) 1.3 L, Stevens % (Auto) 2.1, Eos % (Auto) 0.0 L, Baso % (Auto) 0.1, Neut # (Auto) 23.9 H, Lymph # (Auto) 0.3 L, Stevens # (Auto) 0.5, Eos # (Auto) 0.0, Baso # (Auto) 0.0, Total Counted 100, Neutrophils % (Manual) 98 H, Lymphocytes % (Manual) 1 L, Monocytes % (Manual) 1 L, Platelet Estimate Normal, Macrocytosis 1+, Sodium 138, Potassium 4.7, Chloride 95 L, Carbon Dioxide 35 H, Anion Gap 12.7, BUN 20 H D, Creatinine 0.80, Estimated Creat Clear 123, Estimated GFR 73, Est GFR ( Amer) 89, Glucose 157 H, Calcium 9.2, Total Bilirubin 0.4, AST 22 D, ALT 16, Alkaline Phosphatase 87, Total Protein 6.3, Albumin 4.1, Globulin 2.2, Albumin/Globulin Ratio 1.9 H I & O for Labs for Last 24 Hours: Intake & Output 12/18/24 12/19/24 12/20/24 12/21/24 23:59 23:59 23:59 23:59 Intake Total 1080 / 1080 480 / 480 Output Total 0 / 0 Balance 1080 / 1080 480 / 480 Weight 225 lb 224 lb 9 oz 229 lb 1.6 oz Constitutional: Present moderate distress Head: Present normocephalic and atraumatic ENT: Present normal exam, normal oropharynx and mucous membranes moist Neck: Present normal inspection and full ROM Respiratory: Present respiratory distress, wheezes, diminished air movement and able to speak in complete sentences Cardiac: Present S1/S2, Tachycardia and radial pulses present GI: Present soft and distention; Absent tenderness or guarding Rectal (female): Present deferred (female): Present deferred Skin: Present intact; Absent cyanosis or jaundice Neuro: Present alert, awake and oriented x 3 Extremities: Present normal inspection; Absent clubbing or cyanosis Psychiatric: Present normal affect and cooperative Meds Home Medications and Allergies Home Medications ?Medication ?Instructions ?Recorded ?Confirmed ?Type amlodipine 10 mg tablet 10 mg PO DAILY 03/28/24 12/19/24 History atorvastatin 40 mg tablet 40 mg PO HS 03/28/24 12/19/24 History irbesartan 150 mg tablet 150 mg PO DAILY 03/28/24 12/19/24 History benzonatate 100 mg capsule 100 mg PO TIDP PRN cough 12/20/24 12/20/24 History fluticasone 250 mcg-salmeterol 50 1 inh inhalation BID 12/20/24 12/20/24 History mcg/dose blistr powdr for inhalation (Wixela Inhub) levothyroxine 125 mcg tablet 125 mcg PO DAILY 12/20/24 12/20/24 History New Prescriptions to Start Prescriptions: Allergies Allergy/AdvReac Type Severity Reaction Status Date / Time Penicillins Allergy Other Verified 10/28/24 11:23 Results Laboratory Findings 12/21/24 05:10 12/21/24 05:10 PT/INR, D-dimer D-Dimer 0.45 ug/mL (0.0-0.5) 12/19/24 11:50 Abnormal lab findings: Abnormal Labs 12/19/24 12/19/24 12/21/24 11:48 11:50 03:54 WBC Hct 50.8 H MCV 103.7 H MCH 33.1 H MCHC Neut % (Auto) Lymph % (Auto) Eos % (Auto) Neut # (Auto) Lymph # (Auto) Neutrophils % (Manual) Lymphocytes % (Manual) Monocytes % (Manual) VBG pH 7.28 L 7.27 L VBG pCO2 73.0 H 70.8 H VBG pO2 87.5 H VBG HCO3 33.8 H 31.9 H VBG Total CO2 36.1 H 34.1 H VBG O2 Saturation 96.4 H VBG Base Excess 7.2 H 5.1 H Chloride 96 L Carbon Dioxide 36 H BUN Glucose 105 H NT-Pro-B Natriuret Pep 262 H Albumin/Globulin Ratio 12/21/24 05:10 WBC 25.0 H* D Hct 47.9 H MCV 105.5 H MCH 32.8 H MCHC 31.1 L Neut % (Auto) 95.8 H Lymph % (Auto) 1.3 L Eos % (Auto) 0.0 L Neut # (Auto) 23.9 H Lymph # (Auto) 0.3 L Neutrophils % (Manual) 98 H Lymphocytes % (Manual) 1 L Monocytes % (Manual) 1 L VBG pH VBG pCO2 VBG pO2 VBG HCO3 VBG Total CO2 VBG O2 Saturation VBG Base Excess Chloride 95 L Carbon Dioxide 35 H BUN 20 H D Glucose 157 H NT-Pro-B Natriuret Pep Albumin/Globulin Ratio 1.9 H Assessment and Plan *Assessment and plan (1) Respiratory failure with hypoxia and hypercapnia: Status: Acute Category: Medical Code(s): J96.91 - Respiratory failure, unspecified with hypoxia; J96.92 - Respiratory failure, unspecified with hypercapnia (2) Acute exacerbation of chronic obstructive pulmonary disease: Status: Acute Category: Medical Code(s): J44.1 - Chronic obstructive pulmonary disease with (acute) exacerbation (3) Acute on chronic respiratory failure with hypoxia and hypercapnia: Status: Acute Category: Medical Code(s): J96.21 - Acute and chronic respiratory failure with hypoxia; J96.22 - Acute and chronic respiratory failure with hypercapnia Plan Ms. Aguilar is a 58-year-old female greater than [id number] smoking history COPD status with FEV1 of 43% predicted at baseline on Stiolto inhaler, not on any oxygen supplement patient, hypertension dyslipidemia hypothyroidism presented to the ER with worsening respiratory distress and pulmonary was called for further evaluation and management. Chest x-ray upon admission bilateral diffuse pulmonary micronodularity can be from vasculature. Lower lobe infiltrates predominantly right side noted. Afebrile. Hemodynamically stable. Neutrophilic predominant leukocytosis of 25.0. Blood gas upon admission hypercarbic respiratory failure this morning at 7.27 and pCO2 70.8. COVID-19 and flu PCR panel Currently being managed for COPD exacerbation, receiving nebulization therapies every 6 hours, prednisone 80mg every 8hrs and azithromycin On examination patient needing minimal oxygen requirement of 3 L. Auscultation bilateral diffuse wheezing. Alert awake and oriented x 3. Plan: Continue oxygen supplementation to maintain O2 saturation below 90% and DuoNebs every 4 hours along with Pulmicort every 12 scheduled Change antibiotics to levofloxacin pending final sputum culture results Continue steroids pending clinical improvement, will wean as tolerated
[2024-12-21] MEDS: LEVOFLOXACIN/D5W 750 MG/150 ML 750 MG/150 ML PIGGYBACK 100 MG IV (13:25)
--- NOTE | 2024-12-21 15:58 | PC.NURSE ---
pt is A&Ox4. she was on 6L this morning but is currently on 3L NC, tolerating well. she has some expiratory wheezing. she was started on levaquin today. she has had no other needs at this time. call light within reach.
[2024-12-21] MEDS: BUDESONIDE 0.5MG/2ML NEB 0.5 MG IH (18:38)
[2024-12-21] MEDS: ATORVASTATIN 40MG TABLET 40 MG PO (20:40)
[2024-12-22] VITALS (13 sets, daily range): BP systolic 127–164; BP diastolic 67–81; PULSE 75–123; RESP 16–20; TEMP 36.4–36.8; O2SAT 90–95; BMI 36.8
[2024-12-22] MEDS: IPRATROPIUM/ALBUTEROL 3 ML NEB IH ×3 (02:17→09:47)
[2024-12-22] MEDS: METHYLPREDNISOLONE SOD SUCC 125MG VIAL 80 MG IV ×3 (03:50→18:35)
--- NOTE | 2024-12-22 05:32 | PC.NURSE ---
v/s, ox4, pt switch from 6LNC to bipap at the beginning of shift. pt is back on 6LNC when sleeping due to mouth breathing. Pt was able to come off bipap and tolerated 3LNC. Plan of care ongoing.
[2024-12-22] MEDS: LEVOTHYROXINE 125MCG (0.125MG) TAB 125 MCG PO (06:07)
[2024-12-22] MEDS: BUDESONIDE 0.5MG/2ML NEB 0.5 MG IH ×2 (06:22→18:19)
[2024-12-22] MEDS: NICOTINE 21MG/24HR PATCH 21 MG TD (08:14)
[2024-12-22] MEDS: IRBESARTAN 150MG TAB 150 MG PO (08:15)
[2024-12-22] MEDS: AMLODIPINE 10MG TABLET 10 MG PO (08:15)
--- NOTE | 2024-12-22 08:40 | EXP.ACUTE.PN ---
Subjective *Date: 12/22/24 *Time: 10:17 Interval history: Patient is feeling a little better today. Her oxygen had to be turned up to 4L/min. She denies any pain but is constipated. Medical Exam Vital signs and Labs for Last 24 Hours: Vital Signs Temp Pulse Pulse Resp BP Pulse Ox O2 Del Method 12/22/24 08:15 Nasal Cannula 12/22/24 07:38 98.1 F 105 H 18 144/71 H 92 L Nasal Cannula 12/22/24 06:23 96 H 12/22/24 06:23 98 H 12/22/24 06:23 93 L Nasal Cannula 12/22/24 06:15 Nasal Cannula 12/22/24 04:26 Nasal Cannula 12/22/24 04:00 75 12/22/24 04:00 97.5 F L 88 20 144/77 H 95 Nasal Cannula 12/22/24 03:00 Nasal Cannula 12/22/24 02:18 90 12/22/24 02:18 93 H 12/22/24 02:18 90 L Nasal Cannula 12/22/24 00:28 Nasal Cannula 12/22/24 00:00 90 12/22/24 00:00 98.0 F 89 16 127/67 93 L Nasal Cannula 12/21/24 23:00 BiPAP 12/21/24 21:33 97 H 12/21/24 21:33 98 H 12/21/24 21:00 BiPAP 12/21/24 20:00 95 H 12/21/24 20:00 BiPAP 12/21/24 20:00 98.2 F 104 H 16 164/81 H 94 L BiPAP 12/21/24 19:03 12/21/24 18:48 Nasal Cannula 12/21/24 18:40 100 H 12/21/24 18:40 102 H 12/21/24 17:00 Nasal Cannula 12/21/24 16:00 93 L Nasal Cannula 12/21/24 16:00 100 H 12/21/24 16:00 98 F 94 H 16 122/74 93 L Nasal Cannula 12/21/24 15:05 Nasal Cannula 12/21/24 14:23 97 H 12/21/24 14:23 97 H 12/21/24 14:23 90 L Nasal Cannula 12/21/24 13:00 Nasal Cannula 12/21/24 12:00 100 H 12/21/24 12:00 98 F 88 17 132/76 92 L Nasal Cannula 12/21/24 11:10 Nasal Cannula 12/21/24 11:00 83 12/21/24 11:00 86 12/21/24 11:00 93 L Nasal Cannula 12/21/24 09:10 Nasal Cannula O2 Flow Rate FiO2 12/22/24 08:15 4 12/22/24 07:38 4 12/22/24 06:23 12/22/24 06:23 12/22/24 06:23 4 12/22/24 06:15 4 12/22/24 04:26 4 12/22/24 04:00 12/22/24 04:00 4 12/22/24 03:00 4 12/22/24 02:18 12/22/24 02:18 12/22/24 02:18 4 12/22/24 00:28 6 12/22/24 00:00 12/22/24 00:00 4 12/21/24 23:00 12/21/24 21:33 12/21/24 21:33 12/21/24 21:00 12/21/24 20:00 12/21/24 20:00 12/21/24 20:00 12/21/24 19:03 35 12/21/24 18:48 5 12/21/24 18:40 12/21/24 18:40 12/21/24 17:00 4 12/21/24 16:00 3 12/21/24 16:00 12/21/24 16:00 3 12/21/24 15:05 3 12/21/24 14:23 12/21/24 14:23 12/21/24 14:23 3 12/21/24 13:00 3 12/21/24 12:00 12/21/24 12:00 3 12/21/24 11:10 3 12/21/24 11:00 12/21/24 11:00 12/21/24 11:00 3 12/21/24 09:10 3 Intake and Output 12/21/24 12/22/24 12/22/24 19:59 03:59 11:59 Intake Total 1020 / 1140 120 / 1140 Balance 1020 / 1140 120 / 1140 Intake: Intake, Oral Amount 870 / 990 120 / 990 Intake, Total IV Amount 150 / 150 Levofloxacin/D5w 750 mg/150 ml 150 / 150 750 mg In 150 ml @ 100 mls/hr IV Q24H [facility] Rx#:[id number] Other: Weight 229 lb 6.4 oz Patient Weight 12/22/24 11:59 Weight 229 lb 6.4 oz I & O for Labs for Last 24 Hours: Intake & Output 12/19/24 12/20/24 12/21/24 12/22/24 11:59 11:59 11:59 11:59 Intake Total 240 / 240 1320 / 1320 1140 / 1140 Output Total 0 / 0 0 / 0 Balance 240 / 240 1320 / 1320 1140 / 1140 Weight 205 lb 224 lb 9 oz 229 lb 1.6 oz 229 lb 6.4 oz Constitutional: Present no acute distress Respiratory: Present wheezes Cardiac: Present Reg Rate and Rhythm GI: Present soft; Absent distention or tenderness Extremities: Absent edema Skin: Present intact Neuro: Present alert, awake and oriented x 3 Assessment and Plan *Assessment and plan (1) Acute exacerbation of chronic obstructive pulmonary disease: Status: Acute Category: Medical Code(s): J44.1 - Chronic obstructive pulmonary disease with (acute) exacerbation (2) Respiratory failure with hypoxia and hypercapnia: Status: Acute Category: Medical Code(s): J96.91 - Respiratory failure, unspecified with hypoxia; J96.92 - Respiratory failure, unspecified with hypercapnia (3) Pulmonary emphysema: Status: Chronic Category: Medical Code(s): J43.9 - Emphysema, unspecified (4) Smoking greater than 30 pack years: Status: Chronic Category: Social Hx Code(s): F17.210 - Nicotine dependence, cigarettes, uncomplicated (5) Acute on chronic respiratory failure with hypoxia and hypercapnia: Status: Acute Category: Medical Code(s): J96.21 - Acute and chronic respiratory failure with hypoxia; J96.22 - Acute and chronic respiratory failure with hypercapnia Plan Pulmonology to follow. WBC is elevated but she is getting IV steroids. Will order Colace and discuss further care with Dr. Almendarez.
[2024-12-22] MEDS: DOCUSATE SODIUM 250MG CAPSULE 250 MG PO (09:15)
--- NOTE | 2024-12-22 09:56 | EXP.PULM.PN ---
Subjective *Date: 12/22/24 *Time: 11:33 Interval history: No acute respiratory events overnight. Denies any new respiratory complaints. Pulmonology Exam Inpatient Vital signs and Labs for Last 24 Hours: Temp Pulse Resp BP Pulse Ox O2 Del Method O2 Flow Rate 98.1 F 101 H 18 144/71 H 93 L Nasal Cannula 4 12/22/24 07:38 12/22/24 09:48 12/22/24 07:38 12/22/24 07:38 12/22/24 09:48 12/22/24 09:48 12/22/24 09:48 FiO2 35 12/21/24 19:03 Temp Pulse Resp BP Pulse Ox O2 Del Method O2 Flow Rate 97.9 F 88 17 160/79 H 92 L Nasal Cannula 3 12/21/24 08:00 12/21/24 08:00 12/21/24 08:00 12/21/24 08:00 12/21/24 08:00 12/21/24 09:10 12/21/24 09:10 FiO2 35 12/21/24 05:56 Laboratory Results - last 24 hr 12/21/24 03:54: VBG pH 7.27 L, VBG pCO2 70.8 H, VBG pO2 87.5 H, VBG HCO3 31.9 H, VBG Total CO2 34.1 H, VBG O2 Saturation 96.4 H, VBG Base Excess 5.1 H, VBG Lactic Acid 1.2 12/21/24 05:10: WBC 25.0 H* D, RBC 4.54, Hgb 14.9, Hct 47.9 H, MCV 105.5 H, MCH 32.8 H, MCHC 31.1 L, RDW 14.2, Plt Count 301, MPV 9.1, Neut % (Auto) 95.8 H, Lymph % (Auto) 1.3 L, Kings % (Auto) 2.1, Eos % (Auto) 0.0 L, Baso % (Auto) 0.1, Neut # (Auto) 23.9 H, Lymph # (Auto) 0.3 L, Kings # (Auto) 0.5, Eos # (Auto) 0.0, Baso # (Auto) 0.0, Total Counted 100, Neutrophils % (Manual) 98 H, Lymphocytes % (Manual) 1 L, Monocytes % (Manual) 1 L, Platelet Estimate Normal, Macrocytosis 1+, Sodium 138, Potassium 4.7, Chloride 95 L, Carbon Dioxide 35 H, Anion Gap 12.7, BUN 20 H D, Creatinine 0.80, Estimated Creat Clear 123, Estimated GFR 73, Est GFR ( Amer) 89, Glucose 157 H, Calcium 9.2, Total Bilirubin 0.4, AST 22 D, ALT 16, Alkaline Phosphatase 87, Total Protein 6.3, Albumin 4.1, Globulin 2.2, Albumin/Globulin Ratio 1.9 H I & O for Labs for Last 24 Hours: Intake & Output 12/19/24 12/20/24 12/21/24 12/22/24 23:59 23:59 23:59 23:59 Intake Total 1080 / 1080 1500 / 1620 480 / 480 Output Total 0 / 0 Balance 1080 / 1080 1500 / 1620 480 / 480 Weight 225 lb 224 lb 9 oz 229 lb 1.6 oz 229 lb 6.4 oz Intake & Output 12/18/24 12/19/24 12/20/24 12/21/24 23:59 23:59 23:59 23:59 Intake Total 1080 / 1080 480 / 480 Output Total 0 / 0 Balance 1080 / 1080 480 / 480 Weight 225 lb 224 lb 9 oz 229 lb 1.6 oz Constitutional: Present moderate distress Head: Present normocephalic and atraumatic ENT: Present normal exam, normal oropharynx and mucous membranes moist Neck: Present normal inspection and full ROM Respiratory: Present respiratory distress, wheezes, diminished air movement and able to speak in complete sentences Cardiac: Present S1/S2, Tachycardia and radial pulses present GI: Present soft and distention; Absent tenderness or guarding Rectal (female): Present deferred (female): Present deferred Skin: Present intact; Absent cyanosis or jaundice Neuro: Present alert, awake and oriented x 3 Extremities: Present normal inspection; Absent clubbing or cyanosis Psychiatric: Present normal affect and cooperative Assessment and Plan *Assessment and plan (1) Respiratory failure with hypoxia and hypercapnia: Status: Acute Category: Medical Code(s): J96.91 - Respiratory failure, unspecified with hypoxia; J96.92 - Respiratory failure, unspecified with hypercapnia (2) Acute exacerbation of chronic obstructive pulmonary disease: Status: Acute Category: Medical Code(s): J44.1 - Chronic obstructive pulmonary disease with (acute) exacerbation (3) Acute on chronic respiratory failure with hypoxia and hypercapnia: Status: Acute Category: Medical Code(s): J96.21 - Acute and chronic respiratory failure with hypoxia; J96.22 - Acute and chronic respiratory failure with hypercapnia Plan Ms. Aguilar is a 58-year-old female greater than [id number] smoking history COPD status with FEV1 of 43% predicted at baseline on Stiolto inhaler, not on any oxygen supplement patient, hypertension dyslipidemia hypothyroidism presented to the ER with worsening respiratory distress and pulmonary was called for further evaluation and management. Chest x-ray upon admission bilateral diffuse pulmonary micronodularity can be from vasculature. Lower lobe infiltrates predominantly right side noted. Afebrile. Hemodynamically stable. Neutrophilic predominant leukocytosis of 25.0. Blood gas upon admission hypercarbic respiratory failure this morning at 7.27 and pCO2 70.8. COVID-19 and flu PCR panel Currently being managed for COPD exacerbation, receiving nebulization therapies every 6 hours, prednisone 80mg every 8hrs and azithromycin On initial examination patient needing minimal oxygen requirement of 3 L. Auscultation bilateral diffuse wheezing. Alert awake and oriented x 3. Interval update: No significant improvement in patient's respiratory distress. Continued needing 3 to 4 L nasal cannula supplementation since admission despite aggressive inpatient therapies and IV steroids. Peripheral repeat labs and chest x-ray deferred to determine the need for CT PE protocol given no significant clinical improvement so far. Patient also noted episode of hypoxia yesterday with desaturations to 85%. Patient subjectively denies any worsening respiratory distress. Plan: Follow-up with CBC, Pro-Bautista, CRP and chest x-ray PA lateral Continue oxygen supplementation to maintain O2 saturation below 90% and DuoNebs every 4 hours along with Pulmicort every 12 scheduled Change antibiotics to levofloxacin pending final sputum culture results Continue steroids pending clinical improvement, will wean as tolerated
--- NOTE | 2024-12-22 11:04 | XR_ITS ---
FINAL REPORT CLINICAL HISTORY: SOB COMPARISON: 12/19/2024 FINDINGS: CHEST 1 VIEW No acute pulmonary opacity is present. There is no evidence of effusion or pneumothorax. Mediastinum is unremarkable. Heart size is normal. IMPRESSION: No acute abnormality. Reviewed, Interpreted and Dictated by Jennifer Randolph MD Transcribed by Shari Lala Authenticated and [facility]
[2024-12-22 11:27] LABS: Hematocrit 49.4 % (37.0-47.0); Hemoglobin 16.0 g/dL (12.2-16.2); Immature Granulocytes % 0.9 %; Mean Corpuscular HGB Conc 32.4 g/dL (31.8-35.4); Mean Corpuscular Hemoglobin 33.4 pg (27.0-31.2); Mean Corpuscular Volume 103.1 fl (81-99); Nucleated Red Blood Cells % 0 %; Platelet Count 318 K/mm3 (142-424); Red Blood Count 4.79 M/mm3 (4.20-5.40); Red Cell Distribution Width-SD 55.5 fL; White Blood Count 23.2 K/mm3 (4.8-10.8)
[2024-12-22 11:49] LABS: Total Cells Counted 100
[2024-12-22 11:50] LABS: RBC Morphology Normal
[2024-12-22] MEDS: LEVOFLOXACIN/D5W 750 MG/150 ML 750 MG/150 ML PIGGYBACK 100 MG IV (11:59)
[2024-12-22 12:14] LABS: Procalcitonin 0.044 ng/mL (0.0-2.0)
[2024-12-22] MEDS: IPRATROPIUM BROMIDE 0.5 MG/2.5ML SOLUTION IH ×3 (14:00→22:44)
[2024-12-22] MEDS: LEVALBUTEROL 1.25MG/3ML NEB 1.25 MG IH ×3 (14:00→22:44)
--- NOTE | 2024-12-22 14:24 | CT_ITS ---
FINAL REPORT TECHNIQUE: Thin section axial CT with contrast with multiplanar reconstruction This study was performed with techniques to keep radiation doses as low as reasonably achievable, (ALARA). Individualized dose reduction techniques using automated exposure control or adjustment of mA and/or kV according to the patient's size were employed. CLINICAL HISTORY: SOB COMPARISON: 12/12/2021 FINDINGS: Pulmonary vessels enhance in normal fashion without evidence of embolism. Thoracic aorta shows no dissection or aneurysm. There are coarse lower lobe linear densities, greater on the right than on the left, new from the prior exam. Suspect that this represents mild pneumonia and associated atelectasis. There is no significant pleural effusion. There is no significant pericardial effusion. No mediastinal or hilar adenopathy is present. A small hiatal hernia is present. IMPRESSION: 1. No evidence of pulmonary embolism 2. Coarse lower lobe linear densities, slightly greater on the right than on the left, suspect mild pneumonia and atelectasis. Reviewed, Interpreted and Dictated by Jennifer Randolph MD Transcribed by Eri Laurent Authenticated and . [facility]
[2024-12-22] MEDS: SODIUM CHLORIDE 0.9% 10ML SYR (RAD ONLY) 10 ML IV (14:53)
[2024-12-22] MEDS: IOPAMIDOL-370 (76%);100ML BOTTLE 85 ML IV (14:53)
[2024-12-22] MEDS: 0.9 % SODIUM CHLORIDE 50 ML VIAL IV (14:53)
[2024-12-22] MEDS: ATORVASTATIN 40MG TABLET 40 MG PO (21:16)
[2024-12-23] VITALS (13 sets, daily range): BP systolic 133–147; BP diastolic 60–87; PULSE 82–110; RESP 14–20; TEMP 36.4–36.8; O2SAT 90–104; BMI 36.8
[2024-12-23] MEDS: IPRATROPIUM BROMIDE 0.5 MG/2.5ML SOLUTION IH ×6 (02:32→23:08)
[2024-12-23] MEDS: LEVALBUTEROL 1.25MG/3ML NEB 1.25 MG IH ×6 (02:32→23:08)
--- NOTE | 2024-12-23 02:36 | PC.NURSE ---
Pt AOx4, pleasant. On 3L NC, stats in 90s. Pt continually denies pain or any additional needs throughout shift. Pt resting in bed with eyes closed. Respirations even and unlabored. Bed is low, locked, and call light is in reach.
[2024-12-23] MEDS: METHYLPREDNISOLONE SOD SUCC 125MG VIAL 80 MG IV (03:33)
[2024-12-23] MEDS: LEVOTHYROXINE 125MCG (0.125MG) TAB 125 MCG PO (06:02)
[2024-12-23] MEDS: BUDESONIDE 0.5MG/2ML NEB 0.5 MG IH ×2 (06:21→18:23)
--- NOTE | 2024-12-23 08:48 | EXP.ACUTE.PN ---
Subjective *Date: 12/23/24 *Time: 09:17 Interval history: Patient is still on 4L of nasal oxygen. She states her breathing is about the same today. She denies any pain. Medical Exam Vital signs and Labs for Last 24 Hours: Vital Signs Temp Pulse Pulse Resp BP Pulse Ox O2 Del Method 12/23/24 06:54 Nasal Cannula 12/23/24 06:21 89 12/23/24 06:21 88 12/23/24 06:21 90 L Nasal Cannula 12/23/24 05:00 Nasal Cannula 12/23/24 04:00 97.8 F 90 18 144/74 H 91 L Nasal Cannula 12/23/24 04:00 82 12/23/24 03:00 Nasal Cannula 12/23/24 02:32 85 12/23/24 02:32 83 12/23/24 01:00 Nasal Cannula 12/23/24 00:00 88 12/22/24 23:00 Nasal Cannula 12/22/24 22:44 103 H 12/22/24 22:44 105 H 12/22/24 22:44 91 L Nasal Cannula 12/22/24 21:00 Nasal Cannula 12/22/24 20:00 104 H 12/22/24 20:00 Nasal Cannula 12/22/24 20:00 98.1 F 106 H 18 164/79 H 91 L Nasal Cannula 12/22/24 18:32 Nasal Cannula 12/22/24 18:19 119 H 12/22/24 18:19 116 H 12/22/24 18:19 90 L Nasal Cannula 12/22/24 17:19 Nasal Cannula 12/22/24 16:00 120 H 12/22/24 16:00 98.3 F 118 H 18 160/81 H 92 L Nasal Cannula 12/22/24 15:00 Nasal Cannula 12/22/24 14:03 123 H 12/22/24 14:03 117 H 12/22/24 14:03 91 L Nasal Cannula 12/22/24 13:10 Nasal Cannula 12/22/24 12:00 120 H 12/22/24 12:00 98 F 119 H 18 127/68 92 L Nasal Cannula 12/22/24 11:10 Nasal Cannula 12/22/24 09:48 101 H 12/22/24 09:48 98 H 12/22/24 09:48 93 L Nasal Cannula 12/22/24 09:00 Nasal Cannula O2 Flow Rate 12/23/24 06:54 3 12/23/24 06:21 12/23/24 06:21 12/23/24 06:21 4 12/23/24 05:00 3 12/23/24 04:00 3 12/23/24 04:00 12/23/24 03:00 3 12/23/24 02:32 12/23/24 02:32 12/23/24 01:00 3 12/23/24 00:00 12/22/24 23:00 3 12/22/24 22:44 12/22/24 22:44 12/22/24 22:44 3 12/22/24 21:00 3 12/22/24 20:00 12/22/24 20:00 3 12/22/24 20:00 3 12/22/24 18:32 4 12/22/24 18:19 12/22/24 18:19 12/22/24 18:19 3 12/22/24 17:19 4 12/22/24 16:00 12/22/24 16:00 2.5 12/22/24 15:00 4 12/22/24 14:03 12/22/24 14:03 12/22/24 14:03 4 12/22/24 13:10 4 12/22/24 12:00 12/22/24 12:00 4 12/22/24 11:10 4 12/22/24 09:48 12/22/24 09:48 12/22/24 09:48 4 12/22/24 09:00 4 Intake and Output 12/22/24 12/23/24 12/23/24 19:59 03:59 11:59 Intake Total 510 / 510 Output Total 0 / 0 Balance 510 / 510 0 / 510 Intake: Intake, Oral Amount 360 / 360 Intake, Total IV Amount 150 / 150 Levofloxacin/D5w 750 mg/150 ml 150 / 150 750 mg In 150 ml @ 100 mls/hr IV Q24H [facility] Rx#:[id number] Output: Output, Urine Amount 0 / 0 Other: Number of Unmeasured Voids 1 Weight 229 lb 6.4 oz Patient Weight 12/23/24 11:59 Weight 229 lb 6.4 oz Laboratory Results - last 24 hr 12/22/24 11:17: WBC 23.2 H*, RBC 4.79, Hgb 16.0, Hct 49.4 H, MCV 103.1 H, MCH 33.4 H, MCHC 32.4, RDW 14.5, Plt Count 318, MPV 8.6, Neut % (Auto) 94.1 H, Lymph % (Auto) 1.5 L, [place] % (Auto) 3.4, Eos % (Auto) 0.0 L, Baso % (Auto) 0.1, Neut # (Auto) 21.9 H, Lymph # (Auto) 0.3 L, [place] # (Auto) 0.8, Eos # (Auto) 0.0, Baso # (Auto) 0.0, Total Counted 100, Neutrophils % (Manual) 97 H, Band Neutrophils % 1.0, Lymphocytes % (Manual) 2 L, Platelet Estimate Normal, RBC Morphology Normal, Procalcitonin 0.044 I & O for Labs for Last 24 Hours: Intake & Output 12/20/24 12/21/24 12/22/24 12/23/24 11:59 11:59 11:59 11:59 Intake Total 240 / 240 1320 / 1320 1500 / 1500 510 / 510 Output Total 0 / 0 0 / 0 0 / 0 Balance 240 / 240 1320 / 1320 1500 / 1500 510 / 510 Weight 224 lb 9 oz 229 lb 1.6 oz 229 lb 6.4 oz 229 lb 6.4 oz Constitutional: Present no acute distress Respiratory: Present wheezes Cardiac: Present Reg Rate and Rhythm GI: Present soft; Absent distention or tenderness Extremities: Absent edema Skin: Present intact Neuro: Present alert, awake and oriented x 3 Assessment and Plan *Assessment and plan (1) Acute exacerbation of chronic obstructive pulmonary disease: Status: Acute Category: Medical Code(s): J44.1 - Chronic obstructive pulmonary disease with (acute) exacerbation (2) Respiratory failure with hypoxia and hypercapnia: Status: Acute Category: Medical Code(s): J96.91 - Respiratory failure, unspecified with hypoxia; J96.92 - Respiratory failure, unspecified with hypercapnia (3) Pulmonary emphysema: Status: Chronic Category: Medical Code(s): J43.9 - Emphysema, unspecified (4) Smoking greater than 30 pack years: Status: Chronic Category: Social Hx Code(s): F17.210 - Nicotine dependence, cigarettes, uncomplicated (5) Acute on chronic respiratory failure with hypoxia and hypercapnia: Status: Acute Category: Medical Code(s): J96.21 - Acute and chronic respiratory failure with hypoxia; J96.22 - Acute and chronic respiratory failure with hypercapnia Plan Pulmonology to follow. She will need home oxygen upon discharge. Will discuss further care with Dr. Almendarez.
[2024-12-23] MEDS: IRBESARTAN 150MG TAB 150 MG PO (09:08)
[2024-12-23] MEDS: DOCUSATE SODIUM 250MG CAPSULE 250 MG PO (09:08)
[2024-12-23] MEDS: NICOTINE 21MG/24HR PATCH 21 MG TD (09:08)
[2024-12-23] MEDS: AMLODIPINE 10MG TABLET 10 MG PO (09:08)
--- NOTE | 2024-12-23 09:23 | P.PN_ITS ---
Subjective *Date: 12/23/24 *Time: 12:12 Interval history: No acute respiratory events overnight. Patient denies any significant improvement in her respiratory symptoms. Pulmonology Exam Inpatient Vital signs and Labs for Last 24 Hours: Temp Pulse Resp BP Pulse Ox O2 Del Method O2 Flow Rate 97.8 F 89 18 144/74 H 90 L Nasal Cannula 3 12/23/24 04:00 12/23/24 06:21 12/23/24 04:00 12/23/24 04:00 12/23/24 06:21 12/23/24 06:54 12/23/24 06:54 FiO2 35 12/21/24 19:03 Laboratory Results - last 24 hr 12/22/24 11:17: WBC 23.2 H*, RBC 4.79, Hgb 16.0, Hct 49.4 H, MCV 103.1 H, MCH 33.4 H, MCHC 32.4, RDW 14.5, Plt Count 318, MPV 8.6, Neut % (Auto) 94.1 H, Lymph % (Auto) 1.5 L, [place] % (Auto) 3.4, Eos % (Auto) 0.0 L, Baso % (Auto) 0.1, Neut # (Auto) 21.9 H, Lymph # (Auto) 0.3 L, [place] # (Auto) 0.8, Eos # (Auto) 0.0, Baso # (Auto) 0.0, Total Counted 100, Neutrophils % (Manual) 97 H, Band Neutrophils % 1.0, Lymphocytes % (Manual) 2 L, Platelet Estimate Normal, RBC Morphology Normal, Procalcitonin 0.044 Temp Pulse Resp BP Pulse Ox O2 Del Method O2 Flow Rate 97.9 F 88 17 160/79 H 92 L Nasal Cannula 3 12/21/24 08:00 12/21/24 08:00 12/21/24 08:00 12/21/24 08:00 12/21/24 08:00 12/21/24 09:10 12/21/24 09:10 FiO2 35 12/21/24 05:56 Laboratory Results - last 24 hr 12/21/24 03:54: VBG pH 7.27 L, VBG pCO2 70.8 H, VBG pO2 87.5 H, VBG HCO3 31.9 H, VBG Total CO2 34.1 H, VBG O2 Saturation 96.4 H, VBG Base Excess 5.1 H, VBG Lactic Acid 1.2 12/21/24 05:10: WBC 25.0 H* D, RBC 4.54, Hgb 14.9, Hct 47.9 H, MCV 105.5 H, MCH 32.8 H, MCHC 31.1 L, RDW 14.2, Plt Count 301, MPV 9.1, Neut % (Auto) 95.8 H, Lymph % (Auto) 1.3 L, [place] % (Auto) 2.1, Eos % (Auto) 0.0 L, Baso % (Auto) 0.1, Neut # (Auto) 23.9 H, Lymph # (Auto) 0.3 L, [place] # (Auto) 0.5, Eos # (Auto) 0.0, Baso # (Auto) 0.0, Total Counted 100, Neutrophils % (Manual) 98 H, Lymphocytes % (Manual) 1 L, Monocytes % (Manual) 1 L, Platelet Estimate Normal, Macrocytosis 1+, Sodium 138, Potassium 4.7, Chloride 95 L, Carbon Dioxide 35 H, Anion Gap 12.7, BUN 20 H D, Creatinine 0.80, Estimated Creat Clear 123, Estimated GFR 73, Est GFR ( Amer) 89, Glucose 157 H, Calcium 9.2, Total Bilirubin 0.4, AST 22 D, ALT 16, Alkaline Phosphatase 87, Total Protein 6.3, Albumin 4.1, Globulin 2.2, Albumin/Globulin Ratio 1.9 H I & O for Labs for Last 24 Hours: Intake & Output 12/20/24 12/21/24 12/22/24 12/23/24 23:59 23:59 23:59 23:59 Intake Total 1080 / 1080 1500 / 1620 990 / 990 Output Total 0 / 0 0 / 0 Balance 1080 / 1080 1500 / 1620 990 / 990 Weight 224 lb 9 oz 229 lb 1.6 oz 229 lb 6.4 oz 229 lb 6.4 oz Intake & Output 12/18/24 12/19/24 12/20/24 12/21/24 23:59 23:59 23:59 23:59 Intake Total 1080 / 1080 480 / 480 Output Total 0 / 0 Balance 1080 / 1080 480 / 480 Weight 225 lb 224 lb 9 oz 229 lb 1.6 oz Constitutional: Present moderate distress Head: Present normocephalic and atraumatic ENT: Present normal exam, normal oropharynx and mucous membranes moist Neck: Present normal inspection and full ROM Respiratory: Present respiratory distress, wheezes, diminished air movement and able to speak in complete sentences; Absent rhonchi Cardiac: Present S1/S2, Tachycardia and radial pulses present GI: Present soft and distention; Absent tenderness or guarding Rectal (female): Present deferred (female): Present deferred Skin: Present intact; Absent cyanosis or jaundice Neuro: Present alert, awake and oriented x 3 Extremities: Present normal inspection and edema; Absent clubbing or cyanosis Psychiatric: Present normal affect and cooperative Assessment and Plan *Assessment and plan (1) Respiratory failure with hypoxia and hypercapnia: Status: Acute Category: Medical Code(s): J96.91 - Respiratory failure, unspecified with hypoxia; J96.92 - Respiratory failure, unspecified with hypercapnia (2) Acute exacerbation of chronic obstructive pulmonary disease: Status: Acute Category: Medical Code(s): J44.1 - Chronic obstructive pulmonary disease with (acute) exacerbation (3) Acute on chronic respiratory failure with hypoxia and hypercapnia: Status: Acute Category: Medical Code(s): J96.21 - Acute and chronic respiratory failure with hypoxia; J96.22 - Acute and chronic respiratory failure with hypercapnia Plan Ms. Aguilar is a 58-year-old female greater than [id number] smoking history COPD status with FEV1 of 43% predicted at baseline on Stiolto inhaler, not on any oxygen supplement patient, hypertension dyslipidemia hypothyroidism prese nted to the ER with worsening respiratory distress and pulmonary was called for further evaluation and management. Chest x-ray upon admission bilateral diffuse pulmonary micronodularity can be from vasculature. Lower lobe infiltrates predominantly right side noted. Afebrile. Hemodynamically stable. Neutrophilic predominant leukocytosis of 25.0. Blood gas upon admission hypercarbic respiratory failure this morning at 7.27 and pCO2 70.8. COVID-19 and flu PCR panel Currently being managed for COPD exacerbation, receiving nebulization therapies every 6 hours, prednisone 80mg every 8hrs and azithromycin On initial examination patient needing minimal oxygen requirement of 3 L. Auscultation bilateral diffuse wheezing. Alert awake and oriented x 3. Interval update: No acute respiratory vents overnight. CTA PE protocol no evidence of pulmonary embolism. No dense consolidative/airspace changes noted. Minimal lower lobe infiltrates. Continue to show neutrophilic prominent leukocytosis. Afebrile. Hemodynamically stable. Pro-Bautista within normal limits at 0.04. Plan: Lasix 40 mg IV daily F/u Echocardiogram Continue oxygen supplementation to maintain O2 saturation below 90% and above Xopenex and ipratropium every 4 hours along with Pulmicort every 12 scheduled Continue antibiotics to levofloxacin to complete a total of 5-day course Prednisone 40mg oral daily
--- NOTE | 2024-12-23 12:14 | CA_ITS ---
APPROVED REPORT EXAM: Comprehensive 2D, Doppler, and color-flow Echocardiogram Inside Sales Associate: Sara Polanco CRT Ht: 5 ft 6 in Wt: 229lbs BSA: 2.12 BP: 144/74 mmHg Indications: b/s ordered Shortness of Breath Echo Enhancing Agent Indication: Rule out Shunt Agent(s) / Amount(s) Used: Agitated Saline 5 cc Comments: B/S ordered 2D Dimensions LA Volume 25.30 mL LA Volume Index 11.70 mL/m2 (M/F) 16-34 M-Mode Dimensions RVDd 2.42 cm (0.9-2.6) LA Diam 3.81 cm (1.9-4.0) LVDd 2.97 cm (3.5-5.7) LVDs 2.22 cm (3.5-5.7) IVSd 2.17 cm (0.6-1.1) PWd 0.88 cm (0.6-1.1) EF (Teich) 51.50% FS 25.30% EDV (Teich) 34.20 mL TAPSE 2.10 (<1.7) ESV (Teich) 16.60 mL LV Diastology E Decel Time 153 (160-240 msec) E/A Ratio 0.60 MED A' 13.70 cm/s LAT A' 13.50 cm/s Aortic Valve DAMARIS Index 1.11 cm2/m2 AoV Peak Gerard. 175.0 (50-130 cm/s) AO Peak GR. 12.20 mmHg AO Mean GR. 7.80 (<5 mmHg) AO VTI 27.0 (18-25 cm) DAMARIS (VTI) 2.40 (2.5-4.5 cm2) Mitral Valve MV E Max Gerard. 60.0 (40-130 cm/s) MV A Velocity 101.0 (40-130 cm/s) E/A Ratio 0.60 MV PHT 45.0 ms Tricuspid Valve TR P. Velocity 402.00 cm/s RAP Estimate 10.00 mmHg RVSP 74.60 mmHg Left Ventricle The left ventricle is normal size. The left ventricular systolic function is hyperdynamic. There is increased LV wall thickness. An intracavitary gradient is present. No evidence of LVOT obstruction. There is normal LV segmental wall motion. Transmitral Doppler flow pattern suggests impaired LV relaxation. LVEF is 70%. Right Ventricle The right ventricle is normal size. The right ventricular systolic function is normal. Atria The left atrium size is normal. The right atrium size is normal. There is no Doppler evidence of interatrial shunt. Agitated saline administration demonstrates no evidence of interatrial shunt. Aortic Valve Aortic valve is mildly thickened. There is no aortic valvular stenosis. No aortic regurgitation is present. Mitral Valve The mitral valve is normal in structure. No evidence of systolic anterior motion (NIDIA) of the mitral valve leaflets. No evidence of mitral valve stenosis. There is no mitral valve regurgitation noted. Tricuspid Valve Tricuspid valve is grossly normal in structure and function. Trace tricuspid regurgitation. There is insufficient TR jet to estimate RVSP. Pulmonic Valve The pulmonary valve is normal in structure. Trace pulmonic regurgitation. Great Vessels The aortic root is normal in size. IVC is normal in size and collapses >50% with inspiration. Pericardium There is no pericardial effusion. Other Information Study Quality: Fair Conclusion Hyperdynamic LV systolic function (LVEF 70%). Intracavitary gradient is present. No evidence of LVOT obstruction. No significant valvular stenosis or regurgitation. There is no Doppler evidence of interatrial shunt. Agitated saline administration demonstrates no evidence of interatrial shunt. In the setting of increased LV wall thickness, intracavitary gradient, and hyperdynamic LV systolic function, further evaluation with outpatient cardiac MRI (HCM protocol) is suggested. Electronically signed by : Lety Arzola MD 12/27/2024 00:30:45
[2024-12-23] MEDS: FUROSEMIDE 40MG/4ML VIAL 40 MG IV (12:56)
[2024-12-23] MEDS: LEVOFLOXACIN/D5W 750 MG/150 ML 750 MG/150 ML PIGGYBACK 100 MG IV (12:56)
--- NOTE | 2024-12-23 18:29 | PC.NURSE ---
no significant changes from previous shift. o2 4l via nc with sats 90% at rest.
[2024-12-23] MEDS: ATORVASTATIN 40MG TABLET 40 MG PO (20:37)
[2024-12-24] VITALS (15 sets, daily range): BP systolic 139–163; BP diastolic 71–85; PULSE 77–126; RESP 14–20; TEMP 36.5–36.9; O2SAT 90–94; BMI 36.3
--- NOTE | 2024-12-24 02:43 | PC.NURSE ---
Pt AOx4, pleasant. Attempted to wear BiPAP HS, but stated that she was unable to tolerate it. Currently on 4L nasal cannula. Resting in bed with eyes closed. Respirations even and unlabored. Bed is low, locked, and call light is in reach.
[2024-12-24] MEDS: LEVALBUTEROL 1.25MG/3ML NEB 1.25 MG IH ×6 (02:50→22:13)
[2024-12-24] MEDS: IPRATROPIUM BROMIDE 0.5 MG/2.5ML SOLUTION IH ×6 (02:50→22:13)
[2024-12-24] MEDS: BUDESONIDE 0.5MG/2ML NEB 0.5 MG IH ×2 (05:55→18:30)
[2024-12-24] MEDS: LEVOTHYROXINE 125MCG (0.125MG) TAB 125 MCG PO (06:07)
[2024-12-24 08:26] LABS: Hematocrit 48.7 % (37.0-47.0); Hemoglobin 15.8 g/dL (12.2-16.2); Immature Granulocytes % 0.5 %; Mean Corpuscular HGB Conc 32.4 g/dL (31.8-35.4); Mean Corpuscular Hemoglobin 32.9 pg (27.0-31.2); Mean Corpuscular Volume 101.5 fl (81-99); Nucleated Red Blood Cells % 0 %; Platelet Count 233 K/mm3 (142-424); Red Blood Count 4.80 M/mm3 (4.20-5.40); Red Cell Distribution Width-SD 53.8 fL; White Blood Count 12.0 K/mm3 (4.8-10.8)
[2024-12-24 08:36] LABS: Alanine Aminotransferase 28 U/L (12-78); Albumin Level 3.8 g/dl (3.5-5.0); Albumin/Globulin Ratio 2.2 (1.1-1.8); Alkaline Phosphatase 76 U/L (38-126); Anion Gap 8.5 mEq/L (5-15); Aspartate Amino Transferase 33 U/L (14-36); Bilirubin,Total 0.6 mg/dl (0.2-1.3); Blood Urea Nitrogen 24 mg/dl (7-17); Calcium 8.8 mg/dl (8.4-10.2); Carbon Dioxide 37 mmol/L (22.0-30.0); Chloride 92 mmol/L (98-107); Creatinine Clearance Estimated 97 mL/min (50-200); Creatinine,Serum 1.00 mg/dl (0.52-1.04); Estimated Glomerular Filt Rate 57 ml/min (>60); GFR (African American) 68 ML/MIN (>60); Globulin 1.7 g/dL (1.3-3.2); Glucose 124 mg/dl (74-100); Potassium 3.5 mmoL/L (3.5-5.1); Sodium 134 mmol/L (136-145); Total Protein,Serum 5.5 g/dl (6.3-8.2)
[2024-12-24] MEDS: NICOTINE 21MG/24HR PATCH 21 MG TD (08:42)
[2024-12-24] MEDS: DOCUSATE SODIUM 250MG CAPSULE 250 MG PO (08:44)
[2024-12-24] MEDS: AMLODIPINE 10MG TABLET 10 MG PO (08:44)
[2024-12-24] MEDS: IRBESARTAN 150MG TAB 150 MG PO (08:44)
--- NOTE | 2024-12-24 09:57 | EXP.ACUTE.PN ---
Subjective *Date: 12/24/24 *Time: 09:57 Interval history: Did not rest well last night. She had episodes of desaturation. She was on the BiPAP for couple hours but she does not tolerate it very well. She is continued on nasal cannula at 4 L. She had echocardiogram yesterday. The results are pending. She has not been out of bed since she has been here. We discussed that and I suggest that she be up in a chair and try to move about the room more. Medical Exam Vital signs and Labs for Last 24 Hours: Vital Signs Temp Pulse Pulse Resp BP Pulse Ox O2 Del Method 12/24/24 06:37 Nasal Cannula 12/24/24 05:56 99 H 12/24/24 05:56 91 H 12/24/24 05:56 90 L Nasal Cannula 12/24/24 05:00 Nasal Cannula 12/24/24 04:00 98.1 F 85 14 146/78 H 93 L Nasal Cannula 12/24/24 04:00 82 12/24/24 03:00 Nasal Cannula 12/24/24 02:51 87 12/24/24 02:51 84 12/24/24 01:00 Nasal Cannula 12/24/24 00:00 98.5 F 85 16 139/85 91 L Nasal Cannula 12/24/24 00:00 77 12/23/24 23:09 90 12/23/24 23:09 94 H 12/23/24 23:00 Nasal Cannula 12/23/24 21:00 Nasal Cannula 12/23/24 20:00 97.9 F 109 H 14 143/60 H 92 L Nasal Cannula 12/23/24 20:00 103 H 12/23/24 20:00 Nasal Cannula 12/23/24 18:23 102 H 12/23/24 18:23 101 H 12/23/24 18:23 90 L Nasal Cannula 12/23/24 18:10 Nasal Cannula 12/23/24 17:00 Room Air 12/23/24 16:00 110 H 12/23/24 16:00 97.5 F L 95 H 18 133/82 94 L Nasal Cannula 12/23/24 15:00 Nasal Cannula 12/23/24 14:07 104 H 12/23/24 14:07 101 H 12/23/24 14:07 92 L Nasal Cannula 12/23/24 13:00 Nasal Cannula 12/23/24 12:00 104 H 12/23/24 11:57 98.0 F 93 H 18 147/68 H 92 L Nasal Cannula 12/23/24 11:00 Nasal Cannula 12/23/24 10:29 106 H 12/23/24 10:29 104 H 12/23/24 10:29 104 H Nasal Cannula O2 Flow Rate 12/24/24 06:37 4 12/24/24 05:56 12/24/24 05:56 12/24/24 05:56 4 12/24/24 05:00 4 12/24/24 04:00 4 12/24/24 04:00 12/24/24 03:00 4 12/24/24 02:51 12/24/24 02:51 12/24/24 01:00 4 12/24/24 00:00 4 12/24/24 00:00 12/23/24 23:09 12/23/24 23:09 12/23/24 23:00 4 12/23/24 21:00 4 12/23/24 20:00 4 12/23/24 20:00 12/23/24 20:00 4 12/23/24 18:23 12/23/24 18:23 12/23/24 18:23 4 12/23/24 18:10 4 12/23/24 17:00 12/23/24 16:00 12/23/24 16:00 4 12/23/24 15:00 4 12/23/24 14:07 12/23/24 14:07 12/23/24 14:07 4 12/23/24 13:00 4 12/23/24 12:00 12/23/24 11:57 4 12/23/24 11:00 4 12/23/24 10:29 12/23/24 10:29 12/23/24 10:29 4 Intake and Output 12/23/24 12/24/24 12/24/24 19:59 03:59 11:59 Intake Total 700 / 1000 300 / 1000 Output Total 0 / 150 150 / 150 0 / 150 Balance 700 / 850 -150 / 850 300 / 850 Intake: Intake, Oral Amount 700 / 1000 300 / 1000 Output: Output, Urine Amount 0 / 150 150 / 150 0 / 150 Other: Number of Unmeasured Voids 2 0 2 Weight 225 lb 12.8 oz Patient Weight 12/24/24 11:59 Weight 225 lb 12.8 oz Laboratory Results - last 24 hr 12/24/24 08:20: WBC 12.0 H D, RBC 4.80, Hgb 15.8, Hct 48.7 H, MCV 101.5 H, MCH 32.9 H, MCHC 32.4, RDW 14.2, Plt Count 233 D, MPV 8.5, Neut % (Auto) 81.2 H, Lymph % (Auto) 10.7, [place] % (Auto) 7.3, Eos % (Auto) 0.1, Baso % (Auto) 0.2, Neut # (Auto) 9.8 H, Lymph # (Auto) 1.3, [place] # (Auto) 0.9, Eos # (Auto) 0.0, Baso # (Auto) 0.0, Sodium 134 L, Potassium 3.5, Chloride 92 L, Carbon Dioxide 37 H, Anion Gap 8.5, BUN 24 H, Creatinine 1.00, Estimated Creat Clear 97, Estimated GFR 57 L, Est GFR ( Amer) 68, Glucose 124 H, Calcium 8.8, Total Bilirubin 0.6, AST 33, ALT 28, Alkaline Phosphatase 76, Total Protein 5.5 L, Albumin 3.8, Globulin 1.7, Albumin/Globulin Ratio 2.2 H I & O for Labs for Last 24 Hours: Intake & Output 12/21/24 12/22/24 12/23/24 12/24/24 11:59 11:59 11:59 11:59 Intake Total 1320 / 1320 1500 / 1500 870 / 870 1000 / 1000 Output Total 0 / 0 0 / 0 150 / 150 Balance 1320 / 1320 1500 / 1500 870 / 870 850 / 850 Weight 229 lb 1.6 oz 229 lb 6.4 oz 229 lb 6.4 oz 225 lb 12.8 oz Head: Present normocephalic Neck: Present full ROM Respiratory: Present decreased breath sounds, rhonchi and wheezes Comment:: CTA showed interstitial changes at the bases likely from a mild pneumonia or atelectasis. Cardiac: Present Tachycardia (104) GI: Present soft; Absent tenderness Rectal (female): Present deferred (female): Present deferred Extremities: Present normal inspection Skin: Present intact Neuro: Present alert and oriented x 3 Assessment and Plan *Assessment and plan (1) Acute on chronic respiratory failure with hypoxia and hypercapnia: Status: Acute Category: Medical Code(s): J96.21 - Acute and chronic respiratory failure with hypoxia; J96.22 - Acute and chronic respiratory failure with hypercapnia (2) Acute exacerbation of chronic obstructive pulmonary disease: Status: Acute Category: Medical Code(s): J44.1 - Chronic obstructive pulmonary disease with (acute) exacerbation (3) Smoking greater than 30 pack years: Status: Chronic Category: Social Hx Code(s): F17.210 - Nicotine dependence, cigarettes, uncomplicated (4) Pulmonary emphysema: Status: Chronic Category: Medical Code(s): J43.9 - Emphysema, unspecified (5) Hypothyroid: Status: Chronic Category: Medical Code(s): E03.9 - Hypothyroidism, unspecified (6) Hypertension: Status: Chronic Category: Medical Code(s): I10 - Essential (primary) hypertension (7) Hyperglycemia: Status: Acute Category: Medical Code(s): R73.9 - Hyperglycemia, unspecified Plan Check A1c. Encouraged to be up and about the room and in a chair.
--- NOTE | 2024-12-24 10:05 | EXP.PHA.PN ---
Subjective *Date: 12/24/24 *Time: 10:05 Medical Exam Vital signs and Labs for Last 24 Hours: Vital Signs Temp Pulse Pulse Resp BP Pulse Ox O2 Del Method 12/24/24 09:59 91 H 12/24/24 09:59 97 H 12/24/24 09:59 91 L Nasal Cannula 12/24/24 09:00 Nasal Cannula 12/24/24 08:00 98.3 F 91 H 20 163/81 H 91 L Nasal Cannula 12/24/24 08:00 Nasal Cannula 12/24/24 06:37 Nasal Cannula 12/24/24 05:56 99 H 12/24/24 05:56 91 H 12/24/24 05:56 90 L Nasal Cannula 12/24/24 05:00 Nasal Cannula 12/24/24 04:00 98.1 F 85 14 146/78 H 93 L Nasal Cannula 12/24/24 04:00 82 12/24/24 03:00 Nasal Cannula 12/24/24 02:51 87 12/24/24 02:51 84 12/24/24 01:00 Nasal Cannula 12/24/24 00:00 98.5 F 85 16 139/85 91 L Nasal Cannula 12/24/24 00:00 77 12/23/24 23:09 90 12/23/24 23:09 94 H 12/23/24 23:00 Nasal Cannula 12/23/24 21:00 Nasal Cannula 12/23/24 20:00 97.9 F 109 H 14 143/60 H 92 L Nasal Cannula 12/23/24 20:00 103 H 12/23/24 20:00 Nasal Cannula 12/23/24 18:23 102 H 12/23/24 18:23 101 H 12/23/24 18:23 90 L Nasal Cannula 12/23/24 18:10 Nasal Cannula 12/23/24 17:00 Room Air 12/23/24 16:00 110 H 12/23/24 16:00 97.5 F L 95 H 18 133/82 94 L Nasal Cannula 12/23/24 15:00 Nasal Cannula 12/23/24 14:07 104 H 12/23/24 14:07 101 H 12/23/24 14:07 92 L Nasal Cannula 12/23/24 13:00 Nasal Cannula 12/23/24 12:00 104 H 12/23/24 11:57 98.0 F 93 H 18 147/68 H 92 L Nasal Cannula 12/23/24 11:00 Nasal Cannula 12/23/24 10:29 106 H 12/23/24 10:29 104 H 12/23/24 10:29 104 H Nasal Cannula O2 Flow Rate 12/24/24 09:59 12/24/24 09:59 12/24/24 09:59 4 12/24/24 09:00 4 12/24/24 08:00 4 12/24/24 08:00 4 12/24/24 06:37 4 12/24/24 05:56 12/24/24 05:56 12/24/24 05:56 4 12/24/24 05:00 4 12/24/24 04:00 4 12/24/24 04:00 12/24/24 03:00 4 12/24/24 02:51 12/24/24 02:51 12/24/24 01:00 4 12/24/24 00:00 4 12/24/24 00:00 12/23/24 23:09 12/23/24 23:09 12/23/24 23:00 4 12/23/24 21:00 4 12/23/24 20:00 4 12/23/24 20:00 12/23/24 20:00 4 12/23/24 18:23 12/23/24 18:23 12/23/24 18:23 4 12/23/24 18:10 4 12/23/24 17:00 12/23/24 16:00 12/23/24 16:00 4 12/23/24 15:00 4 12/23/24 14:07 12/23/24 14:07 12/23/24 14:07 4 12/23/24 13:00 4 12/23/24 12:00 12/23/24 11:57 4 12/23/24 11:00 4 12/23/24 10:29 12/23/24 10:29 12/23/24 10:29 4 Intake and Output 12/23/24 12/24/24 12/24/24 23:59 07:59 15:59 Intake Total 400 / 1060 300 / 300 Output Total 0 / 0 150 / 150 Balance 400 / 1060 -150 / 150 300 / 150 Intake: Intake, Oral Amount 400 / 1060 300 / 300 Output: Output, Urine Amount 0 / 0 150 / 150 Other: Number of Unmeasured Voids 2 2 Weight 102.421 kg Patient Weight 12/24/24 23:59 Weight 102.421 kg Laboratory Results - last 24 hr 12/24/24 08:20: WBC 12.0 H D, RBC 4.80, Hgb 15.8, Hct 48.7 H, MCV 101.5 H, MCH 32.9 H, MCHC 32.4, RDW 14.2, Plt Count 233 D, MPV 8.5, Neut % (Auto) 81.2 H, Lymph % (Auto) 10.7, [place] % (Auto) 7.3, Eos % (Auto) 0.1, Baso % (Auto) 0.2, Neut # (Auto) 9.8 H, Lymph # (Auto) 1.3, [place] # (Auto) 0.9, Eos # (Auto) 0.0, Baso # (Auto) 0.0, Sodium 134 L, Potassium 3.5, Chloride 92 L, Carbon Dioxide 37 H, Anion Gap 8.5, BUN 24 H, Creatinine 1.00, Estimated Creat Clear 97, Estimated GFR 57 L, Est GFR ( Amer) 68, Glucose 124 H, Calcium 8.8, Total Bilirubin 0.6, AST 33, ALT 28, Alkaline Phosphatase 76, Total Protein 5.5 L, Albumin 3.8, Globulin 1.7, Albumin/Globulin Ratio 2.2 H I & O for Labs for Last 24 Hours: Intake & Output 12/21/24 12/22/24 12/23/24 12/24/24 23:59 23:59 23:59 23:59 Intake Total 1500 / 1620 990 / 990 1060 / 1060 300 / 300 Output Total 0 / 0 0 / 0 150 / 150 Balance 1500 / 1620 990 / 990 1060 / 1060 150 / 150 Weight 103.918 kg 104.054 kg 104.054 kg 102.421 kg The patient's infection will respond to the chosen ABx?: Yes Is the patient receiving the right drug, dose, and route?: Yes Could a more targeted ABx be ordered?: No (WBC 12.0K DOWN FROM 25.0K, AFEBRILE. CONTINUE CURRENT ABX.)
[2024-12-24 10:48] LABS: Hemoglobin A1C 6.7 % (4.0-6.0)
[2024-12-24] MEDS: ATORVASTATIN 40MG TABLET 40 MG PO (20:21)
[2024-12-25] VITALS (7 sets, daily range): BP systolic 131–148; BP diastolic 62–79; PULSE 80–101; RESP 16–17; TEMP 36.4–36.6; O2SAT 91–94; BMI 36.1
[2024-12-25] MEDS: LEVALBUTEROL 1.25MG/3ML NEB 1.25 MG IH ×4 (01:48→14:37)
[2024-12-25] MEDS: IPRATROPIUM BROMIDE 0.5 MG/2.5ML SOLUTION IH ×4 (01:48→14:37)
--- NOTE | 2024-12-25 02:23 | PC.NURSE ---
Pt AOx4, pleasant. Still on 4L O2 with no success weaning down. Currently stats around 90, but occasionally destats when in a deep sleep. Pt unable to tolerate BiPAP. Pt is currently resting in bed with eyes closed. Respirations even and unlabored. Bed is low, locked, and call light is in reach.
[2024-12-25] MEDS: LEVOTHYROXINE 125MCG (0.125MG) TAB 125 MCG PO (06:01)
[2024-12-25] MEDS: BUDESONIDE 0.5MG/2ML NEB 0.5 MG IH (06:18)
--- NOTE | 2024-12-25 08:49 | EXP.ACUTE.PN ---
Subjective *Date: 12/25/24 *Time: 08:49 Interval history: Feels better. Maintaining at 4 L nasal cannula. Did not require BiPAP last night. Would like to go home. She does have home oxygen. We talked again about CO2 retention. She needs to quit smoking. note 6.7% a1c. newly diagnosed type 2 diabetes. Medical Exam Vital signs and Labs for Last 24 Hours: Vital Signs Temp Pulse Pulse Resp BP Pulse Ox O2 Del Method 12/25/24 08:00 90 12/25/24 08:00 97.9 F 89 16 147/79 H 93 L Nasal Cannula 12/25/24 07:00 Nasal Cannula 12/25/24 06:19 90 12/25/24 06:19 90 12/25/24 06:19 93 L Nasal Cannula 12/25/24 05:00 Nasal Cannula 12/25/24 04:00 97.7 F 86 17 134/62 93 L Nasal Cannula 12/25/24 04:00 90 12/25/24 03:00 Nasal Cannula 12/25/24 01:53 101 H 12/25/24 01:53 100 H 12/25/24 01:00 Nasal Cannula 12/25/24 00:00 80 12/25/24 00:00 97.8 F 87 17 131/67 94 L Nasal Cannula 12/24/24 23:00 Nasal Cannula 12/24/24 22:20 110 H 12/24/24 22:05 103 H 12/24/24 21:00 Nasal Cannula 12/24/24 20:00 90 12/24/24 20:00 Nasal Cannula 12/24/24 19:58 98.0 F 96 H 17 141/79 H 93 L Nasal Cannula 12/24/24 19:16 Nasal Cannula 12/24/24 19:16 114 H 12/24/24 18:19 Nasal Cannula 12/24/24 18:15 117 H 12/24/24 17:00 Nasal Cannula 12/24/24 16:00 98.4 F 100 H 18 156/82 H 94 L Nasal Cannula 12/24/24 16:00 100 H 12/24/24 16:00 Nasal Cannula 12/24/24 15:00 Nasal Cannula 12/24/24 14:37 126 H 12/24/24 14:37 118 H 12/24/24 14:37 91 L Nasal Cannula 12/24/24 13:00 Nasal Cannula 12/24/24 12:00 97.7 F 105 H 18 159/71 H 90 L Nasal Cannula 12/24/24 12:00 110 H 12/24/24 11:00 Nasal Cannula 12/24/24 09:59 91 H 12/24/24 09:59 97 H 12/24/24 09:59 91 L Nasal Cannula 12/24/24 09:00 Nasal Cannula O2 Flow Rate 12/25/24 08:00 12/25/24 08:00 4 12/25/24 07:00 4 12/25/24 06:19 12/25/24 06:19 12/25/24 06:19 3 12/25/24 05:00 4 12/25/24 04:00 4 12/25/24 04:00 12/25/24 03:00 4 12/25/24 01:53 12/25/24 01:53 12/25/24 01:00 4 12/25/24 00:00 12/25/24 00:00 4 12/24/24 23:00 4 12/24/24 22:20 12/24/24 22:05 12/24/24 21:00 4 12/24/24 20:00 12/24/24 20:00 4 12/24/24 19:58 4 12/24/24 19:16 4 12/24/24 19:16 12/24/24 18:19 4 12/24/24 18:15 12/24/24 17:00 4 12/24/24 16:00 4 12/24/24 16:00 12/24/24 16:00 4 12/24/24 15:00 4 12/24/24 14:37 12/24/24 14:37 12/24/24 14:37 4 12/24/24 13:00 4 12/24/24 12:00 4 12/24/24 12:00 12/24/24 11:00 4 12/24/24 09:59 12/24/24 09:59 12/24/24 09:59 4 12/24/24 09:00 4 Intake and Output 12/24/24 12/25/24 12/25/24 19:59 03:59 11:59 Intake Total 580 / 1060 480 / 1060 Output Total 0 / 0 0 / 0 0 / 0 Balance 580 / 1060 0 / 1060 480 / 1060 Intake: Intake, Oral Amount 580 / 1060 480 / 1060 Output: Output, Urine Amount 0 / 0 0 / 0 0 / 0 Other: Number of Unmeasured Voids 1 1 1 Number of Bowel Movements 1 Weight 225 lb Patient Weight 12/25/24 11:59 Weight 225 lb Laboratory Results - last 24 hr 12/24/24 08:20: Hemoglobin A1c 6.7 H I & O for Labs for Last 24 Hours: Intake & Output 12/22/24 12/23/24 12/24/24 12/25/24 11:59 11:59 11:59 11:59 Intake Total 1500 / 1500 870 / 870 1000 / 1000 1060 / 1060 Output Total 0 / 0 150 / 150 0 / 0 Balance 1500 / 1500 870 / 870 850 / 850 1060 / 1060 Weight 229 lb 6.4 oz 229 lb 6.4 oz 225 lb 12.8 oz 225 lb Head: Present normocephalic Neck: Present normal inspection Respiratory: Present decreased breath sounds; Absent respiratory distress Cardiac: Present Reg Rate and Rhythm GI: Present soft; Absent distention or tenderness Rectal (female): Present deferred (female): Present deferred Extremities: Absent edema Skin: Present intact Neuro: Present alert and oriented x 3 Assessment and Plan *Assessment and plan (1) Acute on chronic respiratory failure with hypoxia and hypercapnia: Status: Acute Category: Medical Code(s): J96.21 - Acute and chronic respiratory failure with hypoxia; J96.22 - Acute and chronic respiratory failure with hypercapnia (2) Acute exacerbation of chronic obstructive pulmonary disease: Status: Acute Category: Medical Code(s): J44.1 - Chronic obstructive pulmonary disease with (acute) exacerbation (3) Smoking greater than 30 pack years: Status: Chronic Category: Social Hx Code(s): F17.210 - Nicotine dependence, cigarettes, uncomplicated (4) Hypertension: Status: Chronic Category: Medical Code(s): I10 - Essential (primary) hypertension (5) Asthmatic bronchitis: Status: Acute Category: Medical Code(s): J45.909 - Unspecified asthma, uncomplicated (6) Hyperglycemia: Status: Acute Category: Medical Code(s): R73.9 - Hyperglycemia, unspecified (7) Type 2 diabetes mellitus: Status: Acute Category: Medical Code(s): E11.9 - Type 2 diabetes mellitus without complications Plan Will discharge to home. Nasal O2 at 4 liters. Duonebs. Prednisone. STOP SMOKING. Metformin 500mg daily.
[2024-12-25 08:57] LABS: ABG HCO3 30.7 mmhg (22.0-26.0); ABG PCO2 48.9 mmhg (35.0-45.0); ABG PH 7.42 mmol/L (7.35-7.45); ABG PO2 67.3 mmhg (80-100); ABG TCO2 32.2 mmhg (23-27)
[2024-12-25 08:59] LABS: Source Right Radial
[2024-12-25] MEDS: NICOTINE 21MG/24HR PATCH 21 MG TD (09:45)
[2024-12-25] MEDS: IRBESARTAN 150MG TAB 150 MG PO (09:45)
[2024-12-25] MEDS: AMLODIPINE 10MG TABLET 10 MG PO (09:45)
--- NOTE | 2024-12-25 13:47 | PC.NURSE ---
RA SAT 70% AT REST
[2024-12-25] MEDS: METFORMIN 500MG TABLET 500 MG PO (14:30)
--- NOTE | 2024-12-26 10:56 | SW/DCPLANNER ---
Addendum entered by Lulu Hodgson 12/27/24 11:46: Patient has scheduled pulmanology appointment. Patient was able to get new medications, patient is aware of up coming appointments. No needs or concerns at this time. Original Note: Spoke with patient, patient had no questions or concerns,
--- NOTE | 2024-12-27 08:38 | EXP.DC.SUM ---
General Admission date:: 12/19/24 Discharge date: 12/25/24 HPI HPI HPI: Ms. Aguilar is a 58-year-old female with a history of COPD, hypertension, hyperlipidemia, hypothyroidism, Cleveland's palsy, and tobacco use disorder who presented to [facility] emergency room after experiencing shortness of breath today. She states she has not felt well for the last 2 days with chilling. She has not experienced any excessive coughing and no chest pain. She generally just did not feel well and thus presentation to the ER. In the emergency room she received 125 mg IV of Solu-Medrol, neb treatment, and 1 dose of Zithromax. Blood pressure was elevated upon arrival and is gradually decreased since admission. O2 sats remained in the 90s on oxygen at 2 L/min. White blood cell count was normal at 9000. BNP was slightly elevated at 262. Lactate was normal troponin I was normal. Chest x-ray revealed hyperexpanded lung peguero consistent with COPD. O2 sats did improve but she was then admitted for ongoing assessment and treatment. Hospital Course Hospital Course Hospital Course: She presented to the ER for feeling poorly overall for a couple of days. She was admitted to the hospital on 2L nasal cannula and was doing well receiving nebulizer treatments. She had a small setback as her CO2 alpa to 70 and had trouble breathing. She was placed on the BIPAP for a bit. At this time she was taken for a CTA of the chest to rule out PE which was negative. She was able to come down to 4L nasal cannula which she was discharged home with. She ended up with a bump in her WBCs and was started on antibiotics. She was also given some IV lasix as well. She was started on Metformin 500mg as we have now diagnosed her with type 2 diabetes while here. her A1c was 6.7% We discussed she is to STOP smoking and to continue her nebulizers at home. She is being discharged on 4L nasal cannula. She is to watch her diet and stop sugar intake. She is to follow-up with Dr. Almendarez on 12/30/2024 and medications as per medication reconciliation sheet. Exam Data for Last 24 hours Vital signs and Labs for Last 24 Hours: Temp Pulse Resp BP Pulse Ox O2 Del Method O2 Flow Rate 97.5 F L 89 16 148/74 H 93 L Nasal Cannula 4 12/25/24 12:00 07/20/25 12:00 12/25/24 12:00 12/25/24 12:00 12/25/24 12:00 12/25/24 13:00 12/25/24 13:00 FiO2 35 12/21/24 19:03 I & O for Last 24 hours: Intake & Output 12/24/24 12/25/24 12/26/24 12/27/24 11:59 11:59 11:59 11:59 Intake Total 1000 / 1000 1060 / 1060 240 / 240 Output Total 150 / 150 0 / 0 Balance 850 / 850 1060 / 1060 240 / 240 Weight 225 lb 12.8 oz 225 lb Narrative: Head: Present normocephalic Neck: Present normal inspection Respiratory: Present decreased breath sounds; Absent respiratory distress Cardiac: Present Reg Rate and Rhythm GI: Present soft; Absent distention or tenderness Rectal (female): Present deferred (female): Present deferred Extremities: Absent edema Skin: Present intact Neuro: Present alert and oriented x 3 Results Data Completed and Pending Completed studies during hospitalization [Text1]: 12/22/24 CTA Chest: FINDINGS: Pulmonary vessels enhance in normal fashion without evidence of embolism. Thoracic aorta shows no dissection or aneurysm. There are coarse lower lobe linear densities, greater on the right than on the left, new from the prior exam. Suspect that this represents mild pneumonia and associated atelectasis. There is no significant pleural effusion. There is no significant pericardial effusion. No mediastinal or hilar adenopathy is present. A small hiatal hernia is present. IMPRESSION: 1. No evidence of pulmonary embolism 2. Coarse lower lobe linear densities, slightly greater on the right than on the left, suspect mild pneumonia and atelectasis. 12/23/24 Echo Bubble study: Conclusion Hyperdynamic LV systolic function (LVEF 70%). Intracavitary gradient is present. No evidence of LVOT obstruction. No significant valvular stenosis or regurgitation. There is no Doppler evidence of interatrial shunt. Agitated saline administration demonstrates no evidence of interatrial shunt. In the setting of increased LV wall thickness, intracavitary gradient, and hyperdynamic LV systolic function, further evaluation with outpatient cardiac MRI (HCM protocol) is suggested. DS: Diagnosis Discharge Diagnosis (1) Acute on chronic respiratory failure with hypoxia and hypercapnia: Status: Acute Code(s): J96.21 - Acute and chronic respiratory failure with hypoxia; J96.22 - Acute and chronic respiratory failure with hypercapnia (2) Acute exacerbation of chronic obstructive pulmonary disease: Status: Acute Code(s): J44.1 - Chronic obstructive pulmonary disease with (acute) exacerbation (3) Smoking greater than 30 pack years: Status: Chronic Code(s): F17.210 - Nicotine dependence, cigarettes, uncomplicated (4) Hypertension: Status: Chronic Code(s): I10 - Essential (primary) hypertension (5) Asthmatic bronchitis: Status: Acute Code(s): J45.909 - Unspecified asthma, uncomplicated (6) Hyperglycemia: Status: Acute Code(s): R73.9 - Hyperglycemia, unspecified (7) Type 2 diabetes mellitus: Status: Acute Code(s): E11.9 - Type 2 diabetes mellitus without complications Meds Home Medications and Allergies Home Medications ?Medication ?Instructions ?Recorded ?Confirmed ?Type amlodipine 10 mg tablet 10 mg PO DAILY 03/28/24 12/19/24 History atorvastatin 40 mg tablet 40 mg PO HS 03/28/24 12/19/24 History irbesartan 150 mg tablet 150 mg PO DAILY 03/28/24 12/19/24 History benzonatate 100 mg capsule 100 mg PO TIDP PRN cough 12/20/24 12/20/24 History fluticasone 250 mcg-salmeterol 50 1 inh inhalation BID 12/20/24 12/20/24 History mcg/dose blistr powdr for inhalation (Wixela Inhub) levothyroxine 125 mcg tablet 125 mcg PO DAILY 12/20/24 12/20/24 History ipratropium 0.5 mg-albuterol 3 mg 3 ml inhalation QID #180 mL 12/27/24 Rx (2.5 mg base)/3 mL nebulization soln levofloxacin 750 mg tablet 750 mg PO DAILY #5 tabs 12/27/24 Rx metformin 500 mg tablet 500 mg PO DAILY #30 tabs 12/27/24 Rx prednisone 20 mg tablet 20 mg PO DAILY #30 tabs 12/27/24 Rx New Prescriptions to Start Prescriptions: ipratropium-albuterol Jennifer Almendarez levofloxacin Jennifer Almendarez metformin Jennifer Almendarez prednisone Jennifer Almendarez Allergies Allergy/AdvReac Type Severity Reaction Status Date / Time Penicillins Allergy Other Verified 10/28/24 11:23 Discharge Plan Disposition Patient Disposition: Home, Self-Care Condition: Good Discharge Order Discharge Orders: Discharge Order (Routine); Ordered 12/25/24 Ordered By: Jennifer Almendarez Follow up Plan Follow up with: Jennifer Almendarez MD [Primary Care Provider, Medical] - 12/30/24 Referral Note: please call for appointment Prescriptions/Medication Reconciliation: New levofloxacin 750 mg tablet 750 mg PO DAILY Qty: 5 0RF prednisone 20 mg tablet 20 mg PO DAILY Qty: 30 0RF ipratropium-albuterol 0.5 mg-3 mg(2.5 mg base)/3 mL solution for nebulization 3 ml inhalation QID Qty: 180 4RF metformin 500 mg tablet 500 mg PO DAILY Qty: 30 0RF Continued atorvastatin 40 mg tablet 40 mg PO HS Patient Comments: TAKE 1 TABLET BY MOUTH EVERY NIGHT AT BEDTIME 30 amlodipine 10 mg tablet 10 mg PO DAILY Patient Comments: TAKE 1 TABLET BY MOUTH EVERY DAY irbesartan 150 mg tablet 150 mg PO DAILY Patient Comments: TAKE ONE TABLET BY MOUTH EVERY DAY fluticasone propion-salmeterol [Wixela Inhub] 250-50 mcg/dose blister with device 1 inh INHALATION BID Patient Comments: INHALE 1 PUFF INTO THE LUNGS TWICE A DAY FOR 30 DAYS levothyroxine 125 mcg tablet 125 mcg PO DAILY Patient Comments: TAKE 1 TABLET BY MOUTH EVERY DAY IN THE MORNING ON EMPTY STOMACH benzonatate 100 mg capsule 100 mg PO TIDP PRN (Reason: cough) Problem Reconciliation Problems Reviewed?: Yes Patient Discharge Instructions ACTIVITY: Limited activity DIET: diabetic diet Patient Instructions: DI for Respiratory Failure, Stop Light Pneumonia, Stop Light COPD Print Language: Bel[place]ian Providers Primary Care Provider: Jennifer Almendarez Admit Provider: Jennifer Almendarez Attending Provider: Jennifer Almendarez
--- NOTE | 2024-12-28 15:31 | EXP.DC.SUM ---
General Admission date:: 12/19/24 Discharge date: 12/25/24 HPI HPI HPI: Ms. Joiner is a 58-year-old female with a history of COPD, hypertension, hyperlipidemia, hypothyroidism, Cleveland's palsy, and tobacco use disorder who presented to [facility] emergency room after experiencing shortness of breath today. She states she has not felt well for the last 2 days with chilling. She has not experienced any excessive coughing and no chest pain. She generally just did not feel well and thus presentation to the ER. In the emergency room she received 125 mg IV of Solu-Medrol, neb treatment, and 1 dose of Zithromax. Blood pressure was elevated upon arrival and is gradually decreased since admission. O2 sats remained in the 90s on oxygen at 2 L/min. White blood cell count was normal at 9000. BNP was slightly elevated at 262. Lactate was normal troponin I was normal. Chest x-ray revealed hyperexpanded lung peguero consistent with COPD. O2 sats did improve but she was then admitted for ongoing assessment and treatment. Hospital Course Hospital Course Hospital Course: The patient was continued on neb treatments 4 times a day and she was started on Zithromax. A nicotine patch was added for smoking cessation. During the evening of 12/21/2024, her oxygen sats were dropping low into the 60's. A ventimask was applied with improved saturations, but the nurse found her to be confused. An ABG was obtained and her PCO2 was 70.8. BiPAP was ordered and pulmonology was consulted. She was able to be weaned back to nasal oxygen. She continued to remain short of air. She was seen in consultation by pulmonology who wanted her to have DuoNebs every 4 hours along with Pulmicort every 12 hours. Her antibiotics were changed from Zithromax to Levaquin and she was continued on steroids. She had some issues with constipation and Colace was added. She was switched to oral steroids but was unable to be weaned off of the oxygen. She continued to remain short of breath therefore she was given a dose of IV Lasix on 12/23/2024 and an echocardiogram was ordered. She was started on Xopenex and ipratropium every 4 hours along with Pulmicort every 12 hours. She continued to require 4 L of nasal oxygen. She wanted to be discharged home and home oxygen had been arranged. She was educated on smoking cessation. She also had newly diagnosed type 2 diabetes with an A1c of 6.7. She was discharged home on nasal oxygen at 4 L, DuoNebs, prednisone, and metformin 500 mg daily. She will follow-up with Dr. Almendarez and pulmonology. Of note, her echo showed the following: Hyperdynamic LV systolic function (LVEF 70%). Intracavitary gradient is present. No evidence of LVOT obstruction. No significant valvular stenosis or regurgitation. There is no Doppler evidence of interatrial shunt. Agitated saline administration demonstrates no evidence of interatrial shunt. Exam Data for Last 24 hours Vital signs and Labs for Last 24 Hours: Temp Pulse Resp BP Pulse Ox O2 Del Method O2 Flow Rate 97.5 F L 89 16 148/74 H 93 L Nasal Cannula 4 12/25/24 12:00 12/25/24 12:00 12/25/24 12:00 12/25/24 12:00 12/25/24 12:00 12/25/24 13:00 12/25/24 13:00 FiO2 35 12/21/24 19:03 I & O for Last 24 hours: Intake & Output 12/26/24 12/27/24 12/28/24 12/29/24 11:59 11:59 11:59 11:59 Intake Total 240 / 240 Balance 240 / 240 Narrative: Constitutional Constitutional: no acute distress and cooperative Comments: Sitting up on the stretcher and appears comfortable. *Routine HEENT Exam Head: Present normocephalic and atraumatic Eye: Present PERRL; Absent conjunctival icterus, scleral injection or conjunctivae pink ENT: Present mucous membranes moist and oropharynx clear *Routine Neck Exam Neck: Present supple; Absent carotid bruit, lymphadenopathy or thyromegaly *Routine Respiratory Exam Respiratory: Present CTA bilaterally (Anteriorly and posteriorly); Absent wheezes *Routine Cardiovascular Exam Cardiovascular: Present RRR *Routine Abdominal Exam Abdominal: Present soft and normoactive bowel sounds; Absent tenderness, distended or guarding *Routine Rectal Exam Rectal:: deferred *Routine Genitalia Exam Genitalia:: deferred *Routine Extremities Exam Extremities: Absent edema or calf tenderness *Routine Neurological Exam Neurological: Present alert and oriented X3 DS: Diagnosis Discharge Diagnosis (1) Acute on chronic respiratory failure with hypoxia and hypercapnia: Status: Acute Code(s): J96.21 - Acute and chronic respiratory failure with hypoxia; J96.22 - Acute and chronic respiratory failure with hypercapnia (2) Acute exacerbation of chronic obstructive pulmonary disease: Status: Acute Code(s): J44.1 - Chronic obstructive pulmonary disease with (acute) exacerbation (3) Smoking greater than 30 pack years: Status: Chronic Code(s): F17.210 - Nicotine dependence, cigarettes, uncomplicated (4) Hypertension: Status: Chronic Code(s): I10 - Essential (primary) hypertension (5) Asthmatic bronchitis: Status: Acute Code(s): J45.909 - Unspecified asthma, uncomplicated (6) Hyperglycemia: Status: Acute Code(s): R73.9 - Hyperglycemia, unspecified (7) Type 2 diabetes mellitus: Status: Acute Code(s): E11.9 - Type 2 diabetes mellitus without complications Meds Home Medications and Allergies Home Medications ?Medication ?Instructions ?Recorded ?Confirmed ?Type amlodipine 10 mg tablet 10 mg PO DAILY 03/28/24 12/19/24 History atorvastatin 40 mg tablet 40 mg PO HS 03/28/24 12/19/24 History irbesartan 150 mg tablet 150 mg PO DAILY 03/28/24 12/19/24 History benzonatate 100 mg capsule 100 mg PO TIDP PRN cough 12/20/24 12/20/24 History fluticasone 250 mcg-salmeterol 50 1 inh inhalation BID 12/20/24 12/20/24 History mcg/dose blistr powdr for inhalation (Wixela Inhub) levothyroxine 125 mcg tablet 125 mcg PO DAILY 12/20/24 12/20/24 History ipratropium 0.5 mg-albuterol 3 mg 3 ml inhalation QID #180 mL 12/27/24 Rx (2.5 mg base)/3 mL nebulization soln levofloxacin 750 mg tablet 750 mg PO DAILY #5 tabs 12/27/24 Rx metformin 500 mg tablet 500 mg PO DAILY #30 tabs 12/27/24 Rx prednisone 20 mg tablet 20 mg PO DAILY #30 tabs 12/27/24 Rx New Prescriptions to Start Prescriptions: ipratropium-albuterol Jennifer Almendarez levofloxacin Jennifer Almendarez metformin Jennifer Almendarez prednisone Jennifer Almendarez Allergies Allergy/AdvReac Type Severity Reaction Status Date / Time Penicillins Allergy Other Verified 10/28/24 11:23 Discharge Plan Disposition Patient Disposition: Home, Self-Care Condition: Good Discharge Order Discharge Orders: Discharge Order (Routine); Ordered 12/25/24 Ordered By: Jennifer Almendarez Follow up Plan Follow up with: Jennifer Almendarez MD [Primary Care Provider, Medical] - 12/30/24 Referral Note: please call for appointment Prescriptions/Medication Reconciliation: New levofloxacin 750 mg tablet 750 mg PO DAILY Qty: 5 0RF prednisone 20 mg tablet 20 mg PO DAILY Qty: 30 0RF ipratropium-albuterol 0.5 mg-3 mg(2.5 mg base)/3 mL solution for nebulization 3 ml inhalation QID Qty: 180 4RF metformin 500 mg tablet 500 mg PO DAILY Qty: 30 0RF Continued atorvastatin 40 mg tablet 40 mg PO HS Patient Comments: TAKE 1 TABLET BY MOUTH EVERY NIGHT AT BEDTIME 30 amlodipine 10 mg tablet 10 mg PO DAILY Patient Comments: TAKE 1 TABLET BY MOUTH EVERY DAY irbesartan 150 mg tablet 150 mg PO DAILY Patient Comments: TAKE ONE TABLET BY MOUTH EVERY DAY fluticasone propion-salmeterol [Wixela Inhub] 250-50 mcg/dose blister with device 1 inh INHALATION BID Patient Comments: INHALE 1 PUFF INTO THE LUNGS TWICE A DAY FOR 30 DAYS levothyroxine 125 mcg tablet 125 mcg PO DAILY Patient Comments: TAKE 1 TABLET BY MOUTH EVERY DAY IN THE MORNING ON EMPTY STOMACH benzonatate 100 mg capsule 100 mg PO TIDP PRN (Reason: cough) Problem Reconciliation Problems Reviewed?: Yes Patient Discharge Instructions ACTIVITY: Limited activity DIET: diabetic diet Patient Instructions: DI for Respiratory Failure, Stop Light Pneumonia, Stop Light COPD Print Language: [place]ian Providers Primary Care Provider: Jennifer Almendarez Admit Provider: Jennifer Almendarez Attending Provider: Jennifer Almendarez
== END 2024-12-25 15:53 | disposition home or self-care (01) | DRG 190 ==
LOC: ER 16:21 → 2ND 16:59
PROVIDERS: Internal Medicine Pulmonary Disease; Physician Assistant; Admitting Provider Family Medicine; Emergency Provider Emergency Medicine; PCP Family Medicine; Visit Provider Family Medicine
DX: J44.1 Chronic obstructive pulmonary disease with (acute) exacerbation (principal); J96.21 Acute and chronic respiratory failure with hypoxia; J96.22 Acute and chronic respiratory failure with hypercapnia; I10 Essential (primary) hypertension; E03.9 Hypothyroidism, unspecified; E78.5 Hyperlipidemia, unspecified; E11.65 Type 2 diabetes mellitus with hyperglycemia; J43.9 Emphysema, unspecified; F17.210 Nicotine dependence, cigarettes, uncomplicated; Z20.822 Contact with and (suspected) exposure to COVID-19; Z79.899 Other long term (current) drug therapy; Z79.890 Hormone replacement therapy; Z88.0 Allergy status to penicillin
CPT/HCPCS: 36415; 71045; 71275; 80053; 80074; 82803; 83036; 83605; 83735; 83880; 84145; 84484; 85007; 85025; 85378; 87389; 87636; 93005; 93306; 94640; 94660; 94761; J0456; J1650; J1938; J1956; J2919; J3475; J7050; J7614; Q9967

== ENCOUNTER 2025-05-03 07:48 | Outpatient (CLI) | payer OTHER, SELFPAY ==
--- OUTSIDE RECORDS SUMMARY | 2024-04-06 10:45 | XMS_ITS ---
Author Organization [facility] Address [address] [place] [phone] Care Team Providers Care Pressing Machine Operator Name Role Phone Consuelo Rickian Primary Care Provider Swati Willingham Unavailable [phone] Allergies Allergen (clinical drug ingredient) Drug/Non Drug Allergy documented on EMR Reaction Allergy Type Onset Date Status Penicillin Unknown Drug Allergy Active Results Component Value Reference Range Notes CBC Venipuncture (in house) Reviewed date:04/06/2024 05:03:23 PM Interpretation: Performing Lab: Notes/Report: wbc 10.1 3.5 - 10 lymph 12.1% 15 - 50 mid 14.1% 2 - 15 gran 73.8% 35 - 80 rbc 4.97 3.5 - 5.5 hgb 16.0 11.5 - 16.5 hct 49.0 35 - 55 mcv 98.7 75 - 100 mch 32.3 25 - 35 mchc 32.7 31 - 38 platlet 262 100 - 400 P-Comprehensive Metabolic Pa claudia (CMP) Reviewed date:04/11/2024 10:07:55 AM Interpretation: Performing Lab: Notes/Report: Test performed by [facility] [address] [place] [address] , [address], [place] [address] Olvin Leos MD, General Farm Manager CLIA: [id number] Sodium 139 135-145 mmol/L Potassium 6.4 3.5-5.3 mmol/L ALERT VALUE Results were repeated and confirmed. No visual hemolysis present. Chloride 99 97-108 mmol/L CO2 27 22-32 mmol/L Glucose 100 65-99 mg/dL BUN 21 8-23 mg/dL Creatinine 1.11 0.50-1.00 mg/dL Calcium 8.7 8.6-10.4 mg/dL eGFR by Creatinine 57 >59 mL/min/1.73m2 Protein 6.1 6.0-8.3 g/dL Albumin 4.2 3.5-5.3 g/dL Alkaline Phosphatase 115 35-121 IU/L ALT (SGPT) 11 <5-47 IU/L AST (SGOT) 15 <5-40 IU/L Bilirubin, Total 0.2 <0.2-1.2 mg/dL A/G Ratio 2.2 1.1-2.5 P-T4 Free (thyroxine) Reviewed date:04/11/2024 10:07:55 AM Interpretation: Performing Lab: Notes/Report: Test performed by [facility] [address] [place] [address] , [place] [address] Olvin Leos MD, General Farm Manager CLIA: [id number] Thyroxine Free (free T4) 1.81 0.86-1.76 ng/dL P-Lipid Panel Reviewed date:04/11/2024 10:07:55 AM Interpretation: Performing Lab: Notes/Report: Test performed by [facility] [address] [place] [address] [address], [place] [address] Olvin Leos MD, General Farm Manager CLIA: [id number] Cholesterol 230 <200 mg/dL Triglycerides 225 <150 mg/dL HDL Cholesterol 53 >39 mg/dL Cholesterol / HDL Ratio 4.34 0.00-4.44 Ratio Non-HDL Cholesterol 177 <130 mg/dL LDL Cholesterol (Calculation) 132 <130 mg/dL LDL Cholesterol Levels* Less than 100 mg/dL Optimal 100 to 129 mg/dL Near Optimal/ Above Optimal 130 to 159 mg/dL Borderline High 160 to 189 mg/dL High 190 mg/dL and above Very High * Categories as recommended by the 2004 ATPIII guidelines LDL/HDL Ratio 2.5 <3.3 Ratio LDL Cholesterol Patient History Test Date: 04/06/2024 LDL Results: 132 Units: mg/dL % Change: - P-TSH Reviewed date:04/11/2024 10:07:55 AM Interpretation: Performing Lab: Notes/Report: Test performed by [facility] [address] , [address], [place] [address] Olvin Leos MD, General Farm Manager CLIA: [id number] TSH 3.97 0.43-5.25 mU/L DEXA Hip and Spine Reviewed date:05/20/2024 09:00:04 AM Interpretation:osteopenia bilateral hips, new diagnosis Performing Lab: Notes/Report: osteopenia bilateral hips, new diagnosis Dexa results osteopenia bilateral hips Mammogram Reviewed date:05/16/2024 04:53:14 PM Interpretation:Negative, annual f/u Performing Lab: Notes/Report: Negative, annual f/u result Negative, annual f/u REASON FOR VISIT Checkup, Needs labs, mammogram, bone density screening, colon cancer screening, low dose chest CT, & flu vaccine Medications Medication SIG (Take, Route, Frequency, Duration) Notes Start Date End Date Status Albuterol Sulfate (2.5 MG/3ML) 0.083% 1 vial Inhalation every 6 hrs Active Advair Diskus 250-50 MCG/ACT 1 puff Inha lation Twice a day; Duration: 30 days Active Levothyroxine Sodium 137 MCG 1 tab(s) or ally once a day; Duration: 30 days Active Albuterol Sulfate HFA 108 (90 Base) MCG/ACT INHALE 2 PUFFS BY MOUTH EVERY 6 HOURS NEEDED FOR SHORTNESS OF BREATH OR WHEEZING; Duration: 20 Active Flonase Allergy Relief 50 MCG/ACT 1 spray(s) in each nostril once a day; Duration: 90 day(s) Active Atorvastatin Calcium 40 MG 1 tablet Oral ly once daily; Duration: 30 days Active amLODIPine Besylate 10 MG 1 tab(s) orall y once a day; Duration: 30 days Active Maxzide-25 37.5-25 MG 1 tab(s) orally on ce a day; Duration: 30 day(s) Active Irbesartan 150 MG 1 tablet Orally Once a day; Duration: 30 day(s) Active Problems Problem Type SNOMED Code ICD Code Onset Dates Problem Status W/U Status Risk Notes Problem Tobacco use (120292532) Tobacco use disorder (F17.200) Active confirmed Vital Signs Blood pressure systolic 152 mm Hg 04/06/20 24 Blood pressure diastolic 90 mm Hg 024 Heart Rate 87 /min 04/06/2024 Height 65 in 04/06/2024 Weight 213.0 lbs 04/06/2024 BMI 35.44 kg/m2 04/06/2024 Encounters Encounter Location Date Provider Diagnosis [facility] [address] [facility] [address] [place] [address], [place] [id number] 04/06/2024 Swati Willingham Acquired hypothyroid ism E03.9 ; HTN (hypertension) I10 ; Hyperlipidemia E78.5 ; GERD without esophagitis K21.9 ; Chronic obstructive pulmonary disease, unspecified COPD type J44.9 ; Tobacco use disorder F17.200 ; Screen for colon cancer Z12.11 ; Screening for lung cancer Z12.2 ; Osteoporosis screening Z13.820 and Screening mammogram, encounter for Z12.31 Assessments Encounter Date Diagnosis (ICD Code) Assessment Notes Treatment Notes Treatment Clinical Notes Section Notes 04/06/2024 Acquired hypothyroidism (ICD-10 - E03.9) 04/06/2024 HTN (hypertension) (ICD-10 - I10) 04/06/2024 Hyperlipidemia (ICD-10 - E78.5) 04/06/2024 GERD without esophagitis (ICD-10 - K21.9) 04/06/2024 Chronic obstructive pulmonary disease, unspecified COPD type (ICD-10 - J44.9) 04/06/2024 Tobacco use disorder (ICD-10 - F17.200) 04/06/2024 Screen for colon cancer (ICD-10 - Z12.11) 04/06/2024 Screening for lung cancer (ICD-10 - Z12.2) 04/06/2024 Osteoporosis screening (ICD-10 - Z13.820) 04/06/2024 Screening mammogram, encounter for (ICD-10 - Z12.31) Plan Of Treatment Medication Medication Name Sig Start Date Stop Date Notes Advair Diskus 250-50 MCG/ACT 1 puff Inha lation Twice a day; Duration: 30 days Atorvastatin Calcium 40 MG 1 tablet Oral ly once daily; Duration: 30 days amLODIPine Besylate 10 MG 1 tab(s) orall y once a day; Duration: 30 days Maxzide-25 37.5-25 MG 1 tab(s) orally on ce a day; Duration: 30 day(s) Irbesartan 150 MG 1 tablet Orally Once a day; Duration: 30 day(s) Pending Test Test Name Order Date Cologuard 04/06/2024 CT SCAN : CHEST, LUNG CANCER SCREENING L OW DOSE 04/06/2024 Next Appt Details Follow Up: via phone to repo rt test results, Reason: Progress Notes * PRIETO CHOWOB:1965 (59 yo F)Acc No.[id number]:04/06/2024 Progress Notes Patient: TASHIA LEE Provider: AV Bustamante :1965 A ge:58 Y S ex:Female Date:04/06/2024 Address:[address] [place], [place] [address], [id number] Pcp:Ranjit Rick Subjective: * Chief Complaints: * 1 . Checkup. 2. Needs labs, mammogram, bone density screening, colon cancer screening, low dose chest CT, & flu vaccine. * HPI: C ardiology: The patient is here for a check up. Pt states she doing good and denies any new concerns. Pt states she is needing refills sent to [facility] in [facility]. Pt states she has been out of meds for about 3 days. Denies : Chest Pain. D enies : Short of Breath. D enies : Dizziness. D enies : Palpitations. * ROS: D ERMATOLOGY: no R eitan. n o H bev. G ASTROENTEROLOGY: no N ausea. n o V omiting. n o D iarrhea.? U ROLOGY: no D ifficulty urinating. n o B lood in urine. * Medical History: H ypertension, Hyperlipidemia, Hypothyroidism, [place] Palsy, Cologuard - 2018, Covid Vaccine J&J - 08/25/20, 40 pack year smoking history as of 2021. * Surgical History: C -section 1991, R foot bone spur 1996. * Hospitalization/Major Diagno stic Procedure: H ER-[place] Palsy 12/18/18. * Family History: F ather: unknown. M other: alive, HTN, Bypass surgery 2003. M aternal aunt: ovarian/uterine CA. 1 son(s) , 1 daughter(s) - healthy. . whole family has heart disease. Aunt's uncles with thyroid problems. * Social History: C URRENT TOBACCO USE S moking Status: Patient does smoke, packs per day: 1. C affeine: yes, frequency:large amounts daily. Exercise: yes. Home smoke detector use: yes. Marital Status: . New since last visit: none. Occupation: housekeeping H. Past smoking status: yes, PPD:1-1.5 , years: 20 ,determination:. Occup. exposure: none. Recreational drug use: no. Alcohol: no. Sexually active: yes. Travel ouside [place]: no. * Medications: T aking Irbesartan 150 MG Tablet 1 tablet Orally Once a day , Taking Albuterol Sulfate HFA 108 (90 Base) MCG/ACT Aerosol Solution INHALE 2 PUFFS BY MOUTH EVERY 6 HOURS NEEDED FOR SHORTNESS OF BREATH OR WHEEZING , Taking Flonase Allergy Relief 50 MCG/ACT Suspension 1 spray(s) in each nostril once a day , Taking Atorvastatin Calcium 40 MG Tablet TAKE 1 TABLET BY MOUTH EVERY NIGHT AT BEDTIME , Taking Albuterol Sulfate (2.5 MG/3ML) 0.083% Nebulization Solution 1 vial Inhalation every 6 hrs , Taking Levothyroxine Sodium 137 MCG Tablet 1 tab(s) orally once a day , Taking amLODIPine Besylate 10 MG Tablet 1 tab(s) orally once a day , Taking Advair Diskus 250-50 MCG/ACT Aerosol Powder Breath Activated INHALE 1 PUFF BY MOUTH TWICE A DAY , Taking Maxzide-25 37.5-25 MG Tablet 1 tab(s) orally once a day , Medication List reviewed and reconciled with the patient * Allergies: P enicillin. Objective: * Vitals: W t:213.0, Temp:98.3, BP:152/90, HR:87, Nurse:YOSVANY, Ht: 65, BMI:35.44. * Examination: G eneral Examination: General Appearance: N AD. H EENT: u nremarkable.?Oral cavity: n o lesions, mucosa moist and WNL, no erythema. N lew: s upple, no lymphadenopathy. C hest: n ormal shape and expansion. H eart: R SR. L ungs: c lear to auscultation. A bdomen: bowel sounds present, soft and nontender. N eurologic Exam: I ntact, gait normal. S kin: n ormal, no rash. P eripheral pulses: n ormal (2+) bilaterally. E xtremities: n o leg edema. Assessment: * Assessment: 1. A cquired hypothyroidism - E03.9 (Primary) 2 . H TN (hypertension) - I10? 3. H yperlipidemia - E78.5 4 . G ERD without esophagitis - K21.9 5 . C hronic obstructive pulmonary disease, unspecified COPD type - J44.9 6. T obacco use disorder - F17.200 7 . S creen for colon cancer - Z12.11 8 . S creening for lung cancer - Z12.2 9 . O steoporosis screening - Z13.820 1 0. S creening mammogram, encounter for - Z12.31 Plan: * Treatment: Value Reference Range T hyroxine Free (free T4) 1.81 H 0.86-1.76 - ng/d L * Swati Willingham 04/11/2024 10 :07:38 AM > see TE ?LAB: P-TSH (Collection Date & Time - 04/06/2024 03:30 PM)* Value Reference Range T SH 3.97 0.43-5.25 - mU/L * Swati Willingham 04/11/2024 10 :07:38 AM > see TE 2.?HTN (hypertension)? Refill amLODIPine Besylate Tablet, 10 MG, 1 tab(s), orally, once a day, 30 days, 30 Tablet, Refills5;?Refill Maxzide-25 Tablet, 37.5-25 MG, 1 tab(s), orally, once a day, 30 day(s), 30 Tablet, Refills 5;?Refill Irbesartan Tablet, 150 MG, 1 tablet, Orally, Once a day, 30 day(s), 30, Refills 5.?LAB: P-Comprehensive Metabolic Panel (CMP) (Collection Date & Time - 04/06/2024 03:30 PM)* Value Reference Range A /G Ratio 2.2 1.1-2.5 - * A lbumin 4.2 3.5-5.3 - g/dL * A lkaline Phosphatase 115 35-121 - IU/L * A LT (SGPT) 11 <5-47 - IU/L * A ST (SGOT) 15 <5-40 - IU/L * B ilirubin, Total 0.2 <0.2-1.2 - mg/dL * B UN 21 8-23 - mg/dL * C alcium 8.7 8.6-10.4 - mg/dL * C hloride 99 97-108 - mmol/L * C O2 27 22-32 - mmol/L * C reatinine 1.11 H 0.50-1.00 - mg/dL * G lucose 100 H 65-99 - mg/dL * P otassium 6.4 HH 3.5-5.3 - mmol/L * S odium 139 135-145 - mmol/L * P rotein 6.1 6.0-8.3 - g/dL * e GFR by Creatinine 57 L >59 - mL/min/1.73m2 * Swati Willingham 04/11/2024 10 :07:38 AM > see TE ?LAB: CBC Venipuncture (in house) (Collection Date & Time - 04/06/2024)* Value Reference Range w bc 10.1 3.5 - 10 * l ymph 12.1% 15 - 50 * m id 14.1% 2 - 15 * g ran 73.8% 35 - 80 * r bc 4.97 3.5 - 5.5 * h gb 16.0 11.5 - 16.5 * h ct 49.0 35 - 55 * m cv 98.7 75 - 100 * m ch 32.3 25 - 35 * m chc 32.7 31 - 38 * p latlet 262 100 - 400 * Deann Newman 04/06/2024 4: 41:44 PM >Swati Willingham 04/06/2024 5:03:20 PM > 3.?Hyperlipidemia? Refill Atorvastatin Calcium Tablet, 40 MG, 1 tablet, Orally, once daily, 30 days, 30 Tablet, Refills 5.?LAB: P-Lipid Panel (Collection Date & Time - 04/06/2024 03:30 PM)* Value Reference Range C holesterol / HDL Ratio 4.34 0.00-4.44 - Ratio * C holesterol 230 H <200 - mg/dL * H DL Cholesterol 53 >39 - mg/dL * L DL Cholesterol (Calculation) 132 H <130 - mg/d L * L DL/HDL Ratio 2.5 <3.3 - Ratio * N on-HDL Cholesterol 177 H <130 - mg/dL * T riglycerides 225 H <150 - mg/dL * Swati Willingham 04/11/2024 10 :07:38 AM > see TE 4.?Chronic obstructive pulmonary disease, unspecified COPD type? Refill Advair Diskus Aerosol Powder Breath Activated, 250-50 MCG/ACT, 1 puff, Inhalation, Twice a day, 30 days, 1, Refills 5.??5.?Tobacco use disorder?Imaging: CT SCAN : CHEST, LUNG CANCER SCREENING LOW DOSE* Swati Willingham 04/06/2024 4 :47:19 PM >Vida Vega 04/07/2024 10:49:23 AM > patient has [facility] insurance 6.?Screen for colon cancer?LAB: Cologuard* Swati Willingham 04/06/2024 4 :47:06 PM >oSnia Mi 04/21/2024 12:07:23 PM > order faxed 7.?Screening for lung cancer?Imaging: CT SCAN : CHEST, LUNG CANCER SCREENING LOW DOSE* Swati Willingham Fran 04/06/2024 4 :47:19 PM >Vida Vega 04/07/2024 10:49:23 AM > patient has R [facility] insurance 8.?Osteoporosis screening?Imaging: DEXA Hip and Spine (Performed Date - 05/11/2024)?osteopenia bilateral hips, new diagnosis* Value Reference Range D exa results osteopenia bilateral hips * Swati Willingham Fran 04/06/2024 4 :47:45 PM >Vida Vega 04/07/2024 10:48:42 AM > has [facility] InsuranceCrSwati pace Fran 05/20/2024 8:59:58 AM > see TE 9.?Screening mammogram, encounter for?Imaging: Mammogram (Performed Date - 05/11/2024)?Negative, annual f/u* Value Reference Range r esult Negative, annual f/u * TarshaSwati Peters 04/06/2024 4 :47:56 PM > called no answer, number is Abeba Kelly 05/16/2024 4:52:52 PM > Pt informed * Procedure Codes: 8 5025 CBC WITH AUTO DIFF, 38909 VENIPUNCT, ROUTINE* * Follow Up: v ia phone to report test results * Images: Billing Information: * Visit Code: 98378 Office Visit, Est Pt., Level 4. * Procedure Codes: 66301 CBC WITH AUTO DIFF. 24080 VENIPUNCT, ROUTINE*. * Electronic signature of AV Lou on 05/03/2025 at 07:54 AM EST Sign off status: Pending * Provider: AV Bustamante Date: Generated for Sheridan marin/Elsy/Venecia on: 07/03/2024 07:54 AM EST History and Physical Notes * HPI (History of Present Illness) Category Sub-Category Detail Notes Category Not es Cardiology Short of Breath Chest Pain Palpitations Dizziness Examination Category Sub-Category Detail Notes Category Not es General Examination HEENT: unremarkable Heart: RSR Lungs: clear to auscultatio n Abdomen: bowel sounds present , soft and nontender Extremities: no leg edema General Appearance: NAD Skin: normal, no rash Neurologic Exam: Intact, gait normal Neck: supple, no lymphaden opathy Oral cavity: no lesions, mucosa m oist and WNL, no erythema Peripheral pulses: normal (2+) bilatera lly Chest: normal shape and exp ansion
--- OUTSIDE RECORDS SUMMARY | 2024-06-17 05:00 | XMS_ITS ---
[facility] Organization [facility] Address [address] [facility] [address] [place] [id number] Care Team Providers Care Helminthology Teacher Name Role Phone Consuelo Rickian Primary Care Provider Swati Willingham Unavailable [phone] Allergies Allergen (clinical drug ingredient) Drug/Non Drug Allergy documented on EMR Reaction Allergy Type Onset Date Status Penicillin Unknown Drug Allergy Active Results Component Value Reference Range Notes Influenza Screen (in house) Reviewed date:06/17/2024 10:53:20 AM Interpretation:neg Performing Lab: Notes/Report: neg results neg CBC Fingerstick (in house) Reviewed date:06/17/2024 10:53:11 AM Interpretation: Performing Lab: Notes/Report: wbc 5.8 3.5 - 10 lym 17.0 15 - 50 mid 5.1 2 - 15 gran 77.9 35 - 80 rbc 4.47 3.5 - 5.5 hgb 14.4 11.5 - 16.5 hct 44.2 35 - 55 mcv 99.0 75 - 100 mch 32.3 25 - 35 mchc 32.6 31 - 38 plat 201 100 - 400 Covid test (in house) Reviewed date:06/17/2024 10:54:11 AM Interpretation:neg Performing Lab: Notes/Report: neg Result: neg REASON FOR VISIT poss bronchitis Medications Medication SIG (Take, Route, Frequency, Duration) Notes Start Date End Date Status Levothyroxine Sodium 125 MCG 1 tablet in the morning on an empty stomach Orally Once a day; Duration: 90 days 04/11/2024 Active Maxzide-25 37.5-25 MG 1 tab(s) orally on ce a day; Duration: 30 day(s) Active Atorvastatin Calcium 40 MG 1 tablet Oral ly once daily; Duration: 30 days Active Irbesartan 150 MG 1 tablet Orally Once a day; Duration: 30 day(s) Active Advair Diskus 250-50 MCG/ACT 1 puff Inha lation Twice a day; Duration: 30 days Active Medrol 4 MG as directed orally daily; Duration: 6 days 06/17/2024 Active amLODIPine Besylate 10 MG 1 tab(s) orall y once a day; Duration: 30 days Active Albuterol Sulfate (2.5 MG/3ML) 0.083% 1 vial Inhalation every 6 hrs Active Flonase Allergy Relief 50 MCG/ACT 1 spray(s) in each nostril once a day; Duration: 90 day(s) Active Zithromax Z-Moe 250 MG 2 pills first day then one daily for 4 days orally as directed; Duration: 5 days 06/17/2024 Active Alendronate Sodium 35 MG 1 tablet 30 min utes before the first food, beverage or medicine of the day with plain water and remain upright for 30 minutes Orally once a week 05/20/2024 Active Albuterol Sulfate HFA 108 (90 Base) MCG/ACT inhale 2 puffs by mouth every 6 hours as needed for shortness of breath or wheezing Inhalation every 4 hrs, prn Active Promethazine-DM 6.25-15 MG/5ML 5 ml orally every 6 hours prn 06/17/2024 Active Vital Signs Blood pressure systolic 130 mm Hg 06/17/19 25 Blood pressure diastolic 76 mm Hg 025 Heart Rate 115 /min 06/17/2024 Height 65 in 06/17/2024 Weight 220.6 lbs 06/17/2024 BMI 36.71 kg/m2 06/17/2024 Encounters Encounter Location Date Provider Diagnosis [facility] [address] [place], [place] [phone] 06/17/2024 Swati Willingham Acute URI J06.9 and Bronchitis J40 Assessments Encounter Date Diagnosis (ICD Code) Assessment Notes Treatment Notes Treatment Clinical Notes Section Notes 06/17/2024 Acute URI (ICD-10 - J06.9) 06/17/2024 Bronchitis (ICD-10 - J40) Has nebulizer and albuterol vials at home. Will start doing nebs 3-4 times a day. Plan Of Treatment Medication Medication Name Sig Start Date Stop Date Notes Medrol 4 MG as directed orally d aily; Duration: 6 days 06/17/2024 Zithromax Z-Moe 250 MG 2 pills first day then one daily for 4 days orally as directed; Duration: 5 days 06/17/2024 Albuterol Sulfate HFA 108 (9 0 Base) MCG/ACT inhale 2 puffs by mouth every 6 hours as needed for shortness of breath or wheezing Inhalation every 4 hrs, prn Promethazine-DM 6.25-15 MG/5ML 5 ml orally every 6 hours prn 06/17/2024 Treatment Notes Assessment Notes Bronchitis Has nebulizer and al buterol vials at home. Will start doing nebs 3-4 times a day. Next Appt Details Follow Up: prn, Reason: Progress Notes * PRIETO CHOWOB:1965 (59 yo F)Acc No.[id number]:06/17/2024 Progress Notes Patient: TASHIA LEE Provider: AV Bustamante :1965 A ge:58 Y S ex:Female Date:06/17/2024 Address:[address] [place] [address] [facility], [id number] Pcp:Ranjit Rick Subjective: * Chief Complaints: * 1 . Poss bronchitis. * HPI: E NT/respiratory: 58 year old female presents with c/o cough. c/o nasal congestion r unny nose, congestion . c/o ear pain. c/o Short of Breath. c/o headache. c/o body aches. Denies : sore throat. D enies : Fever. Pt sts her symptoms started on Thursday. * ROS: D ERMATOLOGY: no R eitan. n o H bev. G ASTROENTEROLOGY: no N ausea. n o V omiting. n o D iarrhea.? U ROLOGY: no D ifficulty urinating. n o B lood in urine. * Medical History: H ypertension, Hyperlipidemia, Hypothyroidism, [place] Palsy, Cologuard - 2018, Covid Vaccine J&J - 08/25/20, 40 pack year smoking history as of 2021. * Surgical History: C -section 1991, R foot bone spur 1996. * Hospitalization/Major Diagno stic Procedure: [facility]-[place] P[facility] 12/18/18. * Family History: F ather: [...] New since last visit: none. 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 Past smoking status: yes, PPD:1-1.5 , years: 20 ,determination:. Occup. exposure: none. Recreational drug use: no. Alcohol: no. Sexually active: yes. Travel ouside [place]: no. * Medications: T aking Albuterol Sulfate HFA 108 (90 Base) MCG/ACT Aerosol Solution INHALE 2 PUFFS BY MOUTH EVERY 6 HOURS NEEDED FOR SHORTNESS OF BREATH OR WHEEZING , Taking Flonase Allergy Relief 50 MCG/ACT Suspension 1 spray(s) in each nostril once a day , Taking Albuterol Sulfate (2.5 MG/3ML) 0.083% Nebulization Solution 1 vial Inhalation every 6 hrs , Taking amLODIPine Besylate 10 MG Tablet 1 tab(s) orally once a day , Taking Maxzide-25 37.5-25 MG Tablet 1 tab(s) orally once a day , Taking Irbesartan 150 MG Tablet 1 tablet Orally Once a day , Taking Atorvastatin Calcium 40 MG Tablet 1 tablet Orally once daily , Taking Advair Diskus 250-50 MCG/ACT Aerosol Powder Breath Activated 1 puff Inhalation Twice a day , Taking Levothyroxine Sodium 125 MCG Tablet 1 tablet in the morning on an empty stomach Orally Once a day , Taking Alendronate Sodium 35 MG Tablet 1 tablet 30 minutes before the first food, beverage or medicine of the day with plain water and remain upright for 30 minutes Orally once a week , Medication List reviewed and reconciled with the patient * Allergies: P enicillin. Objective: * Vitals: W t:220.6, Temp:98.2, BP:130/76, HR:115, Nurse:MMFrancisco, Ht: 65, BMI:36.71. * Examination: E NT/Respiratory: General Appearance: N AD. E ars: a uditory canals normal bilaterally, TM's WNL. N ose : turbinates red, congested. S inuses : tender maxillary sinuses bilaterally. O ral cavity : erythema without exudate on pharynx, PND present. N lew : n o cervical lymphadenopathy. H eart : R RR, normal S1 S2, no murmurs. L ungs: expiratory wheezes, no rales. Assessment: * Assessment: 1. A angel URI - J06.9 (Primary) 2 . B blayne - J40 Plan: * Treatment: Value Reference Range r esults neg * Abeba Lindo 06/17/2024 10:38 :45 AM > Provider reviewed results while patient in office.Swati Willingham 06/17/2024 10:53:17 AM > ?LAB: CBC Fingerstick (in house) (Collection Date & Time - 06/17/2024)* Value Reference Range w bc 5.8 3.5 - 10 * l ym 17.0 15 - 50 * m id 5.1 2 - 15 * g ran 77.9 35 - 80 * r bc 4.47 3.5 - 5.5 * h gb 14.4 11.5 - 16.5 * h ct 44.2 35 - 55 * m cv 99.0 75 - 100 * m ch 32.3 25 - 35 * m chc 32.6 31 - 38 * p lat 201 100 - 400 * Abeba Lindo 06/17/2024 10:50 :07 AM > Provider reviewed results while patient in office.Swati Willingham 06/17/2024 10:53:08 AM > ?LAB: Covid test (in house) (Collection Date & Time - 06/17/2024)?neg* Value Reference Range R esult: neg * Abeba Lindo 06/17/2024 10:38 :27 AM > Provider reviewed results while patient in office.Swati Willingham 06/17/2024 10:54:07 AM > 2.?Bronchitis? Refill Albuterol Sulfate HFA Aerosol Solution, 108 (90 Base) MCG/ACT, inhale 2 puffs by mouth every6 hours as needed for shortness of breath or wheezing, Inhalation, every 4 hrs, prn, 1, Refills 5; Start Zithromax Z-Moe Tablet, 250 MG, 2 pills first day then one daily for 4 days, orally, as directed, 5 days, 1, Refills 0;?Start Medrol Tablet Therapy Pack, 4 MG, as directed, orally, daily, 6 days, 1, Refills 0.?? Notes: Has nebulizer and albuterol vials at home. Will start doing nebs 3-4 times a day.?? * Procedure Codes: 8 7804 Flu Test- Nasal Swab, Modifiers: QW , 55190 COVID TEST IN HOUSE, Modifiers: QW , 16514 CAPILLARY BLOOD DRAW, 56678 CBC WITH AUTO DIFF * Follow Up: p rn * Images: Billing Information: * Visit Code: 46381 Office Visit, Est Pt., Level 3. * Procedure Codes: 73889 Flu Test- Nasal Swab. Modifiers: QW 39129 COVID TEST IN HOUSE. Modifiers: QW 71567 CAPILLARY BLOOD DRAW. 73672 CBC WITH AUTO DIFF. * Electronic signature of AV Lou on 05/03/2025 at 07:54 AM EST Sign off status: Pending * Provider: AV Bustamante Date: 0 06/17/2024 Generated for Sheridan marin/Elsy/eTransmitting on: 1 07/03/2024 07:54 AM EST History and Physical Notes * HPI (History of Present Illness) Category Sub-Category Detail Notes Category Not es ENT/respiratory sore throat Pt sts her s ymptoms started on Thursday ear pain Short of Breath cough Fever headache nasal congestion runny nose, congesti on body aches Examination Category Sub-Category Detail Notes Category Not es ENT/Respiratory Oral cavity : erythema without exudate on pharynx, PND present Sinuses : tender maxillary sin uses bilaterally Ears: auditory canals norm al bilaterally, TM's WNL Neck : no cervical lymphade nopathy Heart : RRR, normal S1 S2, n o murmurs Lungs: expiratory wheezes, no rales General Appearance: NAD Nose : turbinates red, gloria ested
--- OUTSIDE RECORDS SUMMARY | 2024-06-24 05:00 | XMS_ITS ---
[facility] Address [address] [facility] [address] [place] [id number] Care Team Providers Care Preschool Assistant Principal Name Role Phone Consuelo Rickian Primary Care Provider Swati Willingham Unavailable [phone] Allergies Allergen (clinical drug ingredient) Drug/Non Drug Allergy documented on EMR Reaction Allergy Type Onset Date Status Penicillin Unknown Drug Allergy Active Results Component Value Reference Range Notes EBV IgG and IgM (Panel/Evalu ator) Reviewed date:06/27/2024 12:37:35 PM Interpretation: Performing Lab: Notes/Report: CBC Fingerstick (in house) Reviewed date:06/24/2024 12:28:13 PM Interpretation: Performing Lab: Notes/Report: wbc 11.3 3.5 - 10 lym 10.3 15 - 50 mid 3.4 2 - 15 gran 86.3 35 - 80 rbc 4.50 3.5 - 5.5 hgb 14.9 11.5 - 16.5 hct 45.0 35 - 55 mcv 100.0 75 - 100 mch 33.1 25 - 35 mchc 33.1 31 - 38 plat 258 100 - 400 CXR Reviewed date:06/28/2024 02:34:24 PM Interpretation:nothing acute Performing Lab: Notes/Report: nothing acute REASON FOR VISIT poss. bronchitis Medications Medication SIG (Take, Route, Frequency, Duration) Notes Start Date End Date Status Alendronate Sodium 35 MG 1 tablet 30 min utes before the first food, beverage or medicine of the day with plain water and remain upright for 30 minutes Orally once a week 05/20/2024 Active Promethazine-DM 6.25-15 MG/5ML 5 ml orally every 6 hours prn 06/17/2024 Active Advair Diskus 250-50 MCG/ACT 1 puff Inha lation Twice a day; Duration: 30 days Active Levothyroxine Sodium 125 MCG 1 tablet in the morning on an empty stomach Orally Once a day; Duration: 90 days 04/11/2024 Active Albuterol Sulfate HFA 108 (90 Base) MCG/ACT inhale 2 puffs by mouth every 6 hours as needed for shortness of breath or wheezing Inhalation every 4 hrs, prn Active Atorvastatin Calcium 40 MG 1 tablet Oral ly once daily; Duration: 30 days Active Maxzide-25 37.5-25 MG 1 tab(s) orally on ce a day; Duration: 30 day(s) Active Irbesartan 150 MG 1 tablet Orally Once a day; Duration: 30 day(s) Active Albuterol Sulfate (2.5 MG/3ML) 0.083% 1 vial Inhalation every 6 hrs Active amLODIPine Besylate 10 MG 1 tab(s) orall y once a day; Duration: 30 days Active Doxycycline Monohydrate 100 MG 1 capsule Orally Twice a day; Duration: 10 day(s) 06/23/2024 Active Flonase Allergy Relief 50 MCG/ACT 1 spray(s) in each nostril once a day; Duration: 90 day(s) Active Vital Signs Blood pressure systolic 130 mm Hg 06/24/19 25 Blood pressure diastolic 70 mm Hg 025 Heart Rate 115 /min 06/24/2024 Height 65 in 06/24/2024 Weight 222.4 lbs 06/24/2024 BMI 37.01 kg/m2 06/24/2024 Encounters Encounter Location Date Provider Diagnosis [facility] [address] [facility] [address] [place], [place] [id number] 06/24/2024 Swati Tarsha Bronchitis J40 and Other fatigue R53.83 Assessments Encounter Date Diagnosis (ICD Code) Assessment Notes Treatment Notes Treatment Clinical Notes Section Notes 06/24/2024 Bronchitis (ICD-10 - J40) Will continue nebs and get a CXR. 06/24/2024 Other fatigue (ICD-10 - R53.83) Plan Of Treatment Medication Medication Name Sig Start Date Stop Date Notes Doxycycline Monohydrate 100 MG 1 capsule Orally Twice a day; Duration: 10 day(s) 06/23/2024 Treatment Notes Assessment Notes Bronchitis Will continue nebs a nd get a CXR. Next Appt Details Follow Up: via phone to repo rt test results, Reason: Progress Notes * PRIETO CHOWOB:1965 (59 yo F)Acc No.[id number]:06/24/2024 Progress Notes Patient: TASHIA LEE Provider: AV Bustamante :1965 A ge:58 Y S ex:Female Date:06/24/2024 Address:[facility] [place], [id number] Pcp:Ranjit Rick Subjective: * Chief Complaints: * 1 . Poss. bronchitis. * HPI: E NT/respiratory: 58 year old female presents with c/o cough. c/o nasal congestion P t sts she has the same symptoms as the last time she was here. Pt sts she has some congestion as well and that she is very tired. Pt sts the antibiotics did not help. Her son also has mono.. * ROS: D ERMATOLOGY: no R eitan. n o H bev. G ASTROENTEROLOGY: no N ausea. n o V omiting. n o D iarrhea.? U ROLOGY: no D ifficulty urinating. n o B lood in urine. * Medical History: H ypertension, Hyperlipidemia, Hypothyroidism, Zalma Palsy, Cologuard - 2018, Covid Vaccine J&J - 08/25/20, 40 pack year smoking history as of 2021. * Surgical History: C -section 1991, R foot bone spur 1996. * Hospitalization/Major Diagno stic Procedure: H ER-Zalma Palsy 12/18/18. * Family History: F ather: [...] New since last visit: none. 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 Past smoking status: yes, PPD:1-1.5 , years: 20 ,determination:. Occup. exposure: none. Recreational drug use: no. Alcohol: no. Sexually active: yes. Travel ouside [place]: no. * Medications: T aking Flonase Allergy Relief 50 MCG/ACT Suspension 1 [...] 30 minutes Orally once a week , Taking Promethazine-DM 6.25-15 MG/5ML Syrup 5 ml orally every 6 hours prn , Taking Albuterol Sulfate HFA 108 (90 Base) MCG/ACT Aerosol Solution inhale 2 puffs by mouth every 6 hours as needed for shortness of breath or wheezing Inhalation every 4 hrs, prn , Medication List reviewed and reconciled with the patient * Allergies: P enicillin. Objective: * Vitals: W t:222.4, Temp:98.4, BP:130/70, HR:115, Nurse:[facility], Ht: 65, BMI:37.01. * Examination: E NT/Respiratory: General Appearance: N [...] wheezes, no rales. Assessment: * Assessment: 1. B ronchitis - J40 (Primary) 2 . O ther fatigue - R53.83 Plan: * Treatment: Value Reference Range w bc 11.3 3.5 - 10 * l ym 10.3 15 - 50 * m id 3.4 2 - 15 * g ran 86.3 35 - 80 * r bc 4.50 3.5 - 5.5 * h gb 14.9 11.5 - 16.5 * h ct 45.0 35 - 55 * m cv 100.0 75 - 100 * m ch 33.1 25 - 35 * m chc 33.1 31 - 38 * p lat 258 100 - 400 * Abeba Lindo 06/24/2024 10:15 :05 AM > , Provider reviewed results while patient in office.Swati Willingham 06/24/2024 12:28:08 PM > ?Imaging: CXR (Performed Date - 06/24/2024)?nothing acute* Swati Willingham 06/28/2024 2: 34:15 PM > see TE Notes: Will continue nebs and get a CXR.??2.?Other fatigue?LAB: EBV IgG and IgM (Panel/Corporate Auditor) (Collection Date & Time - 06/27/2024)* see duplicate order * Procedure Codes: 3 6416 CAPILLARY BLOOD DRAW, 65092 CBC WITH AUTO DIFF * Follow Up: v ia phone to report test results * Images: Billing Information: * Visit Code: 84525 Office Visit, Est Pt., Level 3. * Procedure Codes: 81687 CAPILLARY BLOOD DRAW. 22105 CBC WITH AUTO DIFF. * Electronic signature of AV Lou on 05/03/2025 at 07:54 AM EST Sign off status: Pending * Provider: AV Bustamante Date: 0 06/24/2024 Generated for Sheridan marin/Elsy/Venecia on: 07/03/2024 07:54 AM EST History and Physical Notes * HPI (History of Present Illness) Category Sub-Category Detail Notes Category Not es ENT/respiratory cough nasal congestion Pt sts she has the s bayron symptoms as the last time she was here. Pt sts she has some congestion as well and that she is very tired. Pt sts the antibiotics did not help. Her son also has mono. Examination Category Sub-Category Detail Notes Category Not [...]
--- OUTSIDE RECORDS SUMMARY | 2024-12-29 11:15 | XMS_ITS ---
Author Organization [facility] Address [facility] [facility] [address] [facility], [place] [id number] Care Team Providers Care Investigative Agent Name Role Phone Ranjit Rick Primary Care Provider Harish Almendarez Unavailable [phone] Allergies Allergen (clinical drug ingredient) Drug/Non Drug Allergy documented on EMR Reaction Allergy Type Onset Date Status Penicillin Unknown Drug Allergy Active Results Component Value Reference Range Notes CBC Fingerstick (in house) Reviewed date:12/30/2024 10:31:06 AM Interpretation: Performing Lab: Notes/Report: wbc 17.4 3.5 - 10 lym 4.4 15 - 50 mid 10.9 2 - 15 gran 84.7 35 - 80 rbc 4.86 3.5 - 5.5 hgb 16.1 11.5 - 16.5 hct 49.1 35 - 55 mcv 101.1 75 - 100 mch 33.2 25 - 35 mchc 32.9 31 - 38 plat 241 100 - 400 REASON FOR VISIT [facility] f/u Medications Medication SIG (Take, Route, Frequency, Duration) Notes Start Date End Date Status levoFLOXacin 750 MG 1 tablet Orally Once a day Active Irbesartan 300 MG 1 tablet Orally Once a day; Duration: 30 days 2024 Active metFORMIN HCl 500 MG 1 tablet with a bruce l Orally Once a day Active Atorvastatin Calcium 40 MG TAKE 1 TABLET BY MOUTH EVERY DAY FOR 30 DAYS; Duration: 90 Active amLODIPine Besylate 10 MG 1 tab(s) orall y once a day; Duration: 30 days Active Albuterol Sulfate HFA 108 (90 Base) MCG/ACT inhale 2 puffs by mouth every 6 hours as needed for shortness of breath or wheezing Inhalation every 4 hrs, prn Active Levothyroxine Sodium 125 MCG TAKE 1 TABLET BY MOUTH EVERY DAY IN THE MORNING ON EMPTY STOMACH; Duration: 90 Active Ipratropium-Albuterol 0.5-2.5 (3) MG/3ML 3ml Inhalation 4 times a day Active Flonase Allergy Relief 50 MCG/ACT 1 spray(s) in each nostril once a day; Duration: 90 day(s) Active Maxzide-25 37.5-25 MG 1 tab(s) orally on ce a day; Duration: 30 day(s) Active Advair Diskus 250-50 MCG/ACT 1 puff Inhalation Twice a day; Duration: 30 days Not-Taking Alendronate Sodium 35 MG 1 tablet 30 min utes before the first food, beverage or medicine of the day with plain water and remain upright for 30 minutes Orally once a week 05/20/2024 Active predniSONE 20 MG 1 tablet with food o r milk Orally Once a day Active Vital Signs Blood pressure systolic 174 mm Hg 12/30/19 25 Blood pressure diastolic 90 mm Hg 025 Heart Rate 95 /min 2024 Height 65 in 2024 Weight 221.4 lbs 2024 BMI 36.84 kg/m2 2024 Encounters Encounter Location Date [facility] [address] [id number] 2024 Harish Almendarez COPD with exacerbati on J44.1 ; Essential (primary) hypertension I10 ; Tobacco use disorder F17.200 and Acute and chronic respiratory failure with hypoxia J96.21 Assessments Encounter Date Diagnosis (ICD Code) Assessment Notes Treatment Notes Treatment Clinical Notes Section Notes 2024 COPD with exacerbation (ICD-10 - J44.1) 2024 Essential (primary) hypertension (ICD-10 - I10) 2024 Tobacco use disorder (ICD-10 - F17.200) 2024 Acute and chronic respiratory failure with hypoxia (ICD-10 - J96.21) Plan Of Treatment Medication Medication Name Sig Start Date Stop Date Notes Irbesartan 150 MG 1 tablet Orally Once a day Irbesartan 300 MG 1 tablet Orally Once a day; Duration: 30 days 2024 Next Appt Details Follow Up: 1 Week, Reason: Progress Notes * PRIETO CHOWOB:1965 (59 yo F)Acc No.[id number]:2024 Progress Notes Patient: TASHIA LEE Provider: Harish Almendarez M.D. :1965 A ge:59 Y S ex:Female Date:2024 Address:[facility] [place], [id number] Pcp:Ranjit Rick Subjective: * Chief Complaints: * 1 . [facility] f/u. * HPI: H PI: Here for follow up on: H ospitalization. Pt states she is doing better. Pt states she is using the oxygen at 2 LPM as needed. Pt states she seems to need the oxygen when laying down. * ROS: D ERMATOLOGY: no R eitan. n o H bev. G ASTROENTEROLOGY: no N ausea. n o V omiting. n o D iarrhea.? U ROLOGY: no D ifficulty urinating. n o B lood in urine. * Medical History: H ypertension, Hyperlipidemia, Hypothyroidism, [place] Palsy, Cologuard - 2018, Covid Vaccine J&J - 08/25/20, 40 pack year smoking history as of 2021. * Surgical History: C -section 1991, R foot bone spur 1996. * Hospitalization/Major Diagno stic Procedure: H ER-[place] Palsy 12/18/18. * Family History: F ather: [...] New since last visit: none. 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 Past smoking status: yes, PPD:1-1.5 , years: 20 ,determination:. Occup. exposure: none. Recreational drug use: no. Alcohol: no. Sexually active: yes. Travel ouside [place]: no. * Medications: T aking metFORMIN HCl 500 MG Tablet 1 tablet with a meal Orally Once a day , Taking levoFLOXacin 750 MG Tablet 1 tablet Orally Once a day , Taking predniSONE 20 MG Tablet 1 tablet with food or milk Orally Once a day , Taking Ipratropium- Albuterol 0.5-2.5 (3) MG/3ML Solution 3ml Inhalation 4 times a day , Taking Flonase Allergy Relief 50 MCG/ACT Suspension 1 spray(s) in each nostril once a day , Taking Maxzide-25 37.5-25 MG Tablet 1 tab(s) orally once a day , Taking Alendronate Sodium 35 MG Tablet 1 tablet 30 minutes before the first food, beverage or medicine of the day with plain water and remain upright for 30 minutes Orally once a week , Taking Albuterol Sulfate HFA 108 (90 Base) MCG/ACT Aerosol Solution inhale 2 puffs by mouth every 6 hours as needed for shortness of breath or wheezing Inhalation every 4 hrs, prn , Taking Levothyroxine Sodium 125 MCG Tablet TAKE 1 TABLET BY MOUTH EVERY DAY IN THE MORNING ON EMPTY STOMACH , Taking amLODIPine Besylate 10 MG Tablet 1 tab(s) orally once a day , Taking Irbesartan 150 MG Tablet 1 tablet Orally Once a day , Taking Atorvastatin Calcium 40 MG Tablet TAKE 1 TABLET BY MOUTH EVERY DAY FOR 30 DAYS , Not-Taking Advair Diskus 250-50 MCG/ACT Aerosol Powder Breath Activated 1 puff Inhalation Twice a day , Discontinued Promethazine-DM 6.25-15 MG/5ML Syrup 5 ml orally every 6 hours prn , Discontinued Doxycycline Monohydrate 100 MG Capsule 1 capsule Orally Twice a day , Medication List reviewed and reconciled with the patient * Allergies: P enicillin. Objective: * Vitals: W t: 221.4, Temp: 98.5, BP: 174/90, HR: 95, O2 Sat: 96% on RA, Nurse: YOSVANY, Ht: 65, Repeat BP: 170/92, BMI:36.84. Assessment: * Assessment: 1. C OPD with exacerbation - J44.1 (Primary) 2 . E ssential (primary) hypertension - I10 3 . T obacco use disorder - F17.200 4 . A cute and chronic respiratory failure with hypoxia - J96.21 Plan: * Treatment: Value Reference Range w bc 17.4 3.5 - 10 * l ym 4.4 15 - 50 * m id 10.9 2 - 15 * g ran 84.7 35 - 80 * r bc 4.86 3.5 - 5.5 * h gb 16.1 11.5 - 16.5 * h ct 49.1 35 - 55 * m cv 101.1 75 - 100 * m ch 33.2 25 - 35 * m chc 32.9 31 - 38 * p lat 241 100 - 400 * Kathryn Riojas 2024 0 5:17:43 PM EDT > Provider reviewed results while patient in office. 2.?Essential (primary) hypertension? Stop Irbesartan Tablet, 150 MG, 1 tablet, Orally, Once a day;?Start Irbesartan Tablet, 300 MG,1 tablet, Orally, Once a day, 30 days, 30, Refills 3.??3.?Acute and chronic respiratory failure with hypoxia?LAB: CBC Fingerstick (in house) (Collection Date & Time - 2024)* Value Reference Range w bc 17.4 3.5 - 10 * l ym 4.4 15 - 50 * m id 10.9 2 - 15 * g ran 84.7 35 - 80 * r bc 4.86 3.5 - 5.5 * h gb 16.1 11.5 - 16.5 * h ct 49.1 35 - 55 * m cv 101.1 75 - 100 * m ch 33.2 25 - 35 * m chc 32.9 31 - 38 * p lat 241 100 - 400 * Kathryn Riojas 2024 0 5:17:43 PM EDT > Provider reviewed results while patient in office. * Procedure Codes: 3 6416 CAPILLARY BLOOD DRAW, 71300 CBC WITH AUTO DIFF * Follow Up: 1 Week * Images: Billing Information: * Visit Code: 18260 Office Visit, Est Pt., Level 3. * Procedure Codes: 55662 CAPILLARY BLOOD DRAW. 49156 CBC WITH AUTO DIFF. * Electronic signature of Harish Almendarez MD on 05/03/2025 at 07:54 AM EST Sign off status: Pending * Provider: Harish Almendarez M.D. Date: 0 2024 Generated for Sheridan marin/Elsy/Angelicaitting on: 07/03/2024 07:54 AM EST History and Physical Notes * HPI (History of Present Illness) Category Sub-Category Detail Notes Category Not es HPI Here for follow up on: Karyn wang. Pt states she is doing better. Pt states she is using the oxygen at 2 LPM as needed. Pt states she seems to need the oxygen when laying down
--- OUTSIDE RECORDS SUMMARY | 2025-01-02 05:00 | XMS_ITS ---
Author Organization [facility] Address [address] [facility] [address] [place], [place] [id number] Care Team Providers Care Pathology Tech Name Role Phone Ranjit Rick Primary Care Provider Harish Almendarez Unavailable [phone] Allergies Allergen (clinical drug ingredient) Drug/Non Drug Allergy documented on EMR Reaction Allergy Type Onset Date Status Penicillin Unknown Drug Allergy Active REASON FOR VISIT f/u Medications Medication SIG (Take, Route, Frequency, Duration) Notes Start Date End Date Status Atorvastatin Calcium 40 MG TAKE 1 TABLET BY MOUTH EVERY DAY FOR 30 DAYS; Duration: 90 Active Irbesartan 300 MG 1 tablet Orally Once a day; Duration: 30 days 2024 Active Albuterol Sulfate HFA 108 (90 Base) MCG/ACT inhale 2 puffs by mouth every 6 hours as needed for shortness of breath or wheezing Inhalation every 4 hrs, prn Active Levothyroxine Sodium 125 MCG TAKE 1 TABLET BY MOUTH EVERY DAY IN THE MORNING ON EMPTY STOMACH; Duration: 90 Active amLODIPine Besylate 10 MG 1 tab(s) orall y once a day; Duration: 30 days Active metFORMIN HCl 500 MG 1 tablet with a bruce l Orally Once a day Active Maxzide-25 37.5-25 MG 1 tab(s) orally on ce a day; Duration: 30 day(s) Not-Taking Alendronate Sodium 35 MG 1 tablet 30 min utes before the first food, beverage or medicine of the day with plain water and remain upright for 30 minutes Orally once a week 05/20/2024 Not-Taking Ipratropium-Albuterol 0.5-2.5 (3) MG/3ML 3ml Inhalation 4 times a day As needed Active predniSONE 20 MG 1/2 Orally Once a day Active Flonase Allergy Relief 50 MCG/ACT 1 spray(s) in each nostril once a day; Duration: 90 day(s) Not-Taking Advair Diskus 250-50 MCG/ACT 1 puff Inhalation Twice a day; Duration: 30 days Active levoFLOXacin 750 MG 1 tablet Orally Once a day Not-Taking Vital Signs Blood pressure systolic 130 mm Hg 01/03/20 25 Blood pressure diastolic 90 mm Hg 025 Heart Rate 90 /min 01/02/2025 Height 65 in 01/02/2025 Weight 219.4 lbs 01/02/2025 BMI 36.51 kg/m2 01/02/2025 Encounters Encounter Location Date Provider Diagnosis [facility] [address] [facility] [address] [place] [phone] 01/02/2025 Harish Almendarez COPD (chronic obstructive pulmonary disease) J44.9 and Asthmatic bronchitis without complication, unspecified asthma severity, unspecified whether persistent J45.909 Assessments Encounter Date Diagnosis (ICD Code) Assessment Notes Treatment Notes Treatment Clinical Notes Section Notes 01/02/2025 COPD (chronic obstructive pulmonary disease) (ICD-10 - J44.9) 01/02/2025 Asthmatic bronchitis without complication, unspecified asthma severity, unspecified whether persistent (ICD-10 - J45.909) 01/02/2025 Other MAY RETURN TO WORK Plan Of Treatment Medication Medication Name Sig Start Date Stop Date Notes predniSONE 20 MG 1/2 Orally Once a day Treatment Notes Assessment Notes Other MAY RETURN TO WORK Next Appt Details Follow Up: 4 Weeks, Reason: Progress Notes * PRIETO CHOWOB:1965 (59 yo F)Acc No.[id number]:01/02/2025 Progress Notes Patient: TASHIA LEE Provider: Harish Almendarez M.D. :1965 A ge:59 Y S ex:Female Date:01/02/2025 Address:[place], [id number] Pcp:Ranjit Rick Subjective: * Chief Complaints: * 1 . F/u. * HPI: H PI: 59 year old female presents with c/o Here for follow up on:?Pt is here today for a f/u. Pt sts she is no longer using oxygen during the day, but sts she does still need the oxygen at night. Pt uses 2L. * ROS: D ERMATOLOGY: no R eitan. n o H bev. G ASTROENTEROLOGY: no N ausea. n o V omiting. n o D iarrhea.? U ROLOGY: no D ifficulty urinating. n o B lood in urine. * Medical History: H ypertension, Hyperlipidemia, Hypothyroidism, [place] Palsy, Cologuard - 2018, Covid Vaccine J&J - 08/25/20, 40 pack year smoking history as of 2021. * Surgical History: C -section 1991, R foot bone spur 1996. * Hospitalization/Major Diagno stic Procedure: H ER-[place] Palsy 12/18/18. * Family History: F ather: [...] New since last visit: none. 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 Occup. exposure: none. Recreational drug use: no. Alcohol: no. Sexually active: yes. Travel o[place]ide [place]: no. * Medications: T aking metFORMIN HCl 500 MG Tablet 1 tablet with a meal Orally Once a day , Taking predniSONE 20 MG Tablet 1 tablet with food or milk Orally Once a day , Taking Ipratropium-Albuterol 0.5-2.5 (3) MG/3ML Solution 3ml Inhalation 4 times a day As needed, Taking Albuterol Sulfate HFA 108 (90 Base) [...] tab(s) orally once a day , Taking Atorvastatin Calcium 40 MG Tablet TAKE 1 TABLET BY MOUTH EVERY DAY FOR 30 DAYS , Taking Irbesartan 300 MG Tablet 1 tablet Orally Once a day , Taking Advair Diskus 250-50 MCG/ACT Aerosol Powder Breath Activated 1 puff Inhalation Twice a day , Not-Taking levoFLOXacin 750 MG Tablet 1 tablet Orally Once a day , Not-Taking Flonase Allergy Relief 50 MCG/ACT Suspension 1 spray(s) in each nostril once a day , Not-Taking Maxzide-25 37.5-25 MG Tablet 1 tab(s) orally once a day , Not-Taking Alendronate Sodium 35 MG Tablet 1 tablet 30 minutes before the first food, beverage or medicine of the day with plain water and remain upright for 30 minutes Orally once a week , Medication List reviewed and reconciled with the patient * Allergies: P enicillin. Objective: * Vitals: W t: 219.4, Temp: 98.4, BP: 130/90, HR: 90, O2 Sat: 91%, Nurse: [facility], Ht: 65, BMI:36.51. * Examination: G eneral Examination: General Appearance: N AD. H EENT: u nremarkable.?Oral cavity: n o lesions, mucosa moist and WNL, no erythema. N lew: s upple, no lymphadenopathy. C hest: n ormal shape and expansion. H eart: R SR. L ungs: c lear to auscultation, no wheezes or rales. N eurologic Exam: I ntact, gait normal. S kin:?normal, no rash. P eripheral pulses: n ormal (2+) bilaterally. E xtremities: n o leg edema. Assessment: * Assessment: 1. C OPD (chronic obstructive pulmonary disease) - J44.9 (Primary) 2 . A sthmatic bronchitis without complication, unspecified asthma severity, unspecified whether persistent - J45.909 Plan: * Treatment: 2. O thers Notes: MAY RETURN TO WORK * Follow Up: 4 Weeks * Images: Billing Information: * Visit Code: 58267 Office Visit, Est Pt., Level 3. * Procedure Codes: * Electronic signature of Harish Almendarez MD on 05/03/2025 at 07:54 AM EST Sign off status: Pending * Provider: Harish Almendarez M.D. Date: 0 01/02/2025 Generated for Sheridan marni/Elsy/Angelicaitting on: 1 07/03/2024 07:54 AM EST History and Physical Notes * HPI (History of Present Illness) Category Sub-Category Detail Notes Category Not es HPI Here for follow up on: Pt is her e today for a f/u. Pt sts she is no longer using oxygen during the day, but sts she does still need the oxygen at night. Pt uses 2L Examination Category Sub-Category Detail Notes Category Not es General Examination HEENT: unremarkable Heart: RSR Lungs: clear to auscultatio n, no wheezes or rales Extremities: no leg edema General Appearance: NAD Skin: normal, no rash Neurologic Exam: Intact, gait normal Neck: supple, no lymphaden opathy Oral cavity: no lesions, mucosa m oist and WNL, no erythema Peripheral pulses: normal (2+) bilatera lly Chest: normal shape and exp ansion
--- OUTSIDE RECORDS SUMMARY | 2025-02-10 05:15 | XMS_ITS ---
Author Organization [facility] Address [address] [place], [place] [id number] Care Team Providers Care Spirits Model Name Role Phone Ranjit Rick Primary Care Provider Swati Willingham Unavailable [phone] Allergies Allergen (clinical drug ingredient) Drug/Non Drug Allergy documented on EMR Reaction Allergy Type Onset Date Status Penicillin Unknown Drug Allergy Active REASON FOR VISIT 4 weeks Medications Medication SIG (Take, Route, Frequency, Duration) Notes Start Date End Date Status Maxzide-25 37.5-25 MG 1/2 tab orally onc e a day Active Alendronate Sodium 35 MG 1 tablet 30 min utes before the first food, beverage or medicine of the day with plain water and remain upright for 30 minutes Orally once a week 05/20/2024 Not-Taking Methocarbamol 500 MG 1 tab Orally 3 time s a day, prn 02/10/2025 Active levoFLOXacin 750 MG 1 tablet Orally Once a day Not-Taking Flonase Allergy Relief 50 MCG/ACT 1 spray(s) in each nostril once a day; Duration: 90 day(s) Not-Taking Atorvastatin Calcium 40 MG TAKE 1 TABLET BY MOUTH EVERY DAY FOR 30 DAYS; Duration: 90 Active Advair Diskus 250-50 MCG/ACT 1 puff Inhalation Twice a day; Duration: 30 days Active metFORMIN HCl 500 MG TAKE 1 TABLET BY MO UTH EVERY DAY; Duration: 90 Active Irbesartan 300 MG 1 tablet Orally Once a day; Duration: 30 days Active amLODIPine Besylate 10 MG 1 tab(s) orall y once a day; Duration: 30 days Active Levothyroxine Sodium 125 MCG TAKE 1 TABLET BY MOUTH EVERY DAY IN THE MORNING ON EMPTY STOMACH; Duration: 90 Active Ipratropium-Albuterol 0.5-2.5 (3) MG/3ML 3ml Inhalation 4 times a day As needed Active Albuterol Sulfate HFA 108 (90 Base) MCG/ACT inhale 2 puffs by mouth every 6 hours as needed for shortness of breath or wheezing Inhalation every 4 hrs, prn Active Vital Signs Blood pressure systolic 130 mm Hg 02/11/20 25 Blood pressure diastolic 76 mm Hg 025 Heart Rate 114 /min 02/10/2025 Height 65 in 02/10/2025 Weight 230.8 lbs 02/10/2025 BMI 38.4 kg/m2 02/10/2025 Encounters Encounter Location Date Provider Diagnosis [facility] [address] [facility] [address] [place] [id number] 02/10/2025 Swati Willingham Lower extremity say a R60.0 ; COPD (chronic obstructive pulmonary disease) J44.9 and Neck muscle spasm M62.838 Assessments Encounter Date Diagnosis (ICD Code) Assessment Notes Treatment Notes Treatment Clinical Notes Section Notes 02/10/2025 Lower extremity edema (ICD-10 - R60.0) Will start back on maxzide. 02/10/2025 COPD (chronic obstructive pulmonary disease) (ICD-10 - J44.9) Doing well, will continue to wean oxygen. 02/10/2025 Neck muscle spasm (ICD-10 - M62.838) Plan Of Treatment Medication Medication Name Sig Start Date Stop Date Notes Maxzide-25 37.5-25 MG 1/2 tab orally once a day Methocarbamol 500 MG 1 tab Orally 3 times a day, prn 02/10 Treatment Notes Assessment Notes Lower extremity edema Will start back on maxzide. COPD (chronic obstructive pulmonary dise ase) Doing well, will continue to wean oxygen. Next Appt Details Follow Up: prn, Reason: Progress Notes * THANH CHOWCRISTINAOB:1965 (59 yo F)Acc No.[id number]:02/10/2025 Progress Notes Patient: TASHIA LEE Provider: AV Bustamante :1965 A ge:59 Y S ex:Female Date:02/10/2025 Address:[place], [id number] Pcp:Ranjit Rick Subjective: * Chief Complaints: * 1 . 4 weeks. * HPI: H PI: 59 year old female presents with c/o Patient is here today for?Pt is here today for a 4 week f/u. Pt sts she is still only using her oxygen at night and sts she is using 2L, but sts she is not using it as much at night as she was. N lew: c/o pain P t sts she has had some pain in her rt ear that runs down into the rt side of her neck and down into her shoulder. Pt sts she is unsure if she may have pulled something. Pt sts this has been going on for a few days now. * ROS: D ERMATOLOGY: no R eitan. n o H bev. G ASTROENTEROLOGY: no N ausea. n o V omiting. n o D iarrhea.? U ROLOGY: no D ifficulty urinating. n o B lood in urine. * Medical History: H ypertension, Hyperlipidemia, Hypothyroidism, [place] Palsy, Cologuard - 2018, Covid Vaccine J&J - 08/25/20, 40 pack year smoking history as of 2021. * Surgical History: C -section 1991, R foot bone spur 1996. * Hospitalization/Major Diagno stic Procedure: H ER-[place] Palsy 12/18/18. * Family History: F ather: [...] New since last visit: none. 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 Occup. exposure: none. Recreational drug use: no. Alcohol: no. Sexually active: yes. Travel ouside [place]: no. * Medications: T aking Ipratropium-Albuterol 0.5-2.5 (3) MG/3ML Solution 3ml Inhalation [...] THE MORNING ON EMPTY STOMACH , Taking Atorvastatin Calcium 40 MG Tablet TAKE 1 TABLET BY MOUTH EVERY DAY FOR 30 DAYS , Taking Advair Diskus 250-50 MCG/ACT Aerosol Powder Breath Activated 1 puff Inhalation Twice a day , Taking metFORMIN HCl 500 MG Tablet TAKE 1 TABLET BY MOUTH EVERY DAY , Taking Irbesartan 300 MG Tablet 1 tablet Orally Once a day , Taking amLODIPine Besylate 10 MG Tablet 1 tab(s) orally once a day , Not-Taking levoFLOXacin 750 MG [...] P enicillin. Objective: * Vitals: W t: 230.8, Temp: 98.6, BP: 130/76, HR: 114, O2 Sat: 92% on RA, Nurse: michael, Ht: 65, BMI:38.4. * Examination: G eneral Examination: General Appearance: N AD. H EENT: u nremarkable.?Oral cavity: n o lesions, mucosa moist and WNL, no erythema. N lew: s upple, no lymphadenopathy, ttp along the right trapezius muscle. C hest: n ormal shape and expansion. H eart: R SR. L ungs: c lear to auscultation. A bdomen: b owel sounds present, soft and nontender, no organomegaly or masses, no guarding or rigidity. N eurologic Exam: I ntact, gait normal. S kin: n ormal, no rash. P eripheral pulses: n ormal (2+) bilaterally. E xtremities: 1 + leg edema bilaterally. Assessment: * Assessment: 1. C OPD (chronic obstructive pulmonary disease) - J44.9 (Primary) 2 . L ower extremity edema - R60.0 3 . N lew muscle spasm - M62.838 Plan: * Treatment: 2. L ower extremity edema Refill Maxzide-25 Tablet, 37.5-25 MG, 1/2 tab, orally, once a day, 90, Refills 1. Notes: Will start back on maxzide. 3. N lew muscle spasm Start Methocarbamol Tablet, 500 MG, 1 tab, Orally, 3 times a day, prn, 30, Refills 1. * Follow Up: p rn * Images: Billing Information: * Visit Code: 51021 Office Visit, Est Pt., Level 4. * Procedure Codes: * Electronic signature of AV Lou on 05/03/2025 at 07:54 AM EST Sign off status: Pending * Provider: AV Bustamante Date: 0 02/10/2025 Generated for Sheridan marin/Elsy/eTransmitting on: 07/03/2024 07:54 AM EST History and Physical Notes * HPI (History of Present Illness) Category Sub-Category Detail Notes Category Not es Neck pain Pt sts she has h ad some pain in her rt ear that runs down into the rt side of her neck and down into her shoulder. Pt sts she is unsure if she may have pulled something. Pt sts this has been going on for a few days now HPI Patient is here today for Pt is here today for a 4 week f/u. Pt sts she is still only using her oxygen at night and sts she is using 2L, but sts she is not using it as much at night as she was Examination Category Sub-Category Detail Notes Category Not es General Examination HEENT: unremarkable Heart: RSR Lungs: clear to auscultatio n Abdomen: bowel sounds present , soft and nontender, no organomegaly or masses, no guarding or rigidity Extremities: 1+ leg edema bilater ally General Appearance: NAD Skin: normal, no rash Neurologic Exam: Intact, gait normal Neck: supple, no lymphaden opathy, ttp along the right trapezius muscle Oral cavity: no lesions, mucosa m oist and WNL, no erythema Peripheral pulses: normal (2+) bilatera lly Chest: normal shape and exp ansion
--- OUTSIDE RECORDS SUMMARY | 2025-04-27 08:15 | XMS_ITS ---
[facility] Address [address] [facility] [address] [facility] [place] [place] [id number] Care Team Providers Care Manager Molecular Name Role Phone Ranjit Rick Primary Care Provider [phone] Swati Willingham Unavailable [phone] Allergies Allergen (clinical drug ingredient) Drug/Non Drug Allergy documented on EMR Reaction Allergy Type Onset Date Status Penicillin Unknown Drug Allergy Active REASON FOR VISIT refills Medications Medication SIG (Take, Route, Frequency, Duration) Notes Start Date End Date Status amLODIPine Besylate 10 MG 1 tablet orall y once a day; Duration: 90 days Active Maxzide-25 37.5-25 MG 1 tablet in the mo rning Orally Once a day; Duration: 90 days Active Stiolto Respimat 2.5-2.5 MCG/ACT 2 puffs Inhalation Once a day Active Atorvastatin Calcium 40 MG 1 tablet Oral ly Once a day; Duration: 90 days Active metFORMIN HCl 500 MG 1 tablet with a bruce l Orally Once a day; Duration: 90 days Active Irbesartan 300 MG 1 tablet Orally Once a day; Duration: 90 days Active Levothyroxine Sodium 125 MCG 1 tablet in the morning on an empty stomach Orally Once a day; Duration: 90 days Active Vitamin B12 100 MCG as directed Orally Active Problems Problem Type SNOMED Code ICD Code Onset Dates Problem Status W/U Status Risk Notes Problem Type II diabetes mellitus without complication (893515015) Type 2 diabetes, HbA1c goal < 7% (E11.9) Active confirmed Vital Signs Blood pressure systolic 130 mm Hg 04/27/20 25 Blood pressure diastolic 74 mm Hg 025 Heart Rate 102 /min 04/27/2025 Height 65 in 04/27/2025 Weight 230.2 lbs 04/27/2025 BMI 38.3 kg/m2 04/27/2025 Encounters Encounter Location Date Provider Diagnosis [facility] [address] [facility] [address] [place] [id number] 04/27/2025 Swati Willingham HTN (hypertension) I 10 ; Routine physical examination Z00.00 ; Hyperlipidemia E78.5 ; GERD without esophagitis K21.9 ; COPD (chronic obstructive pulmonary disease) J44.9 ; Type 2 diabetes, HbA1c goal < 7% E11.9 and Acquired hypothyroidism E03.9 Assessments Encounter Date Diagnosis (ICD Code) Assessment Notes Treatment Notes Treatment Clinical Notes Section Notes 04/27/2025 HTN (hypertension) (ICD-10 - I10) 04/27/2025 Routine physical examination (ICD-10 - Z00.00) 04/27/2025 Hyperlipidemia (ICD-10 - E78.5) 04/27/2025 GERD without esophagitis (ICD-10 - K21.9) 04/27/2025 COPD (chronic obstructive pulmonary disease) (ICD-10 - J44.9) 04/27/2025 Type 2 diabetes, HbA1c goal < 7% (ICD-10 - E11.9) 04/27/2025 Acquired hypothyroidism (ICD-10 - E03.9) Plan Of Treatment Medication Medication Name Sig Start Date Stop Date Notes amLODIPine Besylate 10 MG 1 tablet orall y once a day; Duration: 90 days Maxzide-25 37.5-25 MG 1 tablet in the mo rning Orally Once a day; Duration: 90 days Stiolto Respimat 2.5-2.5 MCG/ACT 2 puffs Inhalation Once a day Atorvastatin Calcium 40 MG 1 tablet Oral ly Once a day; Duration: 90 days metFORMIN HCl 500 MG 1 tablet with a bruce l Orally Once a day; Duration: 90 days Irbesartan 300 MG 1 tablet Orally Once a day; Duration: 90 days Levothyroxine Sodium 125 MCG 1 tablet in the morning on an empty stomach Orally Once a day; Duration: 90 days Pending Test Test Name Order Date H-TSH 04/27/2025 H-CBC 04/27/2025 H-Lipid Panel 04/27/2025 H-CMP 04/27/2025 H-Glycohemoglobin A1C 04/27/2025 H-T4 free 04/27/2025 Next Appt Details Follow Up: via phone to repo rt test results, Reason: Progress Notes * PRIETO CHOWOB:1965 (59 yo F)Acc No.[id number]:04/27/2025 Progress Notes Patient: TASHIA LEE Provider: AV Bustamante :1965 A ge:59 Y S ex:Female Date:04/27/2025 Address:[facility] [place], [id number] Pcp:Ranjit Rick Subjective: * Chief Complaints: * 1 . Refills. * HPI: H PI: 59 year old female presents with c/o Patient is here today for?a check up with refills. Pt states she is doing well and has no concerns at this time. * ROS: D ERMATOLOGY: no R eitan. n o H bev. G ASTROENTEROLOGY: no N ausea. n o V omiting. n o D iarrhea.? U ROLOGY: no D ifficulty urinating. n o B lood in urine. * Medical History: H ypertension, Hyperlipidemia, Hypothyroidism, [place] Palsy, Cologuard - 2018, Covid Vaccine J&J - 08/25/20, 40 pack year smoking history as of 2021. * Surgical History: C -section 1991, R foot bone spur 1996. * Hospitalization/Major Diagno stic Procedure: H ER-[place] Palsy 12/18/18. * Family History: F ather: unknown. M other: alive, HTN, Bypass surgery 2003. M aternal aunt: ovarian/uterine CA. 1 son(s) , 1 daughter(s) - healthy. . whole family has heart disease. Aunt's uncles with thyroid problems. * Social History: C URRENT TOBACCO USE: Yes S moking Status: Patient does smoke, packs per day: 1. C affeine: yes, frequency:large amounts daily. Exercise: yes. Home smoke detector use: yes. Marital Status: . New since last visit: none. 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 Past smoking status: yes, PPD:1-1.5 , years: 20 ,determination:. Occup. exposure: none. Recreational drug use: no. Alcohol: no. Sexually active: yes. Travel ouside [place]: no. * Medications: T aking Maxzide-25 37.5-25 MG Tablet 1 tablet in the morning Orally Once a day , Taking Stiolto Respimat 2.5-2.5 MCG/ACT Aerosol Solution 2 puffs Inhalation Once a day , Taking Vitamin B12 100 MCG Tablet as directed Orally , Taking Atorvastatin Calcium 40 MG Tablet TAKE 1 TABLET BY MOUTH EVERY DAY FOR 30 DAYS , Taking metFORMIN HCl 500 MG Tablet TAKE 1 TABLET BY MOUTH EVERY DAY , Taking Irbesartan 300 MG Tablet 1 tablet Orally Once a day , Taking Levothyroxine Sodium 125 MCG Tablet 1 tablet in the morning on an empty stomach Orally Once a day , Taking amLODIPine Besylate 10 MG Tablet 1 tablet orally once a day , Medication List reviewed and reconciled with the patient * Allergies: P enicillin. Objective: * Vitals: W t: 230.2, Temp: 98.0, BP: 130/74, HR: 102, Nurse: lazaro, Ht: 65, BMI:38.3. * Examination: G eneral Examination: General Appearance: N AD. H EENT: u nremarkable.?Oral cavity: n o lesions, mucosa moist and WNL, no erythema. N lew: s upple, no lymphadenopathy. C hest: n ormal shape and expansion. H eart: R SR. L ungs: C TAB A&P. A bdomen: b owel sounds present, soft and nontender. N eurologic Exam: I ntact, gait normal. S kin: n ormal, no rash. P eripheral pulses: n ormal (2+) bilaterally. E xtremities: n o leg edema. Assessment: * Assessment: 1. R outine physical examination - Z00.00 (Primary) 2 . H TN (hypertension) - I10 3 . H yperlipidemia - E78.5 4 . G ERD without esophagitis - K21.9 5 . C OPD (chronic obstructive pulmonary disease) - J44.9 & #160; 6 . T ype 2 diabetes, HbA1c goal < 7% - E11.9 7 . A cquired hypothyroidism - E03.9 Plan: * Treatment: 2. H yperlipidemia Refill Atorvastatin Calcium Tablet, 40 MG, 1 tablet Orally Once a day, 90 days, 90 Tablet, Refills 1. L AB: H-Lipid Panel 3. C OPD (chronic obstructive pulmonary disease) Refill Stiolto Respimat Aerosol Solution, 2.5-2.5 MCG/ACT, 2 puffs, Inhalation, Once a day, 1, Refills 11. 4. T ype 2 diabetes, HbA1c goal < 7% Refill metFORMIN HCl Tablet, 500 MG, 1 tablet with a meal Orally Once a day, 90 days, 90 Tablet, Refills 1. L AB: H-Glycohemoglobin A1C 5. A cquired hypothyroidism Refill Levothyroxine Sodium Tablet, 125 MCG, 1 tablet in the morning on an empty stomach, Orally, Once a day, 90 days, 90 Tablet, Refills 1. L AB: H-TSH L AB: H-T4 free * Follow Up: v ia phone to report test results * Images: Billing Information: * Visit Code: 19340 Preventive Care Est Pt Age 40-64. Modifiers: 25 [id number] Office Visit, Est Pt., Level 3. * Procedure Codes: * Electronic signature of AV Lou on 05/03/2025 at 07:54 AM EST Sign off status: Pending * Provider: AV Bustamante Date: 06/27/2024 Generated for Sheridan marin/Elsy/Venecia on: 07/03/2024 07:54 AM EST History and Physical Notes * HPI (History of Present Illness) Category Sub-Category Detail Notes Category Not es HPI Patient is here today for a [facility] k up with refills. Pt states she is doing well and has no concerns at this time Examination Category Sub-Category Detail Notes Category Not es General Examination HEENT: unremarkable Heart: RSR Lungs: CTAB A&P Abdomen: bowel sounds present , soft and nontender Extremities: no leg edema General Appearance: NAD Skin: normal, no rash Neurologic Exam: Intact, gait normal Neck: supple, no lymphaden opathy Oral cavity: no lesions, mucosa m oist and WNL, no erythema Peripheral pulses: normal (2+) bilatera lly Chest: normal shape and exp ansion
--- OUTSIDE RECORDS SUMMARY | 2025-05-03 07:55 | XMS_ITS | Patient Health Record ---
[facility] Address [address] [facility] [address] [place] [id number] Care Team Providers Care Cashier And Waiter/Waitress Name Role Phone Consuelo Rickian Primary Care Provider Harish Almendarez Unavailable [phone] Swati Willingham Unavailable [phone] Allergies Allergen (clinical drug ingredient) Drug/Non Drug [...] Interpretation:neg Performing Lab: Notes/Report: neg Result: neg EBV IgG and IgM (Panel/Evalu ator) Reviewed [...] Interpretation:nothing acute Performing Lab: Notes/Report: nothing acute CBC Fingerstick (in house) Reviewed date:12/30/2024 10:31:06 [...] - 38 plat 241 100 - 400 H-CMP Reviewed date:12/27/2024 11:27:30 AM Interpretation: Performing Lab: Notes/Report: NA 138 136-145 mmol/L K 4.7 3.5-5.1 mmoL/L CL 95 98-107 mmol/L CO2 35 22.0-30.0 mmol/L GAP 12.7 5-15 mEq/L BUN 20 7-17 mg/dl Delta: 12 on 12/19/24-1149 CREATT 0.80 0.52-1.04 mg/dl CRCLE 123 50-200 mL/min GFRAA 89 >60 ML/MIN EGFR 73 >60 ml/min GLU 157 74-100 mg/dl CA 9.2 8.4-10.2 mg/dl BILIT 0.4 0.2-1.3 mg/dl AST 22 14-36 U/L Delta: 31 on 12/19/24-1149 ALT 16 12-78 U/L TP 6.3 6.3-8.2 g/dl ALB 4.1 3.5-5.0 g/dl GLOB 2.2 1.3-3.2 g/dL AGRATIO 1.9 1.1-1.8 ALP 87 38-126 U/L H-DIFF Reviewed date:12/27/2024 11:27:30 AM Interpretation: Performing Lab: Notes/Report: BEKA MANUAL DIFFERENTIAL MANUAL DIFF TCC 100 NEUT%M 98 42-76 % LYMPH%M 1 10-50 % MONO%M 1 2-9 % PLTE Normal MACROC 1+ H-CBC Reviewed date:12/27/2024 11:27:30 AM Interpretation: Performing Lab: Notes/Report: WBC 25.0 4.8-10.8 K/mm3 Delta: 9.0 on 12/19/24-1150 RBC 4.54 4.20-5.40 M/mm3 HGB 14.9 12.2-16.2 g/dL HCT 47.9 37.0-47.0 % MCV 105.5 81-99 fl MCH 32.8 27.0-31.2 pg MCHC 31.1 31.8-35.4 g/dL RDW-SD 56.0 RDW 14.2 11.5-17.5 % PLT 301 142-424 K/mm3 MPV 9.1 7.4-10.4 fl NE% 95.8 37.0-80.0 % LY% 1.3 10-50 % MO% 2.1 1.7-9.3 % EO% 0.0 0.1-12.0 % BA% 0.1 0.1-2.0 % NRBC% 0 IG% 0.7 NE# 23.9 1.8-7.8 K/mm3 LY# 0.3 0.7-4.5 K/mm3 MO# 0.5 0.1-1.0 K/mm3 EO# 0.0 0.0-0.4 Kmm3 BA# 0.0 0-0.2 K/mm3 NRBC# 0 IG# 0.18 H-Glycohemoglobin A1C Reviewed date:12/27/2024 11:27:30 AM Interpretation: Performing Lab: Notes/Report: HGBA1C 6.7 4.0-6.0 % < 6% Non-Diabetic Level < 7% Controlled Diabetic Level > 8% Poorly Controlled Diabetic Level H-CMP Reviewed date:12/27/2024 11:27:30 AM Interpretation: Performing Lab: Notes/Report: NA 134 136-145 mmol/L K 3.5 3.5-5.1 mmoL/L CL 92 98-107 mmol/L CO2 37 22.0-30.0 mmol/L GAP 8.5 5-15 mEq/L BUN 24 7-17 mg/dl CREATT 1.00 0.52-1.04 mg/dl CRCLE 97 50-200 mL/min GFRAA 68 >60 ML/MIN EGFR 57 >60 ml/min GLU 124 74-100 mg/dl CA 8.8 8.4-10.2 mg/dl BILIT 0.6 0.2-1.3 mg/dl AST 33 14-36 U/L ALT 28 12-78 U/L TP 5.5 6.3-8.2 g/dl ALB 3.8 3.5-5.0 g/dl GLOB 1.7 1.3-3.2 g/dL AGRATIO 2.2 1.1-1.8 ALP 76 38-126 U/L H-CBC Reviewed date:12/27/2024 11:27:30 AM Interpretation: Performing Lab: Notes/Report: WBC 12.0 4.8-10.8 K/mm3 Delta: 23.2 o n 12/22/24-1116 RBC 4.80 4.20-5.40 M/mm3 HGB 15.8 12.2-16.2 g/dL HCT 48.7 37.0-47.0 % MCV 101.5 81-99 fl MCH 32.9 27.0-31.2 pg MCHC 32.4 31.8-35.4 g/dL RDW-SD 53.8 RDW 14.2 11.5-17.5 % PLT 233 142-424 K/mm3 Delta: 318 on 12/22/24 MPV 8.5 7.4-10.4 fl NE% 81.2 37.0-80.0 % LY% 10.7 10-50 % MO% 7.3 1.7-9.3 % EO% 0.1 0.1-12.0 % BA% 0.2 0.1-2.0 % NRBC% 0 IG% 0.5 NE# 9.8 1.8-7.8 K/mm3 LY# 1.3 0.7-4.5 K/mm3 MO# 0.9 0.1-1.0 K/mm3 EO# 0.0 0.0-0.4 Kmm3 BA# 0.0 0-0.2 K/mm3 NRBC# 0 IG# 0.06 M-EBV Ab VCA, IgG Reviewed date:06/28/2024 02:34:24 PM Interpretation: Performing Lab: Notes/Report: EBVVCAIGG >600.0 0.0-17.9 U/mL Negative <18.0 Equivocal 18.0 - 21.9 Positive >21.9 M-EBV Ab VCA, IgM Reviewed date:06/28/2024 02:34:24 PM Interpretation: Performing Lab: Notes/Report: EBVVCAIGM <36.0 0.0-35.9 U/mL Negative <36.0 Equivocal 36.0 - 43.9 Positive >43.9 Performed at: [address] [id number] State Comptroller: Delfino Mathis PhD, Phone: [phone] M-Venous Blood Gas Reviewed date:12/27/2024 11:27:30 AM Interpretation: Performing Lab: Notes/Report: PHVEN 7.27 7.31-7.41 mmol/L [id number] 70.8 35-51 mmol/L CRITICAL RESULT Results called to:LEONARD ARTEGAA RN by RT Saad at 0408 on 12/21/24 PO2VEN 87.5 28-40 mmol/L [id number] 31.9 23-30 mmol/L [id number] 34.1 23-27 mmol/L BEVEN 5.1 -2.4-2.3 mmol/L L1TCHVEA 96.4 50-70 % LACVEN 1.2 0.4-2.0 mmol/L Medications Medication SIG (Take, Route, Frequency, Duration) Notes Start Date End Date Status amLODIPine Besylate 10 MG 1 tablet orall y once a day; Duration: 90 days Active Irbesartan 300 MG 1 tablet Orally Once a day; Duration: 90 days Active Levothyroxine Sodium 125 MCG 1 tablet in the morning on an empty stomach Orally Once a day; Duration: 90 days Active Vitamin B12 100 MCG as directed Orally Active Maxzide-25 37.5-25 MG 1 tablet in the mo rning Orally Once a day; Duration: 90 days Active Stiolto Respimat 2.5-2.5 MCG/ACT 2 puffs Inhalation Once a day Active Atorvastatin Calcium 40 MG 1 tablet Oral ly Once a day; Duration: 90 days Active metFORMIN HCl 500 MG 1 tablet with a bruce l Orally Once a day; Duration: 90 days Active Immunizations Vaccine Route Administration Date Status Comme nts COVID 19 Remedios IM Intramuscular 08/25/2020 Administered PNEUMOVAX 23 VACCINE IM Intramuscular 07/07/2018 Administe red Tetanus Tdap-Adacel (over 7yrs) Unknown 07/07/2013 Administered xFlu shot-36 months and older Unknown 07/07/2017 Administered Zostavax IM Intramuscular 04/06/2020 Administered Hepatitis A (adult) Unknown 05/26/2018 Administered Shingrix Unknown 04/06/2020 Administered Problems Problem Type SNOMED Code ICD Code Onset Dates Problem Status W/U Status Risk Notes Problem Essential hypertension (60335102) Essential (primary) hypertension (I10) Active confirmed Problem Sinusitis (28404932) Sinusitis (J32.9) Active confirmed Problem Sciatica (46018517) Sciatica (M54.30) Active co nfirmed Problem Hypertension (22971915) HTN (hypertension) (I10) Active confirmed Problem Hyperlipidemia (53401732) Hyperlipidemia (E78.5) Active confirmed Problem COPD - Chronic obstructive pulmonary disease (81386317) COPD (chronic obstructive pulmonary disease) (J44.9) Active confirmed Problem Otitis externa (1542496) Otitis externa (H60.90) Active confirmed Problem Acute exacerbation of chronic obstructive airways disease (398137738) COPD with exacerbation (J44.1) Active confirmed Problem Osteopenia (360773029) Osteopenia (M85.80) Active confirmed Problem Acute exacerbation of chronic obstructive airways disease (999383957) COPD exacerbation (J44.1) Active confirmed Problem Wlcbx-vj-ldndbvp hypoxemic respiratory failure (24182737200394221) Acute and chronic respiratory failure with hypoxia (J96.21) Active confirmed Problem Gastroesophageal reflux disease (912675412) GERD without esophagitis (K21.9) Active confirmed Problem Acquired hypothyroidism (395653606) Acquired hypothyroidism (E03.9) Active confirmed Problem Bilateral tinnitus (4494096099465) Tinnitus of both ears (H93.13) Active confirmed Problem COPD - Chronic obstructive pulmonary disease (89872583) Chronic obstructive pulmonary disease, unspecified COPD type (J44.9) Active confirmed Problem Lipoma of head (311934179596429) Lipoma of head (D17.0) Active confirmed Problem Hyperlipidaemia (46182322) Hyperlipidemia, unspecified hyperlipidemia type (E78.5) Active confirmed Problem Tobacco use (526015180) Tobacco use disorder (F17.200) Active confirmed Problem 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 Problem Asthma without status asthmaticus (68522601) Asthmatic bronchitis without complication, unspecified asthma severity, unspecified whether persistent (J45.909) Active confirmed Problem Obesity (108610095) Mildly obese (E66.9) Active confirmed Problem Talipes cavus (disorder) (82020387) High foot arch (Q66.7) Active confirmed Problem Primary hypertension (65357102) Primary hypertension (I10) Active confirmed Problem Type II diabetes mellitus without complication (141869263) Type 2 diabetes, HbA1c goal < 7% (E11.9) Active confirmed Vital Signs Heart Rate 102 /min 04/27/2025 Blood pressure diastolic 74 mm Hg 04/27/2025 Height 65 in 04/27/2025 Blood pressure systolic 130 mm Hg 04/27/2025 Weight 230.2 lbs 04/27/2025 BMI 38.3 kg/m2 04/27/2025 Encounters Encounter Location Date Provider [facility] [address] [place], [place] [id number] 06/17/2024 Swati Crowdy Acute URI J06.[address] [facility] [address] [place], [place] [id number] 06/24/2024 Swati Crowdy Bronchitis J40 and O ther fatigue R53.83 [facility] [address] [place], [place] [id number] 2024 Harish Almendarez COPD with exacerbati on J44.1 ; Essential (primary) hypertension I10 ; Tobacco use disorder F17.200 and Acute and chronic respiratory failure with hypoxia J96.21 [facility] [address] [facility] [address] [place], [place] [id number] 01/02/2025 Harish Almendarez COPD (chronic obstructive pulmonary disease) J44.9 and Asthmatic bronchitis without complication, unspecified asthma severity, unspecified whether persistent J45.909 [facility] [address] [place], [place] [id number] 02/10/2025 Swati Willingham Lower extremity say a R60.0 ; COPD (chronic obstructive pulmonary disease) J44.9 and Neck muscle spasm M62.838 [facility] [address] [place], [place] [id number] 04/27/2025 Swati Willingham HTN (hypertension) I 10 ; Routine physical examination Z00.00 ; Hyperlipidemia E78.5 ; GERD without esophagitis K21.9 ; COPD (chronic obstructive pulmonary disease) J44.9 ; Type 2 diabetes, HbA1c goal < 7% E11.9 and Acquired hypothyroidism E03.9 [facility] [address] [place], [place] [id number] 05/20/2024 Swati Tarsha [facility] [address] [place], [place] [id number] 06/23/2024 Swati Willingham [facility] [address] [place], [place] [id number] 06/28/2024 Swati Tarsha [facility] [address] [place], [place] [id number] 12/26/2024 Harish Almendarez [facility] [address] [place], [place] [id number] 12/30/2024 Ranjit Ranger [facility] [address] [place], [place] [id number] 01/10/2025 Ranjit Ranger [facility] [address] [place], [place] [id number] 04/03/2025 Swati Willingham Assessments Encounter Date Diagnosis (ICD Code) Assessment Notes Treatment Notes Treatment Clinical Notes Section Notes 06/17/2024 Acute URI (ICD-10 - J06.9) 06/17/2024 Bronchitis (ICD-10 - J40) Has nebulizer and albuterol vials at home. Will start doing nebs 3-4 times a day. 06/24/2024 Bronchitis (ICD-10 - J40) Will continue nebs and get a CXR. 06/24/2024 Other fatigue (ICD-10 - R53.83) 2024 COPD with exacerbation (ICD-10 - J44.1) 01/02/2025 COPD (chronic obstructive pulmonary disease) (ICD-10 - J44.9) 02/10/2025 Lower extremity edema (ICD-10 - R60.0) Will start back on maxzide. 02/10/2025 COPD (chronic obstructive pulmonary disease) (ICD-10 - J44.9) Doing well, will continue to wean oxygen. 04/27/2025 HTN (hypertension) (ICD-10 - I10) 04/27/2025 Routine physical examination (ICD-10 - Z00.00) 04/27/2025 Hyperlipidemia (ICD-10 - E78.5) 02/10/2025 Neck muscle spasm (ICD-10 - M62.838) 01/02/2025 Asthmatic bronchitis without complication, unspecified asthma severity, unspecified whether persistent (ICD-10 - J45.909) 2024 Essential (primary) hypertension (ICD-10 - I10) 2024 Tobacco use disorder (ICD-10 - F17.200) 04/27/2025 GERD without esophagitis (ICD-10 - K21.9) 04/27/2025 COPD (chronic obstructive pulmonary disease) (ICD-10 - J44.9) 2024 Acute and chronic respiratory failure with hypoxia (ICD-10 - J96.21) 04/27/2025 Type 2 diabetes, HbA1c goal < 7% (ICD-10 - E11.9) 04/27/2025 Acquired hypothyroidism (ICD-10 - E03.9) 01/02/2025 Other MAY RETURN TO WORK Plan Of Treatment Pending Test Test Name Order Date Cologuard 01/13/2022 Cologuard 04/06/2024 CT SCAN : CHEST, LUNG CANCER SCREENING L OW DOSE 04/06/2024 H-TSH 04/27/2025 H-CBC 04/27/2025 H-Lipid Panel 04/27/2025 H-CMP 04/27/2025 H-Glycohemoglobin A1C 04/27/2025 H-T4 free 04/27/2025 Insurance Providers Payer Name Payer Address Payer Phone Subscriber Number Group Number Insured Name Patient Relationship to Insured Coverage Start Date Coverage End Date [facility] [address] [address] [place] [address] [id number] TASHIA CHOW Self - patient is the insured Medications Administered Medication Instructions Date of Administration Dosage Notes Dexamethasone 02/04/2019 1 mL Dexamethasone 07/20/2018 1 mL Depo- Medrol 40 mg/ml 10/11/2015 1.5 mL Medical (General) History Medical History History ICD Code Hypertension Hyperlipidemia Hypothyroidism [place] Palsy Cologua - 2017 Covid Vaccine J&J - 08/25/20 40 pack year smoking history as of 2021 Surgical History Surgery Date(Month/Year) 1991 R foot bone spur 1996 Hospitalization History Reason Date(Month/Year) [facility] ER-[place] 12/18/18
[2025-05-03 08:32] LABS: Hematocrit 44.2 % (37.0-47.0); Hemoglobin 14.6 g/dL (12.2-16.2); Immature Granulocytes % 0.2 %; Mean Corpuscular HGB Conc 33.0 g/dL (31.8-35.4); Mean Corpuscular Hemoglobin 33.1 pg (27.0-31.2); Mean Corpuscular Volume 100.2 fl (81-99); Nucleated Red Blood Cells % 0 %; Platelet Count 280 K/mm3 (142-424); Red Blood Count 4.41 M/mm3 (4.20-5.40); Red Cell Distribution Width-SD 47.8 fL; White Blood Count 8.5 K/mm3 (4.8-10.8)
[2025-05-03 09:13] LABS: Alanine Aminotransferase 17 U/L (12-78); Albumin Level 4.1 g/dl (3.5-5.0); Albumin/Globulin Ratio 2.1 (1.1-1.8); Alkaline Phosphatase 106 U/L (38-126); Anion Gap 7.5 mEq/L (5-15); Aspartate Amino Transferase 23 U/L (14-36); Bilirubin,Total 0.7 mg/dl (0.2-1.3); Blood Urea Nitrogen 16 mg/dl (7-17); Calcium 9.5 mg/dl (8.4-10.2); Carbon Dioxide 30 mmol/L (22.0-30.0); Chloride 100 mmol/L (98-107); Cholesterol 138 mg/dl (140-200); Creatinine,Serum 0.90 mg/dl (0.52-1.04); Estimated Glomerular Filt Rate 64 ml/min (>60); GFR (African American) 77 ML/MIN (>60); Globulin 2.0 g/dL (1.3-3.2); Glucose 94 mg/dl (74-100); HDL Cholesterol 50 mg/dl (40-60); Potassium 4.5 mmoL/L (3.5-5.1); Sodium 133 mmol/L (136-145); Total Protein,Serum 6.1 g/dl (6.3-8.2); Triglycerides 84 mg/dl (30-150)
[2025-05-03 09:31] LABS: Free T4 (Free Thyroxine) 1.75 ng/dl (0.78-2.19)
[2025-05-03 09:45] LABS: Thyroid Stimulating Hormone 1.76 uIU/mL (0.465-4.68)
[2025-05-03 10:04] LABS: Hemoglobin A1C 5.7 % (4.0-6.0)
== END 2025-05-03 23:59 | disposition home or self-care (01) ==
LOC: LAB 07:49
PROVIDERS: PCP Family Medicine; Visit Provider Physician Assistant
DX: E78.5 Hyperlipidemia, unspecified (principal); I10 Essential (primary) hypertension; E03.9 Hypothyroidism, unspecified; E11.9 Type 2 diabetes mellitus without complications
CPT/HCPCS: 80053; 80061; 83036; 84439; 84443; 85025